=== PATIENT | male | born 1990 | race African-American/Black ===

== ENCOUNTER 2017-01-22 12:29 | Inpatient (IN) | payer OTHER ==
[~2017-01-22] VITALS: Ht 177.8 cm; Wt 101.6 kg
[2017-01-22 14:30] VITALS: BP 132/78
[2017-01-22] MEDS ORDERED: PALI6TAB PO (14:43)
[2017-01-22] MEDS ORDERED: CHLO100T24 PO (14:43)
[2017-01-22] MEDS ORDERED: PROP20TA7 PO (14:43)
[2017-01-22] MEDS ORDERED: CHLO50TA24 PO (14:43)
[2017-01-22] MEDS ORDERED: CALC-746 PO (14:43)
--- NOTE | 2017-01-22 14:43 | NUR ---
MS RN OPENING RECEIVED PATIENT A/OX4 DENIES SOB, DIFFICULTY BREATHING OR PAIN. HOME MEDICATIONS TAKEN AND UPDATED. FAXED MEDICATIONS ORDERS FROM DR ALY TO PHARMACY. PATIENT APPEARS STABLE AND SHOWN FLOOR, EDUCATED ON SMOKING POLICY AND HOSPITAL POLICIES. PATIENT STATED UNDERSTANDING. EXECUTIVE SOUS CHEF CHECKING BELONGINGS AND TAKING VS
[2017-01-22] MEDS ORDERED: MAG HYDROX/AL HYDROX/SIMETH 30 ML UDC PO PRN (15:00)
[2017-01-22] MEDS ORDERED: MAGNESIUM HYDROXIDE 30 ML UDC PO PRN (15:00)
[2017-01-22] MEDS ORDERED: ACETAMINOPHEN ES 500 MG TABLET PO PRN (15:00)
[2017-01-22 16:00] VITALS: BP 146/74
[2017-01-22] MEDS ORDERED: CHLORPROMAZINE 50 MG PO SCH (17:00)
[2017-01-22] MEDS: PROPRANOLOL 60 MG PO SCH (17:53)
--- NOTE | 2017-01-22 18:16 | NUR ---
MS RN NOTES PATIENT IN BED RESTING NO SOB OR ACUTE DISTRESS NOTED. PATIENT COMPLIANT. WILL ENDORSE CARE TO PM SHIFT.
[2017-01-22 20:00] VITALS: BP 128/82
[2017-01-22] MEDS: PALIPERIDONE 6 MG PO SCH (21:45)
[2017-01-22] MEDS ORDERED: PALIPERIDONE 6 MG PO SCH (22:00)
[2017-01-22] MEDS ORDERED: THORAZINE PO SCH (22:00)
[2017-01-22] MEDS ORDERED: LORAZEPAM 1 MG TABLET FOR INSOMNIA PO PRN (22:00)
--- NOTE | 2017-01-23 06:58 | NUR ---
MS RN NOTES AWAKE & RESPONSIVE. NOT IN ANY DISTRESS. NO SOB NOTED. DENIES ANY PAIN OR DISCOMFORT AT THIS TIME. MONITORED ACCORDINGLY. 6.5 HRS OF SLEEP. CALL LIGHT WITHIN REACH. BED IN LOWEST POSITION. SR UP X 2 FOR SAFETY. WILL ENDORSE TO NEXT SHIFT.
--- NOTE | 2017-01-23 07:53 | NUR ---
RN OPENING NOTES RECEIVED PATIENT IN THE HALLWAY WALKING AROUND, NO SOB OR DISTRESS NOTED. A/O X 4, VERBALLY RESPONSIVE AND ABLE TO MAKE NEEDS KNOWN. IV INTACT AND PATENT. KEPT PATIENT CLEAN AND COMFORTABLE IN BED, CALL LIGHT WITHIN PATIENT REACH. WILL CONTINUE TO MONITOR ACCORDINGLY.
[2017-01-23 08:00] VITALS: BP 141/70
[2017-01-23] MEDS: CHLORPROMAZINE 50 MG PO SCH ×2 (08:40→17:11)
[2017-01-23] MEDS: PROPRANOLOL 60 MG PO SCH ×2 (08:43→17:11)
--- NOTE | 2017-01-23 13:55 | NUR ---
RN NOTES PATIENT IS WALKING IN THE HALLWAY WITH NO SIGNS OF DISTRESS. PATIENT IS COOPERATIVE.
[2017-01-23 16:00] VITALS: BP 148/76
--- NOTE | 2017-01-23 17:30 | NUR ---
RN NOTES PATIENT IS CALM AND COOPERATIVE. PATIENT WATCHING TV IN HIS ROOM.
--- NOTE | 2017-01-23 18:20 | NUR ---
RN NOTES ALL NEEDS PROVIDED, ATTENDED, AND ANTICIPATED. KEPT PATIENT CLEAN AND COMFORTABLE IN BED, CALL LIGHT WITHIN PATIENT REACH. WILL CONTINUE TO MONITOR ACCORDINGLY. ENDORSED TO NEXT SHIFT RN TO CONTINUE CARE.
--- NOTE | 2017-01-23 19:50 | NUR ---
MS RN NOTE: PATIENT RESTING IN BED, NO ACUTE DISTRESS NOTED. BREATHING EVEN AND UNLABORED, NO SOB NOTED. PATIENT CALM AND COOPERATIVE. BED LOCKED AND IN LOWEST POSITION, CALL LIGHT IN REACH. WILL CONTINUE TO MONITOR.
[2017-01-23 20:00] VITALS: BP 127/73
[2017-01-23] MEDS ORDERED: THORAZINE PO SCH (22:00)
[2017-01-23] MEDS: PALIPERIDONE 6 MG PO SCH (22:09)
--- NOTE | 2017-01-24 04:00 | NUR ---
MS RN NOTE: PATIENT SLEEPING IN BED, NO ACUTE DISTRESS NOTED. BREATHING EVEN AND UNLABORED, NO SOB NOTED. WILL CONTINUE TO MONITOR.
--- NOTE | 2017-01-24 06:15 | NUR ---
MS RN NOTE: PATIENT RESTING IN BED, NO ACUTE DISTRESS NOTED. BREATHING EVEN AND UNLABORED, NO SOB NOTED. PATIENT CALM AND COOPERATIVE. PATIENT SLEPT AT LEAST 7 HOURS OF SLEEP. BED LOCKED AND IN LOWEST POSITION, CALL LIGHT IN REACH. WILL ENDORSE TO DAY NURSE TO CONTINUE WITH PLAN OF CARE.
--- NOTE | 2017-01-24 07:25 | NUR ---
RN OPENING NOTES RECEIVED PATIENT IN BED, ASLEEP, IN SEMI DICKSON POSITION, NO SOB OR DISTRESS NOTED. A/O X 4, VERBALLY RESPONSIVE AND ABLE TO MAKE NEEDS KNOWN. KEPT PATIENT CLEAN AND COMFORTABLE IN BED, CALL LIGHT WITHIN PATIENT REACH. WILL CONTINUE TO MONITOR ACCORDINGLY.
[2017-01-24 08:00] VITALS: BP 111/57
[2017-01-24] MEDS: PROPRANOLOL 60 MG PO SCH ×2 (08:15→17:06)
--- NOTE | 2017-01-24 11:21 | NUR ---
RN NOTES PATIENT WALKING IN THE HALLWAY WITH NO SIGNS OF DISTRESS.
--- NOTE | 2017-01-24 14:10 | NUR ---
RN NOTES PATIENT IS CALM AND COOPERATIVE WITH NO SIGNS OF DISTRESS.
[2017-01-24 16:00] VITALS: BP 134/83
--- NOTE | 2017-01-24 18:15 | NUR ---
RN CLOSING NOTES ALL NEEDS PROVIDED, ATTENDED, AND ANTICIPATED. KEPT PATIENT CLEAN AND COMFORTABLE IN BED. CALL LIGHT WITHIN PATIENT REACH. WILL CONTINUE TO MONITOR ACCORDINGLY. ENDORSED TO NEXT SHIFT RN TO CONTINUE CARE.
[2017-01-24 20:00] VITALS: BP 126/74
[2017-01-24] MEDS ORDERED: NYSTATIN/TRIAMCIN CREAM 15 GM TUBE TP SCH (20:30)
[2017-01-24] MEDS: PALIPERIDONE 6 MG PO SCH (21:50)
[2017-01-24] MEDS: THORAZINE PO SCH (21:51)
--- NOTE | 2017-01-25 06:08 | NUR ---
MS RN NOTES AWAKE & RESPONSIVE. NOT IN ANY DISTRESS. NO SOB NOTED. DENIES ANY PAIN OR DISCOMFORT AT THIS TIME. MONITORED ACCORDINGLY. 8 HRS OF SLEEP. CALL LIGHT WITHIN REACH. BED IN LOWEST POSITION. SR UP X 2 FOR SAFETY. WILL ENDORSE TO NEXT SHIFT.
--- NOTE | 2017-01-25 07:24 | NUR ---
MS RN OPENING RECEIVED PATIENT A/OX4 AWAKE DENIES SOB, DIFFICULTY BREATHING OR PAIN. PATIENT STATES NO NEEDS AT THIS TIME. CALL LIGHT IN REACH, BED LOWERED AND LOCKED, RAILS UPX3 FOR SAFETY AND WILL ROUND Q2H OR LESS PER NEEDS.
[2017-01-25 08:00] VITALS: BP 138/79
[2017-01-25] MEDS ORDERED: NYSTATIN/TRIAMCIN CREAM 15 GM TUBE TP PRN (08:00)
[2017-01-25] MEDS: PROPRANOLOL 60 MG PO SCH ×2 (08:26→16:33)
[2017-01-25 15:59] VITALS: BP 135/83
[2017-01-25 16:00] VITALS: BP 135/83
[2017-01-25] MEDS: LORAZEPAM 1 MG TABLET FOR AGITATION PO PRN (16:33)
--- NOTE | 2017-01-25 18:34 | NUR ---
MS RN CLOSING PATIENT STABLE NO COMPLICATIONS NO CHANGES. ALL DUE MEDS GIVEN AND ALL NEEDS MET. CARE WILL BE ENDORSED TO PASTOR CATALAN FOR N[place]IA. PRN ATIVAN GIVEN ORDERED AND PATIENT STATES RELIEF OF ANXIETY
[2017-01-25 20:00] VITALS: BP 144/90
[2017-01-25] MEDS: PALIPERIDONE 6 MG PO SCH (21:51)
[2017-01-25] MEDS: THORAZINE PO SCH (21:51)
[2017-01-25] MEDS: ZOLPIDEM TARTRATE 10 MG TABLET PO PRN (22:29)
--- NOTE | 2017-01-26 06:34 | NUR ---
MS RN NOTES AWAKE & RESPONSIVE. NOT IN ANY DISTRESS. NO SOB NOTED. DENIES ANY PAIN OR DISCOMFORT AT THIS TIME. MONITORED ACCORDINGLY. 7 HRS OF SLEEP. CALL LIGHT WITHIN REACH. BED IN LOWEST POSITION. SR UP X 2 FOR SAFETY. WILL ENDORSE TO NEXT SHIFT.
--- NOTE | 2017-01-26 07:00 | NUR ---
MS RN OPENING RECEIVED PATIENT A/OX4 DENIES SOB, DIFFICULTY BREATHING OR PAIN. PATIENT STATES HE IS MORE ANXIOUS AND LISTENING TO MUSIC IS HELPING HIM COPE WITH HIS AUDITORY AND VISUAL HALLUCINATIONS. PATIENT STATES NO NEEDS AT THIS TIME AND LEFT WITH CALL LIGHT IN REACH, BED LOWERED AND LOCKED, RAILS UPX3 FOR SAFETY AND WILL ROUND Q2H OR LESS PER NEEDS
[2017-01-26 08:00] VITALS: BP 146/90
[2017-01-26] MEDS: PROPRANOLOL 60 MG PO SCH ×2 (09:40→16:28)
[2017-01-26 16:00] VITALS: BP 141/84
[2017-01-26 17:05] VITALS: BP 141/84
--- NOTE | 2017-01-26 19:45 | NUR ---
MS RN OPENING NOTES: PATIENT JUST CAME FROM SMOKE BREAK, AOX4, AMBULATORY BUT WITH SLIGHT LIMP OVER HIS LEFT FOOT. PATIENT COMPLAINING OF PAIN OVER LEFT FOOT SCALED AT 7-8/10 AND WAS ASKING FOR PAIN MEDICATION AND SNACK. PROVIDED FOR COMFORT AND SAFETY. WILL CONT TO MONITOR.
[2017-01-26 20:00] VITALS: BP 138/83
[2017-01-26] MEDS: IBUPROFEN 200 MG TABLET PO PRN (20:16)
--- NOTE | 2017-01-26 20:17 | NUR ---
RN NOTES: PATIENT COMPLAINED OF 7/10 PAIN OVER LEFT FOOT. ADMINISTERED MOTRIN 600 MG PO. WILL CONT TO MONITOR.
--- NOTE | 2017-01-27 06:35 | NUR ---
MS RN CLOSING NOTES: PATIENT IN BED, AOX4, ON ROOM AIR, BREATHING EVEN AND UNLABORED. APPEARS CALM AND IN NO DISTRESS. NO VERBALIZATION OF PARANOID, ERRATIC THOUGHTS NOTED FROM PATIENT THROUGH SHIFT. WAS ABLE TO SLEEP FOR 7 HOURS THIS NIGHT. PROVIDED FOR COMFORT AND SAFETY. WILL ENDORSE TO AM RN FOR N[place]IA.
--- NOTE | 2017-01-27 07:19 | NUR ---
MS RN OPENING NOTES: PATIENT RECEIVED AWAKE IN BED IN NO ACUTE SIGNS OF DISTRESS AND LISTENING TO HIS RADIO. ALERT AND ORIENTED X4, NO C/O PAIN OR DISCOMFORTS VOICED AT THIS TIME. ON ROOM AIR, BREATHING EVEN AND UNLABORED. CALL LIGHT WITHIN REACH. BED LOW AND LOCKED FOR SAFETY. WILL CONTINUE TO MONITOR ACCORDINGLY.
[2017-01-27 08:00] VITALS: BP 124/77
[2017-01-27] MEDS: PROPRANOLOL 60 MG PO SCH ×2 (08:26→17:19)
[2017-01-27 16:00] VITALS: BP 148/81
--- NOTE | 2017-01-27 18:41 | NUR ---
MS RN CLOSING NOTES: PATIENT RESTING IN BED ALERT AND ORIENTED X4, NO SIGNIFICANT CHANGES NOTED THROUGHOUT THE DAY. AMBULATORY AND ABLE TO MAKE NEEDS KNOWN. ALL NEEDS AND CARE ATTENDED WELL. ON ROOM AIR, BREATHING EVEN AND UNLABORED. CALL LIGHT WITHIN REACH. BED LOW AND LOCKED FOR SAFETY. WILL ENDORSED TO ALL ROUND LOGGER FOR CONTINUITY OF CARE.
--- NOTE | 2017-01-27 19:30 | NUR ---
RN NOTE; RECEIVED PT IN BED AWAKE AND ALERT. BREATHING EVENLY. NO DISTRESS. DENIED ANY DISCOMFORT. TRIAL MEDICATION ANANT WELL. WILL CONT TO MONITOR.
[2017-01-27 20:00] VITALS: BP 136/82
[2017-01-27 20:20] VITALS: BP 136/82
--- NOTE | 2017-01-28 06:22 | NUR ---
RN NOTE; PT IN BED SLEEPING, AROUSES EASILY. BREATHING EVENLY. NO SOB. NAD. NO ACUTE CHANGES OVER THE NIGHT . NO BEHAVIORAL OR PSYCH ISSUES NOTED. NO PRN MED GIVEN. SLEPT WELL DURING THE NIGHT. CALL LIGHT WITHIN REACH. WILL CONT TO MONITOR AND WILL ENDORSE TO AM SHIFT FOR NGHIA.
[2017-01-28] MEDS: LORAZEPAM 1 MG TABLET FOR AGITATION PO PRN (06:43)
--- NOTE | 2017-01-28 06:44 | NUR ---
RN NOTE; ATIVAN 1MG GIVEN ORDERED FOR C/O ANXIETY. WILL CONT TO MONITOR
[2017-01-28 08:00] VITALS: BP 137/75
[2017-01-28] MEDS: PROPRANOLOL 60 MG PO SCH ×2 (08:46→17:00)
[2017-01-28 16:00] VITALS: BP 114/70
--- NOTE | 2017-01-28 18:35 | NUR ---
MS BAUMANN CLOSING PATIENT STABLE NO COMPLICATIONS NO CHANGES. ALL DUE MEDS GIVEN AND ALL NEEDS MET. CARE WILL BE ENDORSED TO PASTOR CATALAN FOR N[place]IA. PRN ATIVAN GIVEN ORDERED AND PATIENT STATES RELIEF OF ANXIETY Addendum: 01/28/17 at 1835 by KENDALL VIRAMONTES RN PATIENT DID NOT WANT ATIVAN
--- NOTE | 2017-01-28 19:49 | NUR ---
RN NOTE; PT UP IN CHAIR HAVING DINNER. BREATHING EVENLY . NO SOB. NO DISTRESS. NO PSYCH OR BEHAVIORAL ISSUES. WILL CONT TO MONITOR.
[2017-01-28 20:00] VITALS: BP 132/82
[2017-01-28] MEDS ORDERED: LORAZEPAM 1 MG TABLET PO PRN (21:30)
--- NOTE | 2017-01-29 06:57 | NUR ---
RN NOTE; PT IN BED SLEEPING, BREATHING EVENLY. NO SOB. NAD. NO PSYCH OR BEHAVIORAL ISSUES DURING THE NIGHT . REMAINED STABLE. NPO FOR BLOOD DRAW TODAY. ASSISTED W/ ADLS. CALL LIGHT WITHIN REACH. WILL CONT TO MONITOR.
--- NOTE | 2017-01-29 07:00 | NUR ---
MS RN OPENING RECEIVED PATIENT A/OX4 DENIES SOB, DIFFICULTY BREATHING OR PAIN. PATIENT IS LISTENING TO MUSIC TO HELP HIM COPE WITH HIS AUDITORY AND VISUAL HALLUCINATIONS. PATIENT STATES NO NEEDS AT THIS TIME AND LEFT WITH CALL LIGHT IN REACH, BED LOWERED AND LOCKED, RAILS UPX3 FOR SAFETY AND WILL ROUND Q2H OR LESS PER NEEDS
[2017-01-29 08:00] VITALS: BP 131/76
[2017-01-29 08:07] VITALS: BP 131/76
[2017-01-29] MEDS: INVEST MED MK-8189 MISC 1 CAP EA PO SCH (09:00)
[2017-01-29] MEDS: INVEST MED MK-8189 MISC 1 TAB EA PO SCH (09:00)
[2017-01-29] MEDS: PROPRANOLOL 60 MG PO SCH ×2 (09:47→17:35)
--- NOTE | 2017-01-29 10:25 | NUR ---
MS RN NOTES PATIENT FIRST DOSE OF MEDICATION GIVEN AT DOCTOR OFFICE. WILL RESUME TOMORROW FOR PATIENT
[2017-01-29] MEDS ORDERED: LORAZEPAM 1 MG TABLET FOR INSOMNIA PO PRN (12:00)
[2017-01-29] MEDS ORDERED: LORAZEPAM 1 MG TABLET FOR AGITATION PO PRN (12:00)
[2017-01-29 16:00] VITALS: BP 134/76
--- NOTE | 2017-01-29 18:30 | NUR ---
MS RN CLOSING PATIENT STABLE NO COMPLICATIONS NO CHANGES. ALL DUE MEDS GIVEN AND ALL NEEDS MET. CARE WILL BE ENDORSED TO RN FOR NGHIA.
--- NOTE | 2017-01-29 19:30 | NUR ---
MSRN SEEN BY DR. ALY, NO FURTHER ORDERS. WENT OUT FOR SMOKE WITH [employer]. NO DISCOMFORTS MADE.
[2017-01-29 20:00] VITALS: BP 131/80
[2017-01-29] MEDS: ZOLPIDEM TARTRATE 10 MG TABLET PO PRN (22:01)
--- NOTE | 2017-01-29 23:20 | NUR ---
MSRN SLEPT GOOD AFTER AMBIEN. NO OTHER NEEDS MADE.
--- NOTE | 2017-01-30 07:00 | NUR ---
MSRN HOURS OF SLEEP, 8 HRS.
--- NOTE | 2017-01-30 07:35 | NUR ---
RN NOTES PATIENT AWAKE,ALERT AND VERBALLY RESPONSIVE ABLE TO MAKE NEEDS KNOWN, RESPIRATIONS EVEN AND UNLABORED, IN NO APPARENT PAIN OR DISCOMFORT. PATIENT KEPT CLEAN DRY AND COMFORTABLE, NO IV SITE, OKAY PER MD. WILL CONTINUE TO MONITOR AND CONTINUE CURRENT TREATMENT ORDERED. CALL LIGHT WITHIN EASY REACH, WILL CONTINUE TO MONITOR
[2017-01-30 08:00] VITALS: BP 129/82
[2017-01-30] MEDS: INVEST MED MK-8189 MISC 1 CAP EA PO SCH (09:34)
[2017-01-30] MEDS: INVEST MED MK-8189 MISC 1 TAB EA PO SCH (09:35)
[2017-01-30] MEDS: PROPRANOLOL 60 MG PO SCH ×2 (09:35→16:46)
[2017-01-30 16:00] VITALS: BP 124/60
[2017-01-30] MEDS ORDERED: LORAZEPAM 1 MG TABLET PO PRN (17:30)
[2017-01-30 20:00] VITALS: BP 151/71
[2017-01-30] MEDS: ZOLPIDEM TARTRATE 10 MG TABLET PO PRN (22:34)
--- NOTE | 2017-01-30 22:45 | NUR ---
MS RN NOTE: PATIENT REQUESTING FOR ATIVAN AND AMBIEN TO HELP SLEEP. ATIVAN 1MG ORAL AND AMBIEN 10MG ORAL GIVEN PER MD ORDER. WILL CONTINUE TO MONITOR.
--- NOTE | 2017-01-31 06:20 | NUR ---
MS RN NOTE: PATIENT RESTING IN BED, NO ACUTE DISTRESS NOTED. BREATHING EVEN AND UNLABORED, NO SOB NOTED. PATIENT CALM AND COOPERATIVE. PATIENT SLEPT AT LEAST 8 HOURS OF SLEEP. BED LOCKED AND IN LOWEST POSITION, CALL LIGHT IN REACH. WILL ENDORSE TO DAY NURSE TO CONTINUE WITH PLAN OF CARE.
--- NOTE | 2017-01-31 07:25 | NUR ---
ms rn initial notes Received patient in bed, asleep, head of bed elevated, no SOB or distress noted. Calm and no aggressive behavior noted. Alert and oriented x 4, verbally responsive and able to make needs known. No IV HL. Kept patient clean and comfortable in bed, call light with in patient reach, will continue to monitor accordingly.
[2017-01-31 08:00] VITALS: BP 140/65
[2017-01-31] MEDS: INVEST MED MK-8189 MISC 1 CAP EA PO SCH (09:04)
[2017-01-31] MEDS: INVEST MED MK-8189 MISC 1 TAB EA PO SCH (09:05)
[2017-01-31] MEDS: PROPRANOLOL 60 MG PO SCH ×2 (09:06→16:55)
[2017-01-31 16:00] VITALS: BP 142/73
[2017-01-31 16:11] VITALS: BP 142/73
--- NOTE | 2017-01-31 19:14 | NUR ---
ms rn closing notes All needs provided, attended, and anticipated. Kept patient clean and comfortable in bed, call light with in patient reach. Endorsed to next shift RN to continue care.
--- NOTE | 2017-01-31 19:50 | NUR ---
RN INITIAL NOTES: RECEIVED REPORT FROM NARA BAUMANN, PT SITTING ON A CHAIR, LISTENING TO MUSIC, A/O X4, DENIES ANY PAIN OR DISCOMFORT AT THIS TIME, NO IV PER DR ALY, PT ALLOWED TO GO DOWN FOR SMOKING BREAK ACCOMPANIED BY TRANSPLANT REGISTERED NURSE, WILL CONTINUE TO MONITOR
[2017-01-31 20:00] VITALS: BP_SYST 135; BP_SYST 139; BP_DIAS 73; BP_DIAS 74
--- NOTE | 2017-01-31 21:30 | NUR ---
SMOKING BREAK: PT REQUESTED TO GO DOWN TO SMOKE, PT WAS ACCOMPANIED BY OK STANTON,
--- NOTE | 2017-02-01 06:36 | NUR ---
RN CLOSING NOTES: PT IN BED, AWAKE, DENIES ANY PAIN OR DISCOMFORT AT THIS TIME, PT ABLE TO GET AT LEAST 8HOURS OF SLEEP. PT DENIES ANY PLAN OF HURTING HIMSELF. VS REMAINS STABLE, NEEDS ATTENDED, NO UNTOWARD EVENT HAPPENED THROUGHOUT THE SHIFT, BED BRAKES ENGAGED, CALL LIGHT IN REACH, WILL ENDORSE TO DAY RN FOR NGHIA.
--- NOTE | 2017-02-01 07:30 | NUR ---
ms rn initial notes Received patient in bed, awake, sitting on the chair. On room air and tolerated well. No SOB or distress noted. On calm and comfortable condition. No aggressive behavior noted. No IV access. No complaint of pain or discomfort noted. Kept patient clean and comfortable in bed, call light with in patient reach, will continue to monitor accordingly.
[2017-02-01 08:00] VITALS: BP 144/77
[2017-02-01] MEDS: PROPRANOLOL 60 MG PO SCH ×2 (09:09→16:54)
[2017-02-01] MEDS: INVEST MED MK-8189 MISC 2 TAB EA PO SCH (09:09)
[2017-02-01] MEDS: INVEST MED MK-8189 MISC 2 CAP EA PO SCH (09:10)
[2017-02-01 16:00] VITALS: BP_SYST 129; BP_DIAS 65; BP_DIAS 69
--- NOTE | 2017-02-01 19:40 | NUR ---
RN INITIAL NOTES: RECEIVED REPORT FROM NARA BAUMANN, A/O X4, DENIES ANY PAIN OR DISCOMFORT AT THIS TIME, SAFETY PRECAUTIONS FOR FALL INITIATED CALL LIGHT IN REACH WILL CONTINUE TO MONITOR
--- NOTE | 2017-02-01 21:30 | NUR ---
SMOKE BREAK: PT REQUESTED TO GO DOWN TO SMOKE, ACCOMPANIED BY OK SALAZAR
[2017-02-01 22:20] VITALS: BP 139/74
--- NOTE | 2017-02-02 06:42 | NUR ---
RN CLOSING NOTES: PT IN BED, AWAKE, DENIES ANY PAIN OR DISCOMFORT AT THIS TIME, PT ABLE TO GET AT LEAST 10 HOURS OF SLEEP. PT DENIES ANY PLAN OF HURTING HIMSELF. VS REMAINS STABLE, NEEDS ATTENDED, NO UNTOWARD EVENT HAPPENED THROUGHOUT THE SHIFT, BED BRAKES ENGAGED, CALL LIGHT IN REACH, WILL ENDORSE TO DAY RN FOR N[place]IA.
--- NOTE | 2017-02-02 07:30 | NUR ---
MS RN AM NOTES PT AWAKE, ORIENTED X 3, ON ROOM AIR, NOT IN ANY DISTRESS. DENIES ANY PAIN AT THIS TIME. NO IV ACCESS. AMBULATORY, NO SKIN ISSUES. CALL LIGHT WITHIN REACH. BED LOW LOCKED. SR UP X 2, INSTRUCTED TO CALL FOR ASSISTANCE. SAFETY MEASURES IN PLACE. WILL CONTINUE TO MONITOR.
[2017-02-02 08:00] VITALS: BP 119/72
[2017-02-02] MEDS: PROPRANOLOL 60 MG PO SCH ×2 (09:00→17:32)
[2017-02-02] MEDS: INVEST MED MK-8189 MISC 2 CAP EA PO SCH (09:00)
[2017-02-02] MEDS: INVEST MED MK-8189 MISC 2 TAB EA PO SCH (09:00)
--- NOTE | 2017-02-02 09:30 | NUR ---
MS RN NOTES ADMINISTERED DUE MEDS
[2017-02-02 16:00] VITALS: BP 127/55
[2017-02-02 18:00] VITALS: BP 127/55
--- NOTE | 2017-02-02 18:30 | NUR ---
MS RN NOTES PT RESTING IN BED, AAO X 4, ON ROOM AIR, NOT IN ANY DISTRESS. DENIES ANY PAIN AT THIS TIME. NO IV ACCESS. AMBULATORY, NO SKIN ISSUES. CALL LIGHT WITHIN REACH. BED LOW LOCKED. SR UP X 2, INSTRUCTED TO CALL FOR ASSISTANCE. VSS. SAFETY MEASURES IN PLACE. ALL NEEDS MET. WILL ENDORSE TO NEXT SHIFT FOR N[place]IA.
--- NOTE | 2017-02-02 19:16 | NUR ---
MS/RN NOTES RECEIVED PT. LYING IN BED. AWAKE, ALERT AND ORIENTED X4. BREATHING EVEN AND UNLABORED ON ROOM AIR. NO SOB, RESPIRATORY DISTRESS OR COMPLAINTS OF PAIN NOTED AT THIS TIME. PT. HAS NO IV ACCESS MD AWARE. NO BEHAVIORAL ISSUES NOTED AT THIS TIME. BED IN LOWEST POSITION, CALL LIGHT WITHIN REACH, WILL CONTINUE TO MONITOR.
[2017-02-02 20:03] VITALS: BP 131/69
[2017-02-02 20:04] VITALS: BP 131/69
--- NOTE | 2017-02-03 01:00 | NUR ---
MS/RN NOTES PT. LYING IN BED RESTING. NO BEHAVIORAL PROBLEMS NOTED. PT. BREATHING EVEN AND UNLABORED ON ROOM AIR. NO S/S OF PAIN NOTED AT THIS TIME. WILL CONTINUE TO MONITOR.
--- NOTE | 2017-02-03 06:09 | NUR ---
MS/RN NOTES PT. LYING IN BED RESTING. BREATHING EVEN AND UNLABORED ON ROOM AIR. NO SOB, RESPIRATORY DISTRESS OR COMPLAINTS OF PAIN NOTED AT THIS TIME. PT. HAS NO IV ACCESS MD AWARE. NO BEHAVIORAL ISSUES NOTED AT THIS TIME AND THROUGHOUT SHIFT. ALL PT. NEEDS MET. PT. APPEARS COMFORTABLE AT THE MOMENT. BED IN LOWEST POSITION, CALL LIGHT WITHIN REACH, WILL ENDORSE TO DAYSHIFT NURSE FOR CONTINUITY OF CARE.
[2017-02-03 08:00] VITALS: BP 137/70
[2017-02-03] MEDS: INVEST MED MK-8189 MISC 2 CAP EA PO SCH (09:02)
[2017-02-03] MEDS: PROPRANOLOL 60 MG PO SCH ×2 (09:02→17:19)
[2017-02-03] MEDS: INVEST MED MK-8189 MISC 2 TAB EA PO SCH (09:02)
[2017-02-03 16:00] VITALS: BP 113/55
[2017-02-03 18:00] VITALS: BP 113/55
--- NOTE | 2017-02-03 19:20 | NUR ---
RN OPEN NOTES RECEIVED PATIENT AWAKE SITTING IN CHAIR. A/O X4. NO SIGNS OF DISTRESS OR DISCOMFORT. BREATHING EVEN AND UNLABORED. NO IV ACCESS. DENIES ANY PAIN. BED IN LOW LOCKED POSITION WITH SIDE RAILS X2. CALL LIGHT WITHIN REACH. WILL CONTINUE TO MONITOR.
[2017-02-03 20:00] VITALS: BP 119/66
--- NOTE | 2017-02-03 20:05 | NUR ---
RN NOTES RN NOTES PATIENT WENT DOWN TO SMOKE. ACCOMPANIED BY PATIENT AND FAMILY MEMBER OF ROOM 208.
--- NOTE | 2017-02-03 21:30 | NUR ---
RN NOTES PATIENT WENT DOWN TO SMOKE. ACCOMPANIED BY MANAV EUCEDA.
--- NOTE | 2017-02-04 06:35 | NUR ---
RN CLOSING NOTES PATIENT RESTING IN BED. A/O X4. NO SIGNS OF DISTRESS OR DISCOMFORT. BREATHING EVEN AND UNLABORED. NO IV ACCESS. DENIES ANY PAIN. NO BEHAVIORAL ISSUES NOTED THROUGHOUT SHIFT. PATIENT ABLE TO SLEEP ABOUT 8 HOURS. ALL NEEDS MET. BED IN LOW LOCKED POSITION WITH SIDE RAILS X2. CALL LIGHT WITHIN REACH. WILL ENDORSE TO AM SHIFT FOR N[place]IA.
--- NOTE | 2017-02-04 07:05 | NUR ---
MS RN INITIAL NOTES REPORT RECEIVED AT THE BEDSIDE. PATIENT IS SLEEPING, NO SOB OR DISTRESS NOTED.
[2017-02-04 08:16] VITALS: BP 129/71
[2017-02-04] MEDS: INVEST MED MK-8189 MISC 3 TAB EA PO SCH (08:31)
[2017-02-04] MEDS: INVEST MED MK-8189 MISC 3 CAP EA PO SCH (08:31)
[2017-02-04] MEDS: PROPRANOLOL 60 MG PO SCH ×2 (08:31→16:57)
--- NOTE | 2017-02-04 10:40 | NUR ---
MS RN NOTES PATIENT REQUESTING CREDIT CARDS FROM [employer]. REMOVED AND ALL UPDATED AND CORRECTED AND ACCOUNTED FOR ON BELONGINGS LIST.
[2017-02-04 16:00] VITALS: BP 109/71
--- NOTE | 2017-02-04 19:04 | NUR ---
MS RN CLOSING NOTES NO SIGNIFICANT CHANGE IN PATIENT CONDITION THROUGHOUT THE SHIFT. NO SOB OR DISTRESS NOTED AT THIS TIME. PATIENT DENIES PAIN AT THIS TIME. BED IN A LOW POSITION, CALL LIGHT WITHIN PATIENT REACH. WILL ENDORSE FOR N[place]IA.
--- NOTE | 2017-02-04 19:10 | NUR ---
MS RN NOTES RECEIVED PT IN BED, AWAKE, A/O X 4. VERBALLY RESPONSIVE. LISTENING TO MUSIC AT THIS TIME. NO DISTRESS, NO SOB NOTED AT THIS TIME. RESPIRATION IS EVEN AND UNLABORED. ABDOMEN IS SOFT AND NON DISTENDED. NO C/O PAIN OR DISCOMFORT AT THIS TIME. ALL NEEDS ATTENDED. KEPT COMFORTABLE. CALL LIGHT WITHIN REACH. WILL CONTINUE TO MONITOR.
[2017-02-04 20:00] VITALS: BP 124/63
--- NOTE | 2017-02-05 06:22 | NUR ---
MS RN NOTES PT IN BED, RESTING COMFORTABLY AT THIS TIME. AROUSES EASILY, A/O X 4. VERBALLY RESPONSIVE. PT IS STABLE. NO DISTRESS, NO SOB NOTED AT THIS TIME. RESPIRATION IS EVEN AND UNLABORED. ABDOMEN IS SOFT AND NON DISTENDED. NO C/O PAIN OR DISCOMFORT. ALL NEEDS ATTENDED & MET. KEPT COMFORTABLE. CALL LIGHT WITHIN REACH. SAFETY PRECAUTIONS OBSERVED. WILL ENDORSE TO NEXT SHIFT FOR N[place]IA.
--- NOTE | 2017-02-05 06:51 | NUR ---
PT'S HOURS OF SLEEP : 8 HOURS.
--- NOTE | 2017-02-05 07:19 | NUR ---
MS RN OPENING NOTES RECEIVED PATIENT AWAKE AND SITTING ON CHAIR BY BEDSIDE. ALERT AND ORIENTED X4, NO COMPLAINTS OF PAIN OR DISCOMFORTS AT THIS TIME. ON ROOM AIR, RESPIRATION EVEN WITH NO SIGNS OF SOB NOTED. WILL CONTINUE TO MONITOR PT ACCORDINGLY.
[2017-02-05 08:00] VITALS: BP 114/64
[2017-02-05] MEDS: INVEST MED MK-8189 MISC 3 TAB EA PO SCH (08:09)
[2017-02-05] MEDS: INVEST MED MK-8189 MISC 3 CAP EA PO SCH (08:10)
[2017-02-05] MEDS: PROPRANOLOL 60 MG PO SCH ×2 (09:39→17:07)
[2017-02-05 16:00] VITALS: BP 125/73
--- NOTE | 2017-02-05 19:11 | NUR ---
MS RN CLOSING NOTES: PATIENT AWAKE AND RESTING IN BED. A/O X4, NO SIGNIFICANT CHANGES NOTED THROUGHOUT THE DAY. AMBULATORY AND ABLE TO MAKE NEEDS KNOWN. ALL NEEDS AND CARE ATTENDED WELL. ON ROOM AIR, BREATHING EVEN AND UNLABORED. CALL LIGHT WITHIN REACH. BED LOW AND LOCKED FOR SAFETY. ENDORSED TO AGRICULTURAL EQUIPMENT SALESPERSON FOR CONTINUITY OF CARE.
[2017-02-05 20:00] VITALS: BP 118/52
[2017-02-05] MEDS: LORAZEPAM 1 MG TABLET FOR INSOMNIA PO PRN (23:52)
[2017-02-05] MEDS: ZOLPIDEM TARTRATE 10 MG TABLET PO PRN (23:52)
--- NOTE | 2017-02-06 07:18 | NUR ---
MS RN NOTES PT IN BED, RESTING COMFORTABLY AT THIS TIME. AROUSES EASILY, A/O X 4. VERBALLY RESPONSIVE. PT IS STABLE. NO DISTRESS, NO SOB NOTED AT THIS TIME. RESPIRATION IS EVEN AND UNLABORED. ABDOMEN IS SOFT AND NON DISTENDED. NO C/O PAIN OR DISCOMFORT. PT ABLE TO SLEEP FOR 6 HOURS ALL NEEDS ATTENDED & MET. KEPT COMFORTABLE. CALL LIGHT WITHIN REACH. SAFETY PRECAUTIONS OBSERVED. WILL ENDORSE TO NEXT SHIFT FOR N[place]IA.
--- NOTE | 2017-02-06 07:26 | NUR ---
MS RN OPENING NOTES RECEIVED PATIENT AWAKE IN BED IN NO ACUTE SIGNS OF DISTRESS. ALERT AND ORIENTED X4, QUIET, CALM AND APPEARS COMFORTABLE. NO C/O PAIN VOICED AT THIS TIME. ON ROOM AIR, RESPIRATION EVEN AND UNLABORED. CALL LIGHT WITHIN REACH. WILL CONTINUE TO MONITOR PT ACCORDINGLY.
[2017-02-06 08:00] VITALS: BP 146/78
[2017-02-06 08:25] VITALS: BP 146/78
[2017-02-06] MEDS: INVEST MED MK-8189 MISC 3 CAP EA PO SCH (09:09)
[2017-02-06] MEDS: INVEST MED MK-8189 MISC 3 TAB EA PO SCH (09:09)
[2017-02-06] MEDS: PROPRANOLOL 60 MG PO SCH ×2 (09:09→16:34)
[2017-02-06 16:00] VITALS: BP 118/71
--- NOTE | 2017-02-06 18:53 | NUR ---
MS RN CLOSING NOTES: PATIENT RESTING IN BED LISTENING TO MUSIC ON HIS CELLPHONE. A/O X4, NO SIGNIFICANT CHANGES NOTED THROUGHOUT THE DAY. AMBULATORY AND ABLE TO MAKE NEEDS KNOWN. ALL NEEDS AND CARE ATTENDED WELL. ON ROOM AIR, BREATHING EVEN AND UNLABORED. CALL LIGHT WITHIN REACH. BED LOW AND LOCKED FOR SAFETY. WILL ENDORSED TO CARBIDE GRINDER FOR CONTINUITY OF CARE.
[2017-02-06 20:00] VITALS: BP 127/72
--- NOTE | 2017-02-06 20:20 | NUR ---
MSRMounika OOB ON A CHAIR, NO NEEDS MADE STATED WANTED TO HAVE SOME PRIVATE TIME ALONE.
--- NOTE | 2017-02-06 21:00 | NUR ---
MSRN CAME BACK FROM SMOKING ACCPD BY STAFF. NO NEEDS MADE. BEHAVIOR ACCEPTABLE.
--- NOTE | 2017-02-06 22:30 | NUR ---
MSRN STARTED TO SLEEP THIS TIME.
--- NOTE | 2017-02-07 07:30 | NUR ---
MSRN TOTAL HOURS OF SLEEP 9 HRS.
--- NOTE | 2017-02-07 07:33 | NUR ---
MS RN INITIAL NOTE REPORT RECEIVED AT THE BEDSIDE. PATIENT IS SLEEPING. NO SOB OR DISTRESS NOTED AT THIS TIME. PATIENT DOES NOT APPEAR TO BE IN PAIN, NO FACIAL GRIMACE NOTED. BED IN A LOW POSITION, CALL LIGHT WITHIN PATIENT REACH. WILL CONTINUE TO MONITOR.
[2017-02-07 08:00] VITALS: BP 119/74
[2017-02-07] MEDS: INVEST MED MK-8189 MISC 3 TAB EA PO SCH (08:24)
[2017-02-07] MEDS: INVEST MED MK-8189 MISC 3 CAP EA PO SCH (08:24)
[2017-02-07] MEDS: PROPRANOLOL LA 60 MG CAP.SA.24H PO SCH ×2 (08:25→16:24)
[2017-02-07 16:00] VITALS: BP 120/71
--- NOTE | 2017-02-07 19:00 | NUR ---
MS RN CLOSING NOTES NO SIGNIFICANT CHANGES IN PATIENT CONDITION THROUGHOUT THE SHIFT. NO SOB OR DISTRESS NOTED AT THIS TIME. PATIENT DENIES PAIN. BED IN A LOW POSITION, CALL LIGHT WITHIN PATIENT REACH. WILL ENDORSE FOR N[place]IA.
[2017-02-07 20:00] VITALS: BP 130/87
[2017-02-08] MEDS: ZOLPIDEM TARTRATE 10 MG TABLET PO PRN (00:39)
[2017-02-08] MEDS: LORAZEPAM 1 MG TABLET FOR INSOMNIA PO PRN ×2 (00:39→22:31)
--- NOTE | 2017-02-08 06:18 | NUR ---
MS RN NOTES AWAKE & RESPONSIVE. NOT IN ANY DISTRESS. NO SOB NOTED. DENIES ANY PAIN OR DISCOMFORT AT THIS TIME. MONITORED ACCORDINGLY. 6 HOURS OF SLEEP. CALL LIGHT WITHIN REACH. BED IN LOWEST POSITION. SR UP X 2 FOR SAFETY. WILL ENDORSE TO NEXT SHIFT.
[2017-02-08 08:00] VITALS: BP 130/76
[2017-02-08] MEDS: PROPRANOLOL LA 60 MG CAP.SA.24H PO SCH ×2 (09:24→16:15)
[2017-02-08] MEDS: INVEST MED MK-8189 MISC 3 CAP EA PO SCH (09:24)
[2017-02-08] MEDS: INVEST MED MK-8189 MISC 3 TAB EA PO SCH (09:25)
[2017-02-08 16:00] VITALS: BP 131/80
--- NOTE | 2017-02-08 19:35 | NUR ---
MSRN FULLY AWAKE, BEHAVIOR ACCEPTABLE. STATED BY PATIENT WILL CALL STAFF FOR ANY NEEDS /CONCERNS. COOPERATIVE, FREQ WATCHED.
[2017-02-08 20:00] VITALS: BP 144/71
--- NOTE | 2017-02-08 22:03 | NUR ---
CHECO OUT OF THE ROOM AT THIS TIME WITH STAFF.
--- NOTE | 2017-02-08 22:30 | NUR ---
MSRN AGITATED, WANTS 2MG ATIVAN. MEDICATION REGIMEN EXPLAINED TO PATIENT, WELL UNDERSTOOOD. TOOK 1MG TAB OF ATIVAN.
[2017-02-09] MEDS: ZOLPIDEM TARTRATE 10 MG TABLET PO PRN (00:19)
--- NOTE | 2017-02-09 00:20 | NUR ---
MSRN UNABLE TO SLEEP, MARE CALMER THIS TIME. LATE SNACKS PROVIDED. 10MG TAB OF AMBIEN GIVEN. BEDREST INSTRUCTED.
--- NOTE | 2017-02-09 01:30 | NUR ---
msrn SLEEPING, APPEARS COMFORTABLE. CLOSELY WATCHED
--- NOTE | 2017-02-09 06:48 | NUR ---
MSRN SLEEPING STILL. HOURS OF SLEEP 7
[2017-02-09 08:00] VITALS: BP 140/76
--- NOTE | 2017-02-09 08:00 | NUR ---
MS 2 RN AM CLINICAL TRIAL NOTES RECEIVED PT ALERT AND AMBULATING ALONG THE HALLWAY LISTENING TO LOUD MUSIC WHICH I INSTRUCTED THE PT TO LOWER THE RADIO'S VOLUME SO NOT TO BOTHER OTHER PTS WHO ARE SLEEPING.NO SOB OR DISTRESS NOTED AT THIS TIME. PATIENT DENIES PAIN, NO FACIAL GRIMACE NOTED. BED IN A LOW POSITION, CALL LIGHT WITHIN PATIENT REACH. WILL CONTINUE TO MONITOR.
[2017-02-09] MEDS: INVEST MED MK-8189 MISC 3 TAB EA PO SCH (09:38)
[2017-02-09] MEDS: PROPRANOLOL LA 60 MG CAP.SA.24H PO SCH ×2 (09:38→17:54)
[2017-02-09] MEDS: INVEST MED MK-8189 MISC 3 CAP EA PO SCH (09:39)
[2017-02-09 16:00] VITALS: BP 130/67
[2017-02-09] MEDS ORDERED: LORAZEPAM 1 MG TABLET PO PRN (17:30)
[2017-02-09] MEDS: LORAZEPAM 1 MG TABLET FOR AGITATION PO PRN (17:57)
--- NOTE | 2017-02-09 19:00 | NUR ---
PT IN THE HALLWAY WITH OTHER CLINICAL TRIAL PTS.ATIVAN 1 MG PO GIVEN.DENIES ANY DISTRESS OR PAIN.
--- NOTE | 2017-02-09 19:45 | NUR ---
MS RN NOTES RECEIVED ON BED,CALM AND RELAX,ABLE TO ANSWER QUESTION RIGHT,VERY POLITE.WILL CONTINUE TO MONITOR BEHAVIOR
[2017-02-09 20:00] VITALS: BP 143/84
[2017-02-09 20:01] VITALS: BP 143/84
--- NOTE | 2017-02-09 20:40 | NUR ---
MS RN NOTES WENT DOWN TO GET SOME FRESH AIR ACCOMPANIED BY AIDAN ADAM CNA
[2017-02-10] MEDS: ZOLPIDEM TARTRATE 10 MG TABLET PO PRN ×2 (00:44→22:04)
[2017-02-10] MEDS: LORAZEPAM 1 MG TABLET FOR AGITATION PO PRN (00:44)
--- NOTE | 2017-02-10 00:44 | NUR ---
MS RN NOTES CO INSOMNIA,AMBIEN 10MG PO GIVEN.FEELING ANXIOUS,ATIVAN 1MG PO GIVEN
--- NOTE | 2017-02-10 02:00 | NUR ---
MS RN NOTES SOUND ASLEEP
--- NOTE | 2017-02-10 06:54 | NUR ---
MS RN NOTES NO SIGNIFICANT CHANGE IN STATUS.REMAINS MED COMPLIANT.WILL CONTINUE WITH CLINICAL STUDY PROGRAM.ENDORSE TO DANIELLE FOR NGHIA.
[2017-02-10 08:00] VITALS: BP 130/71
--- NOTE | 2017-02-10 08:00 | NUR ---
MS 2 RN AM CLINICAL TRIAL NOTES RECEIVED PT ALERT AND AMBULATING ALONG THE HALLWAY LISTENING TO LOUD MUSIC WHICH I INSTRUCTED THE PT TO LOWER THE RADIO'S VOLUME SO NOT TO BOTHER OTHER PTS WHO ARE SLEEPING.NO SOB OR DISTRESS NOTED AT THIS TIME. PATIENT DENIES PAIN, NO FACIAL GRIMACE NOTED.NO SUICIDAL IDEATIONS EXPRESSED. BED IN A LOW POSITION, CALL LIGHT WITHIN PATIENT REACH. WILL CONTINUE TO MONITOR.
[2017-02-10] MEDS: INVEST MED MK-8189 MISC 3 TAB EA PO SCH (08:34)
[2017-02-10] MEDS: INVEST MED MK-8189 MISC 3 CAP EA PO SCH (08:34)
[2017-02-10] MEDS: IBUPROFEN 200 MG TABLET PO PRN (08:34)
[2017-02-10] MEDS: PROPRANOLOL LA 60 MG CAP.SA.24H PO SCH ×2 (08:35→17:53)
--- NOTE | 2017-02-10 12:30 | NUR ---
PT IS WITH VISITORS IN THEIR ROOM AND INSTRUCTED THE PT/VISITORS THE RULES AND REGULATIONS THAT NEEDS TO BE FOLLOWED ACCORDING TO HOSPITAL PROTOCOL.PT/VISITORS VERBALIZED UNDERSTANDING OF INSTRUCTIONS GIVEN.
[2017-02-10 16:00] VITALS: BP 128/69
[2017-02-10 19:59] VITALS: BP_SYST 128; BP_SYST 137; BP_DIAS 69; BP_DIAS 76
--- NOTE | 2017-02-10 20:00 | NUR ---
MS2/RN RECEIVE PATIENT AWAKE, ALERT, ORIENTED, COMFORTABLE, NO C/O PAIN, NO DISTRESS NOTED, CALL LIGHT IN REACH. WILL MONITOR.
[2017-02-10] MEDS: LORAZEPAM 1 MG TABLET FOR INSOMNIA PO PRN (22:04)
--- NOTE | 2017-02-11 | NUR ---
MS2/RN PATIENT IS SLEEPING AT THIS TIME, COMFORTABLE, NO SIGNS OF DISTRESS NOTED, CALL LIGHT IN REACH. WILL CONTINUE TO MONITOR.
--- NOTE | 2017-02-11 07:00 | NUR ---
MS2/RN PATIENT STILL SLEEPING AT THIS TIME, EASILY AROUSABLE, APPEAR COMFORTABLE, NO SIGNS OF DISTRESS NOTED, ALL NEEDS ATTENDED AT THIS TIME. WILL CONTINUE TO MONITOR.
--- NOTE | 2017-02-11 07:50 | NUR ---
MS RN OPENING NOTE PATIENT IS ALERT AND ORIENTED x4. NO PAIN AT THIS TIME. NO SOB OR DISTRESS NOTED. CALL LIGHT WITHIN REACH. SAFETY MEASURES IMPLEMENTED. ABLE TO COMMUNICATE NEEDS. NO IV ACCESS. WILL CONTINUE TO MONITOR
[2017-02-11 08:00] VITALS: BP 136/84
[2017-02-11] MEDS: INVEST MED MK-8189 MISC 3 CAP EA PO SCH (09:00)
[2017-02-11] MEDS: INVEST MED MK-8189 MISC 3 TAB EA PO SCH (09:01)
[2017-02-11] MEDS: PROPRANOLOL LA 60 MG CAP.SA.24H PO SCH ×2 (09:01→16:27)
[2017-02-11 16:00] VITALS: BP 133/71
--- NOTE | 2017-02-11 18:50 | NUR ---
MS RN CLOSING NOTE PATIENT IS ALERT AND ORIENTED x4. NO PAIN AT THIS TIME. NO SOB OR DISTRESS NOTED. CALL LIGHT WITHIN REACH AT ALL TIMES. SAFETY MEASURES IMPLEMENTED. ABLE TO COMMUNICATE NEEDS. WILL ENDORSE TO POSITION CLASSIFICATION SPECIALIST NURSE
[2017-02-11 20:00] VITALS: BP 134/69
--- NOTE | 2017-02-11 20:30 | NUR ---
MS2/RN PATIENT IS AWAKE, ALERT, ORIENTED, COMFORTABLE, NO C/O PAIN, NO DISTRESS NOTED. DISCUSSED PLAN OF CARE. NPO POST 2100 PER ORDER. VERBALIZED UNDERSTANDING AND IN AGREEMENT.
[2017-02-11] MEDS: ZOLPIDEM TARTRATE 10 MG TABLET PO PRN (21:32)
--- NOTE | 2017-02-11 23:00 | NUR ---
MS2/RN PATIENT IS SLEEPING AT THIS TIME, AROUSABLE, APPEAR COMFORTABLE, NO SIGNS OF DISTRESS NOTED, CALL LIGHT IN REACH. WILL CONTINUE TO MONITOR.
--- NOTE | 2017-02-12 | NUR ---
MS2/RN NPO STATUS STARTED ORDERED.
--- NOTE | 2017-02-12 06:54 | NUR ---
MS2/RN PATIENT IS AWAKE, NO CHANGE IN CONDITION. REENFORCED TEACHINGS ABOUT NPO STATUS UNTIL SEEN BY DR. ALY. VERBALIZED UNDERSTANDING.
--- NOTE | 2017-02-12 07:50 | NUR ---
MS RN OPENING NOTE PATIENT IS ALERT AND ORIENTED x4. NO PAIN AT THIS TIME. NO SOB OR DISTRESS NOTED. ABLE TO COMMUNICATE NEEDS. WILL CONTINUE TO MONITOR
[2017-02-12 08:00] VITALS: BP 122/74
[2017-02-12] MEDS: INVEST MED MK-8189 MISC 3 TAB EA PO SCH (10:15)
[2017-02-12] MEDS: PROPRANOLOL LA 60 MG CAP.SA.24H PO SCH ×2 (10:15→16:48)
[2017-02-12] MEDS: INVEST MED MK-8189 MISC 3 CAP EA PO SCH (10:15)
[2017-02-12] MEDS ORDERED: LORAZEPAM 1 MG TABLET FOR INSOMNIA PO PRN (12:00)
[2017-02-12] MEDS ORDERED: LORAZEPAM 1 MG TABLET FOR AGITATION PO PRN (12:00)
[2017-02-12 16:22] VITALS: BP 126/71
--- NOTE | 2017-02-12 17:00 | NUR ---
MS RN NOTE PATIENT REQUESTED TO HAVE HIS DEBIT CARDS TAKEN OUT FROM [employer]. MADE NURSING YOUTH CORRECTIONS OFFICER AWARE. ALL 6 CARDS ARE WITH PATIENT AT THE BEDSIDE.
--- NOTE | 2017-02-12 18:42 | NUR ---
MS RN CLOSING NOTE PATIENT IS ALERT AND ORIENTED x4. NO PAIN AT THIS TIME. NO SOB OR DISTRESS NOTED. CALL LIGHT WITHIN REACH AT ALL TIMES. SAFETY MEASURES IMPLEMENTED. ABLE TO COMMUNICATE NEEDS. NO IV ACCESS. PATIENT REQUESTED TO HAVE DEBIT CARDS FROM [employer] TO HAVE AT BEDSIDE. WILL ENDORSE TO LOCKMAKER NURSE
[2017-02-12 20:00] VITALS: BP 125/62
--- NOTE | 2017-02-12 20:00 | NUR ---
MSRN QUIET, PATIENT IN HIS ROOM. COOPERATIVE, ALLNEEDS ATTENDED.
--- NOTE | 2017-02-12 23:00 | NUR ---
MSRN ACCPD BY MANAGER HOME IMPROVEMENT TO WASH HIS CLOTHES. INFORMS STAFF IF NEED TO GO OTSIDE FOR SMOKE. COOPERATIVE. NO SIGNS OF AGITATION.
--- NOTE | 2017-02-13 01:20 | NUR ---
MSRanjithN SLEEPING, DID NOT ASK FOR ATIVAN OR AMBIEN.
--- NOTE | 2017-02-13 07:24 | NUR ---
MSRN TOTAL HOURS OF SLEEP 5HOURS
--- NOTE | 2017-02-13 07:45 | NUR ---
AM RN NOTE Received patient awake, A/O X4 verbally responsive. Denies any pain or discomfort at this time. Will continue to monitor.
[2017-02-13 08:00] VITALS: BP 122/65
[2017-02-13] MEDS: INVEST MED MK-8189 MISC 3 TAB EA PO SCH (09:15)
[2017-02-13] MEDS: INVEST MED MK-8189 MISC 3 CAP EA PO SCH (09:15)
[2017-02-13] MEDS: PROPRANOLOL LA 60 MG CAP.SA.24H PO SCH ×2 (09:16→16:46)
[2017-02-13 16:00] VITALS: BP 140/82
--- NOTE | 2017-02-13 18:16 | NUR ---
AM RN NOTE Patient remained calm and co-operative with care. All needs met and attended in timely manner. Will continue to monitor and endorse care to next shift.
--- NOTE | 2017-02-13 19:30 | NUR ---
RECEIVED PATIENT FROM DAY SHIFT, PATIENT IS ALERT AND ORIENTEDX4, DENIES RESPIRATORY DISTRESS AND PAIN AT THIS TIME. WILL CONTINUE TO MONITOR.
[2017-02-13 20:00] VITALS: BP 128/75
--- NOTE | 2017-02-14 06:43 | NUR ---
MS RN NOTE PATIENT IS SLEEPING IN BED COMFORTABLY, NO ACUTE DISTRESS NOTED DURING THE CONTINUITY READER. DID NOT ASK FOR ATIVAN OR SLEEPING MED. WILL ENDORSE TO DAY SHIFT NURSE FOR NGHIA.
--- NOTE | 2017-02-14 07:24 | NUR ---
AM RN NOTE Received patient awake, A/OX4. No SOB noted resp even and non-labored. Denies any pain or discomfort at this time. Will continue to monitor.
[2017-02-14 08:00] VITALS: BP 128/59
[2017-02-14] MEDS: PROPRANOLOL LA 60 MG CAP.SA.24H PO SCH ×2 (08:47→16:13)
[2017-02-14] MEDS: INVEST MED MK-8189 MISC 3 TAB EA PO SCH (08:47)
[2017-02-14] MEDS: INVEST MED MK-8189 MISC 3 CAP EA PO SCH (08:47)
[2017-02-14 16:00] VITALS: BP 121/78
--- NOTE | 2017-02-14 18:16 | NUR ---
AM RN NOTE Patient awake, no behavioral outburst noted. All needs met and attended in timely manner. Will endorse care to next shift.
--- NOTE | 2017-02-14 19:30 | NUR ---
RN NOTES: RECEIVED SITTING ON THE CHAIR ON THE BED SIDE WHILE LISTENING TO MUSIC,ALERT AND COHERENT X 4, ABLE TO MAKE NEEDS KNOWN, NO SIGN OF SOB OR RESPIRATORY DISTRESS NOTED, FALL AND SAFETY PRECAUTION OBSERVE, CALL LIGHT WITHIN EASY EACH.
[2017-02-14 20:00] VITALS: BP 133/78
--- NOTE | 2017-02-15 07:16 | NUR ---
RN NOTES: ASLEEP IN THE NIGHT FOR ALMOST 7-8HOURS, NO CALLS MADE, ENDORSED FOR CONTINUITY OF CARE.
--- NOTE | 2017-02-15 07:33 | NUR ---
AM RN NOTE Received patient awake, A/OX4. No SOB noted resp even and non-labored. Denies any pain or discomfort at this time. Will continue to monitor.
[2017-02-15 08:00] VITALS: BP 119/66
[2017-02-15] MEDS: INVEST MED MK-8189 MISC 3 CAP EA PO SCH (08:38)
[2017-02-15] MEDS: INVEST MED MK-8189 MISC 3 TAB EA PO SCH (08:38)
[2017-02-15] MEDS: PROPRANOLOL LA 60 MG CAP.SA.24H PO SCH ×2 (08:38→16:22)
--- NOTE | 2017-02-15 15:00 | NUR ---
AM RN NOTE Patient awake, went downstairs to smoke and wants to stay downstairs for long period of time. INSTRUMENT PROCESSING TECH accompanied pt back to the floor and pt was getting upset. RN explained the order that was given by Dr. Bonilla and pt verbalize understanding. Called Dr. Bonilla and made aware.
[2017-02-15 16:00] VITALS: BP 114/65
--- NOTE | 2017-02-15 18:23 | NUR ---
AM RN NOTE Patient awake, no acute distress noted. All needs met and attended in timely manner. Will endorse care to next shift.
--- NOTE | 2017-02-15 19:45 | NUR ---
RN OPENING NOTES RECEIVED REPORT FROM JAYLIN RNKEEGAN. FOUND Pt AWAKE RESTING IN BED. NO S/S OF ACUTE DISTRESS OR SOB NOTED. Pt IS A/OX4, VERBAL, ABLE TO MAKE NEEDS KNOWN. NO IV ACCESS; HERE FOR CLINICAL TRIAL. SAFETY MEASURES IN PLACE. BED LOW, LOCKED, HOB ELEVATED, SIDE RAILS UP, CALL LIGHT AND BEDSIDE TABLE WITHIN REACH. WILL CONTINUE TO MONITOR Pt THROUGHOUT THE NIGHT FOR SAFETY.
[2017-02-15 20:00] VITALS: BP 120/75
--- NOTE | 2017-02-16 07:00 | NUR ---
RN CLOSING NOTES NO SIGNIFICANT CHANGES IN Pt's CONDITION. NO S/S OF ACUTE DISTRESS OR SOB NOTED. ALL NEEDS MET AND ATTENDED TO. SAFETY MEASURES IN PLACE. WILL ENDORSE TO DAYSHIFT RN FOR Pt's NGHIA.
--- NOTE | 2017-02-16 07:18 | NUR ---
MS RN OPENING NOTES Received patient awake in bed in no acute signs of distress. A/OX4, no c/o pain or discomforts voiced at this time. On room air, breathing even and non-labored. Will continue to monitor accordingly.
[2017-02-16 08:00] VITALS: BP 153/86
[2017-02-16] MEDS: INVEST MED MK-8189 MISC 3 TAB EA PO SCH (08:31)
[2017-02-16] MEDS: INVEST MED MK-8189 MISC 3 CAP EA PO SCH (08:31)
[2017-02-16] MEDS: PROPRANOLOL LA 60 MG CAP.SA.24H PO SCH ×2 (10:42→17:45)
[2017-02-16 16:00] VITALS: BP 119/79
--- NOTE | 2017-02-16 19:01 | NUR ---
MS RN CLOSING NOTES: PATIENT RESTING IN BED LISTENING TO MUSIC ON HIS CELLPHONE. A/O X4, NO SIGNIFICANT CHANGES NOTED THROUGHOUT THE DAY. AMBULATORY AND ABLE TO MAKE NEEDS KNOWN. ALL NEEDS AND CARE ATTENDED WELL. ON ROOM AIR, BREATHING EVEN AND UNLABORED. CALL LIGHT WITHIN REACH. BED LOW AND LOCKED FOR SAFETY. WILL ENDORSED TO ACCOUNTING TEACHER FOR CONTINUITY OF CARE.
[2017-02-16 20:00] VITALS: BP 118/52
[2017-02-16 20:07] VITALS: BP 118/52
[2017-02-16 20:16] VITALS: BP 118/52
--- NOTE | 2017-02-17 03:38 | NUR ---
RN OPENING NOTES RECEIVED REPORT FROM AGUILA MOSQUEDA RN. Pt IS A/OX4, VERBAL, ABLE TO MAKE NEEDS KNOWN. Pt IS HERE ON VOLUNTARY CLINICAL TRIAL FOR INVESTIGATIONAL ANTIPSYCHOTIC MEDICATION. NO IV ACCESS. SAFETY MEASURES IN PLACE. BED LOW, LOCKED, HOB ELEVATED, SIDE RAILS UP, CALL LIGHT AND BEDSIDE TABLE WITHIN REACH. WILL CONTINUE TO MONITOR Pt THROUGHOUT THE NIGHT FOR Pt's SAFETY.
--- NOTE | 2017-02-17 06:39 | NUR ---
RN CLOSING NOTES NO SIGNIFICANT CHANGES IN Pt's CONDITION. NO S/S OF ACUTE DISTRESS OR SOB NOTED. ALL NEEDS MET AND ATTENDED TO. SAFETY MEASURES IN PLACE. Pt TOOK A SHOWER IN THE AM. WILL ENDORSE TO DAYSHIFT RN FOR Pt's NGHIA.
--- NOTE | 2017-02-17 07:23 | NUR ---
MS RN OPENING NOTES RECEIVED PATIENT ASLEEP IN BED, AROUSES EASILY. A/O X4, NO C/O PAIN OR DISCOMFORTS VOICED AT THIS TIME. ON ROOM AIR, BREATHING EVEN AND UNLABORED. BED LOW AND LOCKED. CALL LUCERO WITHIN REACH. WILL MAINTAIN ALL SAFETY MEASURES AND WILL CONTINUE TO MONITOR PT ACCORDINGLY.
[2017-02-17 08:00] VITALS: BP 133/71
[2017-02-17] MEDS: INVEST MED MK-8189 MISC 3 CAP EA PO SCH (08:10)
[2017-02-17] MEDS: PROPRANOLOL LA 60 MG CAP.SA.24H PO SCH ×2 (08:10→16:40)
[2017-02-17] MEDS: INVEST MED MK-8189 MISC 3 TAB EA PO SCH (08:10)
[2017-02-17 16:00] VITALS: BP_SYST 124; BP_SYST 128; BP_DIAS 69
--- NOTE | 2017-02-17 19:17 | NUR ---
MS RN CLOSING NOTES: PATIENT SITTING ON CHAIR BY BEDSIDE LISTENING TO MUSIC ON HIS CELLPHONE. A/O X4, NO SIGNIFICANT CHANGES NOTED THROUGHOUT THE DAY. AMBULATORY AND ABLE TO MAKE NEEDS KNOWN. ON ROOM AIR, BREATHING EVEN AND UNLABORED. CALL LIGHT WITHIN REACH. NEEDS ATTENDED WELL. ENDORSED TO PRESS CATCHER NURSE FOR CONTINUITY OF CARE.
--- NOTE | 2017-02-17 19:45 | NUR ---
RN OPENING NOTES RECEIVED REPORT FROM DAYSHIFT RNAGUILA. FOUND Pt AWAKE, WATCHING TV. NO S/S OF ACUTE DISTRESS OR SOB NOTED. SAFETY MEASURES IN PLACE. BED LOW, LOCKED, HOB ELEVATED, SIDE RAILS UP, CALL LIGHT AND BEDSIDE TABLE WITHIN REACH. WILL CONTINUE TO MONITOR Pt THROUGH OUT THE NIGHT FOR SAFETY.
[2017-02-17 20:27] VITALS: BP 117/71
[2017-02-17 21:00] VITALS: BP 117/71
--- NOTE | 2017-02-18 06:48 | NUR ---
RN CLOSING NOTES NO SIGNIFICANT CHANGES IN Pt's CONDITION. NO S/S OF ACUTE DISTRESS OR SOB NOTED. ALL NEEDS MET AND ATTENDED TO. SAFETY MEASURES IN PLACE. CONTINUE WITH CLINICAL TRIAL PROTOCOL. WILL ENDORSE TO DAYSHIFT RN FOR Pt's NGHIA.
[2017-02-18 08:00] VITALS: BP 138/77
[2017-02-18] MEDS: INVEST MED MK-8189 MISC 3 CAP EA PO SCH (08:39)
[2017-02-18] MEDS: INVEST MED MK-8189 MISC 3 TAB EA PO SCH (08:40)
[2017-02-18] MEDS: PROPRANOLOL LA 60 MG CAP.SA.24H PO SCH ×2 (08:40→17:27)
--- NOTE | 2017-02-18 09:00 | NUR ---
MS RN NOTES ADMINISTERED DUE MEDS.
[2017-02-18] MEDS ORDERED: LORAZEPAM 1 MG TABLET PO PRN (13:00)
[2017-02-18] MEDS ORDERED: ZOLPIDEM TARTRATE 10 MG TABLET PO PRN (13:00)
[2017-02-18] MEDS ORDERED: MAGNESIUM HYDROXIDE 30 ML UDC PO PRN (13:00)
[2017-02-18] MEDS ORDERED: LORAZEPAM 1 MG TABLET FOR INSOMNIA PO PRN (13:00)
[2017-02-18] MEDS ORDERED: LORAZEPAM 1 MG TABLET FOR AGITATION PO PRN (13:00)
[2017-02-18] MEDS ORDERED: ACETAMINOPHEN ES 500 MG TABLET PO PRN (13:00)
[2017-02-18] MEDS ORDERED: IBUPROFEN 200 MG TABLET PO PRN (13:00)
[2017-02-18] MEDS ORDERED: MAG HYDROX/AL HYDROX/SIMETH 30 ML UDC PO PRN (13:00)
[2017-02-18 16:00] VITALS: BP 132/61
[2017-02-18 18:00] VITALS: BP 132/61
--- NOTE | 2017-02-18 19:30 | NUR ---
MS RN INITIAL NOTE RECEIVED PT AWAKE AND ALERT, AMBULATORY, ORIENTED X3, NO COMPLAINT OF PAIN OR RESPIRATORY DISTRESS DURING PHYSICAL ASSESSMENT, PT ADMITTED DUE TO CLINICAL TRIAL, COMPLIANT AND COOPERATIVE WITH CARE, SAFETY MEASURES WILL BE MAINTAINED AT ALL TIMES, NEEDS WILL BE ATTENDED TO PROMPTLY NEEDED.
--- NOTE | 2017-02-18 19:32 | NUR ---
MS RN NOTES PT RESTING IN BED, AAO X 4, ON ROOM AIR, NOT IN ANY DISTRESS. DENIES ANY PAIN AT THIS TIME. NO IV ACCESS. AMBULATORY, NO SKIN ISSUES. CALL LIGHT WITHIN REACH. BED LOW LOCKED. SR UP X 2, INSTRUCTED TO CALL FOR ASSISTANCE. VSS. SAFETY MEASURES IN PLACE. ALL NEEDS MET. WILL ENDORSE TO NEXT SHIFT FOR N[place]IA. DR. ALY AT BEDSIDE. SEE NEW ORDER FOR PREP H SUPPOSITORY.
[2017-02-18 20:00] VITALS: BP 113/55
[2017-02-18] MEDS: PHENYLEPHRINE/SHARK LIVER 1 EA SUPP.RECT RC SCH (21:15)
--- NOTE | 2017-02-19 06:49 | NUR ---
MS RN CLOSING NOTE PT REMAINED STABLE DURING SERVICE ASSOCIATE, NO SIGNIFICANT CHANGE IN CONDITION OBSERVED, WILL ENDORSE TO INCOMING NURSE FOR NGHIA.
--- NOTE | 2017-02-19 07:30 | NUR ---
MS/RN Patient received Patient received from second shift supervisor. No needs at this time, will continue to monitor.
[2017-02-19 08:00] VITALS: BP 126/74
[2017-02-19] MEDS: PROPRANOLOL LA 60 MG CAP.SA.24H PO SCH ×2 (09:00→17:00)
--- NOTE | 2017-02-19 09:00 | NUR ---
MS/RN Medications Morning medications (investigational)administered as ordered.
[2017-02-19] MEDS: INVEST MED MK-8189 MISC 3 TAB EA PO SCH (10:11)
[2017-02-19] MEDS: INVEST MED MK-8189 MISC 3 CAP EA PO SCH (10:11)
--- NOTE | 2017-02-19 10:59 | NUR ---
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 Patient expressed desire to stay in a private room, stating that he only had a week left of his trial and wasn't willing to change that now. Explained that this could not be guaranteed but we would do the best to make it happen.
[2017-02-19] MEDS ORDERED: LORAZEPAM 1 MG TABLET FOR AGITATION PO PRN (12:00)
[2017-02-19] MEDS ORDERED: LORAZEPAM 1 MG TABLET FOR INSOMNIA PO PRN (12:00)
--- NOTE | 2017-02-19 13:00 | NUR ---
MS/RN Behavior Patient remains calm and cooperative with treatment.
[2017-02-19 16:00] VITALS: BP 100/68
--- NOTE | 2017-02-19 16:31 | NUR ---
MS/RN Room 321-1 Patient moved into room 321.1.
--- NOTE | 2017-02-19 18:17 | NUR ---
MS/RN End note Patient remains calm and cooperative, no behavior concerns. Will endorse to lieutenant shift supervisor.
--- NOTE | 2017-02-19 19:30 | NUR ---
MS RN OPENING NOTES: PATIENT SITTING ON BED, AOX4 , ON ROOM AIR, BREATHING EVEN AND UNLABORED. APPEARS CALM AND IN NO DISTRESS. DENIES ANY PAIN AT THIS TIME. PROVIDED FOR COMFORT AND SAFETY. WILL CONT TO MONITOR.
[2017-02-19 20:00] VITALS: BP_SYST 118; BP_SYST 145; BP_DIAS 64; BP_DIAS 79
--- NOTE | 2017-02-19 22:30 | NUR ---
RN NOTES: PATIENT REFUSED TO HAVE ANUSOL SUPPOSITORY INSERTED BY RN, STATED THAT HE WILL DO IT HIMSELF.
[2017-02-19] MEDS: PHENYLEPHRINE/SHARK LIVER 1 EA SUPP.RECT RC SCH (22:36)
--- NOTE | 2017-02-20 07:00 | NUR ---
MS RN CLOSING NOTES: PATIENT AWAKE IN BED AOX4, ON ROOM AIR, BREATHING EVEN AND UNLABORED. APPEARS CALM AND IN NO DISTRESS. DENIES ANY PAIN. PATIENT WAS COOPERATIVE WHILE AWAKE DURING SHIFT, ABLE TO SLEEP WELL (7 HRS) THROUGH NIGHT. NO ACUTE CHANGE IN CONDITION NOTED THROUGH SHIFT. PROVIDED FOR COMFORT AND SAFETY. WILL ENDORSE TO AM RN FOR NGHIA.
--- NOTE | 2017-02-20 07:46 | NUR ---
MS RN OPENING NOTE PATIENT IS ALERT AND ORIENTED x4. NO PAIN AT THIS TIME. NO SOB OR DISTRESS NOTED. CALL LIGHT WITHIN REACH. SAFETY MEASURES IMPLEMENTED. NO IV ACCESS. ABLE TO COMMUNICATE NEEDS. WILL CONTINUE TO MONITOR
[2017-02-20 08:00] VITALS: BP 134/87
[2017-02-20] MEDS: PROPRANOLOL LA 60 MG CAP.SA.24H PO SCH ×2 (08:51→17:15)
[2017-02-20] MEDS: INVEST MED MK-8189 MISC 3 CAP EA PO SCH (08:51)
[2017-02-20] MEDS: INVEST MED MK-8189 MISC 3 TAB EA PO SCH (08:51)
[2017-02-20 16:00] VITALS: BP 124/74
--- NOTE | 2017-02-20 18:36 | NUR ---
MS RN CLOSING NOTE PATIENT IS ALERT AND ORIENTED x4. NO PAIN AT THIS TIME. NO SOB OR DISTRESS NOTED. CALL LIGHT WITHIN REACH AT ALL TIMES. SAFETY MEASURES IMPLEMENTED. ABLE TO COMMUNICATE NEEDS. NO IV ACCESS. WILL ENDORSE TO VET TECH
[2017-02-20 20:00] VITALS: BP 136/71
[2017-02-20 20:07] VITALS: BP 100/60
--- NOTE | 2017-02-20 21:24 | NUR ---
MS RN OPENING NOTE RECEIVED PT IN THE HALLWAY. PATIENT IS ALERT AND ORIENTED x4. NO COMPLAIN OF PAIN AT THIS TIME. NO SOB OR DISTRESS NOTED. ALL NEEDS ATTENDED AND ANTICIPATED. SAFETY MEASURES IMPLEMENTED. WILL CONTINUE TO MONITOR FOR SAFETY.
[2017-02-20] MEDS: PHENYLEPHRINE/SHARK LIVER 1 EA SUPP.RECT RC SCH (22:12)
--- NOTE | 2017-02-21 06:03 | NUR ---
MS RN CLOSING NOTES: PATIENT IN BED. AWAKE. AOX4, BREATHING EVEN AND UNLABORED. APPEARS CALM AND IN NO DISTRESS. DENIES ANY PAIN AT THIS TIME. NO AGITATION NOTED. PATIENT WAS ABLE TO SLEEP WELL (7 HRS) THROUGH NIGHT. ALL NEEDS ATTENDED AND ANTICIPATED. WILL ENDORSE TO AM RN FOR NGHIA.
--- NOTE | 2017-02-21 07:50 | NUR ---
RN OPENING NOTE PATIENT AWAKE AND REST IN BED AT THIS TIME. PATIENT IS ALERT AND ORIENTED x4. NO PAIN AT THIS TIME. NO SOB OR DISTRESS NOTED. CALL LIGHT WITHIN REACH. SAFETY MEASURES IMPLEMENTED. NO IV ACCESS. BED IN THE LOWEST POSITION WITH SIDE RAILS UP X2. WILL CONTINUE TO MONITOR AND ASSESS.
[2017-02-21 08:00] VITALS: BP 114/68
[2017-02-21] MEDS: INVEST MED MK-8189 MISC 3 TAB EA PO SCH (09:03)
[2017-02-21] MEDS: INVEST MED MK-8189 MISC 3 CAP EA PO SCH (09:03)
[2017-02-21] MEDS: PROPRANOLOL LA 60 MG CAP.SA.24H PO SCH ×2 (09:04→17:00)
[2017-02-21 16:00] VITALS: BP 118/63
--- NOTE | 2017-02-21 19:59 | NUR ---
RN OPENING NOTE PATIENT AWAKE AND REST IN BED AT THIS TIME. PATIENT IS ALERT AND ORIENTED x4. PATIENT CONSISTENTLY LEFT FLOOR TO GO OUTSIDE. PATIENT WAS SPOKEN WITH AND EDUCATED ON THE IMPORTANCE OF NOTIFYING ME THAT HE IS LEAVING THE FLOOR BUT HE DID NOT. PATIENT REFUSED SECOND DOSE OF PROPRANOLOL. PATIENT WAS EDUCATED ON PURPOSE OF RECEIVING MEDICATION. PATIENT VERBALIZED UNDERSTANDING BUT STILL REFUSED MEDICATION. NO PAIN AT THIS TIME. NO SOB OR DISTRESS NOTED. CALL LIGHT WITHIN REACH. SAFETY MEASURES IMPLEMENTED. NO IV ACCESS. BED IN THE LOWEST POSITION WITH SIDE RAILS UP X2. REPORT WAS GIVEN TO NIGHT NURSE FOR CONTINUATION OF CARE. Addendum: 02/21/17 at 2015 by ILIR SINCLAIR RN RN CLOSING NOTES PATIENT AWAKE AND REST IN BED AT THIS TIME. PATIENT IS ALERT AND ORIENTED x4. PATIENT CONSISTENTLY LEFT FLOOR TO GO OUTSIDE. PATIENT WAS SPOKEN WITH AND EDUCATED ON THE IMPORTANCE OF NOTIFYING ME THAT HE IS LEAVING THE FLOOR BUT HE DID NOT. PATIENT REFUSED SECOND DOSE OF PROPRANOLOL. PATIENT WAS EDUCATED ON PURPOSE OF RECEIVING MEDICATION. PATIENT VERBALIZED UNDERSTANDING BUT STILL REFUSED MEDICATION. NO PAIN AT THIS TIME. NO SOB OR DISTRESS NOTED. CALL LIGHT WITHIN REACH. SAFETY MEASURES IMPLEMENTED. NO IV ACCESS. BED IN THE LOWEST POSITION WITH SIDE RAILS UP X2. REPORT WAS GIVEN TO NIGHT NURSE FOR CONTINUATION OF CARE.
[2017-02-21 20:00] VITALS: BP 130/72
--- NOTE | 2017-02-21 20:00 | NUR ---
MS/RN NOTES PT BACK ON THE FLOOR. BREATHING EVEN AND UNLABORED. A/OX4. NO S/S OF DISTRESS NOTED. NO COMPLAINTS OF PAIN. NO IV ACCESS. PT AWARE TO NOTIFY ME WHEN GOING DOWNSTAIRS. PT VERBALIZES UNDERSTANDING. BED IN LOW/LOCKED POSITION, CALL LIGHT IN REACH. SIDE RAILS UPX2. WILL CONTINUE TO MONITOR
--- NOTE | 2017-02-21 21:00 | NUR ---
MS/RN NOTES PT NOTIFIED ME THAT HE WILL BE GOING DOWNSTAIRS. WILL CONTINUE TO MONITOR
[2017-02-21] MEDS: PHENYLEPHRINE/SHARK LIVER 1 EA SUPP.RECT RC SCH (22:19)
--- NOTE | 2017-02-21 22:20 | NUR ---
MS/RN NOTES PT BACK ON THE UNIT. PT STATES THAT HE DOES NOT WANT RN TO ADMINISTER SCHEDULED ANUSOL. WILL ADMINISTER HIMSELF.
--- NOTE | 2017-02-22 07:15 | NUR ---
MS/RN NOTES PT AWAKE, A/OX4. JUST WENT OUTSIDE, DAY SHIFT RN MADE AWARE. BREATHING EVEN AND UNLABORED. NO S/S OF DISTRESS, DENIES PAIN. NO CHANGES OVERNIGHT. PT REMAINED CALM AND COOPERATIVE THROUGHOUT SHIFT. ALL NEEDS MET AND ATTENDED. MADE PT COMFORTABLE THROUGHOUT SHIFT. ENDORSED TO AM SHIFT NGHIA.
[2017-02-22 08:00] VITALS: BP 136/76
[2017-02-22] MEDS: INVEST MED MK-8189 MISC 3 CAP EA PO SCH (09:16)
[2017-02-22] MEDS: INVEST MED MK-8189 MISC 3 TAB EA PO SCH (09:17)
[2017-02-22] MEDS: PROPRANOLOL LA 60 MG CAP.SA.24H PO SCH ×2 (09:22→17:14)
--- NOTE | 2017-02-22 14:31 | NUR ---
APPROACHED BY PATIENT TO NOTIFY ME THAT HE IS GOING OUTSIDE. ACKNOWLEDGED PATIENTS REQUEST. WILL AWAKE PATIENTS RETURN TO UNIT.
[2017-02-22 16:00] VITALS: BP 121/75
--- NOTE | 2017-02-22 16:02 | NUR ---
PER DR. ALY, PATIENT MAY GO OUT TO SMOKING AREA WITH FAMILY MEMBER ONCE FAMILY MEMBER MEETS RN FOR THE SHIFT. NO STAFF MEMBER REQUIRED TO GO OUTSIDE WITH PATIENT.
--- NOTE | 2017-02-22 19:30 | NUR ---
RN CLOSING NOTES PATIENT AWAY FROM ROOM AT THIS TIME. PATIENT LEAVES FLOOR MULTIPLE TIMES THROUGHOUT SHIFT. PATIENT NEEDS MET AND ANTICIPATED THROUGHOUT SHIFT. PATIENT VS STABLE THROUGHOUT SHIFT. PATIENT CHECKED ON Q2HRS. PATIENT COMPLAINED OF NO PAIN THROUGHOUT SHIFT. PATIENT HAS NO IV ACCESS. BED LOCKED IN THE LOWEST POSITION. REPORT GIVEN TO NIGHT NURSE FOR CONTINUATION OF CARE.
--- NOTE | 2017-02-22 19:35 | NUR ---
MS/RN NOTES PT NOT IN ROOM AT THIS TIME. WILL AWAIT PT'S RETURN.
[2017-02-22 20:00] VITALS: BP 119/67
--- NOTE | 2017-02-22 20:27 | NUR ---
MS/RN NOTES PT BACK UP ON THE FLOOR. ENCOURAGED PT TO INFORM RN WHEN HE WANTS TO GO OUTSIDE AND BE ACCOMPANIED BY SCRAP WHEELER IF FAMILY IS NOT AVAILABLE. PT VERBALIZED UNDERSTANDING. Addendum: 02/22/17 at 2030 by JULIANA PARKER RN BREATHING IS EVEN AND UNLABORED. NO S/S OF DISTRESS NOTED. DENIES PAIN. NO IV ACCESS. WILL CONTINUE TO MONITOR
--- NOTE | 2017-02-22 20:37 | NUR ---
MS/RN NOTES PT WENT BACK DOWNSTAIRS WITH ANOTHER PT AND ACCOMPANIED BY INSURANCE INSTRUCTOR
[2017-02-22 20:38] VITALS: BP 119/67
[2017-02-22] MEDS: PHENYLEPHRINE/SHARK LIVER 1 EA SUPP.RECT RC SCH (22:00)
--- NOTE | 2017-02-22 23:34 | NUR ---
MS/RN NOTES PT STATES HE WOULD LIKE TO ADMINISTER THE ANUSOL HIMSELF. DOES NOT WANT RN TO ADMINISTER FOR HIM.
[2017-02-23] MEDS: ZOLPIDEM TARTRATE 10 MG TABLET PO PRN (01:42)
--- NOTE | 2017-02-23 01:45 | NUR ---
MS/RN NOTES PT EXPERIENCING AUDITORY HALLUCINATIONS AND ASKING TO GO OUTSIDE FOR FRESH AIR. ACCOMPANIED BY SUPERVISOR VOLUNTEER SERVICES. ADMINISTERED PRN AMBIEN AND ATIVAN TO HELP WITH INSOMNIA AND ANXIETY. WILL CONTINUE TO MONITOR
--- NOTE | 2017-02-23 07:15 | NUR ---
ms/clinical trial rn initial notes Received patient in bed, asleep, head of bed elevated, no SOB or distress noted. No unusual behavior noted. No IV access. Alert and oriented x 4, verbally responsive and able to make needs known. kept patient clean and comfortable in bed, call light with in patient reach, will continue to monitor accordingly.
--- NOTE | 2017-02-23 07:31 | NUR ---
MS/RN NOTES PT RESTING COMFORTABLY IN BED, ASLEEP. BREATHING EVEN AND UNLABORED. NO S/S OF DISTRESS. MADE PT COMFORTABLE THROUGHOUT SHIFT. DENIES PAIN. ALL NEEDS MET AND ATTENDED TO. ENDORSED TO AM SHIFT NGHIA.
[2017-02-23 08:00] VITALS: BP_SYST 121; BP_DIAS 74; BP_DIAS 76
[2017-02-23] MEDS: INVEST MED MK-8189 MISC 3 CAP EA PO SCH (09:00)
[2017-02-23] MEDS: INVEST MED MK-8189 MISC 3 TAB EA PO SCH (09:00)
[2017-02-23] MEDS: PROPRANOLOL LA 60 MG CAP.SA.24H PO SCH ×2 (10:00→17:25)
[2017-02-23 16:00] VITALS: BP 132/79
--- NOTE | 2017-02-23 16:30 | NUR ---
ms/clinical trial notes Patient requested his money to be counted and put in a safe. Money counted in front of the patient $1100 and with the other nurse to witness before putting in a bag and took to the nursing office safe.
--- NOTE | 2017-02-23 19:11 | NUR ---
ms rn closing notes All needs provided, attended, and anticipated. kept patient clean and comfortable in bed, call light with in patient reach. Endorsed to next shift RN to continue care.
--- NOTE | 2017-02-23 19:30 | NUR ---
RN NOTE; RECEIVED PT IN BED SLEEPING, AROUSES EASILY. BREATHING EVENLY. NO SOB. NAD. NO S.S OR C/O PAIN OR DISCOMFORT. NO BEHAVIORAL ISSUES NOTED A T THIS TIME. CALL LIGHT WITHIN REACH. WILL CONT TO MONITOR,
[2017-02-23 20:00] VITALS: BP 131/72
[2017-02-23 20:10] VITALS: BP 131/72
[2017-02-23] MEDS: PHENYLEPHRINE/SHARK LIVER 1 EA SUPP.RECT RC SCH (22:00)
--- NOTE | 2017-02-23 22:40 | NUR ---
PT REFUSED ANUSOL SUPP. RISK VS. BENEFITS EXPLAINED TO THE PT.
--- NOTE | 2017-02-24 06:37 | NUR ---
RN NOTE; PT AWAKE IN HIS ROOM, BREATHING EVENLY. NO SOB. NAD. SKIN WARM AND DRY. NO ACUTE EVENT DURING THE NIGHT. NO PSYCH OR BEHAVIORAL ISSUES. NEEDS ATTENDED, CALL LIGHT WITHIN REACH . WILL CONT TO MONITOR AND WILL ENDORSE TO AM SHIFT FOR NGHIA.
--- NOTE | 2017-02-24 07:10 | NUR ---
MS RN Initial Notes Received patient sitting in chair. Non-labored breathing noted on room air. No signs of distress. Patient denies pain. Patient alert oriented x4. Needs met promptly. Call light within reach. Will continue to monitor.
[2017-02-24 08:00] VITALS: BP 124/68
[2017-02-24] MEDS: INVEST MED MK-8189 MISC 3 CAP EA PO SCH (08:53)
[2017-02-24] MEDS: INVEST MED MK-8189 MISC 3 TAB EA PO SCH (08:54)
[2017-02-24] MEDS: PROPRANOLOL LA 60 MG CAP.SA.24H PO SCH ×2 (08:57→17:24)
[2017-02-24 16:00] VITALS: BP_SYST 149; BP_SYST 156; BP_DIAS 84; BP_DIAS 88
--- NOTE | 2017-02-24 19:19 | NUR ---
ms rn closing notes All needs provided, attended, and anticipated. Kept patient clean and comfortable in bed, tess light with in patient reach. Endorsed to next shift RN to continue care.
[2017-02-24 20:00] VITALS: BP 114/69
--- NOTE | 2017-02-24 20:00 | NUR ---
MS KURT INITIAL NOTES PT SEEN JUST BACK TO HIS ROOM FROM DOWNSTAIRS. CALMED AND COOPERATIVE AT THIS TIME. CLINICAL PROTOCOL OBSERVED. KEPT HIM COMFORTABLE AT ALL TIMES. WILL CONTINUE TO MONITOR.
[2017-02-24] MEDS: PHENYLEPHRINE/SHARK LIVER 1 EA SUPP.RECT RC SCH (22:00)
--- NOTE | 2017-02-25 07:00 | NUR ---
MARINE GEAR KEEPER/CLOSING NOTES PT REMAINS RESTING IN HIS ROOM , STABLE GEORGE THE NIGHT. BREATHING EVEN AND NON-LABORED. SLEPT WELL ALMOST 8 HRS. ENDORSE TO AM NURSE.
--- NOTE | 2017-02-25 07:50 | NUR ---
RN MS NOTES RECEIVED PATIENT IN BED, NO APPARENT DISTRESS NOTED, DENIES PAIN, DENIES SOB. ALL NEEDS MET, CALL LIGHT WITHIN REACH.
[2017-02-25 08:00] VITALS: BP 145/79
[2017-02-25] MEDS: INVEST MED MK-8189 MISC 3 CAP EA PO SCH (09:24)
[2017-02-25] MEDS: INVEST MED MK-8189 MISC 3 TAB EA PO SCH (09:24)
--- NOTE | 2017-02-25 12:32 | NUR ---
RN MS NOTES PATIENT REQUESTED TO REMOVE HIS MONEY FROM THE SAFE. EXPLAINED TO PATIENT THE RISK OF KEEPING MONEY AT BEDSIDE PATIENT STILL CHOSE TO KEEP MONEY. COUNTED MONEY IN FRONT OF PATIENT AND ELECTRIC WHEELCHAIR REPAIRER. [address] WITH PATIENT AT BED SIDE. PATIENT STATES HE HAS HIS 3 CREDIT CARDS WELL.
[2017-02-25 16:58] VITALS: BP 122/74
[2017-02-25] MEDS: PROPRANOLOL LA 60 MG CAP.SA.24H PO SCH (17:00)
--- NOTE | 2017-02-25 19:08 | NUR ---
RN MS CLOSING NOTES PATIENT IN BED, NO APPARENT DISTRESS,ALL DUE MEDS GIVEN ALL NEEDS MET. WILL ENDORSE CARE TO PM SHIFT.
[2017-02-25 20:00] VITALS: BP 146/88
--- NOTE | 2017-02-25 20:00 | NUR ---
BEHAVIORAL HEALTH COUNSELOR INITIAL NOTES SEEN PT IN HIS ROOM SITTING , CALMED AND QUIET THEN HE'S TELLING ME THAT HE'S GOING DOWN FOR A WHILE TO SMOKE . I TOLD HIM HE'S NPO TONIGHT AT 2100 PER CLINICAL PROTOCOL AND ORDERED AND WILL RESUMED HIS DIET AFTER BLOOD DRAW , PT UNDERSTOOD WELL. KEPT HIM COMFORTABLE AT ALL TIMES. WILL CONTINUE TO MONITOR.
[2017-02-25] MEDS: PHENYLEPHRINE/SHARK LIVER 1 EA SUPP.RECT RC SCH (23:19)
[2017-02-25] MEDS: ZOLPIDEM TARTRATE 10 MG TABLET PO PRN (23:19)
--- NOTE | 2017-02-25 23:20 | NUR ---
CONTRACT PARALEGAL/NOTES PT JUST BACK TO HIS ROOM AFTER WENT DOWN FROM SMOKING . AMBIEN GIVEN HE REQUESTED WELL HIS ROUTINE MED. KEPT HIM COMFORTABLE AT ALL TIMES. NPO AT THIS TIME. WILL CONTINUE TO MONITOR.
--- NOTE | 2017-02-26 05:00 | NUR ---
BACON SKIN LIFTER/NOTES PT WOKE UP AND ASKING IF HE CAN GO DOWN FOR SMOKE, ASKED CHARGED NURSE AND ITS OK. NO SIGNS OF ANY ACUTE DISTRESS NOTED.
--- NOTE | 2017-02-26 06:00 | NUR ---
SENIOR TELECOMMUNICATIONS SPECIALIST NOTES PT JUST BACK TO HIS ROOM NO SIGNS OF ANY DEPRESSION , CALMED AND COOPERATE. AWARE HE STILL NPO BECAUSE OF HIS BLOOD TEST. WILL CONTINUE TO MONITOR.
--- NOTE | 2017-02-26 06:30 | NUR ---
CUSTODIAL AIDE/NOTES PT JUST DONE TAKING HIS SHOWER. CALMED AND COOPERATIVE. WILL CONTINUE TO MONITOR.
--- NOTE | 2017-02-26 06:53 | NUR ---
MS PLASTERING SUPERVISOR CLOSING NOTES PT WOKE AND SEEMS HAPPY BECAUSE HE SLEPT WELL 7 HOURS AND 30 MINUTES. , CALMED AND COOPERATIVE . NO SIGNS OF ANY AGITATION OR ANY DEPRESSION NOTED. STABLE GEORGE THE NIGHT. ALL NEEDS MET. CLINICAL PROTOCOL FOLLOWED. ENDORSE TO AM NURSE FOR CONTINUITY OF CARE.
--- NOTE | 2017-02-26 07:55 | NUR ---
MS RN OPENING NOTES RECEIVED PT. FROM NIGHTSHIFT NURSE IN STABLE CONDITION. PT IS A/O X4. PT IS A CLINICAL TRAIL PT OF DR. ALY'S. NPO STATUS MAINTAINED FOR NOW UNTIL AFTER PT'S LAB DRAW IN DR. ALY'S OFFICE. PT. VERBALIZED UNDERSTANDING OF CURRENT TREATMENT AND REGIMEN. BED IN LOW LOCKED POSITION, SIDE RAILS UP X2, CALL LIGHT WITHIN REACH. WILL CONTINUE TO MONITOR.
[2017-02-26] MEDS: PROPRANOLOL LA 60 MG CAP.SA.24H PO SCH (09:00)
[2017-02-26] MEDS: INVEST MED MK-8189 MISC 3 CAP EA PO SCH (09:00)
--- NOTE | 2017-02-26 09:15 | NUR ---
MS RN NOTES PT. LEFT UNIT FOR LAB TEST
--- NOTE | 2017-02-26 10:16 | NUR ---
MS RN NOTES DR. ALY GAVE VERBAL D/C ORDER. WILL PUT IN ORDER AND BEGIN DISCHARGE PROCESS.
--- NOTE | 2017-02-26 10:23 | NUR ---
MS RN NOTES PT. ARRIVED ON UNIT, BUT STATED HE WOULD LIKE TO GO DOWNSTAIRS FOR A SHORT BREAK. PT WAS TOLD THAT HE HAS SCHEDULED MEDICATIONS, BUT HE STATED HE WILL BE BACK UP SHORTLY.
[2017-02-26] MEDS: INVEST MED MK-8189 MISC 3 TAB EA PO SCH (11:31)
[2017-02-26] MEDS ORDERED: LORAZEPAM 1 MG TABLET FOR AGITATION PO PRN (12:00)
[2017-02-26] MEDS ORDERED: LORAZEPAM 1 MG TABLET FOR INSOMNIA PO PRN (12:00)
--- NOTE | 2017-02-26 12:05 | NUR ---
MS MILL HELPER NOTES PT. LEFT FACILITY VIA UBER. ALL NEEDS WERE MET DURING SHIFT AND ORDERS CARRIED OUT ACCORDINGLY. PT. WAS GIVEN DISCHARGE INCRUSTATIONS AND PACKET. PT. VERBALIZED UNDERSTANDING OF DISCHARGE. PT. WAS ACCOMPANIED TO UBER BY MYSELF AND A STAFF MEMBER FROM DR. ALY'S OFFICE. PT LEFT WITH ALL HIS BELONGINGS AND MEDICATIONS.
== END 2017-02-26 12:12 | disposition home or self-care (01) | DRG 951 ==
LOC: CSC2 14:20 → MEDSG2 14:29 → MED 02-19 16:14
PROVIDERS: ADMIT Psychiatry & Neurology Psychiatry; ATTEND Psychiatry & Neurology Psychiatry
DX: Z00.6 Encounter for examination for normal comparison and control in clinical research program (principal); F20.0 Paranoid schizophrenia; G47.00 Insomnia, unspecified
CPT/HCPCS: 87081-TC; Z7610

== ENCOUNTER 2019-05-23 13:31 | Inpatient (IN) | payer OTHER ==
[~2019-05-23] VITALS: Ht 177.8 cm; Wt 104.3 kg
[~2019-05-23 13:31] MED LIST: CALC-17 PO; CHLO100T24 PO; CHLO50TA24 PO; PALI6TAB PO; PROP20TA7 PO
--- NOTE | 2019-05-23 14:10 | NUR ---
M/S RN NOTES PATIENT IS ALERT AND ORIENTED X4, PATIENT IS UNDER CLINICAL TRIALS WITH DR. ALY. PATIENT IN NO RESPIRATORY DISTRESS, NO C/O PAIN AT THIS TIME. PATIENT VERY COOPERATIVE, NO SI/HI. SKIN WARM TO TOUCH. PATIENT'S BELONGINGS DOCUMENTED AND SIGNED, PLACED IN THE CHART. HOME MEDICATIONS GIVEN TO PHARMACY. BED ON LOWEST LOCKED POSITION, CALL LIGHT WITHIN REACH. WILL CONTINUE TO MONITOR.
[2019-05-23] MEDS ORDERED: MAG HYDROX/AL HYDROX/SIMETH 30 ML UDC PO PRN (14:30)
[2019-05-23] MEDS ORDERED: PROPRANOLOL HCL 10 MG TABLET PO PRN (14:30)
[2019-05-23] MEDS ORDERED: BENZTROPINE MESYLATE (1 MG) 1 MG TABLET PO PRN (14:30)
[2019-05-23] MEDS ORDERED: MAGNESIUM HYDROXIDE 30 ML UDC PO PRN (14:30)
[2019-05-23] MEDS ORDERED: IBUPROFEN 200 MG TABLET PO PRN (14:30)
[2019-05-23 16:00] VITALS: BP 148/86
--- NOTE | 2019-05-23 19:15 | NUR ---
M/S RN NOTES PATIENT ALERT AND ORIENTED X4, NO RESPIRATORY DISTRESS, NO COMPLAINTS. PATIENT HAD A SHOWER. PATIENT IN ROOM ON THE PHONE. BED ON LOWEST LOCKED POSITION, CALL LIGHT WITHIN REACH. WILL ENDORSE TO ONCOMING NURSE.
--- NOTE | 2019-05-23 19:25 | NUR ---
M/S RN PM OPENING NOTES BEDSIDE REPORT RECIEVED FROM UMBERTO BAUMANN. POC REVIEWED. PATIENT TO START THORAZINE TONIGHT. REVIEWED MEDICATIONS SCHEDULE QUESTIONS CONCERNS ADDERSSED. PATIENT ALERT AND ORIENTED X4, NO RESPIRATORY DISTRESS, DENIES COMPLAINTS. PATIENT RECENTLY HAD A SHOWER. BED ON LOWEST LOCKED POSITION, CALL LIGHT WITHIN REACH. SRX1. VERBALIZED UNDERSTANDING TO CALL FOR ASSISTANCE NEEDED.
[2019-05-23 20:09] VITALS: BP 150/79
[2019-05-23] MEDS ORDERED: chlorproMAZINE HCL 100 MG TABLET PO SCH (22:00)
[2019-05-23] MEDS: ZOLPIDEM TARTRATE 10 MG TABLET PO PRN (22:03)
--- NOTE | 2019-05-23 22:03 | NUR ---
ashleyien administered as ordered prn at patients request.
--- NOTE | 2019-05-24 06:58 | NUR ---
M/S RN PM CLOSING NOTES PATIENT SEEN IN BED WITH EYES CLOSED IN NO APPARENT RESPIRATORY DISTRESS, NO COMPLAINTS. BED ON LOWEST LOCKED POSITION, CALL LIGHT WITHIN REACH. WILL ENDORSE TO ONCOMING NURSE.
[2019-05-24 08:00] VITALS: BP_SYST 138; BP_SYST 145; BP_DIAS 65; BP_DIAS 92
--- NOTE | 2019-05-24 08:00 | NUR ---
RN NOTES RECEIVED PATIENT IN THE BED A/O X4 ON CLINICAL TRIAL. PATIENT HAD NO ACUTE RESPIRATORY DISTRESS, V/S STABLE, REFUSED ANY HALLUCINATION AT THIS TIME, AND COOPERATIVE. PATIENT AMBULATORY SELF CARE. ADMINISTERED SCHEDULED MEDICATION. CALL LIGHT WITHIN TO REACH, SAFETY PRECAUTION MAINTAINED ALL THE TIME.
[2019-05-24] MEDS ORDERED: CHLO25TA13 PO (08:46)
[2019-05-24] MEDS: chlorproMAZINE HCL 100 MG TABLET PO SCH ×2 (11:24→16:47)
[2019-05-24 16:00] VITALS: BP 143/81
--- NOTE | 2019-05-24 18:27 | NUR ---
RN NOTES PATIENT STABLE WALKING AROUND, REDIRECTABLE, NO COMPLAINING OF PAIN, ADMINISTERED SCHEDULED MEDICATION. ENDORSED ONCOMING NURSE FOLLOW PLAN OF CARE.
--- NOTE | 2019-05-24 19:45 | NUR ---
RN OPENING NOTES: RECEIVED REPORT FROM DAYSHIFT PASTOR MCCORMACK. FOUND Pt AWAKE, PLAYING GAMES ON HIS PHONE. NO S/S OF ACUTE DISTRESS OR SOB NOTED. RESPIRATIONS EVEN AND UNLABORED WITH EQUAL CHEST RISE AND FALL. Pt IS A/OX4, VERBAL, ABLE TO MAKE NEEDS KNOWN. NO IV ACCESS DUE TO CLINICAL TRIAL. SAFETY MEASURES IN PLACE. WILL CONTINUE TO MONITOR Pt's CONDITION AND SAFETY THROUGHOUT THE NIGHT.
[2019-05-24 20:00] VITALS: BP 157/88
[2019-05-24 20:30] VITALS: BP 157/88
[2019-05-24] MEDS: ZOLPIDEM TARTRATE 10 MG TABLET PO PRN (22:48)
--- NOTE | 2019-05-25 06:51 | NUR ---
RN CLOSING NOTES NO SIGNIFICANT CHANGES IN Pt's CONDITION. Pt REMAINS STABLE PER BASELINE. NO S/S OF ACUTE DISTRESS OR SOB NOTED DURING THE NIGHT. ALL NEEDS MET AND ATTENDED TO. SAFETY MEASURES IN PLACE. WILL ENDORSE TO DAYSHIFT RN FOR Pt's NGHIA.
[2019-05-25 08:00] VITALS: BP 163/80
[2019-05-25] MEDS: chlorproMAZINE HCL 100 MG TABLET PO SCH ×2 (08:23→16:15)
[2019-05-25 16:00] VITALS: BP 149/84
--- NOTE | 2019-05-25 18:26 | NUR ---
RN CLOSING NOTE PT IN BED AT LOWEST AND LOCKED POSITION WITH SIDE RAILS UP X2, A/O X4 BREATHING EVEN AND UNLABORED WITH NO COMPLAINTS OR DISTRESS AT THIS TIME, NO IV IN PLACE, SAFETY PRECAUTIONS IN PLACE, CALL LIGHT IN REACH, ALL NEEDS ATTENDED TO, WILL ENDORSE TO NIGHT RN FOR NGHIA.
--- NOTE | 2019-05-25 19:50 | NUR ---
RN OPENING NOTES: RECEIVED REPORT FROM DAYSHIFT PASTOR RASCNO. FOUND Pt AWAKE, TALKING ON HIS PHONE. NO S/S OF ACUTE DISTRESS OR SOB NOTED. RESPIRATIONS EVEN AND UNLABORED WITH EQUAL CHEST RISE AND FALL. Pt IS A/OX4, VERBAL, ABLE TO MAKE NEEDS KNOWN. NO IV ACCESS DUE TO CLINICAL TRIAL. SAFETY MEASURES IN PLACE. WILL CONTINUE TO MONITOR Pt's CONDITION AND SAFETY THROUGHOUT THE NIGHT.
[2019-05-25 20:00] VITALS: BP 128/61
[2019-05-26 08:00] VITALS: BP 125/84
[2019-05-26] MEDS: chlorproMAZINE HCL 100 MG TABLET PO SCH ×2 (08:01→16:03)
[2019-05-26 16:00] VITALS: BP 130/78
--- NOTE | 2019-05-26 19:15 | NUR ---
RN OPENING NOTES 1914 RECEIVED REPORT FROM [facility] NURSEABIODUN. PATIENT IS CURRENTLY AWAKE, ON HIS PHONE. NO SIGNS AND SYMPTOMS OF RESPIRATORY DISTRESS. DENEIS SHORTNESS OF BREATH. RESPIRATIONS EVEN AND UNLABORED WITH EQUAL CHEST RISE AND FALL. PATIENT IS A/O X 4, ABLE TO VERBALIZE NEEDS. NO INTRAVENOUS ACCESS DUE TO CLINICAL TRIAL. SAFETY PRECAUTIONS IMPLEMENTED; CALL LIGHT WITHIN REACH, BED LOWEST POSITION, BED LOCKED, SIDE RAILS UP X2. WILL CONTINUE TO MONITOR PATIENT'S CONDITION AND SAFETY THROUGHOUT THE NIGHT.
[2019-05-26 20:00] VITALS: BP 139/99
[2019-05-26] MEDS: ZOLPIDEM TARTRATE 10 MG TABLET PO PRN (23:34)
--- NOTE | 2019-05-26 23:35 | NUR ---
RN NOTES per patient requesting ambien for insomnia. vital signs stable. will continue to monitor. informed patient the risks of taking medication such as fall risk. patient agrees and understands. will continue to monitor.
--- NOTE | 2019-05-27 06:30 | NUR ---
RN CLOSING NOTES NO SIGNIFICANT CHANGES IN PATIENT'S CONDITION. PATIENT REMAINS STABLE. NO SIGNS OF RESPIRATORY DISTRESS. NO SHORTNESS OF BREATH NOTED DURING THE SHIFT. PATIENT SLEPT WELL THROUGHOUT THE NIGHT. ALL NEEDS MET AND ATTENDED TO. SAFETY PRECAUTIONS IMPLEMENTED; CALL LIGHT WITHIN REACH, BED LOWEST POSITION, BED LOCKED, SIDE RAILS UP X2. WILL ENDORSE TO DAYSHIFT NURSE FOR CONTINUITY OF CARE.
[2019-05-27 07:41] VITALS: BP 137/83
--- NOTE | 2019-05-27 08:00 | NUR ---
CLINICAL TRIAL RN OPENING NOTE PT WAS RECEIVED IN BED AT LOWEST AND LOCKED POSITION WITH SIDE RAILS UP X2, A/O X4 BREATHING EVEN AND UNLABORED ON RA WITH NO COMPLAINTS OF ANY PAIN OR DISTRESS, NO IV IN PLACE DUE TO PT BEING ON CLINICAL TRIAL, SAFETY PRECAUTIONS IN PLACE, CALL LIGHT IN REACH, WILL MONITOR ACCORDINGLY
[2019-05-27] MEDS: chlorproMAZINE HCL 100 MG TABLET PO SCH (09:00)
[2019-05-27] MEDS ORDERED: chlorproMAZINE HCL 100 MG TABLET PO SCH (09:00)
--- NOTE | 2019-05-27 09:04 | NUR ---
MS RESTAURANT LINE COOK ORDER CHANGED DOCTOR'S ORDER SCHEDULED FOR THORAZINE DOSE IS 50 MG PO BID. CLARIFIED WITH PHARMACIST ADAN WHO STATED THEY GOT A NEW ORDER FROM DOCTOR KYLE TO ADMINISTER THORAZINE 100MG ONCE A DAY SINCE THE PILL CANNOT BE BROKEN IN HALF.
[2019-05-27 16:14] VITALS: BP 134/90
--- NOTE | 2019-05-27 18:29 | NUR ---
MS RN CLOSING NOTE PATIENT A/O X4. PATIENT SITTING AT BEDSIDE AND CONTINUES TO AMBULATE. VITAL SIGNS WNL. PATIENT SHOWS NO SIGNS OF ACUTE DISTRESS, NO SOB NOTED. ALL NEEDS AND CONCERNS ADDRESSED. BED IS IN LOWEST POSITION. CALL LIGHT IS WITHIN REACH AND PATIENT IS AWARE OF HOW TO CALL FOR ASSISTANCE WHEN NEEDED. WILL ENDORSE TO BUSINESS PROCESS ASSOCIATE.
[2019-05-27 20:00] VITALS: BP 121/83
--- NOTE | 2019-05-27 20:35 | NUR ---
MS/RN AT 1930, PATIENT WAS IN HIS ROOM, AWAKE, ALERT, ORIENTED, CALM AND COMFORTABLE, NO C/O PAIN, NO DISTRESS NOTED, WILL MONITOR.
[2019-05-27] MEDS: LORAZEPAM 1 MG TABLET FOR AGITATION PO PRN (23:09)
--- NOTE | 2019-05-28 01:13 | NUR ---
MS/RN PATIENT IS SLEEPING AT THIS TIME, APPEAR COMFORTABLE, NO DISTRESS NOTED, CALL LIGHT IN REACH. WILL CONTINUE TO MONITOR.
--- NOTE | 2019-05-28 06:31 | NUR ---
MS/RN PATIENT STILL SLEEPING AT THIS TIME, APPEAR COMFORTABLE, NO SIGNS OF DISTRESS NOTED, CALL LIGHT IN REACH. ALL NEEDS ATTENDED AT THIS TIME, WILL CONTINUE TO MONITOR.
--- NOTE | 2019-05-28 07:40 | NUR ---
ms rn received on bed, awake,alert,oriented x4,not in any form of distress, respirations even and unlabored,no sob noted, demies pain at this time,all needs attended.
[2019-05-28 08:00] VITALS: BP 132/79
[2019-05-28] MEDS: chlorproMAZINE HCL 100 MG TABLET PO SCH (09:11)
--- NOTE | 2019-05-28 09:15 | NUR ---
ms royal breakfast served,due meds given,tolerated well.
--- NOTE | 2019-05-28 14:30 | NUR ---
ms royal tylenol 650 mg po given for headache. Addendum: 06/17/19 at 1418 by JONNIE HOPKINS RN ms royal tylenol 1000mg not 650mg po given for headache.
[2019-05-28] MEDS: ACETAMINOPHEN ES 500 MG TABLET PO PRN (14:52)
[2019-05-28 16:00] VITALS: BP 137/82
--- NOTE | 2019-05-28 18:37 | NUR ---
ms rn on bed, no distress noted ,all needs attended.
--- NOTE | 2019-05-28 19:56 | NUR ---
MS/RN RECEIVED PATIENT IN ROOM AWAKE, ALERT, ORIENTED, COMFORTABLE, NO C/O PAIN, NO DISTRESS NOTE, CALL LIGHT IN REACH. WILL MONITOR.
[2019-05-28 19:57] VITALS: BP 131/75
[2019-05-28] MEDS: ZOLPIDEM TARTRATE 10 MG TABLET PO PRN (23:28)
--- NOTE | 2019-05-29 01:23 | NUR ---
MS/RN PATIENT IS SLEEPING AT THIS TIME, APPEAR COMFORTABLE, NO SIGNS OF DISTRESS NOTED, CALL LIGHT IN REACH. WILL CONTINUE TO MONITOR.
--- NOTE | 2019-05-29 06:11 | NUR ---
MS/RN PATIENT IS STILL SLEEPING AT THIS TIME, AROUSES EASILY, APPEAR COMFORTABLE, NO DISTRESS NOTED, CALL LIGHT IN REACH. ALL NEEDS ATTENDED AT THIS TIME, WILL CONTINUE TO MONITOR.
--- NOTE | 2019-05-29 07:27 | NUR ---
MS RN OPENING NOTE RECEIVED PATIENT IN BED RESTING COMFORTABLY. PATIENT IN NO ACUTE DISTRESS. NO SOB NOTED. PATIENT BREATHING IS EVEN AND UNLABORED. NO FACIAL GRIMACING NOTED. PATIENT BED IS LOCKED AND IN LOWEST POSITION. CALL LIGHT WITHIN REACH. WILL CONTINUE TO MONITOR.
[2019-05-29 08:00] VITALS: BP 130/68
--- NOTE | 2019-05-29 14:00 | NUR ---
MS RN NOTE PATIENT HAS WALKED AROUND HALLWAY. PATIENT IN NO ACUTE DISTRESS. PATIENT NOW IN BED RESTING COMFORTABLY WATCHING TV. WILL CONTINUE TO MONITOR.
[2019-05-29 16:00] VITALS: BP 131/86
--- NOTE | 2019-05-29 18:23 | NUR ---
MS RN CLOSING NOTE PATIENT IN BED RESTING COMFORTABLY WATCHING TV. PATIENT IN NO ACUTE DISTRESS. NO SOB NOTED. PATIENT BREATHING IS EVEN AND UNLABORED. PATIENT NEEDS AND CONCERNS ADDRESSED. PATIENT KEPT CLEAN,DRY, AND COMFORTABLE THROUGHOUT SHIFT. PATIENT BED IS LOCKED AND IN LOWEST POSITION. CALL LIGHT WITHIN REACH. WILL ENDORSE CARE TO PM SHIFT FOR NGHIA.
--- NOTE | 2019-05-29 19:15 | NUR ---
MS RN NOTES RECEIVED PT IN BED AWAKE AND ABLE TO MAKE NEEDS KNOWN. PT A/O X3. RESPIRATIONS EVEN AND UNLABORED WITH NO S/S OF ACUTE DISTRESS NOTED. NO COMPLAINTS OF PAIN AT THIS TIME. SAFETY MEASURES IN PLACE WITH BED IN LOWEST LOCKED POSITION WITH SIDE RAILS UP X2. CALL LIGHT WITHIN REACH. WILL CONTINUE TO MONITOR.
[2019-05-29 20:00] VITALS: BP 139/81
[2019-05-29] MEDS: ZOLPIDEM TARTRATE 10 MG TABLET PO PRN (22:31)
--- NOTE | 2019-05-30 06:54 | NUR ---
MS RN NOTES PT IN BED ASLEEP BUT EASILY AWOKEN VERBALLY OR BY TOUCH. PT A/O X3 AND ABLE TO MAKE NEEDS KNOWN. RESPIRATIONS EVEN AND UNLABORED WITH NO S/S OF ACUTE DISTRESS NOTED THROUGHOUT SHIFT. NO COMPLAINTS OF PAIN AT THIS TIME. SAFETY MEASURES IN PLACE WITH BED IN LOWEST LOCKED POSITION WITH SIDE RAILS UP X2. CALL LIGHT WITHIN REACH. WILL ENDORSE TO ONCOMING NURSE FOR NGHIA.
[2019-05-30 08:00] VITALS: BP_SYST 126; BP_DIAS 72; BP_DIAS 87
[2019-05-30 16:00] VITALS: BP 132/82
--- NOTE | 2019-05-30 19:10 | NUR ---
PATIENT WATCHING TV IN ROOM. PATIENT IN NO ACUTE DISTRESS. NO SOB NOTED. PATIENT BREATHING IS EVEN AND UNLABORED. PATIENT NEEDS AND CONCERNS ADDRESSED. BED IS LOCKED AND IN LOWEST POSITION. CALL LIGHT WITHIN REACH.WILL ENDORSE TO NEXT SHIFT FOR NGHIA.
--- NOTE | 2019-05-30 19:45 | NUR ---
MS RN OPENING NOTES RECEIVED PATIENT FROM MORNING SHIFT, ALERT AND ORIENTED X 4. VERBALLY RESPONSIVE AND ABLE TO FOLLOW DIRECTIONS. BREATHING REGULAR AND UNLABORED ON ROOM AIR. NO IV ACCESS. NO COMPLAINTS OF PAIN/DISCOMFORT REPORTED OF THE TIME. BODY ASSESSMENT DONE, SKIN REMAINED INTACT, CLEAN AND DRY. BLADDER AND BOWEL CONTINENT WITH BRP, CLEAR YELLOW URINE OBSERVED. BED LOW AND LOCKED ON SEMI FOWLERS POSITION. CALL LIGHT IN REACH. WILL CONTINUE TO MONITOR.
[2019-05-30 20:00] VITALS: BP 145/75
--- NOTE | 2019-05-30 22:00 | NUR ---
MS RN NOTES RADIO STATION ENGINEER REPORTED OBSERVED PATIENT THREW HIS CELLPHONE ON THE TRASH. HE HAS 2CELLPHONES ON THE BELONGINGS LIST. PER THE PATIENT ITS NOT WORKING ANYMORE BECAUSE IT DOESN'T HAVE SERVICE. UPDATED BELONGINGS CHECKLIST AND HAVE THE PATIENT SIGNED.
[2019-05-31] MEDS: ZOLPIDEM TARTRATE 10 MG TABLET PO PRN ×2 (00:36→23:46)
--- NOTE | 2019-05-31 00:43 | NUR ---
MS RN NOTES COMPLAINED OF INABILITY TO STAY ASLEEP, AMBIEN 10MG GIVEN BY MOUTH. NON-PHARMACOLOGICAL INTERVENTIONS PROVIDED. WILL CONTINUE TO MONITOR.
--- NOTE | 2019-05-31 06:40 | NUR ---
MS RN CLOSING NOTES PATIENT IN BED, ALERT AND ORIENTED X 4. VERBALLY RESPONSIVE AND ABLE TO FOLLOW DIRECTIONS. BREATHING REGULAR AND UNLABORED ON ROOM AIR. NO IV ACCESS. NO COMPLAINTS OF PAIN/DISCOMFORT REPORTED WITHIN THE SHIFT. NO NOTED S/S OF PSYCHOSIS OBSERVED. REMAINED CALM AND NOT IN DISTRESS. BED LOW AND LOCKED ON SEMI FOWLERS POSITION. CALL LIGHT IN REACH. WILL ENDORSE TO MORNING SHIFT FOR NGHIA.
[2019-05-31 08:00] VITALS: BP 131/65
[2019-05-31 16:26] VITALS: BP 137/78
--- NOTE | 2019-05-31 18:42 | NUR ---
PATIENT IN BED RESTING COMFORTABLY WATCHING TV. PATIENT IN NO ACUTE DISTRESS. NO SOB NOTED. PATIENT BREATHING IS EVEN AND UNLABORED. PATIENT NEEDS AND CONCERNS ATTENDED. PATIENT BED IS LOCKED AND IN LOWEST POSITION. CALL LIGHT WITHIN REACH. WILL ENDORSE CARE TO NEXT SHIFT FOR NGHIA.
--- NOTE | 2019-05-31 19:46 | NUR ---
MS RN OPENING NOTES RECEIVED PATIENT FROM MORNING SHIFT, ALERT AND ORIENTED X 4. VERBALLY RESPONSIVE AND ABLE TO FOLLOW DIRECTIONS. BREATHING REGULAR AND UNLABORED ON ROOM AIR. NO IV ACCESS. NO COMPLAINTS OF PAIN/DISCOMFORT REPORTED OF THE TIME. BODY ASSESSMENT DONE, SKIN REMAINED INTACT, CLEAN AND DRY. BLADDER AND BOWEL CONTINENT WITH BRP. NO S/S OR VERBALIZED SUICIDAL IDEATION OBSERVED. BED LOW AND LOCKED ON SEMI FOWLERS POSITION. CALL LIGHT IN REACH. WILL CONTINUE TO MONITOR.
[2019-05-31 20:00] VITALS: BP 124/70
[2019-05-31 22:00] VITALS: BP 124/70
[2019-06-01] MEDS: LORAZEPAM 1 MG TABLET FOR AGITATION PO PRN ×2 (01:08→02:13)
--- NOTE | 2019-06-01 02:15 | NUR ---
MS RN NOTES VERBALIZED ANXIETY AND OBSERVED WITH S/S OF AGITATION, STARTED ROAMING AROUND THE WHOLE STATION. ATIVAN 1MG GIVEN BY MOUTH. NON-PHARMACOLOGICAL INTERVENTIONS DONE. WILL CONTINUE TO MONITOR.
--- NOTE | 2019-06-01 06:16 | NUR ---
MS RN CLOSING NOTES PATIENT IN BED, ALERT AND ORIENTED X 4. VERBALLY RESPONSIVE AND ABLE TO FOLLOW DIRECTIONS. BREATHING REGULAR AND UNLABORED ON ROOM AIR. NO IV ACCESS. NO COMPLAINTS OF PAIN/DISCOMFORT REPORTED WITHIN THE SHIFT. NO NOTED S/S OF PSYCHOSIS OR SUICIDAL IDEATION OBSERVED. REMAINED CALM AND NOT IN DISTRESS. BED LOW AND LOCKED ON SEMI FOWLERS POSITION. CALL LIGHT IN REACH. WILL ENDORSE TO MORNING SHIFT FOR NGHIA
--- NOTE | 2019-06-01 07:20 | NUR ---
MS RN OPENING NOTES RECEIVED PATIENT IN BED, ASLEEP. AROUSABLE TO VERBAL AND TACTILE STIMULI. ALERT AND ORIENTED X4. NO SOB. DENIES ANY C/O PAIN NOR DISCOMFORT. ABLE TO VERBALIZE NEEDS. BED IN LOWEST POSITION. CALL LIGHT WITHIN REACH. AMBULATORY WITH STEADY GAIT.
[2019-06-01 08:00] VITALS: BP 135/84
[2019-06-01 16:00] VITALS: BP 128/86
--- NOTE | 2019-06-01 18:55 | NUR ---
MS RN CLOSING NOTES ALERT AND ORIENTED X4. NO SOB. DENIES ANY C/O PAIN NOR DISCOMFORT. DENIES ANY C/O NOR VERBALIZATION OF ANY BEHAVIOR ISSUES. ABLE TO VERBALIZE NEEDS. BED IN LOWEST POSITION. CALL LIGHT WITHIN REACH. AMBULATORY WITH STEADY GAIT. IN NO APPARENT DISTRESS.
--- NOTE | 2019-06-01 19:30 | NUR ---
CHANGE OF SHIFT REPORT Patient is awake, independent. On Clinical Trial study. Denies any pain, behavior calm and cooperative. Instructed to use call light if any needs or assistance, verbalized understanding.
[2019-06-01 20:00] VITALS: BP 135/80
[2019-06-01] MEDS: ZOLPIDEM TARTRATE 10 MG TABLET PO PRN (23:10)
--- NOTE | 2019-06-02 06:23 | NUR ---
END OF SHIFT REPORT Patient in bed, stable oxygen saturation on RA. Restless at times, talking on the phone for long periods of time. Cooperative, calm. Slept well with PRN Ambien. Denies pain.Remains on Clinical Trial under .
--- NOTE | 2019-06-02 07:30 | NUR ---
MS RN OPENING NOTES RECEIVED PATIENT IN BED ASLEEP. AROUSABLE TO VERBAL AND TACTILE STIMULI. DENIES ANY C/O PAIN NOR DISCOMFORT. NO EVIDENCE OF SOB. SLEPT WELL LAST NIGHT PER PATIENT. ON CLINICAL TRIALS WITHOUT S/S OF COMPLICATIONS OBSERVED. BED IN LOWEST POSITION, LOCKED. CALL LIGHT WITHIN REACH. ABLE TO VERBALIZE NEEDS.
[2019-06-02 08:00] VITALS: BP 151/95
[2019-06-02 16:00] VITALS: BP 131/71
--- NOTE | 2019-06-02 18:50 | NUR ---
MS RN CLOSING NOTES ALERT AND ORIENTED X4. DENIES ANY C/O PAIN NOR DISCOMFORT. NO EVIDENCE OF SOB. ON CLINICAL TRIALS WITHOUT S/S OF COMPLICATIONS OBSERVED. AMBULATES in UNIT WITH STEADY GAIT. INTERACTS WITH STAFF WITHOUT BEHAVIORAL ISSUES OBSERVED. COMPLIANT WITH CARE. BED IN LOWEST POSITION, LOCKED. CALL LIGHT WITHIN REACH. ABLE TO VERBALIZE NEEDS. IN NO APPARENT DISTRESS.
--- NOTE | 2019-06-02 19:15 | NUR ---
RN OPENING NOTES 1914 RECEIVED PATIENT FROM PASTOR HERNANDEZ. PATIENT IN ROOM, TALKING TO FRIEND ON THE PHONE. NO SIGNS OF RESPIRATORY DISTRESS. PATIENT DENIES SHORTNESS OF BREATH. ON CLINICAL TRIAL STUDY. DENIES ANY FORM OF PAIN. PATIENT VERY CALM AND COOPERATIVE. PATIENT VERBALIZES UNDERSTANDING THAT HE IS NPO AFTER 21:00 ON: 06/02/19. SAFETY PRECAUTIONS IMPLEMENTED; CALL LIGHT WITHIN REACH, BED LOWEST POSITION, BED LOCKED, SIDE RAILS UP X2. BED ALARM ON. WILL CONTINUE TO MONITOR.
[2019-06-02 20:52] VITALS: BP 150/93
--- NOTE | 2019-06-03 06:07 | NUR ---
RN CLOSING NOTES PATIENT REMAINS IN BED, TOLERATING ROOM AIR. PATIENT SLEPT WELL. PATIENT VERY COOPERATIVE, CALM. NO COMPLAINTS AT THIS TIME. PATIENT REMAINS ON CLINICAL TRIAL UNDER DR. ALY. SAFETY PRECAUTIONS REMAIN IN PLACE. WILL ENDORSE TO DAYSDCFT NURSE FOR CONTINUITY OF CARE.
--- NOTE | 2019-06-03 07:38 | NUR ---
RN OPENING NOTES RECEIVED PATIENT IN BED, ASLEEP. AROUSABLE TO VERBAL AND TACTILE STIMULI. ALERT AND ORIENTED X4. NO SOB. DENIES PAIN OR DISCOMFORT. ABLE TO VERBALIZE NEEDS. BED IN LOWEST LOCKED POSITION. SIDERAILS UP X2. CALL LIGHT WITHIN REACH. AMBULATORY WITH STEADY GAIT.
[2019-06-03 08:00] VITALS: BP 128/78
--- NOTE | 2019-06-03 09:11 | NUR ---
RN SHIRLEY GUAJARDO FROM DR ALY'S OFFICE PUBLIC ADDRESS SERVICER THE PATIENT FOR APPOINTMENT WITH DR ALY
--- NOTE | 2019-06-03 12:30 | NUR ---
RN NOTES PATIENT CAME BACK FROM DR'S OFFICE
[2019-06-03 16:00] VITALS: BP 141/80
--- NOTE | 2019-06-03 19:15 | NUR ---
RESTING IN BED...BED ALARM ON...CALL LIGHTAVALABLE AND WITHIN REACH. APPEARS IN NO DISTRESS ATTHIS TIME...DENIES C/O PAIN OR OTHER AT THIS TIME
--- NOTE | 2019-06-03 19:20 | NUR ---
RN CLOSING NOTES PATIENT IN STABLE CONDITION. ALL NEEDS ATTENDED AND PROVIDED. ASSISTED WITH ADLS. KEPTP ATIENT SAFE AND COMFORTBALE. BED IN LOW/LOCKED POSITION, SIDERIALS UPX2,C ALL LIGHT IN REACH. ENDORSED TO NIGHT RN FOR NGHIA.
--- NOTE | 2019-06-03 19:50 | NUR ---
SEEN UP IN HALLWAY REQUESTING TO GO OUTSIDE...VERY COOPERATIVE AND PLEASANT. ORIENTED X X4...APPEARS MEDICALLY STABLE AT THIS TIME
[2019-06-03 20:00] VITALS: BP 146/89
[2019-06-03] MEDS: [UNRECOGNIZED DRUG - OTHER] PO SCH (22:20)
--- NOTE | 2019-06-03 23:00 | NUR ---
UP TO BATHROOM WITH ASSIST...INCONT OF URINE AND SMALL AMOUNT OF STOOL...ASSISTED BACK TO BED AND BRIEF APPLIED....IV REMAINS W/O SISX INFILTRATION NOTED
[2019-06-04] MEDS: ZOLPIDEM TARTRATE 10 MG TABLET PO PRN (01:30)
--- NOTE | 2019-06-04 06:54 | NUR ---
UNEVENTFUL NIGHT...MAKES NEEDS KNON. COOPERATIVE. NO C/O PAIN OR OTHER THROUGHOUT SHIFT. REPORT GIVEN TO GINNY MENDEZ
[2019-06-04 08:00] VITALS: BP 108/65
--- NOTE | 2019-06-04 19:46 | NUR ---
RECEIVE PT AWAKE WATCHING TV A/O X3, STABLE AND NOT IN DISTRESS, RESPIRATIONS EVEN AND UNLABORED. WILL CONT TO MTR
[2019-06-04 20:00] VITALS: BP 155/85
[2019-06-04] MEDS: [UNRECOGNIZED DRUG - OTHER] PO SCH (21:48)
--- NOTE | 2019-06-05 06:22 | NUR ---
PT ASLEEP AND EASILY AWAKEN, NO SIGNIFICANT CHANGES THROUGHOUT THE SHIFT. NO PSYCHIATRIC INSTABILITY. STABLE AND NOT IN DISTRESS. NEEDS ATTENDED AND ANTICIPATED, KEPT CLEAN, DRY, COMFORT AT ALL TIMES. WILL ENDORSE NEXT SHIFT POC. PT SLEPT WELL
--- NOTE | 2019-06-05 07:20 | NUR ---
MS RN OPENING NOTE RECEIVED PATIENT IN BED SLEEPING COMFORTABLY. PATIENT IN NO ACUTE DISTRESS. NO SOB NOTED PATIENT BREATHING IS EVEN AND UNLABORED. PATIENT BED IS LOCKED AND IN LOWEST POSITION. CALL LIGHT WITHIN REACH. WILL CONTINUE TO MONITOR.
[2019-06-05 08:00] VITALS: BP 128/85
[2019-06-05 16:00] VITALS: BP 151/87
--- NOTE | 2019-06-05 18:15 | NUR ---
MS RN CLOSING NOTE PATIENT IN BED RESTING COMFORTABLY, PLAYING GAMES ON HIS PHONE. PATIENT IN NO ACUTE DISTRESS. NO SOB NOTED. PATIENT BREATHING IS EVEN AND UNLABORED. NEEDS AND CONCERNS ADDRESSED. PATIENT KEPT CLEAN AND DRY THROUGHOUT SHIFT. PATIENT BED IS LOCKED AND IN LOWEST POSITION. CALL LIGHT WITHIN REACH. WILL ENDORSE CARE TO OPERATIONS MANAGEMENT TRAINEE FOR NGHIA.
--- NOTE | 2019-06-05 19:46 | NUR ---
MS/RN OPENING NOTES PATIENT AWAKE, ALERT X3, ABLE TO DISCUSS CARE. ABLE TO DO OWN ACTIVITY INDEPENDENTLY WITH SUPERVISION. NO PAIN VERBALIZED. RESPIRATIONS EVEN AND UNLABORED. SELF MOTIVATED. WILL MONITOR . PLAN OF CARE DISCUSSED.
[2019-06-05 20:00] VITALS: BP 122/74
[2019-06-05] MEDS: [UNRECOGNIZED DRUG - OTHER] PO SCH (21:23)
[2019-06-05] MEDS: ZOLPIDEM TARTRATE 10 MG TABLET PO PRN (23:40)
--- NOTE | 2019-06-06 06:44 | NUR ---
319-1 ms/rn noted patient alert, oriented x3, able to verbalize needs, independent to care. on clinical trial, monitored for any changes, respirations even and unlabored. calllights within reach, provided snacks and fluids. self motivated. will endorse to am rn for catie.
--- NOTE | 2019-06-06 07:57 | NUR ---
MS RN NOTES PATIENT RESTING INSIDE ROOM. AWAKE, ALERT AND ORIENTED X 4, NO ACUTE DISTRESS. DENIES ANY PAIN OR DISCOMFORT. PATIENT CALM AND RELAXED. DENIES SI/HI AT THIS TIME. SAFETY PRECAUTIONS IN PLACE. WILL CONTINUE TO MONITOR. BED LOCKED AND IN LOW POSITION. BILATERAL UPPER SIDE RAILS UP AND LOCKED. CALL LIGHT WITHIN EASY REACH
[2019-06-06 08:00] VITALS: BP 135/74
--- NOTE | 2019-06-06 18:35 | NUR ---
MS RN NOTES PATIENT AWAKE, ALERT, ORIENTED X 4, RESTING IN ROOM. NO ACUTE DISTRESS, DENIES ANY PAIN OR DISCOMFORT. PATIENT CALM AND RELAXED AND DENIES SI/HI. SAFETY PRECAUTIONS IN PLACE, BED LOWEST POSITION, LOCKED, 2 SIDE RAILS UP. CALL LIGHT KEPT WITHIN REACH. WILL ENDORSE TO ONCOMING RECREATION DIRECTOR NURSE.
--- NOTE | 2019-06-06 19:37 | NUR ---
MS/RN OPENING NOTES RECEIVED PATIENT IN CHAIR WATCHING TV AND HAVING SNACKS, RESPIRATIONS EVEN AND UNLABORED, SKIN WARM TO TOUCH. BED LOCKES, CALL LIGHTS WITHIN REACH, ABLE TO VERBALIZE NEEDS. SKIN WARM TO TOUCH, DISCUSSED PLAN OF CARE. SELF CARE AND MOTIVATED, COMPLIANT AND HELLEN MONITOR SAFETY AND SLEEP.
[2019-06-06 20:00] VITALS: BP 153/83
[2019-06-06] MEDS: [UNRECOGNIZED DRUG - OTHER] PO SCH (21:19)
--- NOTE | 2019-06-06 21:40 | NUR ---
ms/rn notes patient walking in hallway and being assisted by bulk plant manager to go downstairs.
--- NOTE | 2019-06-06 23:49 | NUR ---
MS/RN NOTES PATIENT REQUESTED FOR SOME SNACKS OF TUNA AND ORANGE JUICE GIVEN.
--- NOTE | 2019-06-07 06:20 | NUR ---
MS/RN NOTES PATIENT ABLE TO SLEEP DURING THE NIGHT , ATTENDED TO NEEDS, KEPT COMFORTABLE, PROVIDED SNACKS AND FLUIDS, ASSISTED AND AMBULATED IN HALLWAY. TOLERATED MEDICATION FOR CLINICAL TRIAL WELL, NO CONCERN. BEHAVIOR APPROPRIATE. SELF MOTIVATED AND INDEPENDENT TO CARE. WILL MONITOR. WILL ENDORSE TO AM RN FOR NGHIA.
--- NOTE | 2019-06-07 08:15 | NUR ---
MS/RN - Assessment Patient is alert and oriented x 4, denies pain, no apparent distress, calm and cooperative with care, ambulatory with steady gait, independent with ADLs. Patient here for clinical trial under the care of Dr. Mao for Schizophrenia. Skin assessment done, no skin breakdown noted. Will continue to monitor and intervene as needed.
--- NOTE | 2019-06-07 17:10 | NUR ---
MS/RN - End of shift summary No new events seen, resting comfortably, no behavioral issues noted at this time. Will continue to monitor closely and endorse to night nurse accordingly.
--- NOTE | 2019-06-07 19:35 | NUR ---
RN OPENING NOTES: RECEIVED REPORT FROM DAYSHIFT PASTOR DOMINGUEZ. FOUND Pt AWAKE, PLAYING GAMES ON HIS PHONE. NO S/S OF ACUTE DISTRESS OR SOB NOTED. RESPIRATIONS EVEN AND UNLABORED WITH EQUAL CHEST RISE AND FALL. Pt IS A/OX4, VERBAL, ABLE TO MAKE NEEDS KNOWN. NO IV ACCESS DUE TO CLINICAL TRIAL. SAFETY MEASURES IN PLACE. WILL CONTINUE TO MONITOR Pt's CONDITION AND SAFETY THROUGHOUT THE NIGHT.
[2019-06-07 20:00] VITALS: BP 137/80
[2019-06-07] MEDS: [UNRECOGNIZED DRUG - OTHER] PO SCH (22:01)
[2019-06-08] MEDS: LORAZEPAM 1 MG TABLET FOR AGITATION PO PRN (03:52)
--- NOTE | 2019-06-08 03:55 | NUR ---
RN NOTES Pt REQUESTED FOR ATIVAN DUE TO RESTLESSNESS AND NEEDED SOMETHING TO HELP HIM RELAX AND SLEEP.
--- NOTE | 2019-06-08 06:36 | NUR ---
RN CLOSING NOTES NO SIGNIFICANT CHANGES IN Pt's CONDITION. Pt REMAINS STABLE AT THIS TIME. NO S/S OF ACUTE DISTRESS OR SOB NOTED DURING THE NIGHT. Pt IS RESTING COMFORTABLY IN BED, WITH EVEN AND UNLABORED RESPIRATIONS. ALL NEEDS MET AND ATTENDED TO. SAFETY MEASURES IN PLACE. WILL ENDORSE TO DAYSHIFT RN FOR Pt's NGHIA.
--- NOTE | 2019-06-08 08:00 | NUR ---
MS/RN OPENING NOTE PATIENT RECEIVED SLEEPING IN BED. SHOWING NO SIGNS OF APPARENT DISTRESS. SAFETY MEASURES IN PLACE. PATIENT IS HERE FOR CLINICAL TRIAL UNDER THE CARE OF DR. ALY FOR SCHIZOPHRENIA. SKIN ASSESSMENT DONE, NO SKIN BREAKDOWN NOTED. WILL CONTINUE TO MONITOR AND INTERVENE NEEDED.
[2019-06-08 16:00] VITALS: BP 146/66
--- NOTE | 2019-06-08 17:25 | NUR ---
MS/RN CLOSING NOTE NO NEW EVENTS SEEN, NO BEHAVIORAL ISSUES NOTED AT THIS TIME. ALL PATIENT NEEDS MET. WILL ENDORSE TO GROCERY SUPERVISOR.
--- NOTE | 2019-06-08 19:40 | NUR ---
RN OPENING NOTES: RECEIVED REPORT FROM DAYSHIFT PASTOR DOMINGUEZ. FOUND Pt AWAKE, SITTING IN CHAIR, WATCHING TV. NO S/S OF ACUTE DISTRESS OR SOB NOTED. RESPIRATIONS EVEN AND UNLABORED WITH EQUAL CHEST RISE AND FALL. Pt IS A/OX4, VERBAL, ABLE TO MAKE NEEDS KNOWN. NO IV ACCESS DUE TO CLINICAL TRIAL. Pt IS REQUESTING FOR AMBIEN LATER TONIGHT IF HE CANNOT SLEEP BY MN. SAFETY MEASURES IN PLACE. WILL CONTINUE TO MONITOR Pt's CONDITION AND SAFETY THROUGHOUT THE NIGHT.
[2019-06-08 19:58] VITALS: BP 126/82
[2019-06-08 20:00] VITALS: BP 126/82
[2019-06-08] MEDS: [UNRECOGNIZED DRUG - OTHER] PO SCH (21:31)
[2019-06-09 08:00] VITALS: BP 144/77
[2019-06-09 16:00] VITALS: BP 112/59
--- NOTE | 2019-06-09 18:00 | NUR ---
RN CLOSING NOTES NO SIGNIFICANT CHANGES IN PT'S CONDITION. PT REMAINS STABLE. DENIES PAIN, NO SIGNS OF ACUTE DISTRESS, NO SOB NOTED DURING SHIFT. PT IS IN BED, RESTING WITH EVEN UNLABORED RESPIRATIONS. ALL NEEDS MET AND ATTENDED TO. SAFETY MEASURES IN PLACE. BED IN LOWEST POSITION, LOCKED. WILL ENDORSE TO TANK DRIVER NURSE.
[2019-06-09 20:00] VITALS: BP 130/71
--- NOTE | 2019-06-09 20:15 | NUR ---
PASTOR leblanc opening notes Received Pt from morning nurse. Pt is sitting in a chair eating his dinner. Pt is alert and oriented x4, calm and cooperative. Reality orientation is provided. Pt denies any suicidal thoughts at this time. Respiration is normal. No SOB. No nausea or vomiting. Pt denies any pain or discomfort at this time. Pt doesn't have IV site. Safety precautions is maintained. Bed at low position, brakes locked, side rails upX2 and call light is within reach. Instructed to call. Will continue to monitor. Addendum: 06/09/19 at 2027 by STEVE TREVIÑO RN Nevaeh opening notes at 1909
[2019-06-09] MEDS: [UNRECOGNIZED DRUG - OTHER] PO SCH (21:03)
[2019-06-10] MEDS: ZOLPIDEM TARTRATE 10 MG TABLET PO PRN ×2 (01:08→23:05)
--- NOTE | 2019-06-10 01:08 | NUR ---
RN medsurg notes Pt is requesting sleeping pill. Administered Ambien 10 mg/1 tab/PO per Pt request. Instructed to call. Safety precautions is maintained. Will continue to monitor.
--- NOTE | 2019-06-10 06:54 | NUR ---
RN medsurg notes Pt is resting in bed comfortably. Respiration is normal. No SOB. No S/S of distress noted. Kept Pt clean, dry,warm and comfortable. PRN meds given as ordered per Pt's request. All needs met and attended. Safety precautions is maintained. Instructed to call. Bed at low position, brakes locked, side rails upX2 and call light is within reach. Will endorse to morning nurse for [facility].
--- NOTE | 2019-06-10 07:20 | NUR ---
MS RN OPENING NOTES RECEIVED PT IN BED, ASLEEP EASILY AROUSED. A/O X3-4. PT TOLERATING RA, WITH NO ACUTE RESPIRATORY DISTRESS NOTED. PT DENIES ANY PAIN OR DISCOMFORT AT THIS TIME. PT ALSO DENIES ANY CONCERNS OR QUESTIONS AT THE MOMENT. NO IV ACCESS NOTED. PT KEPT COMFORTABLE. CALL LIGHT KEPT WITHIN REACH. PT'S BED IN LOWEST, LOCKED POSITION WITH SR X3. WILL CONTINUE PLAN OF CARE.
[2019-06-10 08:00] VITALS: BP 146/93
--- NOTE | 2019-06-10 09:30 | NUR ---
MS RN NOTES PT THAT IN CLINICAL TRIAL LEFT THE UNIT AND PICKED UP BY JESSICA, UNDER DR. ALY FOR AN APPOINTMENT. PT IN STABLE CONDITION. PT DENIES ANY PAIN OR DISCOMFORT AT THIS TIME.
[2019-06-10 16:00] VITALS: BP 131/75
--- NOTE | 2019-06-10 19:49 | NUR ---
MS RN CLOSING NOTES PT ON CLINICAL TRIAL, IN BED, ASLEEP EASILY AROUSED. A/O X3-4. AMBULATORY. PT TOLERATING RA, WITH NO ACUTE RESPIRATORY DISTRESS NOTED. PT DENIES ANY PAIN OR DISCOMFORT AT THIS TIME. NO IV ACCESS NOTED. PT KEPT COMFORTABLE. ALL NEEDS AND CARE ATTENDED. CALL LIGHT KEPT WITHIN REACH. PT'S BED IN LOWEST, LOCKED POSITION WITH SR X3. ENDORSED TO CHAIR PAD MAKER NURSE FOR [facility].
--- NOTE | 2019-06-10 19:55 | NUR ---
MS RN NOTE: PATIENT SITTING IN CHAIR, NO ACUTE DISTRESS NOTED. BREATHING EVEN AND UNLABORED, NO SOB NOTED. PATIENT CALM AND COOPERATIVE AT THIS TIME. CALL LIGHT IN REACH. WILL CONTINUE TO MONITOR.
[2019-06-10 20:00] VITALS: BP 139/103
[2019-06-10] MEDS: LORAZEPAM 1 MG TABLET FOR AGITATION PO PRN (21:08)
--- NOTE | 2019-06-10 21:10 | NUR ---
MS RN NOTE: PATIENT COMPLAINS OF ANXIETY, ATIVAN 1MG PO GIVEN PER MD ORDER. WILL CONTINUE TO MONITOR.
[2019-06-10] MEDS: [UNRECOGNIZED DRUG - OTHER] PO SCH (22:10)
--- NOTE | 2019-06-10 23:10 | NUR ---
MS RN NOTE: PATIENT REQUESTING FOR SLEEPING MEDICATION, AMBIEN 10MG 1 TAB ORAL GIVEN PER MD ORDER. WILL CONTINUE TO MONITOR.
--- NOTE | 2019-06-11 06:35 | NUR ---
MS RN NOTE: PATIENT RESTING IN BED, NO ACUTE DISTRESS NOTED. BREATHING EVEN AND UNLABORED, NO SOB NOTED. PATIENT CALM AND COOPERATIVE AT THIS TIME. PATIENT WAS ABLE TO SLEEP AT LEAST 5 HOURS. BED LOCKED AND IN LOWEST POSITION, CALL LIGHT IN REACH. WILL ENDORSE TO DAY NURSE TO CONTINUE WITH PLAN OF CARE.
[2019-06-11 08:00] VITALS: BP 144/77
[2019-06-11] MEDS: LORAZEPAM 1 MG TABLET FOR AGITATION PO PRN (15:30)
[2019-06-11 16:15] VITALS: BP 150/90
--- NOTE | 2019-06-11 18:51 | NUR ---
MS RN CLOSING NOTES PT IN BED, AWAKE. A/O X3-4. PT TOLERATING RA, WITH NO ACUTE RESPIRATORY DISTRESS NOTED. PT DENIES ANY PAIN OR DISCOMFORT AT THIS TIME. NO IV ACCESS NOTED. ALL NEEDS AND CARE ATTENDED. PT KEPT COMFORTABLE. CALL LIGHT KEPT WITHIN REACH. PT'S BED IN LOWEST, LOCKED POSITION WITH SR X2. WILL ENDORSE TO INCOMING NIGHT NURSE FOR [facility].
--- NOTE | 2019-06-11 19:25 | NUR ---
MS RN PM OPENING NOTE BEDSIDE REPORT RECIEVED FROM LOPEZ BAUMANN. PATIENT HERE FOR CLINICAL TRIAL. PT REPORTS HIS SCHIZOPHRENIA IS A BIT MORE ACTIVE BUT STATES ,"ITS MANAGEABLE BUT I HAVE BEEN OFF MY MEDS FOR A MINUTE NOW." DENIES SI AND HI. PT IN BED, AWAKE. A/O X4. NO ACUTE RESPIRATORY DISTRESS NOTED. PT DENIES PAIN OR DISCOMFORT AT THIS TIME. NO IV ACCESS NOTED. CALL LIGHT KEPT WITHIN REACH. PT'S BED IN LOWEST, LOCKED POSITION WITH SR X2. WILL CONTINUE TO MONITOR.
[2019-06-11 20:00] VITALS: BP 134/84
[2019-06-11] MEDS: [UNRECOGNIZED DRUG - OTHER] PO SCH (21:02)
[2019-06-12] MEDS: ZOLPIDEM TARTRATE 10 MG TABLET PO PRN (01:03)
--- NOTE | 2019-06-12 05:25 | NUR ---
MS RN PM CLOSING NOTE PATIENT HERE FOR CLINICAL TRIAL. PT SEEN IN BED WITH EYES CLOSED. NO ACUTE RESPIRATORY DISTRESS NOTED. PT DOES NOT APPEAR TO BE IN ANY DISTRESS. NO IV ACCESS NOTED. CALL LIGHT SEEN WITHIN REACH. BED IN LOWEST, LOCKED POSITION WITH SR X2. WILL CONTINUE TO MONITOR.
--- NOTE | 2019-06-12 07:15 | NUR ---
MS RN OPENING NOTES RECEIVED PT IN BED, ASLEEP EASILY AROUSED. A/O X3-4. PT TOLERATING RA, WITH NO ACUTE RESPIRATORY DISTRESS NOTED. PT DENIES ANY PAIN OR DISCOMFORT AT THIS TIME. PT ALSO DENIES ANY CONCERNS OR QUESTIONS AT THE MOMENT, HE DOESN'T WANT TO BE BOTHERED AT THIS TIME. SIGN ON THE DOOR NOT TO WAKE UP PT UNTIL 9AM. NO IV ACCESS NOTED. PT KEPT COMFORTABLE. CALL LIGHT KEPT WITHIN REACH. PT'S BED IN LOWEST, LOCKED POSITION WITH SR X3. WILL CONTINUE PLAN OF CARE.
[2019-06-12 16:04] VITALS: BP 146/75
--- NOTE | 2019-06-12 18:41 | NUR ---
MS RN CLOSING NOTES PT IN BED, AWAKE. PT ON CLINICAL TRIAL. A/O X3-4. PT TOLERATING RA, WITH NO ACUTE RESPIRATORY DISTRESS NOTED. PT DENIES ANY PAIN OR DISCOMFORT AT THIS TIME. NO IV ACCESS NOTED. ALL NEEDS AND CARE ATTENDED. PT KEPT COMFORTABLE. CALL LIGHT KEPT WITHIN REACH. PT'S BED IN LOWEST, LOCKED POSITION WITH SR X2. WILL ENDORSE TO INCOMING NIGHT NURSE FOR [facility].
--- NOTE | 2019-06-12 19:25 | NUR ---
MS RN OPENING PM NOTE BEDSIDE REPORT RECIEVED FROM LOPEZ BAUMANN. PT AWAKE IN ROOM. PT ON CLINICAL TRIAL. A/O X4. PT TOLERATING RA IN NO APPARENT RESPIRATORY DISTRESS. PT DENIES PAIN OR DISCOMFORT AT THIS TIME. NO IV ACCESS NOTED. REVIEWED MEDICATION REGIMENT WITH PATIENT VERBALIZED UNDERSTANDING. CALL LIGHT AT BEDSIDE WITHIN REACH. PT'S BED IN LOWEST, LOCKED POSITION WITH SR X2. PT AMBULATORY AND INDEPENDENT. PT DENIES SI AND HI. WILL CONT TO MONITOR.
[2019-06-12 20:00] VITALS: BP 131/78
[2019-06-12] MEDS: [UNRECOGNIZED DRUG - OTHER] PO SCH (21:02)
[2019-06-13] MEDS: ZOLPIDEM TARTRATE 10 MG TABLET PO PRN (00:02)
--- NOTE | 2019-06-13 01:02 | NUR ---
PT DENIES FEELING SLEEPY AT THE MOMENT. INTERVENTIONS APPLIED TO KEEP QUIET ENVIRONMENT. PT REPORTS HAVING SHOWER MIGHT HELP. ASSISTED TO SHOWER. GAIT STEADY. PT STILL ALERT AND ORIENTED DENIES DROWSINESS.
--- NOTE | 2019-06-13 07:15 | NUR ---
MS RN OPENING NOTES RECEIVED PT ASLEEP IN BED, EASILY AWAKENS. PT IS A/O X4. ABLE TO VERBALIZED NEEDS, DENIES PAIN OR ANY DISCOMFORTS AT THIS TIME. ON ROOM AIR, BREATHING EVEN AND UNLABORED. NO IV ACCESS NOTED. CALL LIGHT KEPT WITHIN REACH. PT'S BED IN LOWEST, LOCKED POSITION WITH SR UPX2. WILL CONTINUE PLAN OF CARE.
[2019-06-13 16:00] VITALS: BP 135/79
--- NOTE | 2019-06-13 18:31 | NUR ---
RN NOTES PT C/O HEADACHE AND REQUESTED FOR MOTRIN. PRN MOTRIN 600MG PO GIVEN AT [id number]. WILL CONTINUE TO MONITOR
--- NOTE | 2019-06-13 18:50 | NUR ---
MS RN PM CLOSING NOTE PATIENT RESTING IN BED AT THIS TIME. A/O X4. AMBULATORY WITH STEADY GAIT AND ABLE TO MAKE NEEDS KNOWN. NOTED WALKING AROUND THE HALLWAYS ON AND OFF DURING THE DAY. ON ROOM AIR, TOLERATING WELL WITH NO SOB NOTED. NO IV ACCESS NOTED. CALL LIGHT WITHIN REACH. BED IN LOWEST, LOCKED POSITION WITH SR X2. WILL ENDORSE TO DIGITAL MARKETING EXECUTIVE NURSE FOR [facility]..
--- NOTE | 2019-06-13 19:20 | NUR ---
MSRN FULLY AWAKE, ON HIS WAY TO HAVE SHOWER. DENIES ANY DISCOMFORTS, STABLE OF THIS TIME..DISCUSSED MEDICATION REGIMEN, WELL UNDERSTOOD. SAFETY PRECAUTIONS EMPHASIZED WELL UNDERSTOOD.
[2019-06-13] MEDS: [UNRECOGNIZED DRUG - OTHER] PO SCH (21:18)
[2019-06-13 23:05] VITALS: BP 139/94
--- NOTE | 2019-06-14 02:00 | NUR ---
MSRN TOOK AMBIEN THIS TIME REQUESTED. NO OTHER NEEDS MADE. STABLE.
[2019-06-14] MEDS: ZOLPIDEM TARTRATE 10 MG TABLET PO PRN ×2 (02:02→23:59)
--- NOTE | 2019-06-14 06:45 | NUR ---
[facility] SLEEPING, CLOSELY WATCHED.
--- NOTE | 2019-06-14 07:30 | NUR ---
m/s mat machine operator: initial assessment received pt in bed asleep with no distress noted. call light within reach. will continue to monitor.
[2019-06-14 09:50] VITALS: BP 138/97
--- NOTE | 2019-06-14 10:00 | NUR ---
m/s center medical and lab director: notes awake at this time. no c/o pain or any discomfort.
--- NOTE | 2019-06-14 12:10 | NUR ---
m/s manager appointment: notes having lunch at this time. no distress noted.
--- NOTE | 2019-06-14 15:00 | NUR ---
m/s web services professional: notes walking around in unit. no distress noted.
[2019-06-14 16:00] VITALS: BP 126/85
--- NOTE | 2019-06-14 17:30 | NUR ---
m/s television script writer: notes pt showered.
--- NOTE | 2019-06-14 18:30 | NUR ---
m/s bead machine operator: notes resting comfortable in bed. no distress noted. needs attended.
--- NOTE | 2019-06-14 19:10 | NUR ---
MS RN OPENING NOTES Received patient A/O x4, awake on chair at bedside, on the phone. Patient denies any discomfort at this time. Patient is ambulatory, able to perform ADLs independently. Discussed to patient the POC of care for the night. Per patient he does not wanted to be disturbed from midnight to 9am. Sign at the door noted to ensured uninterrupted sleep. Kept patient's bed clean and dry. Call light within easy reach. Will continue to monitor accordingly.
[2019-06-14 20:00] VITALS: BP 142/85
[2019-06-14 20:24] VITALS: BP 142/85
[2019-06-14] MEDS: [UNRECOGNIZED DRUG - OTHER] PO SCH (21:57)
--- NOTE | 2019-06-15 06:46 | NUR ---
MS RN CLOSING NOTES Patient asleep, easily awaken. On RA, no SOB/respiratory distress noted. Afebrile the whole shift, no new complaints made. All nursing needs attended, due meds given as ordered. Kept on bed clean, dry and comfortable. Call light within easy reach. Endorsed to the next shift.
--- NOTE | 2019-06-15 07:15 | NUR ---
MS RN PATIENT ON BED, SLEEPING, DOES NOT WANT TO BE DISTURB AT THIS TIME, WILL ASSESS LATER.
[2019-06-15 08:00] VITALS: BP 143/88
--- NOTE | 2019-06-15 09:30 | NUR ---
ms royal breakfast served,due meds given,tolerated well.
--- NOTE | 2019-06-15 15:30 | NUR ---
ms rn was seen by dr. rouse,no order at this time.
[2019-06-15 16:00] VITALS: BP 139/78
--- NOTE | 2019-06-15 17:57 | NUR ---
ms rn on bed, all needs attended.
--- NOTE | 2019-06-15 19:50 | NUR ---
MS RN OPENING NOTES RECEIVED PATIENT IN THE ROOM IN THE MIDDLE OF AN EXERCISE. A/O X4. VERBALLY RESPONSIVE AND ABLE TO MAKE NEEDS KNOWN. PATIENT IS AMBULATORY AND ABLE TO PERFORM ADLS INDEPENDENTLY. NO S/S OF SOB NOTED. NO SIGNS OF ACUTE DISTRESS. NO COMPLAINS OF PAIN AND DISCOMFORT AT THIS TIME. PER PATIENT HE DOES NOT WANT TO BE DISTURBED FROM MIDNIGHT TO 9AM. SIGN AT THE DOOR NOTED. SAFETY MEASURES KEPT IN PLACE. BED IS IN LOW, LOCKED POSITION. CALL LIGHT WITHIN REACH. WILL CONTINUE TO MONITOR PATIENT ACCORDINGLY.
[2019-06-15 20:00] VITALS: BP 131/80
[2019-06-15] MEDS: [UNRECOGNIZED DRUG - OTHER] PO SCH (21:11)
[2019-06-16] MEDS: ZOLPIDEM TARTRATE 10 MG TABLET PO PRN (02:33)
--- NOTE | 2019-06-16 02:35 | NUR ---
MS RN NOTES: PATIENT WAS OFFERED AMBIEN AT MIDNIGHT, PATIENT REFUSED. AT 0233, PATIENT REQUESTED FOR AMBIEN 10MG PO. TOLERATED WELL. WILL CONTINUE TO MONITOR.
--- NOTE | 2019-06-16 06:45 | NUR ---
RN NOTES SLEEPING BUT AROUSABLE, CALM AND COOPRATIVE, PT. NEEDS ATTENDED
[2019-06-16 09:00] VITALS: BP 137/71
--- NOTE | 2019-06-16 09:00 | NUR ---
RN MS NOTES PT AWAKE, ALERT AND ORIENTED, NO COMPLAINT OF PAIN, NOT IN DISTRESS, CALL LIGHT WITHIN REACH, PT WALKING ALONG THE HALLWAY, NEEDS ATTENDED.
[2019-06-16 15:56] VITALS: BP 132/73
--- NOTE | 2019-06-16 18:19 | NUR ---
RN MS NOTES PT IN HIS ROOM, AWAKE, ALERT AND ORIENTED, NO COMPLAINT OF PAIN OR ANY DISCOMFORT, AMBULATES ALONG THE HALLWAY WITH STEADY GAIT, NO BEHAVIOR PROBLEM NOTED DURING THE SHIFT, TOLERATING CURRENT DIET, CALL LIGHT WITHIN REACH.
[2019-06-16 20:00] VITALS: BP 113/63
[2019-06-16] MEDS: [UNRECOGNIZED DRUG - OTHER] PO SCH (21:17)
--- NOTE | 2019-06-17 06:19 | NUR ---
MS RN NOTES AWAKE & RESPONSIVE. NOT IN ANY DISTRESS. NO SOB NOTED. DENIES ANY PAIN OR DISCOMFORT AT THIS TIME. WITH IV-HL PATENT & INTACT. MONITORED ACCORDINGLY. CALL LIGHT WITHIN REACH. BED IN LOWEST POSITION. SR UP X 2 FOR SAFETY. WILL ENDORSE TO NEXT SHIFT.
--- NOTE | 2019-06-17 06:28 | NUR ---
MS RN NOTES PT SLEPT 8 HOURS
[2019-06-17 09:00] VITALS: BP 132/76
[2019-06-17 16:00] VITALS: BP 121/80
--- NOTE | 2019-06-17 19:00 | NUR ---
MS RN OPENING NOTES Received patient A/O x4, awake on bed, on RA, no respiratory distress. Patient denies any discomfort at this time. Discussed with patient the POC, patient verbalized understanding. Will continue to monitor accordingly.
[2019-06-17 20:00] VITALS: BP 143/80
[2019-06-17] MEDS: ACETAMINOPHEN ES 500 MG TABLET PO PRN (21:46)
[2019-06-17] MEDS: [UNRECOGNIZED DRUG - OTHER] PO SCH (21:46)
[2019-06-18] MEDS: ZOLPIDEM TARTRATE 10 MG TABLET PO PRN (00:28)
--- NOTE | 2019-06-18 06:10 | NUR ---
MS RN CLOSING NOTES Patient in the room does not want to be disturb until 0900, with signage posted at the door. All nursing needs attended. Due meds given as ordered. No new complaints made. Endorsed to the next shift.
[2019-06-18 12:00] VITALS: BP 160/105
[2019-06-18] MEDS: IBUPROFEN 600 MG TABLET PO PRN (15:56)
[2019-06-18 16:00] VITALS: BP 124/76
--- NOTE | 2019-06-18 18:25 | NUR ---
medicated x1 this shift for headache pain with motrin.shift not incidental.pt. cooperative without complaints offered.
--- NOTE | 2019-06-18 19:00 | NUR ---
RN MS NOTES RECEIVED PATIENT IN BED AWAKE ALERT AND ORIENTED X 4, RESPIRATIONS EVEN AND UNLABORED WITH EQUAL RISE AND FALL OF CHEST, DENIES ANY PAIN OR DISCOMFORT AT THIS TIME, NO IV SITE MD AWARE, FLUIDS OFFERED DISCUSSED PLAN OF CARE, ORIENTED TO STAFF AND CALL LIGHT AND KEPT WITHIN REACH, SAFETY PRECAUTIONS IN PLACE, LOW BED AND LOCKED, ALL NEEDS ATTENDED AT THIS TIME REMAINS COMFORTABLE WILL CONTINUE TO MONITOR AND ATTENDS TO NEEDS.
[2019-06-18 20:00] VITALS: BP 151/87
[2019-06-18] MEDS: [UNRECOGNIZED DRUG - OTHER] PO SCH (21:00)
[2019-06-19] MEDS: ZOLPIDEM TARTRATE 10 MG TABLET PO PRN (02:00)
--- NOTE | 2019-06-19 02:03 | NUR ---
RN MS NOTES PATIENT STATES " UNABLE TO SLEEP CAN I HAVE MY AMBIEN" PRN AMBIEN GIVEN ORDERED, WILL CONTINUE TO MONITOR FOR EFFECTIVENESS.
--- NOTE | 2019-06-19 06:44 | NUR ---
RN MS NOTES PATIENT IN BED SLEEPING EASILY AROUSABLE ALERT AND ORIENTED X 4, RESPIRATIONS EVEN AND UNLABORED WITH EQUAL RISE AND FALL OF CHEST, DENIES ANY PAIN OR DISCOMFORT AT THIS TIME, NO IV SITE MD AWARE, FLUIDS OFFERED, CALL LIGHT KEPT WITHIN REACH, SAFETY PRECAUTIONS IN PLACE, LOW BED AND LOCKED, ALL NEEDS ATTENDED AT THIS TIME REMAINS COMFORTABLE WILL CONTINUE TO MONITOR AND ATTENDS TO NEEDS AND ENDORSE TO NEXT SHIFT. SLEPT ABOUT 3-4 HOURS, MED COMPLIANT NO SI/HI.
--- NOTE | 2019-06-19 07:10 | NUR ---
MS RN OPENING NOTES RECEIVED PATIENT IN BED ASLEEP. AROUSABLE TO VERBAL AND TACTILE STIMULI. NO SOB. DENIES ANY C/O PAIN NOR DISCOMFORT. ON CLINICAL TRIALS WITHOUT S/S OF COMPLICATIONS OBSERVED. BED IN LOWEST POSITION, LOCKED. BED SIDERAILS UP X2. CALL LIGHT WITHIN REACH.
[2019-06-19 08:00] VITALS: BP 148/87
[2019-06-19 16:00] VITALS: BP 135/70
--- NOTE | 2019-06-19 16:30 | NUR ---
MS RN NOTES RECEIVED INVESTIGATIONAL MED MISC 1 CAP, PLACED IN CASSETTE(319) IN MED ROOM.
--- NOTE | 2019-06-19 18:58 | NUR ---
MS RN CLOSING NOTES ALERT AND ORIENTED X4. . NO SOB. DENIES ANY C/O PAIN NOR DISCOMFORT. ON CLINICAL TRIALS WITHOUT S/S OF COMPLICATIONS OBSERVED. AMBULATES AROUND UNIT WITH STEADY GAIT. NO SI/HI. INTERACTS WITH OTHER STAFF AND PATIENTS. COMPLIANT WITH CARE. ABLE TO VERBALIZE NEEDS. BED IN LOWEST POSITION, LOCKED. BED SIDERAILS UP X2. CALL LIGHT WITHIN REACH. IN NO APPARENT DISTRESS.
--- NOTE | 2019-06-19 19:30 | NUR ---
MS RN NOTES RECEIVED PATIENT AWAKE IN BED WITH NO DISTRESS NOTED. CALL LIGHT WITHIN REACH. NO C/O PAIN OR DISCOMFORT. ENCOURAGED USE OF CALL LIGHT FOR ASSISTANCE AND VERBALIZED GOOD UNDERSTANDING. BED IN LOW LOCK SETTING. ROOM FREE OF CLUTTER AND BELONGINGS KEPT NEAR BEDSIDE. WILL CONTINUE TO MONITOR.
[2019-06-19 20:21] VITALS: BP 135/77
[2019-06-19] MEDS: [UNRECOGNIZED DRUG - OTHER] PO SCH (21:51)
[2019-06-20] MEDS: ZOLPIDEM TARTRATE 10 MG TABLET PO PRN (00:12)
--- NOTE | 2019-06-20 06:38 | NUR ---
MS RN NOTES PATIENT ASLEEP IN BED WITH NO DISTRESS NOTED. CALL LIGHT WITHIN REACH. DUE MEDS GIVEN ORDERED WITH NO ASE NOTED. NO C/O PAIN OR DISCOMFORT. NO BEHAVIORAL ISSUES NOTED DURING SHIFT. BED IN LOW LOCK SETTING. ROOM FREE OF CLUTTER AND BELONGINGS KEPT NEAR BEDSIDE. WILL ENDORSE TO ONCOMING SHIFT.
--- NOTE | 2019-06-20 07:41 | NUR ---
RN NOTES OPENING patient does not want to be disturbed until 9 am.
--- NOTE | 2019-06-20 09:31 | NUR ---
rn ms notes patient comfortable in his bed, walking around with good gait, denies pain at this time. Bed at the lowest setting, call light within reach, side rails up x2.
--- NOTE | 2019-06-20 18:02 | NUR ---
RN CLOSING NOTES Patient lying down in bed comfortably on room air. No sob noted, vital signs stable. Patients needs met. Will give report to NOC RN for [facility] bedside.
--- NOTE | 2019-06-20 19:20 | NUR ---
CHANGED OF SHIFT REPORT Patient is independent in ADL's. On clinical trial study under Dr. Mao. Patient appears calm, in his room at this time, actively exercising in his own. Denies pain, reminders use of call light for any assistance, verbalized understanding.
[2019-06-20 20:00] VITALS: BP 136/73
[2019-06-20] MEDS: LORAZEPAM 1 MG TABLET FOR AGITATION PO PRN (21:11)
--- NOTE | 2019-06-20 21:12 | NUR ---
RESTLESSNESS Patient is sitting in the chair, appears restless talking on his cellphone. Denies shortness breath, given PRN Ativan PO per his request, will reassess.
[2019-06-20 21:30] VITALS: BP 136/73
[2019-06-20] MEDS: [UNRECOGNIZED DRUG - OTHER] PO SCH (22:22)
[2019-06-21] MEDS: ZOLPIDEM TARTRATE 10 MG TABLET PO PRN (02:11)
--- NOTE | 2019-06-21 06:22 | NUR ---
END OF SHIFT REPORT Patient in bed, stable oxygen saturation on RA. Ambulates independently, denies pain. Anxious at time, controlled with PRN Ativan. Remains on Clinical Trial study under Dr. Mao.
--- NOTE | 2019-06-21 07:53 | NUR ---
RN OPENING NOTES Received patient on room air, no sob noted. Patient does not want to be disturbed. Bed at the lowest setting, call light within reach, side rails up x2.
[2019-06-21 10:20] VITALS: BP 131/64
[2019-06-21 16:00] VITALS: BP 140/84
--- NOTE | 2019-06-21 18:11 | NUR ---
RN CLOSING NOTES Patient remains on room air, no sob noted, patient denies pain at this time and is comfortable in bed. Bed at the lowest setting, call light within reach, side rails up x2. Will give report to NOC RN for [facility] bedside.
[2019-06-21 20:00] VITALS: BP 142/89
--- NOTE | 2019-06-21 20:04 | NUR ---
CHANGED OF SHIFT REPORT Patient inside his room with loud voice with someone in his cellphone. On Clinical Trial study. Independent with ADL's, continue hosp [facility] Dr[facility].
[2019-06-21] MEDS: [UNRECOGNIZED DRUG - OTHER] PO SCH (22:06)
[2019-06-21 22:23] VITALS: BP 142/89
[2019-06-21] MEDS: LORAZEPAM 1 MG TABLET FOR AGITATION PO PRN (23:45)
[2019-06-22] MEDS: ZOLPIDEM TARTRATE 10 MG TABLET PO PRN (02:31)
--- NOTE | 2019-06-22 06:24 | NUR ---
END OF SHIFT REPORT Patient in bed, stable oxygen saturation on RA. Ambulates independently, denies pain. Anxious at times, controlled with PRN Ativan. Ambien for sleep as requested late per patient. Remains on Clinical Trial study under Dr. Mao.
[2019-06-22 08:00] VITALS: BP 138/70
--- NOTE | 2019-06-22 08:00 | NUR ---
MS RN NOTES PATIENT IN BED SLEEPING. NO SOB OR ACUTE DISTRESS NOTED. BED IN LOW LOCKED POSITION. CALL LIGHT WITHIN REACH. PATIENT APPEARS CALM . WILL CONTINUE TO MONITOR.
[2019-06-22 16:00] VITALS: BP 128/74
--- NOTE | 2019-06-22 19:09 | NUR ---
MS RN NOTES PATIENT COOPERATIVE DURING SHIFT. NO NEED FOR ANY PRN MEDICATIONS.
--- NOTE | 2019-06-22 19:20 | NUR ---
CHANGED OF SHIFT REPORT Patient is awake, independent with ACD's. Denies pain, no SOB. On Clinical Trial study. Continue hosp under Dr. Mao care.
[2019-06-22 20:00] VITALS: BP 142/70
[2019-06-22] MEDS: [UNRECOGNIZED DRUG - OTHER] PO SCH (22:12)
--- NOTE | 2019-06-23 06:14 | NUR ---
END OF SHIFT REPORT Patient in bed, stable oxygen saturation on RA. Ambulates independently, denies pain. Remains on Clinical Trial study under Dr. Mao.
--- NOTE | 2019-06-23 07:15 | NUR ---
MS RN NOTES PATIENT IN BED ALERT ORIENTED X 4. NO ACUTE DISTRESS NOTED. BREATHING UNLABORED. SAFETY MEASURES IN PLACE. CALL LIGHT WITHIN REACH. WILL CONTINUE TO MONITOR ACCORDINGLY.
[2019-06-23 08:00] VITALS: BP 130/60
--- NOTE | 2019-06-23 18:46 | NUR ---
MS RN NOTES PATIENT IN BED ALERT ORIENTED X 4. NO ACUTE DISTRESS NOTED. BREATHING UNLABORED. NEEDS ATTENDED AND ANTICIPATED. SAFETY MEASURES IN PLACE. CALL LIGHT WITHIN REACH. WILL ENDORSE TO NIGHT NURSE FOR CONTINUITY OF CARE.
--- NOTE | 2019-06-23 19:29 | NUR ---
RN OPENING NOTES RECEIVED PATIENT IN ROOM SITTING IN CHAIR. A/O X 4. ABLE TO STATE NEEDS CLEARLY. NO SIGNS OF RESPIRATORY DISTRESS. RESPIRATIONS EVEN AND UNLABORED WITH EQUAL RISE AND FALL OF CHEST. NO IV SITE NOTED. SAFETY PRECAUTIONS IMPLEMENTED; CALL LIGHT WITHIN REACH, BED LOWEST POSITION, BED LOCKED, BILATERAL UPPER SIDE RAILS UP. WILL CONTINUE TO MONITOR.
[2019-06-23 20:00] VITALS: BP 154/85
[2019-06-23] MEDS: [UNRECOGNIZED DRUG - OTHER] PO SCH (21:53)
[2019-06-24 03:31] VITALS: BP 154/85
--- NOTE | 2019-06-24 06:36 | NUR ---
RN CLOSING NOTES PATIENT IN BED ASLEEP, RESTING, EASILY AROUSABLE. PATIENT STABLE. NO COMPLAINTS AT THIS TIME. ALL NEEDS MET. SAFETY PRECAUTIONS IMPLEMENTED; CALL LIGHT WITHIN REACH, BED LOWEST POSITION, BED LOCKED, BILATERAL UPPER SIDE RAILS UP. WILL CONTINUE TO MONITOR AND THEN WILL ENDORSE TO DAYSHIFT NURSE FOR CONTINUITY OF CARE.
--- NOTE | 2019-06-24 07:41 | NUR ---
RN MS OPENING NOTES Patient received on room air, no sob noted, patient shows no s/s of pain at this time and is seen walking around the hallway in a good mood. Patient stated that he does not need anything at this time. Will continue to monitor.
[2019-06-24 08:00] VITALS: BP 137/88
[2019-06-24 16:00] VITALS: BP 138/84
--- NOTE | 2019-06-24 18:35 | NUR ---
RN MS CLOSING NOTES Patient remains on room air, no sob noted, patient denies pain at this time. Patient has all his credit cards and ID at this time from the [employer]. Patient stated that he is not missing anything at this time. Patient seen walking around the hallway in a good mood, smiling and pleasant. Will give report to NOC RN for [facility] bedside.
--- NOTE | 2019-06-24 19:40 | NUR ---
MS RN NOTES/CT RECEIVED IN THE ROOM,A/O X4,ABLE TO MAKE NEEDS KNOWN,DENIES ANY DISCOMFORTS,DISPLAYS NO VIOLENT BEHAVIOR,CALL LIGHT IN REACH,NEEDS ANTICIPATED.
--- NOTE | 2019-06-24 19:56 | NUR ---
MS BAUMANN NOTES WENT DOWN TO SMOKE ACCOMPANIED BY BARBARA EUCEDA. Addendum: 06/24/19 at 2157 by RADHA BEDOLLA RN WENT DOWN FOR FRESH AIR ONLY,NOT TO SMOKE
[2019-06-24 20:00] VITALS: BP 131/76
[2019-06-24] MEDS: [UNRECOGNIZED DRUG - OTHER] PO SCH (21:51)
--- NOTE | 2019-06-25 06:36 | NUR ---
MS RN NOTES SLEPT WELL AT NIGHT.DISPLAY NO VIOLENT BEHAVIOR.WILL CONTINUE TO MONITOR BEHAVIOR.ENDORSED.
--- NOTE | 2019-06-25 07:15 | NUR ---
MS RN NOTES RECEIVED PT IN BED, ASLEEP. EASILY AROUSED. A/O X3-4. PT TOLERATING RA, WITH NO ACUTE RESPIRATORY DISTRESS NOTED. PT DENIES ANY PAIN OR DISCOMFORT AT THIS TIME. PT DENIES ANY CONCERNS OR QUESTIONS WELL AT THIS MOMENT. NO IV ACCESS NOTED. PT KEPT COMFORTABLE. HOB ELEVATED. CALL LIGHT KEPT WITHIN REACH. PT'S BED IN LOWEST, LOCKED POSITION WITH SR X3. WILL CONTINUE PLAN OF CARE.
[2019-06-25 10:00] VITALS: BP 116/64
--- NOTE | 2019-06-25 18:31 | NUR ---
MS RN CLOSING NOTES PT IN BED, AWAKE. A/O X3-4. PT TOLERATING RA, WITH NO ACUTE RESPIRATORY DISTRESS NOTED. PT DENIES ANY PAIN OR DISCOMFORT AT THIS TIME. NO IV ACCESS NOTED. PT KEPT COMFORTABLE. ALL NEEDS AND CARE ATTENDED. CALL LIGHT KEPT WITHIN REACH. PT'S BED IN LOWEST, LOCKED POSITION WITH SR X3. WILL ENDORSE TO INCOMING NIGHT NURSE FOR [facility].
--- NOTE | 2019-06-25 19:20 | NUR ---
MS RN NOTES/CLINICAL TRIAL IN ROOM,LAYING COMFORTABLY ON BED,DENIES DISCOMFORTS,WILL CONTINUE TO MONITOR BEHAVIOR.
[2019-06-25 20:00] VITALS: BP 134/76
[2019-06-25] MEDS: [UNRECOGNIZED DRUG - OTHER] PO SCH (22:01)
--- NOTE | 2019-06-26 06:22 | NUR ---
MS RN NOTES NO BEHAVIORAL PROBLEM NOTED.MED COMPLIANT,FOLLOW DIRECTIONS.NO DISTRESS.WILL ENDORSE TO DAY NURSE FOR [facility]
--- NOTE | 2019-06-26 07:30 | NUR ---
RN MS NOTES PT IN BED, ASLEEP, NO SIGN OF PAIN OR DISTRESS, CALL LIGHT WITHIN REACH, PROVIDED A QUIET ENVIRONMENT TO PROMOTE REST.
[2019-06-26 16:12] VITALS: BP 149/74
--- NOTE | 2019-06-26 18:18 | NUR ---
RN MS NOTES PT IN BED, RESTING, SLEPT MOST OF THE DAY, NO COMPLAINT OF PAIN, NOT IN DISTRESS, STATED HE DID NOT SLEEP WELL LAST NIGHT, FREQUENT CHECKING DONE, NEEDS ATTENDED.
--- NOTE | 2019-06-26 19:30 | NUR ---
MS RN NOTES REPORT RECIEVED FROM OJ BAUMANN. PT CHAIR, . A/O X4. PT TOLERATING RA, WITH NO ACUTE RESPIRATORY DISTRESS NOTED. PT DENIES PAIN, DENIES SI/HI. PT DENIES ANY CONCERNS OR QUESTIONS EXCEPT HE HAS BEEN HAVING INSOMNIA BUT IT HAS BEEN ONGOING PROBLEM. REVIEWED SLEEP MANAGEMENT PLAN WITH PT. NO IV ACCESS CALL LIGHT WITHIN REACH. PT'S BED IN LOWEST, LOCKED POSITION WITH SR X2. WILL CONT TO MONITOR.
[2019-06-26 20:00] VITALS: BP 150/75
[2019-06-26] MEDS: [UNRECOGNIZED DRUG - OTHER] PO SCH (22:00)
[2019-06-27] MEDS: ZOLPIDEM TARTRATE 10 MG TABLET PO PRN (00:51)
--- NOTE | 2019-06-27 06:43 | NUR ---
MS RN CLOSING NOTES PT SEEN WITH EYES CLOSED. PT TOLERATING RA, WITH NO ACUTE RESPIRATORY DISTRESS NOTED RR NOTED TO BE 16. NO IV ACCESS. CALL LIGHT WITHIN REACH. PT'S BED IN LOWEST, LOCKED POSITION WITH SR X2.
--- NOTE | 2019-06-27 07:30 | NUR ---
MS/RN Opening note Patient sleeping in bed, showing no signs of acute distress or SOB. Sign on door states patient does not want to be bothered at this time. Bed is in lowest position, side rails x2 in upright position, call light is within reach. Will continue with current plan of care.
[2019-06-27 08:00] VITALS: BP 139/73
--- NOTE | 2019-06-27 08:00 | NUR ---
MS/RN note patient refused vital signs
--- NOTE | 2019-06-27 12:00 | NUR ---
MS/RN note Patient ambulates frequently on the floor, no complaints of pain or signs of any distress. Will continue to monitor.
--- NOTE | 2019-06-27 16:00 | NUR ---
MS/RN note patient refused vital signs to be taken
--- NOTE | 2019-06-27 17:41 | NUR ---
MS/RN Closing note Patient is resting in chair, showing no signs of acute distress or SOB. Vital signs WNL. All patient needs met. Call light is within reach and patient is aware of how to call for assistance when needed. Will endorse to third shift lieutenant.
[2019-06-27 18:51] VITALS: BP 137/77
--- NOTE | 2019-06-27 19:15 | NUR ---
MS/RN OPENING NOTE PM REPORT RECIEVED FROM RN. PT SEEN SITTING in chair, showing no signs of acute distress or SOB. REVIEWED MEDICATION SCHEDULE. PT VERBAZLIZED UNDERSTANDING. Call light is within reach and patient is aware of how to call for assistance when needed. Will CONT TO MONITOR.
[2019-06-27 20:11] VITALS: BP 132/70
[2019-06-27] MEDS: [UNRECOGNIZED DRUG - OTHER] PO SCH (22:49)
[2019-06-28] MEDS ORDERED: ZOLPIDEM TARTRATE 10 MG TABLET ONE (01:43)
[2019-06-28] MEDS: ZOLPIDEM TARTRATE 10 MG TABLET PO PRN ×2 (01:47→23:49)
--- NOTE | 2019-06-28 06:30 | NUR ---
MS/RN closing NOTE PM pt seen in bed with eyes closed. showing no signs of acute distress or SOB. pt had no abnormal behavior last night. he conversed normally, denied si and hi. reported that he had a good sleep last night on 06/27/19. given ambien niki brower. been sleeping since 0230 am. Call light is within reach and patient is aware of how to call for assistance when needed.
--- NOTE | 2019-06-28 08:00 | NUR ---
MS RN NOTES PATIENT IN THE BED SLEEPING, NO ACUTE RESPIRATORY DISTRESS, PATIENT AROUSE WHEN CALLED NAME OR TOUCHED, V/S STABLE, CALL LIGHT WITHIN TO REACH. CONTINUED MONITORING.
[2019-06-28 11:25] VITALS: BP 157/60
--- NOTE | 2019-06-28 12:37 | NUR ---
RN NOTES PATIENT IN THE ROOM DENIED SI/HI/AVH AT THIS TIME, STABLE, COOPERATIVE, REDIRECTABLE, DENIED HALLUCINATION AT THIS TIME. CONTINUED MONITORING.
[2019-06-28 16:00] VITALS: BP 148/73
--- NOTE | 2019-06-28 18:00 | NUR ---
RN NOTES PATIENT IN THE ROOM STABLE, WAS COPLANING OF AUDITORY HALLUCINATION. PATIENT STATE "VOICE TELLING ABOUT MUSIC". PATIENT DENIED SI/HI AT THIS TIME. TOLERATED ALL FOODS 100%, SEEN PSYCHIATRIST JERMAIN, NO NEW ORDERS. PATIENT AMBULATORY SELF CARE. CALL LIGHT WITHIN TO REACH. ENDORSED ONCOMING NURSE FOLLOW PLAN OF CARE.
[2019-06-28] MEDS: IBUPROFEN 600 MG TABLET PO PRN (18:33)
--- NOTE | 2019-06-28 18:33 | NUR ---
RN NOTES ADMINISTERED MOTRIN 600 MG PO PRN FOR HEADACHE PER PATIENT REQUEST.
--- NOTE | 2019-06-28 19:10 | NUR ---
MS RN OPENING NOTES PATIENT RECEIVED WORKING OUT IN ROOM. PATIENT IS ALERT, ORIENTED X 4. NO COMPLAINTS OF PAIN OR DISCOMFORT AT THIS TIME. NO IV LINE- PATIENT IS A CLINICAL TRIAL. WILL CONTINUE TO MONITOR
[2019-06-28 20:00] VITALS: BP 128/75
[2019-06-28] MEDS: [UNRECOGNIZED DRUG - OTHER] PO SCH (21:47)
[2019-06-28 23:50] VITALS: BP 130/76
--- NOTE | 2019-06-29 06:54 | NUR ---
MS RN CLOSING NOTES PATIENT STILL SLEEPING IN BED, COMFORTABLE. BREATHING EVEN AND UNLABORED. NOT IN ANY DISTRESS. ON ROOM AIR. NO ACUTE CHANGES OVERNIGHT. ALL NEEDS ATTENDED. SAFETY MEASURES IN PLACE; CALL LIGHT WITHIN REACH, BED IN LOW, LOCKED POSITION. WILL ENDORSE NGHIA TO ONCOMING RN.
--- NOTE | 2019-06-29 07:10 | NUR ---
MS RN NOTES PATIENT IN BED EYES CLOSED EASY TO AROUSE, RESPOND TO VERBAL AND TACTILE STIMULI. NO ACUTE DISTRESS NOTED, BREATHING UNLABORED. SAFETY MEASURES IN PLACE. CALL LIGHT WITHIN REACH. WILL CONTINUE TO MONITOR ACCORDINGLY.
[2019-06-29 08:00] VITALS: BP 130/71
[2019-06-29 16:00] VITALS: BP 127/63
--- NOTE | 2019-06-29 19:00 | NUR ---
MS RN NOTES PATIENT IN BED ALERT ORIENTED X 4. NO ACUTE DISTRESS NOTED, BREATHING UNLABORED. SAFETY MEASURES IN PLACE. CALL LIGHT WITHIN REACH. WILL ENDORSE TO NIGHT NURSE FOR CONTINUITY OF CARE.
--- NOTE | 2019-06-29 19:15 | NUR ---
MS RN OPENING NOTES RECEIVED PATIENT IN BED, ALERT, ORIENTED X 4. BREATHING EVEN AND UNLABORED. NOT IN ANY DISTRESS. NO COMPLAINTS AT THIS TIME. SAFETY MEASURES IN PLACE; CALL LIGHT WITHIN REACH, BED IN LOW, LOCKED POSITION. WILL CONTINUE TO MONITOR ACCORDINGLY
[2019-06-29 20:00] VITALS: BP 113/51
[2019-06-29] MEDS: [UNRECOGNIZED DRUG - OTHER] PO SCH (22:15)
--- NOTE | 2019-06-30 01:50 | NUR ---
RN NOTES PATIENT STILL AWAKE, OFFERED SLEEPING TABLET BUT REFUSED. PER PATIENT,"I'M OK. I DON'T WANT TO TAKE MY SLEEPING TABLET TONIGHT."
--- NOTE | 2019-06-30 06:30 | NUR ---
MS RN CLOSING NOTES PATIENT STILL SLEEPING IN BED, COMFORTABLE. BREATHING EVEN AND UNLABORED. NOT IN ANY DISTRESS. ON ROOM AIR. NO ACUTE CHANGES OVERNIGHT. ALL NEEDS ATTENDED. SAFETY MEASURES IN PLACE; CALL LIGHT WITHIN REACH, BED IN LOW, LOCKED POSITION. WILL ENDORSE NGHAI TO ONCOMING RN.
--- NOTE | 2019-06-30 07:31 | NUR ---
MS RN NOTES PATIENT RECEIVED RESTING INSIDE ROOM. SLEEPING, EASILY AROUSABLE THROUGH VERBAL AND TACTILE STIMULI. BREATHING EVEN AND UNLABORED. PATIENT CALM AND RELAXED. SAFETY PRECAUTIONS IN PLACE. PATIENT DENIES SI/HI AT THIS TIME. WILL CONTINUE TO MONITOR. BED LOCKED AND IN LOW POSITION. BILATERAL UPPER SIDE RAILS UP AND LOCKED. CALL LIGHT WITHIN EASY REACH
[2019-06-30 16:00] VITALS: BP 128/65
--- NOTE | 2019-06-30 18:32 | NUR ---
MS RN NOTES PATIENT RESTING INSIDE ROOM. NO ACUTE DISTRESS. DENIES ANY PAIN OR DISCOMFORT. PATIENT DENIES SI/HI. PATIENT KEPT CLEAN, DRY AND COMFORTABLE. WILL ENDORSE TO INCOMING SHIFT FOR NGHIA. BED LOCKED AND IN LOW POSITION. BILATERAL UPPER SIDE RAILS UP AND LOCKED. CALL LIGHT WITHIN EASY REACH
--- NOTE | 2019-06-30 19:30 | NUR ---
RN NOTES RECEIVED PT. AWAKE ON BED, CALM AND COOPERATIVE, NOT IN DISTRESS, CONTINUE TO MONITOR
[2019-06-30 20:00] VITALS: BP 113/62
[2019-06-30] MEDS: [UNRECOGNIZED DRUG - OTHER] PO SCH (22:01)
--- NOTE | 2019-07-01 06:34 | NUR ---
RN NOTES SLEEPING BUT AROUSABLE, CALM AND COOPERATIVE, PT. NEEDS ATTENDED
--- NOTE | 2019-07-01 07:45 | NUR ---
MS RN NOTES PATIENT RECEIVED RESTING INSIDE ROOM. NO ACUTE DISTRESS. DENIES ANY PAIN AND DISCOMFORT. DENIES SI/HI. SAFETY PRECAUTIONS IN PLACE. WILL CONTINUE TO MONITOR
--- NOTE | 2019-07-01 12:15 | NUR ---
MS RN NOTES PATIENT'S BELONGINGS FROM NURSING SAFE OBTAINED AND GIVEN TO PATIENT PER PATIENT REQUEST. PATIENT COUNTED MONEY FROM SAFE AND VERBALIZED THAT ITS THE RIGHT AMOUNT. VERIFIED WITH PATIENT THAT ALL CARDS, ID, MONEY HAS BEEN RETURNED TO HIM AND PATIENT VERBALIZED THAT ITS ALL COMPLETE. WILL CONTINUE TO MONITOR
[2019-07-01 16:00] VITALS: BP 135/79
--- NOTE | 2019-07-01 18:44 | NUR ---
MS RN NOTES PATIENT RESTING INSIDE ROOM. NO ACUTE DISTRESS. PATIENT DENIES SI/HI. WILL ENDORSE TO INCOMING SHIFT FOR NGHIA. BED LOCKED AND IN LOW POSITION. BILATERAL UPPER SIDE RAILS UP AND LOCKED. CALL LIGHT WITHIN EASY REACH
--- NOTE | 2019-07-01 19:00 | NUR ---
MS RN NOTE RECEIVED PT IN STABLE CONDITION A/O X4, CURRENTLY DOING LAPS AROUND FLOOR. NO SIGNS OF SOB OR DISTRESS, NO C/O PAIN OR N/V. PT CURRENTLY UNDERGOING CLINICAL TRIAL. NOTED TO BE IN GOOD MOOD. SAFETY PRECAUTIONS IN PLACE. WILL CONT. TO MONITOR.
[2019-07-01 20:00] VITALS: BP 158/89
[2019-07-01] MEDS: [UNRECOGNIZED DRUG - OTHER] PO SCH (21:38)
--- NOTE | 2019-07-02 01:00 | NUR ---
MS RN NOTE PT FOUND IN [place] BY SECURITY. PT TOLD TO RETURN TO [facility] FLOOR. CHARGE NURSE SPOKE WITH PT. REMINDED HIM TO STAY ON THE FLOOR. PT STATING HE WAS IN THE ROOM THE ENTIRE TIME.
--- NOTE | 2019-07-02 05:30 | NUR ---
MS RN NOTE PT CAME TO STATION TO ASK FOR ORANGE JUICE, CALM MANNER. PT STATES HE WAS ABLE TO REST ADEQUATELY. WILL CONT. TO MONITOR.
--- NOTE | 2019-07-02 06:16 | NUR ---
MS RN NOTE PT REMAINS IN STABLE CONDITION A/O X4, CURRENTLY INSIDE ROOM. NO SIGNS OF SOB OR DISTRESS. SAFETY PRECAUTIONS IN PLACE. WILL CONT. TO MONITOR AND ENDORSE TO NEXT SHIFT FOR NGHIA.
--- NOTE | 2019-07-02 07:30 | NUR ---
RN OPENING NOTES RECEIVED PATIENT IN BED SLEEPING. NOT IN ANY FORM OF DISTRESS. RESPIRATIONS EVEN AND UNLABORED. PATIENT IS CLINICAL TRIAL. KEPT PATIENT SAFE AND COMFORTABLE. BED IN LOW/LOCKED POSITION, SIDERAILS UPX2, CALL LIGHT IN REACH. WILL CONTINUE TO MONITOR ACCORDINGLY.
[2019-07-02 16:00] VITALS: BP 120/59
--- NOTE | 2019-07-02 19:16 | NUR ---
RN CLOSING NOTES PATIENT IN STABLE CONDITION. ALL NEEDS ATTENDED AND PROVIDED. KEPT PATIENT SAFE AND COMFORTABLE. BED IN LOW/LOCKED POSITION, SIDERAILSUPX2,C ALL LIGHT IN REACH. ENDORSED TO NIGHT RN FOR NGHIA.
--- NOTE | 2019-07-02 19:30 | NUR ---
RN NOTES RECEIVED PATIENT IN STABLE CONDITION ALERT ORIENTED X4, CURRENTLY DOING LAPS AROUND FLOOR. NO SIGNS OF SOB OR DISTRESS, DENIES PAIN OR NAUSEA / VOMITING. PATIENT CURRENTLY UNDERGOING CLINICAL TRIAL. NOTED TO BE IN GOOD STABLE MOOD. SAFETY PRECAUTIONS IN PLACE. WILL CONTINUE TO MONITOR ACCORDINGLY.
[2019-07-02 20:00] VITALS: BP 126/71
[2019-07-02 20:10] VITALS: BP 126/71
[2019-07-02] MEDS: [UNRECOGNIZED DRUG - OTHER] PO SCH (22:09)
[2019-07-02] MEDS: IBUPROFEN 600 MG TABLET PO PRN (22:14)
--- NOTE | 2019-07-03 06:38 | NUR ---
RN NOTES ALL NEEDS ATTENDED AND MET, ABLE TO REST AND SLEPT AT INTERVAL, WILL ENDORSE TO AM NURSE FOR CONTINUITY OF CARE.
[2019-07-03 16:00] VITALS: BP 126/81
--- NOTE | 2019-07-03 18:26 | NUR ---
MS RN END OF SHIFT SUMMARY PT REMAINS A/O X4, AFEBRILE. RESPIRATIONS ARE EVEN AND UNLABORED, NOT IN ANY ACUTE DISTRESS NOTED. DENIES ANY PAIN, SOB, N/V. NO IV ACCESS. RECORDED NEW PT BELONGINGS IN CHART, [place] PLACED IN SAFE IN MATERIALS ASSOCIATE OFFICE. PT DENIES ANY HALLUCINATIONS, SI/HI. INSTRUCTED PT TO USE CALL LIGHT WHEN ASSISTANCE IS NEEDED, CALL LIGHT IS LEFT WITHIN REACH. WILL CONTINUE TO MONITOR AND ENDORSE TO NEXT SHIFT FOR CONTINUITY OF CARE.
--- NOTE | 2019-07-03 19:32 | NUR ---
MS RN OPENING NOTE RECEIVED PATIENT IN BED. A/O X4. TOLERATING ROOM AIR. RESPIRATIONS ARE EVEN AND UNLABORED. NO S/S SOB NOTED. DENIES PAIN AT THIS TIME. IN NO APPARENT DISTRESS. NO IV ACCESS NOTED. BED IS LOW AND LOCKED, HOB FLAT, SIDE RAILS UP X2. CALL LIGHT WITHIN REACH. WILL CONTINUE TO MONITOR.
[2019-07-03 21:00] VITALS: BP 131/69
[2019-07-03 21:31] VITALS: BP 131/69
[2019-07-03] MEDS: [UNRECOGNIZED DRUG - OTHER] PO SCH (21:48)
--- NOTE | 2019-07-04 06:13 | NUR ---
MS RN CLOSING NOTE PATIENT IN BED. A/O X4. REMAINS TOLERATING ROOM AIR. RESPIRATIONS ARE EVEN AND UNLABORED. NO EPISODES SOB. NO C/O PAIN. NO DISTRESS NOTED. REMAINS WITH NO IV ACCESS. BED REMAINS LOW AND LOCKED, HOB FLAT, SIDE RAILS UP X2. CALL LIGHT WITHIN REACH. WILL ENDORSE TO NEXT SHIFT.
[2019-07-04 16:00] VITALS: BP 128/70
--- NOTE | 2019-07-04 19:18 | NUR ---
PATIENT IN STABLE CONDITION. ALL NEEDS ATTENDED AND PROVIDED. KEPT PATIENT SAFE AND COMFORTABLE. BED IN LOW/LOCKED POSITION, SIDERAILSUPX2,C ALL LIGHT IN REACH. ENDORSED TO NIGHT RN FOR NGHIA.
[2019-07-04 20:00] VITALS: BP 143/71
[2019-07-04] MEDS: [UNRECOGNIZED DRUG - OTHER] PO SCH (21:59)
--- NOTE | 2019-07-05 07:16 | NUR ---
MS RN CLOSING NOTE PATIENT IN BED. A/O X4. REMAINS TOLERATING ROOM AIR. RESPIRATIONS ARE EVEN AND UNLABORED. NO EPISODES SOB. NO C/O PAIN. NO DISTRESS NOTED. REMAINS WITH NO IV ACCESS. PATIENT BEHAVIOR WAS PLEASANT. BED REMAINS LOW AND LOCKED, HOB FLAT, SIDE RAILS UP X2. CALL LIGHT WITHIN REACH. WILL ENDORSE TO NEXT SHIFT.
[2019-07-05 08:00] VITALS: BP 102/60
[2019-07-05 16:00] VITALS: BP 122/69
--- NOTE | 2019-07-05 19:00 | NUR ---
CLINICAL TRIAL ,JIGMAN INITIAL NOTES RECEIVED REPORT FROM AM NURSE VALERIA/RN, SEEN PT IN BED SLEEPING COMFORTABLY WITHOUT ANY DISTRESS NOTED. KEPT HIM COMFORTABLE AT ALL TIMES. PLACE CALL LIGHT AT REACH WILL CONTINUE MONITORING.
[2019-07-05 20:00] VITALS: BP 109/45
[2019-07-05] MEDS: [UNRECOGNIZED DRUG - OTHER] PO SCH (22:31)
--- NOTE | 2019-07-05 22:35 | NUR ---
EDGE INKER NOTES' ROUTINE INVESTIGATIONAL DRUG GIVEN ORDERED. SNACKS ALSO SERVED. WILL CONTINUE MONITORING.
--- NOTE | 2019-07-06 07:01 | NUR ---
MATCHBOOK MAKER CLOSING NOTES PT STAYED IN HIS ROOM ALMOST ALL THE TIME HE JUST WENT FOR SMOKE LAST NIGHT. NO SIGNS OF ANY AGITATION OR ANY DISCOMFORT NOTED. WILL ENDORSE TO AM NURSE FOR CONTINUITY OF CARE. PLACE CALL LIGHT AT REACH.
[2019-07-06 08:00] VITALS: BP 139/86
--- NOTE | 2019-07-06 09:00 | NUR ---
RN MS NOTES PT AWAKE, ALERT AND ORIENTED, WALKING ALONG THE HALLWAY WITH STEADY GAIT, NO BEHAVIOR PROBLEM NOTED, NEEDS ATTENDED.
[2019-07-06 16:00] VITALS: BP 148/75
[2019-07-06 17:23] VITALS: BP 148/75
--- NOTE | 2019-07-06 18:17 | NUR ---
RN MS NOTES PT AWAKE, ALERT AND ORIENTED, IN HIS ROOM SPEAKING ON THE PHONE, NO COMPLAINT AT THIS TIME, NO BEHAVIOR PROBLEM, NEEDS ATTENDED.
--- NOTE | 2019-07-06 19:00 | NUR ---
MS RN OPENING NOTES Received patient A/O x4, awake on bed. On RA, no SOB/respiratory distress noted. Patient denies discomfort at this time. Kept on bed clean, dry and comfortable. On fall and aspiration precautions. Call light within easy reach. Will continue to monitor accordingly.
[2019-07-06 20:00] VITALS: BP 139/79
[2019-07-06 21:33] VITALS: BP 139/79
[2019-07-06] MEDS: [UNRECOGNIZED DRUG - OTHER] PO SCH (22:04)
--- NOTE | 2019-07-07 06:16 | NUR ---
MS RN CLOSING NOTES Patient asleep, easily awaken. On RA, no SOB/respiratory distress noted. All nursing needs attended, no new complaints made. Due meds given as ordered. Endorsed to the next shift for NGHIA.
--- NOTE | 2019-07-07 07:30 | NUR ---
RN OPENING NOTES RECEIVED PATIENT IN BED SLEEPING. NOT IN ANY FORM OF DISTRESS. RESPIRATIONS EVEN AND UNLABORED. DENIED PAIN OR DISCOMFORT AT THE MOMENT. PATIENT IS CLINICAL TRIAL. KEPT PATIENT SAFE AND COMFORTABLE. BED IN LOW/LOCKED POSITION, SIDERAILS UPX2, CALL LIGHT IN REACH. WILL CONTINUE TO MONITOR ACCORDINGLY.
--- NOTE | 2019-07-07 11:00 | NUR ---
RN NOTES SCREW CUTTERFELI, FOUND A PILL UNDER THE PATIENT'S PILLOW ON THE BED. SHOWED IT TO CHARGE NURSE. TALKED TO PATIENT AND EXPLAINED POLICY THAT SELF MEDICATING IS NOT ALLOWED TO AVOID INTERACTIONS, ADVERSE EFFECTS, AND DOUBLE DOSING. PATIENT VERBALIZED UNDERSTANDING AND APOLOGIZED AND STATED THAT HE WILL NOT DO IT AGAIN. PER PATIENT, IT WAS ALEVE AND HE'S TAKING IT TO MAKE HIM SLEEP. PILL WAS TAKEN AND KEPT BY CHARGE NURSE. WILL NOTIFY DR WRIGHT.
[2019-07-07 16:00] VITALS: BP 130/76
--- NOTE | 2019-07-07 18:00 | NUR ---
RN NOTES DR ALY MADE AWARE ABOUT THE PILLS FOUND UNDER THE PILLOW ON THE PATIENT'S BED
--- NOTE | 2019-07-07 19:08 | NUR ---
RN OPENING NOTES RECEIVED PATIENT A/O X 4, AWAKE IN BED. ON RA, NO RESPIRATORY DISTRESS/SOB NOTED. PATIENT DENIES PAIN/DISCOMFORT AT THIS TIME. SAFETY PRECAUTIONS IMPLEMENTED; CALL LIGHT WITHIN REACH, BED LOWEST POSITION, BED LOCKED, BILATERAL UPPER SIDE RAILS UP. WILL CONTINUE TO MONITOR PATIENT.
--- NOTE | 2019-07-07 19:28 | NUR ---
RN CLOSING NOTES PATIENT IN STABLE CONDITION. ALL NEEDS ATTENDED AND PROVIDED. KEPT PATIENT SAFE AND COMFORTABLE. BED IN LOW/LOCKED POSITION, SIDERAILS UPX2,C ALL LIGHT IN REACH. ENDORSED TO NIGHT RN FOR NGHIA
[2019-07-07 20:00] VITALS: BP 128/68
[2019-07-07] MEDS: [UNRECOGNIZED DRUG - OTHER] PO SCH (22:17)
--- NOTE | 2019-07-07 22:50 | NUR ---
HOTEL HOUSEKEEPER OF CARE PATIENT IN STABLE CONDITION. REPORT GIVEN AND TRANSFER OF CARE TO KURT MURRAY.
--- NOTE | 2019-07-08 07:00 | NUR ---
MS DELI WORKER CLOSING NOTES PT REMAIN SLEEPING COMFORTABLY IN BED . WILL CONTINUE MONITORING.
[2019-07-08 16:00] VITALS: BP 133/68
--- NOTE | 2019-07-08 19:00 | NUR ---
RN CLOSING NOTES PATIENT IN STABLE CONDITION. ALL NEEDS ATTENDED AND PROVIDED. KEPT PATIENT SAFE AND COMFORTABLE. BED IN LOW/LOCKED POSITION, SIDERAILS UPX2,C ALL LIGHT IN REACH. WILL ENDORSED TO NIGHT RN FOR NGHIA
--- NOTE | 2019-07-08 19:39 | NUR ---
RECEIVE PT IN BED A/O X 3, STABLE AND NOT IN DISTRESS, SAFETY MEASURES AT ALL TIMES. WILL CONT TO MONITOR
[2019-07-08] MEDS: [UNRECOGNIZED DRUG - OTHER] PO SCH (21:21)
--- NOTE | 2019-07-08 22:27 | NUR ---
Endorse to next RN POC pt moved to rm [id number]. all needs attended. pt stable. all belongings taken.
--- NOTE | 2019-07-08 22:30 | NUR ---
RN NOTES: RECEIVED REPORT FROM RODRIGO BAUMANN. PT AWAKE, A/O X3, ON RA. CLINICAL TRIAL PT. MOVED TO ROOM 207-2 WITH ALL BELONGINGS SENT WITH PT UPON TRANSFER. SAFETY PRECAUTIONS FOR FALL INITIATED, CALL LIGHT IN REACH, WILL CONTINUE MONITORING PT.
[2019-07-09] MEDS: ZOLPIDEM TARTRATE 10 MG TABLET PO PRN (02:10)
--- NOTE | 2019-07-09 02:11 | NUR ---
prn ambien: pt requested for sleeping pill/ambien. prn ambien 10 mg tab po administered at this time.
--- NOTE | 2019-07-09 07:09 | NUR ---
RN CLOSING NOTES: PT DENIES ANY PLANS OF HURTING HIMSELF, NO SI/HI. ABLE TO REST WELL LAST NIGHT WITH A TOTAL OF 4 HRS OF SLEEP. VS REMAINS STABLE, NEEDS ATTENDED. SAFETY PRECAUTIONS FOR FALL REMAINS ENGAGED, CALL LIGHT IN REACH, WILL ENDORSE TO DAY RN FOR CONTINUITY OF CARE.
--- NOTE | 2019-07-09 07:30 | NUR ---
RN MS NOTES PT IN BED, ASLEEP, EASY TO AROUSE, DOES NOT WANT TO BE BOTHERED AT THIS TIME, PREFERS TO EAT BREAKFAST AND CHECK HIS VITALS SIGNS LATER, NO COMPLAINT AT THIS TIME.
[2019-07-09 12:00] VITALS: BP 105/59
[2019-07-09 16:00] VITALS: BP 108/51
--- NOTE | 2019-07-09 18:45 | NUR ---
RN MS NOTES PT IN HIS ROOM EATING DINNER, NO COMPLAINT OF PAIN OR ANY DISCOMFORT, CALM AND COMPLIANT, NO BEHAVIOR ISSUES NOTED.
--- NOTE | 2019-07-09 19:38 | NUR ---
MS/RN RECEIVED PATIENT IN BED AWAKE, ALERT, ORIENTED, COMFORTABLE AND CALM, NO C/O PAIN, NO DISTRESS NOTED, CALL LIGHT IN REACH. WILL MONITOR.
[2019-07-09 20:14] VITALS: BP 122/67
[2019-07-09] MEDS: [UNRECOGNIZED DRUG - OTHER] PO SCH (21:49)
--- NOTE | 2019-07-10 06:07 | NUR ---
MS/RN PATIENT IS STILL SLEEPING AT THIS TIME, APPEAR COMFORTABLE, NO DISTRESS NOTED, CALL LIGHT IN REACH. ALL NEEDS ATTENDED AT THIS TIME, WILL CONTINUE TO MONITOR.
[2019-07-10 06:26] VITALS: BP 147/82
--- NOTE | 2019-07-10 08:00 | NUR ---
MS PASTOR AM CLINICAL TRIAL NOTES: PT DENIES ANY PLANS OF HURTING HIMSELF, NO SI/HI. REFUSED VITAL SIGNS IN THE MORNING REFUSING TO BE BOTHERED.SAFETY PRECAUTIONS FOR FALL REMAINS ENGAGED, CALL LIGHT WITHIN REACH,
--- NOTE | 2019-07-10 18:00 | NUR ---
MS BAUMANN AM CLINICAL TRIAL NOTES: PT DENIES ANY PLANS OF HURTING HIMSELF, NO SI/HI. 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
--- NOTE | 2019-07-10 19:50 | NUR ---
RN OPENING NOTES RECEIVED REPORT FROM DAYSHIFT RNAIDAN. FOUND Pt AWAKE, RESTING IN BED, TALKING ON THE PHONE. Pt IS A/Ox4, VERBAL, ABLE TO MAKE NEEDS KNOWN; A CLINICAL TRIAL Pt. NO S/S OF ACUTE DISTRESS OR SOB NOTED. NO BEHAVIORAL PROBLEMS REPORTED DURING THE DAYSHIFT. Pt IS MED COMPLIANT. Pt REQUESTED FOR ZULEYMA MENDEZ. NO IV ACCESS PER CLINICAL TRIAL PROTOCOL. SAFETY MEASURES IN PLACE. WILL CONTINUE TO MONITOR Pt's CONDITION & SAFETY THROUGHOUT THE NIGHT.
[2019-07-10 20:00] VITALS: BP 120/72
[2019-07-10 21:27] VITALS: BP 120/72
[2019-07-10] MEDS: [UNRECOGNIZED DRUG - OTHER] PO SCH (21:59)
[2019-07-10] MEDS: ZOLPIDEM TARTRATE 10 MG TABLET PO PRN (22:54)
--- NOTE | 2019-07-11 06:55 | NUR ---
RN CLOSING NOTES NO SIGNIFICANT CHANGES IN Pt's CONDITION. NO S/S OF ACUTE DISTRESS OR SOB NOTED DURING THE NIGHT. ALL NEEDS MET AND ATTENDED TO. SAFETY MEASURES IN PLACE. WILL ENDORSE TO DAYSHIFT RN FOR Pt's NGHIA.
[2019-07-11 08:00] VITALS: BP 126/72
--- NOTE | 2019-07-11 08:00 | NUR ---
MS RN AM NOTES: PT DENIES ANY PLANS OF HURTING HIMSELF, NO SI/HI. STABLE VITAL SIGNS .SAFETY PRECAUTIONS FOR FALL REMAINS ENGAGED, CALL LIGHT WITHIN REACH,
[2019-07-11 16:00] VITALS: BP 139/69
--- NOTE | 2019-07-11 19:00 | NUR ---
CLOSING RN NOTES: PT DENIES ANY PLANS OF HURTING HIMSELF, NO SI/HI. STABLE VITAL SIGNS .
--- NOTE | 2019-07-11 19:50 | NUR ---
RN OPENING NOTES RECEIVED REPORT FROM DAYSHIFT RNAIDAN. FOUND Pt AWAKE, USING THE RESTROOM. Pt IS A/Ox4, VERBAL, ABLE TO MAKE NEEDS KNOWN; A CLINICAL TRIAL Pt. NO S/S OF ACUTE DISTRESS OR SOB NOTED. NO BEHAVIORAL PROBLEMS REPORTED DURING THE DAYSHIFT. Pt IS MED COMPLIANT. Pt REQUESTED FOR ZULEYMA MENDEZ. NO IV ACCESS PER CLINICAL TRIAL PROTOCOL. SAFETY MEASURES IN PLACE. WILL CONTINUE TO MONITOR Pt's CONDITION & SAFETY THROUGHOUT THE NIGHT.
[2019-07-11 20:00] VITALS: BP 133/77
[2019-07-11 22:00] VITALS: BP 133/77
[2019-07-11] MEDS: [UNRECOGNIZED DRUG - OTHER] PO SCH (22:48)
--- NOTE | 2019-07-12 06:49 | NUR ---
RN CLOSING NOTES NO SIGNIFICANT CHANGES IN Pt's CONDITION. NO S/S OF ACUTE DISTRESS OR SOB NOTED DURING THE NIGHT. NO BEHAVIORAL PROBLEMS DURING THE SHIFT. ALL NEEDS MET AND ATTENDED TO. SAFETY MEASURES IN PLACE. WILL ENDORSE TO DAYSHIFT RN FOR Pt's NGHIA.
[2019-07-12 08:00] VITALS: BP 132/82
--- NOTE | 2019-07-12 08:00 | NUR ---
MS 2 RN AM NOTES RECEIVED PT AWAKE, A/Ox4, VERBAL, ABLE TO MAKE NEEDS KNOWN; A CLINICAL TRIAL PT. NO S/S OF ACUTE DISTRESS OR SOB NOTED. NO BEHAVIORAL PROBLEMS NOTED AT THIS TIME.JUST UPSET WHEN BOTHERED FOR CHECKING VITAL SIGNS. PT IS MED COMPLIANT. NO IV ACCESS PER CLINICAL TRIAL PROTOCOL. SAFETY MEASURES IN PLACE. WILL CONTINUE TO MONITOR PT's CONDITION & SAFETY
--- NOTE | 2019-07-12 19:31 | NUR ---
RN CLOSING NOTES NO SIGNIFICANT CHANGES IN Pt's CONDITION. NO S/S OF ACUTE DISTRESS OR SOB NOTED DURING THE DAY. NO ADVERSE REACTIONS,NO SI/HI NOTED.NO BEHAVIORAL PROBLEMS DURING THE SHIFT. ALL NEEDS MET AND ATTENDED TO. SAFETY MEASURES IN PLACE.
[2019-07-12 20:00] VITALS: BP 146/82
[2019-07-12 20:41] VITALS: BP 146/82
[2019-07-12] MEDS: [UNRECOGNIZED DRUG - OTHER] PO SCH (22:39)
[2019-07-13] MEDS: ZOLPIDEM TARTRATE 10 MG TABLET PO PRN (00:22)
[2019-07-13 16:00] VITALS: BP 108/78
--- NOTE | 2019-07-13 18:08 | NUR ---
PATIENT RESTING IN ROOM, COMFORTABLE. BREATHING EVEN AND UNLABORED. NOT IN ANY DISTRESS. ON ROOM AIR. NO ACUTE CHANGES NOTED. ALL NEEDS ATTENDED. SAFETY MEASURES IN PLACE; CALL LIGHT WITHIN REACH, BED IN LOW, LOCKED POSITION. WILL ENDORSE NGHIA TO NEXT SHIFT RN.
--- NOTE | 2019-07-13 19:15 | NUR ---
CHANGE OF SHIFT REPORT Patient is awake, independent with mobility. Tolerating RA. No c/o any discomfort, behavior calm. Instructed to use call light for any assistance, verbalized understanding. Patient is under the care of Dr. Mao for Clinical Trial study.
[2019-07-13 20:12] VITALS: BP 123/73
[2019-07-13 21:25] VITALS: BP 123/73
[2019-07-13] MEDS: [UNRECOGNIZED DRUG - OTHER] PO SCH (22:26)
--- NOTE | 2019-07-14 06:24 | NUR ---
END OF SHIFT REPORT Patient in bed, A/O x4. Independent with ADL's. No behavior of agitation overnight, slept well without sleep aid medication. Reports no pain. Remains on Clinical Trial study under Dr. Mao.
--- NOTE | 2019-07-14 07:55 | NUR ---
MS RN NOTES PATIENT SLEEPING IN BED.
[2019-07-14 08:00] VITALS: BP 129/86
[2019-07-14 16:00] VITALS: BP 133/84
--- NOTE | 2019-07-14 19:06 | NUR ---
MS RN NOTES PATIENT IN BED RESTING. NO CHANGES NOTED. NO BEHAVIORAL CHANGES. PATIENT COOPERATIVE. WILL ENDORSE CARE TO PM SHIFT.
[2019-07-14 20:30] VITALS: BP 118/78
[2019-07-14] MEDS: [UNRECOGNIZED DRUG - OTHER] PO SCH (21:29)
--- NOTE | 2019-07-15 06:48 | NUR ---
MS RN NOTES AWAKE & RESPONSIVE. NOT IN ANY DISTRESS. NO SOB NOTED. DENIES ANY PAIN OR DISCOMFORT AT THIS TIME. SLEPT FOR 6 HOURS. MONITORED ACCORDINGLY. CALL LIGHT WITHIN REACH. BED IN LOWEST POSITION. SR UP X 3 WITH BED ALARM ON FOR SAFETY. WILL ENDORSE TO NEXT SHIFT.
[2019-07-15] MEDS ORDERED: BENZTROPINE MESYLATE (1 MG) 1 MG TABLET PO PRN (14:30)
[2019-07-15] MEDS ORDERED: IBUPROFEN 200 MG TABLET PO PRN (14:30)
[2019-07-15] MEDS ORDERED: PROPRANOLOL HCL 10 MG TABLET PO PRN (14:30)
[2019-07-15] MEDS ORDERED: ZOLPIDEM TARTRATE 10 MG TABLET PO PRN (14:30)
[2019-07-15] MEDS ORDERED: ACETAMINOPHEN ES 500 MG TABLET PO PRN (14:30)
[2019-07-15] MEDS ORDERED: MAG HYDROX/AL HYDROX/SIMETH 30 ML UDC PO PRN (14:30)
[2019-07-15] MEDS ORDERED: MAGNESIUM HYDROXIDE 30 ML UDC PO PRN (14:30)
[2019-07-15] MEDS ORDERED: LORAZEPAM 1 MG TABLET FOR AGITATION PO PRN (14:30)
[2019-07-15 16:00] VITALS: BP 117/65
--- NOTE | 2019-07-15 19:29 | NUR ---
RN OPENING NOTES BEDSIDE REPORT RECIEVED FROM RYLEE BAUMANN. PATIENT IN STABLE CONDITION. PT DENIES SI AND HI. PT IN BED WITH FLAT AFFECT. APPEARS DEPRESSED, WITH FROWN AND SIMPLE SHORT RESPONSES. PT IS WELL GROOMED THOUGH. BED IN LOW/LOCKED POSITION, SIDERAILS UPX2,C ALL LIGHT IN REACH. WILL CONT TO MONITOR.
[2019-07-15 20:00] VITALS: BP 109/52
--- NOTE | 2019-07-15 21:35 | NUR ---
Pharmacist Singh called from [facility] lot to report that someone that looked like our clinical trial patient was outside smoking and pharmacisit reports that it smelled suspiciously like marijuana, description sounded like patient verna jose. went to patient room patient in room in bed. inquired if he was outside smoking marijuana patient denies. asked alejandro celeste if patient was smoking marijuana when going outside with outside cutter and he denied he saw patient partaking in such activities. called jairo charge nurse in [facility] to discuss issue and states that patient had simialar instant during the day since his stay here and dr. rouse is aware.
[2019-07-15] MEDS: [UNRECOGNIZED DRUG - OTHER] PO SCH (22:38)
--- NOTE | 2019-07-16 06:32 | NUR ---
RN CLOSING NOTES PATIENT SEEN IN ROOM WITH EYES CLOSED. BREATHING EVEN AND UNLABORED. BED IN LOW/LOCKED POSITION, SIDERAILS UPX2, CALL LIGHT IN REACH.
--- NOTE | 2019-07-16 07:30 | NUR ---
MS RN OPENING NOTES RECEIVED PATIENT ASLEEP, AROUSABLE TO VERBAL AND TACTILE STIMULI. HOB ELEVATED. NO SOB. DENIES ANY C/O PAIN NOR DISCOMFORT. ON CLINICAL TRIALS WITHOUT S/S OF COMPLICATIONS OBSERVED. BED IN LOWEST POSITION, LOCKED. CALL LIGHT WITHIN REACH.
[2019-07-16 08:00] VITALS: BP 140/98
[2019-07-16 16:00] VITALS: BP 129/85
--- NOTE | 2019-07-16 18:46 | NUR ---
MS RN CLOSING NOTES ALERT AND ORIENTED X4. NO S/S OF RESPIRATORY DISTRESS. DENIES ANY C/O PAIN NOR DISCOMFORT. AMBULATES INSIDE ROOM AND HALLWAY UNIT WITH STEADY GAIT. COOPERATIVE WITH CARE. ON CLINICAL TRIALS WITHOUT S/S OF COMPLICATIONS OBSERVED. DENIES ANY HALLUCINATIONS/SI/HEARING VOICES. BED IN LOWEST POSITION, LOCKED. CALL LIGHT WITHIN REACH. IN NO APPARENT DISTRESS.
--- NOTE | 2019-07-16 19:15 | NUR ---
rn initial notes: received report from ralf royal. pt in bed. awake, a/o x4. denies any pain or discomfort at this time. pt answer with short response only, very direct to the point. denies any si/hi. safety precautions for fall initiated, call light in reach, will continue monitoring pt.
[2019-07-16 20:00] VITALS: BP 134/73
[2019-07-16] MEDS: [UNRECOGNIZED DRUG - OTHER] PO SCH (21:52)
--- NOTE | 2019-07-17 06:40 | NUR ---
rn closing notes: Pt resting. Independent with ADL's. No behavior of agitation overnight. Able to sleep for at least 4hrs. safety precautions for fall remains engaged, call light in reach, will endorse to day rn for continuity of care.
[2019-07-17 07:57] VITALS: BP 109/58
--- NOTE | 2019-07-17 14:56 | NUR ---
rn notes patient asked for his belongings from the safe. primary nurse checked out his belongings from the safe and handed to the patient, witness by fellow PASTOR Morrow.
[2019-07-17 16:00] VITALS: BP 160/98
--- NOTE | 2019-07-17 19:05 | NUR ---
rn notes: received report from cele royal. pt in bed. awake, a/o x4. denies any pain or discomfort at this time. denies any si/hi. pt smokes marijuana downstairs, dr rouse aware. safety precautions for fall initiated, call light in reach, will continue monitoring pt.
--- NOTE | 2019-07-17 19:41 | NUR ---
RN CLOSING NOTES PATIENT IN STABLE CONDITION. NO SIGNIFICANT CHANGE OF CONDITION DURING THE SHIFT. ALL NEEDS ATTENDED AND PROVIDED. KEPT PATIENT SAFE AND COMFORTABLE. BED IN LOW/LOCKED POSITION, SIDERIALS UPX2, CALL LIGHT IN REACH. ENDORSED TO NIGHT RN FOR NGHIA.
[2019-07-17 20:00] VITALS: BP 98/64
[2019-07-17 21:26] VITALS: BP 131/86
[2019-07-17] MEDS: [UNRECOGNIZED DRUG - OTHER] PO SCH (21:57)
--- NOTE | 2019-07-18 06:54 | NUR ---
RN CLOSING NOTES: PT ABLE TO SLEEP FOR A TOTAL OF 4HRS. PT WENT DOWNSTAIRS MULTIPLE TIMES TO SMOKE. INFORMED PT HE CAN ONLY GO FOR NO LONGER THAN 30MINS. DENIES ANY SI/HI. SAFETY PRECAUTIONS FOR FALL REMAINS ENGAGED, CALL LIGHT IN REACH, WILL ENDORSE TO DAY RN FOR CONTINUITY OF CARE.
--- NOTE | 2019-07-18 08:00 | NUR ---
RN NOTES RECEIVED PATIENT IN THE ROOM SITTING EDGE OF THE YEAR, PATIET HAS NO ACUTE RESPIRATORY DISTRESS, STABLE. CALM COOPERATIVE, REFUSED SI/HI/AVH, REDIRECTABLE. PATIENT SELF CARE. NEEDS ATTENDED AND ANTICIPATED, SAFETY PRECAUTION MAINTAINED ALL THE TIME.
[2019-07-18 16:00] VITALS: BP 140/97
--- NOTE | 2019-07-18 18:00 | NUR ---
RN NOTES PATIENT IN THE BED LISTENING MUSIC, NO ACUTE DISTRESS. PATENT DENIED SI/HI/AVH. PATIENT STATE " I AM HAPPY GOING HOME ON COMING THURSDAY". SEEN PSYCHIATRIST Dr ALY. CALL LIGHT WITHIN TO REACH. ENDORSED ONCOMING NURSE FOLLOW PLAN OF CARE.
--- NOTE | 2019-07-18 19:20 | NUR ---
RN PM OPENING NOTE BEDSIDE REPORT RECIEVED FROM KSENIA BAUMANN. PATIENT IN THE BED LISTENING MUSIC, IN NO APPARRENT ACUTE DISTRESS. PATENT DENIED SI/HI. PATIENT APPEARS TO BE IN GOOD MOOD, SMILING WHEN BEING TALKED TO. CALL LIGHT WITHIN REACH. REVIEWED MEDICATION SCHEDULE, TRIAL MEDICATION DUE AT 2200 TONIGHT VERBALIZED UNDERSTANDING. BED DOWN LOCKED CALL LIGHT IN REACH VERBALIZED UNDERSTANDING TO CALL FOR ASSISTANCE NEEDED.
[2019-07-18 20:00] VITALS: BP 169/93
[2019-07-18] MEDS: [UNRECOGNIZED DRUG - OTHER] PO SCH (21:56)
--- NOTE | 2019-07-19 08:00 | NUR ---
RN NOTES RECEIVED PATIENT IN THE BED STABLE EATING BREAKFAST, REFUSED SI/HI/AVH, NO ACUTE DISTRESS, REDIRECTABLE. PATIENT AMBULATORY SELF CARE. SAFETY PRECAUTION MAINTAINED ALL THE TIME.
[2019-07-19 16:00] VITALS: BP 116/70
--- NOTE | 2019-07-19 18:00 | NUR ---
RN NOTES PATIENT IN THE ROOM AFTER SMOKING BREAK. PATIENT REFUSED PAIN, NO ACUTE DISTRESS. PER PATIENT STILL HEARING VOICES BUT NOT HARMFUL, DENIED SI/HI/AVH. PATIENT SELF CARE. ENDORSED ONCOMING NURSE FOLLOW PLAN OF CARE.
--- NOTE | 2019-07-19 19:25 | NUR ---
RN OPENING NOTES RECEIVED PATIENT IN SITTING IN BED. A/O X 4. NO SIGNS OF RESPIRATORY DISTRESS, STABLE. NO SHORTNESS OF BREATH NOTED. PATIENT IS CALM, COOPERATIVE, DENIES SI/HI. ALL NEEDS ATTENDED AT THIS TIME. SAFETY PRECAUTIONS IMPLEMENTED; CALL LIGHT WITHIN REACH, BED LOCKED, BED LOWEST POSITION, BILATERAL UPPER SIDE RAILS UP. WILL CONTINUE TO MONITOR.
[2019-07-19 20:00] VITALS: BP 114/59
[2019-07-19] MEDS: [UNRECOGNIZED DRUG - OTHER] PO SCH (21:25)
--- NOTE | 2019-07-20 06:45 | NUR ---
RN CLOSING NOTES PATIENT IS CURRENTLY ASLEEP, EASILY AROUSABLE TO VOICE. PATIENT WAS CALM, COOPERATIVE, DENIES SI/HI. NO BEHAVIOR PROBLEMS DURING THE SHIFT. ALL NEEDS ATTENDED TO AT THIS TIME. SAFETY PRECAUTIONS IMPLEMENTED; CALL LIGHT WITHIN REACH, BED LOCKED, BED LOWEST POSITION, BILATERAL UPPER SIDE RAILS UP. WILL CONTINUE TO MONITOR. THEN WILL ENDORSE TO DAY SHIFT NURSE FOR CONTINUITY OF CARE.
--- NOTE | 2019-07-20 07:05 | NUR ---
MS RN OPENING NOTES RECEIVED PATIENT IN BED ALERT AND AWAKE. NO SOB. DENIES ANY C/O PAIN NOR DISCOMFORT. ON CLINICAL TRIALS WITHOUT S/S OF COMPLICATIONS OBSERVED. BED IN LOWEST POSITION, LOCKED. CALL LIGHT WITHIN REACH. ABLE TO VERBALIZE NEEDS.
[2019-07-20 15:55] VITALS: BP 148/80
--- NOTE | 2019-07-20 16:54 | NUR ---
MS RN CLOSING NOTES ALERT AND ORIENTED X4. NO S/S OF RESPIRATORY DISTRESS. DENIES ANY C/O PAIN NOR DISCOMFORT. AMBULATES IN ROOM AND HALLWAY UNIT WITH STEADY GAIT. COMPLIANT WITH CARE. ON CLINICAL TRIALS WITHOUT S/S OF COMPLICATIONS OBSERVED. DENIES ANY HALLUCINATIONS/SI/HEARING VOICES. BED IN LOWEST POSITION, LOCKED. CALL LIGHT WITHIN REACH. IN NO APPARENT DISTRESS
--- NOTE | 2019-07-20 19:10 | NUR ---
MS RN NOTE RECEIVED PT IN STABLE CONDITION A/O X4, CURRENTLY WALKING AROUND FLOOR. NO SIGNS OF SOB OR DISTRESS. PT REMINDED NOT LEAVE FLOOR AND ASK TO BE ESCORTED IF WANTING TO LEAVE. VERBALIZATION OF UNDERSTANDING. DENIES HALLUCINATIONS/SI. ALL CURRENT NEEDS ATTENDED TO. BED LOW, LOCKED, UPPER RAILS UP, AND CALL LIGHT WITHIN REACH. WILL CONT. TO MONITOR.
[2019-07-20] MEDS: [UNRECOGNIZED DRUG - OTHER] PO SCH (21:45)
--- NOTE | 2019-07-21 06:20 | NUR ---
MS RN NOTE PT REMAINS IN STABLE CONDITION A/O X4, CURRENTLY RESTING IN BED. NO SIGNS OF SOB OR DISTRESS. NO VERBALIZATIONS OF HALLUCINATIONS/SI. ALL CURRENT NEEDS ATTENDED TO. BED LOW, LOCKED, UPPER RAILS UP, AND CALL LIGHT WITHIN REACH. WILL CONT. TO MONITOR AND ENDORSE TO NEXT SHIFT FOR NGHIA.
--- NOTE | 2019-07-21 07:10 | NUR ---
MS RN OPENING NOTES RECEIVED PATIENT IN BED ALERT AND AWAKE. NO SOB. DENIES ANY C/O PAIN NOR DISCOMFORT. ON CLINICAL TRIALS WITHOUT S/S OF COMPLICATIONS OBSERVED. BED IN LOWEST POSITION, LOCKED. BED SIDERAILS UP X2. CALL LIGHT WITHIN REACH. ABLE TO VERBALIZE NEEDS.
[2019-07-21] MEDS ORDERED: LORAZEPAM 1 MG TABLET FOR AGITATION PO PRN (12:00)
--- NOTE | 2019-07-21 19:25 | NUR ---
MS RN CLOSING NOTES ALERT AND ORIENTED X4. NO S/S OF RESPIRATORY DISTRESS. DENIES ANY C/O PAIN NOR DISCOMFORT. AMBULATES IN ROOM AND HALLWAY UNIT WITH STEADY GAIT. ON CLINICAL TRIALS WITHOUT S/S OF COMPLICATIONS OBSERVED. DENIES ANY HALLUCINATIONS/SI/HEARING VOICES. PATIENT WITH ORDERS FOR DISCHARGE IN AM. BED IN LOWEST POSITION, LOCKED. CALL LIGHT WITHIN REACH. IN NO APPARENT DISTRESS
[2019-07-21 20:00] VITALS: BP 141/101
--- NOTE | 2019-07-21 20:00 | NUR ---
MS RN NOTE: PATIENT RESTING IN BED, NO ACUTE DISTRESS NOTED. BREATHING EVEN AND UNLABORED, NO SOB NOTED. PATIENT CALM AND COOPERATE AT THIS TIME. BED LOCKED AND IN LOWEST POSITION, CALL LIGHT IN REACH. WILL CONTINUE TO MONITOR.
[2019-07-21] MEDS: [UNRECOGNIZED DRUG - OTHER] PO SCH (22:07)
--- NOTE | 2019-07-22 01:00 | NUR ---
MS RN NOTE: PATIENT AWAKE AND PACING HALLWAY, DENIES ANY ACUTE DISTRESS. PATIENT CALM AND COOPERATIVE AT THIS TIME. WILL CONTINUE TO MONITOR.
--- NOTE | 2019-07-22 06:10 | NUR ---
MS RN NOTE: PATIENT RESTING IN BED, NO ACUTE DISTRESS NOTED. BREATHING EVEN AND UNLABORED, NO SOB NOTED. PATIENT CALM AND COOPERATE THROUGHOUT SHIFT, PATIENT ABLE TO SLEEP AT LEAST 6 HOURS. BED LOCKED AND IN LOWEST POSITION, CALL LIGHT IN REACH. WILL ENDORSE TO DAY NURSE TO CONTINUE WITH PLAN OF CARE.
--- NOTE | 2019-07-22 08:00 | NUR ---
MS 2 RN OPENING NOTES RECEIVED PATIENT IN SITTING IN BED. A/O X 4. NO SIGNS OF RESPIRATORY DISTRESS, STABLE. NO SHORTNESS OF BREATH NOTED. PATIENT IS CALM, COOPERATIVE, DENIES SI/HI. ALL NEEDS ATTENDED AT THIS TIME. SAFETY PRECAUTIONS IMPLEMENTED;FOR DISCHARGE HOME-DR ALY CALLED AND STATED THAT PT IS FOR DISCHARGE HOME.AWAITING TO BE PICKED UP. CALL LIGHT WITHIN REACH, BED LOCKED, BED LOWEST POSITION, BILATERAL UPPER SIDE RAILS UP. WILL CONTINUE TO MONITOR.
[2019-07-22 08:06] VITALS: BP_SYST 135; BP_SYST 136; BP_DIAS 71; BP_DIAS 85
--- NOTE | 2019-07-22 09:45 | NUR ---
DISCHARGED PT TO DR [facility] WITH HIS BELONGINGS ACCOMPANIED BY HUANG OF DR ALY'S OFFICE.PT DENIES ANY PAIN OR DISTRESS.DISCHARGE INSTRUCTIONS GIVEN TO THE PT.
== END 2019-07-22 09:45 | disposition home or self-care (01) | DRG 951 ==
LOC: MED 14:03 → MEDSG2 07-08 22:15
PROVIDERS: ADMIT Psychiatry & Neurology Psychiatry; ATTEND Psychiatry & Neurology Psychiatry
DX: Z00.6 Encounter for examination for normal comparison and control in clinical research program (principal); F20.9 Schizophrenia, unspecified; G43.909 Migraine, unspecified, not intractable, without status migrainosus
CPT/HCPCS: G0378; J7030

== ENCOUNTER 2020-10-02 09:47 | Inpatient (IN) | payer OTHER ==
[~2020-10-02] VITALS: Ht 177.8 cm; Wt 100.7 kg
[~2020-10-02 09:47] MED LIST changes: -CALC-17 PO; -CHLO100T24 PO; +CHLO25TA13 PO; -PALI6TAB PO; -PROP20TA7 PO
[2020-10-02] MEDS ORDERED: ACETAMINOPHEN ES 500 MG TABLET PO PRN (14:30)
[2020-10-02] MEDS ORDERED: LORAZEPAM 1 MG TABLET FOR AGITATION/ANXIETY/HOSTILITY PO PRN (14:30)
[2020-10-02] MEDS ORDERED: MAG HYDROX/AL HYDROX/SIMETH 30 ML UDC PO PRN (14:30)
--- NOTE | 2020-10-02 14:36 | NUR ---
MS/fish hatchery inspector New admission from Dr Mao's office for clinical trial. Patient fully admitted, awaiting orders.
[2020-10-02 16:00] VITALS: BP 152/73
[2020-10-02 20:00] VITALS: BP 155/89
--- NOTE | 2020-10-02 21:40 | NUR ---
PATIENT RECEIVED ALERT AND ORIENTED X4, AMBULATING IN THE HALLWAY WITH STEADY GAIT, TOOK A SHOWER INDEPENDENTLY, DENIES ANY PAIN OR DISCOMFORT, BREATHING UNLABORED. PT ON A PHONE CALL, TALKING REALLY LOUD, APPEARS TO BE ANGRY. PT REQUESTED MEDICATION TO HELP HIM CALM DOWN, VERBALIZED FEELING ANXIOUS AFTER PHONE CONVERSATION. ATIVAN PO ADMINISTERED PER ORDERS, WELL TOLERATED. WILL CONTINUE MONITORING CLOSELY.
--- NOTE | 2020-10-03 06:00 | NUR ---
PATIENT ASLEEP MOST OF THE NIGHT, NO NEEDS VERBALIZED. DENIES ANY PAIN OR DISCOMFORT. NO PSYCHOSIS NOTED, DENIES VISUAL OR AUDITORY HALLUCINATIONS AT THIS TIME. CALL LIGHT WITHIN REACH, SAFETY PRECAUTIONS MAINTAINED.
--- NOTE | 2020-10-03 07:25 | NUR ---
MS RN NOTES PATIENT IN BED ALERT ORIENTED X 4. NO ACUTE DISTRESS NOTED. BREATHING UNLABORED. SAFETY MEASURES IN PLACE. CALL LIGHT WITHIN REACH. WILL CONTINUE TO MONITOR ACCORDINGLY
[2020-10-03 08:00] VITALS: BP 142/97
[2020-10-03] MEDS ORDERED: CHLO100T24 PO (08:41)
[2020-10-03] MEDS ORDERED: ARIP10TA17 PO (08:41)
[2020-10-03] MEDS ORDERED: ALPR2TAB7 PO (08:41)
[2020-10-03 18:10] VITALS: BP 134/93
--- NOTE | 2020-10-03 19:30 | NUR ---
MS/RN NOTES RECEIVED PATIENT RESTING SITTING ON CHAIR. PATIENT IS ALERT AND ORIENTED X 4. PATIENTS BREATHING IS EVEN AND UNLABORED. PATIENT HAS NO SIGNS OF SOB OR RESPIRATORY DISTRESS NOTED. NO ACUTE DISTRESS NOTED. SAFETY MEASURES ARE IN PLACE, BED IS LOCKED AND PLACED IN THE LOW POSITION, SIDE RAILS UP X 2, CALL LIGHT IS WITHIN REACH. WILL CONTINUE TO MONITOR THROUGH OUT SHIFT.
[2020-10-03 20:00] VITALS: BP 153/90
[2020-10-03] MEDS: ZOLPIDEM TARTRATE 10 MG TABLET PO PRN (23:33)
--- NOTE | 2020-10-04 06:50 | NUR ---
MS/RN NOTES PATIENT SLEEPING IN BED EASY TO AROUSE. PATIENT IS ALERT AND ORIENTED X 4. PATIENTS BREATHING IS EVEN AND UNLABORED. PATIENT HAS NO SIGNS OF SOB OR RESPIRATORY DISTRESS NOTED. NO ACUTE DISTRESS NOTED. PATIENT DENIES SI AT THIS TIME. ALL NEEDS HAVE BEEN MET DURING SHIFT. SAFETY MEASURES ARE IN PLACE, BED IS LOCKED AND PLACED IN THE LOW POSITION, SIDE RAILS UP X 2, CALL LIGHT IS WITHIN REACH. WILL ENDORSE CARE TO DAY SHIFT NURSE.
[2020-10-04 08:00] VITALS: BP 140/99
--- NOTE | 2020-10-04 08:00 | NUR ---
RN Opening note Received patient in bed AO x 4, patient is under clinical trial, skin is warm to touch keep clean/dry, intact. Respiratory even and unlabored on room air, no sob or distress observed. Kept elevated HOB for ensure airway and aspiration precaution also lowered bed position for safe. Call light within reach, will continue to monitor for safety.
[2020-10-04 09:00] VITALS: BP 140/99
--- NOTE | 2020-10-04 14:00 | NUR ---
Chowdary $500.00 returned to patient and documented on patient's belongings. Witnessed by OK/Ozzy.
[2020-10-04 16:00] VITALS: BP 145/88
--- NOTE | 2020-10-04 18:53 | NUR ---
RN Closing note Patient on bed resting, denies pain or discomfort, skin is warm to touch, keep clean/dry. Respiratory even and unlabored on laurence air. Keep elevated HOB for ensure airway and aspiration precaution, also lowest bed position for safety. Call light within reach, will endorse to clearance cutter.
[2020-10-04 20:00] VITALS: BP 134/76
--- NOTE | 2020-10-04 20:00 | NUR ---
RN NOTES RECEIVED PT WALKING IN THE HALLWAY, A/OX4, CALM AND COOPERATIVE, CALL LIGHT WITHIN REACH, [id number], CONTINUE TO MONITOR
--- NOTE | 2020-10-05 06:20 | NUR ---
RN NOTES SLEEPING BUT AROUSABLE, CALM, NOT IN DISTRESS, PT. NEEDS ATTENDED
--- NOTE | 2020-10-05 07:55 | NUR ---
RN Opening note Received patient in room, denies distress or discomfort, AO x 4, patient is under clinical trial, skin is warm to touch keep clean/dry, intact. Respiratory even and unlabored on room air, no sob or distress observed. Kept elevated HOB for ensure airway and aspiration precaution also lowered bed position for safe. Call light within reach, will continue to monitor for safety.
[2020-10-05 08:00] VITALS: BP 142/97
[2020-10-05 16:00] VITALS: BP 145/82
--- NOTE | 2020-10-05 17:15 | NUR ---
RN Closing note Patient on bed relaxing, denies pain or discomfort, skin is warm to touch, keep clean/dry. Respiratory even and unlabored on room air. Keep elevated HOB for ensure airway and aspiration precaution, also lowest bed position for safety. Call light within reach, will endorse to mold shifter.
--- NOTE | 2020-10-05 19:20 | NUR ---
MSRN SEEN AMBULATING AROUND HALLWAYS, CALM AND COOPERATIVE. WENT DOWN REMINDED OF TIME FRAME. GOOD LISTENER. NO NEEDS AT THIS TIME. NO REGULAR MEDS DUE FOR TONIGHT. SAFETY PRECAUTIONS EMPHASIZED, WELL UNDERSTOOD.
[2020-10-05 20:00] VITALS: BP 130/63
--- NOTE | 2020-10-06 01:20 | NUR ---
CHECO IN HIS ROOM SLEEPS ON/OFF. CLOSELY WATCHED.
--- NOTE | 2020-10-06 05:15 | NUR ---
MSRN AWAKENED, ASKED FOR SNACKS. WENT BACK TO HIS ROOM. REMAINS COOPERATIVE AND CALM. STATED HAD ALMOST 7 HOURS OF SLEEP
--- NOTE | 2020-10-06 06:41 | NUR ---
MSRN CHECKED PATIENT, ASLEEP.
--- NOTE | 2020-10-06 07:36 | NUR ---
MS RN OPENING NOTES RECEIVED PATIENT IN BED AWAKE, ALERT ORIENTED X 4. ABLE TO MAKE NEEDS KNOWN, DENIES PAIN OR ANY DISCOMFORTS AT THIS TIME. ON ROOM AIR, NO ACUTE DISTRESS NOTED, BREATHING EVEN AND UNLABORED. SAFETY MEASURES IN PLACE: CALL LIGHT WITHIN REACH. WILL CONTINUE TO MONITOR ACCORDINGLY
[2020-10-06 08:00] VITALS: BP 139/75
--- NOTE | 2020-10-06 18:46 | NUR ---
MS RN CLOSING NOTES PATIENT RESTING IN BED AT THIS TIME. A/O X 4. ABLE TO VERBALIZED NEEDS. AMBULATORY WITH STEADY GAIT. ON ROOM AIR, BREATHING EVEN AND UNLABORED. NO SOB NOTED DURING THE DAY. ALL NEEDS ATTENDED WELL. SAFETY MEASURES KEPT IN PLACE: BED IS LOCKED AND IN THE LOW POSITION, SIDE-RAILS UP X 2, CALL LIGHT IS WITHIN REACH. WILL ENDORSE NGHIA TO DEVELOPMENT EDUCATOR NURSE.
--- NOTE | 2020-10-06 19:35 | NUR ---
CHECO SEEN ON HIS WAY OUT FOR A SMOKE. DENIES ANY DISCOMFORTS, BEHAVIOR CALM, COOPERATIVE. SAFETY PRECAUTIONS EMPHASIZED WELL UNDERSTOOD.STATED WILL CALL FOR HIS AMBIEN TONIGHT.
[2020-10-06 20:00] VITALS: BP 157/105
[2020-10-07] MEDS: ZOLPIDEM TARTRATE 10 MG TABLET PO PRN (00:35)
--- NOTE | 2020-10-07 01:47 | NUR ---
MSRN ASLEEP, CLOSELY WATCHED
--- NOTE | 2020-10-07 06:59 | NUR ---
MSRN CLAIMS 6 HOURS OF SLEEP . NO NEEDS MADE
--- NOTE | 2020-10-07 07:07 | NUR ---
MS RN OPENING NOTES RECEIVED PATIENT IN BED ASLEEP AT THIS TIME, EASILY AWAKENS. ALERT ORIENTED X 4. ABLE TO MAKE NEEDS KNOWN, DENIES PAIN OR ANY DISCOMFORTS AT THIS TIME. ON ROOM AIR, BREATHING EVEN AND UNLABORED. SAFETY MEASURES IN PLACE: BED IN LOWEST LOCKED POSITION AND CALL LIGHT WITHIN REACH. WILL CONTINUE TO MONITOR ACCORDINGLY.
[2020-10-07 08:00] VITALS: BP 132/112
[2020-10-07 08:46] VITALS: BP 132/112
--- NOTE | 2020-10-07 18:36 | NUR ---
MS RN CLOSING NOTES PATIENT IN HIS ROOM AT THIS TIME. A/O X 4. ABLE TO VERBALIZED NEEDS. AMBULATORY WITH STEADY GAIT. NO COMPLAINED VOICED DURING SHIFT. ON ROOM AIR, BREATHING EVEN AND UNLABORED. NO SOB NOTED DURING THE DAY. ALL NEEDS ATTENDED WELL. CALL LIGHT IS WITHIN REACH. WILL ENDORSE NGHIA TO MOLD INSERT CHANGER NURSE.
--- NOTE | 2020-10-07 19:43 | NUR ---
MS CL RN NOTES IN ROOM,CALM AND FOLLOW DIRECTION.AMBULATORY,NO COMPLAINTS AT THE MOMENT,CALL LIGHT IN REACH,NEEDS ANTICIPATED.
[2020-10-07 20:00] VITALS: BP 144/84
[2020-10-07 20:04] VITALS: BP 144/84
--- NOTE | 2020-10-08 07:09 | NUR ---
MS/RN Opening note Patient received from asphalt heater tender. Sleeping soundly at this time, appears in no distress or discomfort. Bed in low setting, side rails X2 in upright position, brakes locked. Call light within reach, will continue to monitor and ensure safety. JULIEN AND ZULEYMA TO BE HELD FROM 1999 THIS EVENING AND MAY BE RESTARTED TOMORROW AT NOON.
--- NOTE | 2020-10-08 07:15 | NUR ---
MS RN NOTES SLEPT WELL AT NIGHT WITHOUT PHARMACOLOGICAL INTERVENTION,ENDORSED TO NEVAEH BAUMANN FOR NGHIA
[2020-10-08 07:58] VITALS: BP 131/83
[2020-10-08 08:00] VITALS: BP 131/83
--- NOTE | 2020-10-08 12:11 | NUR ---
MS/RN Rounds Patient remains calm and cooperative this morning, no behavior concerns.
--- NOTE | 2020-10-08 18:34 | NUR ---
MS/RN End note Patient remains in stable condition. No behavior concerns or outbursts today. Aware of need to hold ambien and ativan from 8p and to be NPO from midnight.
--- NOTE | 2020-10-08 19:15 | NUR ---
MSRN NOT IN HIS ROOM. WILL FOLLOW UP
[2020-10-08 20:00] VITALS: BP 128/75
--- NOTE | 2020-10-08 20:15 | NUR ---
CHECO BACK IN HIS ROOM, HAS BEEN OUT FOR AWHILE. PLAN OF CARE DISCUSSED WITH PATIENT. AWARE OF NPO POST 2200 TONIGHT. CALM AND COOPERATIVE. CLOSELY WATCHED.
--- NOTE | 2020-10-08 22:00 | NUR ---
MSRN INSTRUCTED NPO FOR NOW PER ORDERS. WELL UNDERSTOOD.
--- NOTE | 2020-10-09 05:45 | NUR ---
MSRN STATED SLEPT FAIRLY WITHOUT AMBIEN. 5HRS
--- NOTE | 2020-10-09 06:32 | NUR ---
MSRN REMINDED NPO. FOR BLOOD DRAW TODAY FOR CLINICAL TRIAL
--- NOTE | 2020-10-09 07:10 | NUR ---
MS/RN Opening note Patient received from assistant casino shift manager. Sleeping soundly, no distress noted. Remains NPO until 12 noon as investigational medication orders. Call light within reach, will continue to monitor and ensure safety.
[2020-10-09 07:49] VITALS: BP 117/74
[2020-10-09 08:00] VITALS: BP 117/74
--- NOTE | 2020-10-09 10:30 | NUR ---
MS/RN Off floor Patient off floor at this time for blood draw.
[2020-10-09] MEDS ORDERED: LORAZEPAM 1 MG TABLET FOR AGITATION/ANXIETY/HOSTILITY PO PRN (12:00)
--- NOTE | 2020-10-09 13:12 | NUR ---
MS/RN Back to room Patient back in room following blood draw at Dr Mcnair's office. Able to resume all previous orders.
[2020-10-09 16:00] VITALS: BP 148/88
--- NOTE | 2020-10-09 18:02 | NUR ---
MS/RN End note Patient remains in stable condition. No behavior concerns or outbursts today. Cooperative with plan of care. Order to start investigational medication this evening, medication signed for and placed in cassette in medication room. Will endorse to nightshift.
--- NOTE | 2020-10-09 19:49 | NUR ---
MS RN NOTES PATIENT A/OX4; ABLE TO MAKE NEEDS KNOWN. DENIES PAIN OR DISCOMFORT. ON ROOM AIR; TOLERATING WELL WITH NO SOB. SAFETY MEASURES IN PLACE: BED IN LOWEST LOCKED POSITION, CALL LIGHT WITHIN EASY REACH, SIDE RAILS UPX2. PATIENT MEDICALLY STABLE AT THIS TIME. WILL MONITOR FOR ANY BEHAVIORS.
[2020-10-09 20:00] VITALS: BP 167/78
[2020-10-09] MEDS: [UNRECOGNIZED DRUG - OTHER] PO SCH (20:40)
[2020-10-09] MEDS: [UNRECOGNIZED DRUG - OTHER] PO SCH (20:40)
[2020-10-09] MEDS: [UNRECOGNIZED DRUG - OTHER] PO SCH (20:41)
--- NOTE | 2020-10-10 07:01 | NUR ---
MS RN CLOSING NOTES PATIENT A/OX4; ABLE TO MAKE NEEDS KNOWN. DENIES PAIN OR DISCOMFORT. ON ROOM AIR; TOLERATING WELL WITH NO SOB. SAFETY MEASURES IN PLACE: BED IN LOWEST LOCKED POSITION, CALL LIGHT WITHIN EASY REACH, SIDE RAILS UPX2. PATIENT MEDICALLY STABLE AT THIS TIME. WILL NO NEW BEHAVIORS OR OUTBURSTS NOTED. WILL ENDORSE NGHIA TO ONCOMING RN.
[2020-10-10 08:00] VITALS: BP 157/97
--- NOTE | 2020-10-10 08:00 | NUR ---
RN OPENING NOTE PT IS AWAKE IN BED. A/O X 3. NO COMPLAINTS OF PAIN OR NAUSEA. SELF-REPORT OF COMMAND HALLUCINATIONS DAILY. WILL CONTINUE MONITORING FOR CONTINUED HALLUCINATIONS. DENIES SUICIDAL THOUGHTS OR IDEATION. CURRENTLY ON RA. NO SOB OR RESPIRATORY DISTRESS PRESENT. V/S WNL. AMBULATORY WITH BATHROOM PRIVILEGES. SKIN IS INTACT. NO IV ACCESS PRESENT. SAFETY MEASURES IN PLACE. SIDE RAILS RAISED. BED LOWERED. CALL LIGHT WITHIN REACH. WILL CONTINUE TO MONITOR.
[2020-10-10 16:00] VITALS: BP 146/91
[2020-10-10 18:00] VITALS: BP 146/91
--- NOTE | 2020-10-10 18:17 | NUR ---
RN CLOSING NOTE PT IS AWAKE AND RESTING IN A CHAIR. A/O X3 AND VIET[place]ESE SPEAKING. STUTTER OCCASIONALLY. ON RA WITH NO SOB OR RESPIRATORY DISTRESS PRESENT. AMBULATORY WITH BATHROOM PRIVILEGES. SKIN IS INTACT. SOME ITCHING ON LEFT SHOULDER AND THIGH PRESENT. NO IV ACCESS NOTED. NO REQUEST FOR PRN MEDS DURING SHIFT. SAFETY MEASURES IN PLACE. SIDE RAILS RAISED. BED LOWERED. CALL LIGHT WITHIN REACH. WILL GIVE REPORT TO NIGHT NURSE FOR NGHIA.
--- NOTE | 2020-10-10 19:49 | NUR ---
RN NOTES PT IS AWAKE AND RESTING IN A CHAIR. A/O X3 AND TUNISIAN SPEAKING. STUTTER OCCASIONALLY. ON RA WITH NO SOB OR RESPIRATORY DISTRESS PRESENT. AMBULATORY WITH BATHROOM PRIVILEGES. SKIN IS INTACT. NO IV ACCESS NOTED. SAFETY MEASURES IN PLACE. SIDE RAILS RAISED. BED LOWERED. CALL LIGHT WITHIN REACH. WILL CONTINUE TO MONITOR.
[2020-10-10 20:27] VITALS: BP 126/72
[2020-10-10] MEDS: [UNRECOGNIZED DRUG - OTHER] PO SCH (20:51)
[2020-10-10] MEDS: [UNRECOGNIZED DRUG - OTHER] PO SCH (20:51)
[2020-10-10] MEDS: [UNRECOGNIZED DRUG - OTHER] PO SCH (20:51)
[2020-10-10] MEDS: ZOLPIDEM TARTRATE 10 MG TABLET PO PRN (23:05)
--- NOTE | 2020-10-11 06:53 | NUR ---
RN NOTES PT IS ASLEEP IN BED EASY TO WAKE UP.ON RA TOLERATING WELL.WITH NO SOB OR RESPIRATORY DISTRESS PRESENT. AMBULATORY WITH BATHROOM PRIVILEGES. SKIN IS INTACT. NO IV ACCESS NOTED. SAFETY MEASURES IN PLACE. SIDE RAILS RAISED. BED LOWERED. CALL LIGHT WITHIN REACH. PT REQUEST THAT HE NOT BE BE DISTURBED UNTIL 8:30 AM WILL ENDORSE TO DAY SHIFT NURSE.WILL CONTINUE ENDORSE CARE TO DAY SHIFT NURSE.
--- NOTE | 2020-10-11 07:28 | NUR ---
MS/RN OPENING NOTE RECEIVED PATIENT FROM BRANCH LIBRARY CLERK NURSE. PATIENT IS ASLEEP IN BED, EASILY WOKEN UP. PATIENT IS A/O X4, NO ACUTE DISTRESS NOTED. PATIENT ON ROOM AIR, TOLERATING WELL, NO SOB NOTED, BREATHING EVEN, NO LABORED. SAFETY MEASURES IN PLACE, BED LOCKED AND IN LOWEST POSITION, CALL LIGHT WITHIN REACH. WILL CONTINUE TO MONITOR AND ENSURE SAFETY.
[2020-10-11 08:00] VITALS: BP 138/101
--- NOTE | 2020-10-11 19:15 | NUR ---
MS/RN CLOSING NOTE PATIENT IS AWAKE IN BED. PATIENT IS A/O X4, NO ACUTE DISTRESS NOTED. PATIENT ON ROOM AIR, TOLERATING WELL, NO SOB NOTED, BREATHING EVEN, NO LABORED. SAFETY MEASURES IN PLACE, BED LOCKED AND IN LOWEST POSITION, CALL LIGHT WITHIN REACH. ALL NEEDS MET THROUGHOUT THE SHIFT. WILL ENDORSE TO LUNCHROOM OPERATOR NURSE.
--- NOTE | 2020-10-11 19:30 | NUR ---
RN NOTES PATIENT IS AWAKE IN BED. PATIENT IS A/O X4, NO ACUTE DISTRESS NOTED. PATIENT ON ROOM AIR, TOLERATING WELL, NO SOB NOTED, BREATHING EVEN, NON LABORED. SAFETY MEASURES IN PLACE, BED LOCKED AND IN LOWEST POSITION, CALL LIGHT WITHIN REACH. ALL NEEDS MET AT THIS TIME. WILL CONTINUE TO MONITOR.
[2020-10-11 20:37] VITALS: BP 135/78
[2020-10-11] MEDS: [UNRECOGNIZED DRUG - OTHER] PO SCH (20:58)
[2020-10-11] MEDS: [UNRECOGNIZED DRUG - OTHER] PO SCH (20:58)
[2020-10-11] MEDS: [UNRECOGNIZED DRUG - OTHER] PO SCH (20:58)
--- NOTE | 2020-10-12 06:49 | NUR ---
RN NOTES PATIENT IS AWAKE IN BED. PATIENT IS A/O X4, NO ACUTE DISTRESS NOTED. PATIENT ON ROOM AIR, TOLERATING WELL, NO SOB NOTED, BREATHING EVEN, NON LABORED. SAFETY MEASURES IN PLACE, BED LOCKED AND IN LOWEST POSITION, CALL LIGHT WITHIN REACH. ALL NEEDS MET AT THIS TIME. WILL ENDORSE CARE TO DAYS SHIFT NURSE.
--- NOTE | 2020-10-12 07:15 | NUR ---
MS RN NOTE RECEIVED REPORT FROM MICHAEL. PATIENT DOESN'T WANT TO BE DISTURBED UNTIL 829.
[2020-10-12 08:00] VITALS: BP 138/77
--- NOTE | 2020-10-12 08:30 | NUR ---
MS RN NOTE PATIENT IN BED. A/O X4. AMBULATORY. ON ROOM AIR, TOLERATING WELL. NO SOB NOTED. IN NO APPARENT DISTRESS. NO IV ACCESS. SAFETY MEASURES MAINTAINED. BED IN LOWEST POSITION, BRAKES LOCKED. SIDE RAILS UP X2. CALL LIGHT WITHIN REACH. WILL CONTINUE PLAN OF CARE.
[2020-10-12 16:00] VITALS: BP 128/74
--- NOTE | 2020-10-12 18:23 | NUR ---
MS RN CLOSING NOTE PATIENT RESTING IN BED. A/O X4. AMBULATORY. ON ROOM AIR, TOLERATING WELL, SA02 100%. NO SOB NOTED. NO S/S OF RESPIRATORY DISTRESS. NO IV ACCESS AT THIS TIME. ALL NEEDS HAVE BEEN MET. SAFETY MEASURES MAINTAINED. BED IN LOWEST POSITION, BRAKES LOCKED. SIDE RAILS UP X2. CALL LIGHT WITHIN REACH. WILL ENDORSE TO FIELD CAPTAIN FOR CONTINUITY OF CARE.
[2020-10-12 20:00] VITALS: BP 130/84
--- NOTE | 2020-10-12 20:00 | NUR ---
RN NOTES ALERT AND ORIENTED, HX OF PARANOID SCHIZOPHRENIA, NO REPORT OF HALLUCINATIONS, CALM AND COOPERATIVE, EDUCATED PATIENT THAT HE MUST BE NPO BEFORE AND AFTER INVESTIGATIONAL MEDICATION, WILL GIVE MEDICATIONS AT 2100
[2020-10-12] MEDS: [UNRECOGNIZED DRUG - OTHER] PO SCH (20:52)
[2020-10-12] MEDS: [UNRECOGNIZED DRUG - OTHER] PO SCH (20:52)
[2020-10-12] MEDS: [UNRECOGNIZED DRUG - OTHER] PO SCH (20:52)
--- NOTE | 2020-10-13 07:00 | NUR ---
RN NOTES ALERT AND ORIENTED X4, ROOM AIR, COOPERATIVE, TOOK ALL INVESTIGATIVE MEDICATIONS SCHEDULED, NO REPORT OF HALLUCINATIONS, GOOD APPETITE, SLEPT DURING SHIFT.
[2020-10-13 08:00] VITALS: BP 138/83
--- NOTE | 2020-10-13 08:30 | NUR ---
MS RN OPENING NOTE PATIENT IN BED. A/O X4. AMBULATORY. ON ROOM AIR, TOLERATING WELL. NO SOB NOTED. NO S/S/S OF RESPIRATORY DISTRESS. NO IV ACCESS. SAFETY MEASURES MAINTAINED. BED IN LOWEST POSITION, BRAKES LOCKED. SIDE RAILS UP X2. CALL LIGHT WITHIN REACH. WILL CONTINUE PLAN OF CARE.
[2020-10-13 16:00] VITALS: BP 125/68
--- NOTE | 2020-10-13 18:29 | NUR ---
MS RN CLOSING NOTE PATIENT RESTING IN BED. A/O X4. AMBULATORY. ON ROOM AIR, TOLERATING WELL. NO SOB NOTED. IN NO APPARENT DISTRESS. NO IV ACCESS. ABLE TO MAKE NEEDS KNOWN. SAFETY MEASURES MAINTAINED. BED IN LOWEST POSITION, BRAKES LOCKED. SIDE RAILS UP X2. CALL LIGHT WITHIN REACH. WILL ENDORSE PLAN OF CARE TO ONCOMING SHIFT.
[2020-10-13 20:00] VITALS: BP 128/78
[2020-10-13] MEDS: [UNRECOGNIZED DRUG - OTHER] PO SCH (21:01)
[2020-10-13] MEDS: [UNRECOGNIZED DRUG - OTHER] PO SCH (21:01)
[2020-10-13] MEDS: [UNRECOGNIZED DRUG - OTHER] PO SCH (21:02)
--- NOTE | 2020-10-13 21:06 | NUR ---
MS/TELE/RN PER PATIENT HE ATE DINNER AT AROUND 1830, INVESTIGATIONAL MEDICATION WAS GIVEN, INSTRUCTED PATIENT NOT TO EAT IN 2 AND 1/2 HOURS. PATIENT VERBALIZED UNDERSTANDING. PER PATIENT HE IS AWARE OF THIS. WILL MONITOR.
--- NOTE | 2020-10-14 06:20 | NUR ---
MS/TELE/RN PATIENT IS STILL SLEEPING AT THIS TIME, APPEAR COMFORTABLE, NO SIGNS OF DISTRESS NOTED, CALL LIGHT IN REACH, ALL NEEDS ATTENDED AT THIS TIME, WILL CONTINUE TO MONITOR.
--- NOTE | 2020-10-14 07:34 | NUR ---
MS/RN Opening note Patient received from slot shift manager. Sleeping soundly, appears in no distress or discomfort. Will conitnue to monitor and ensure safety.
[2020-10-14 08:00] VITALS: BP 128/71
[2020-10-14 16:00] VITALS: BP 135/81
--- NOTE | 2020-10-14 18:39 | NUR ---
MS/RN End note Patient remains instable condition. No behavior concerns or outbursts today. Has remained calm and cooperative with plan of care.
--- NOTE | 2020-10-14 20:00 | NUR ---
Received patient in room, denies distress or discomfort, AO x 4, he's talking to someone on his cellphone, laugh so loud its good the door closed and not bothering the patient. patient is under clinical trial, Respiratory even and unlabored on room air, no sob or distress noted. Kept him warm and comfortable. Call light within reach, will continue to monitor for safety.
[2020-10-14 20:33] VITALS: BP 117/61
[2020-10-14] MEDS: [UNRECOGNIZED DRUG - OTHER] PO SCH (21:05)
[2020-10-14] MEDS: [UNRECOGNIZED DRUG - OTHER] PO SCH (21:05)
[2020-10-14] MEDS: [UNRECOGNIZED DRUG - OTHER] PO SCH (21:05)
[2020-10-15] MEDS: ZOLPIDEM TARTRATE 10 MG TABLET PO PRN (00:43)
--- NOTE | 2020-10-15 00:43 | NUR ---
oncology consultant notes pt called and asking for his sleep medication , he states that the investigational medication put him awake . Ambien given 10 mg po as ordered. will continue monitoring.
--- NOTE | 2020-10-15 07:06 | NUR ---
RN OPENING NOTE RECEIVED PT AWAKE IN BED AT THIS TIME. AOX4. NO SOB NOTED, NO S/O ANY ACUTE DISTRESS NOTED, NO C/O PAIN AT THIS TIME. NO IV ACCESS NOTED. SAFETY PRECAUTIONS IN PLACE AND MAINTAINED AT ALL TIME. BED IN LOWEST LOCKED POSITION, CALL LIGHT AND TABLE WITHIN REACH, HOB ELEVATED, SIDE RAILS UP. WILL CONTINUE TO MONITOR
--- NOTE | 2020-10-15 07:32 | NUR ---
pest control service sales agent closing notes pt resting at this time. not in any distress or any discomfort . all due meds given and all needs met. endorse to am nurse for continuity of care.
[2020-10-15 08:30] VITALS: BP 127/90
--- NOTE | 2020-10-15 19:16 | NUR ---
RN CLOSING NOTES PT AWAKE IN BED AT THIS, PT REMAINED STABLE THROUGH OUT SHIFT. ALL CARE, NEEDS, MEDICATIONS AND TREATMENT ADMINISTERED ANTICIPATED PER ORDER. SAFETY MEASURES IN PLACE AND MAINTAINED AT ALL TIME. BED IN LOWEST LOCKED POSITION, SIDE RAILS UPX2, HOB ELEVATED, CALL LIGHT AND TABLE WITHIN REACH. WILL ENDORSE TO MERCHANDISING REPRESENTATIVE NURSE F0R NGHIA
--- NOTE | 2020-10-15 19:45 | NUR ---
MSRN FULLY AWAKE, NO DISCOMFORTS, NO NEEDS MADE. WANTED PRIVACY WILL CALL IF NEEDED.
[2020-10-15 20:00] VITALS: BP_SYST 76
[2020-10-15] MEDS: [UNRECOGNIZED DRUG - OTHER] PO SCH (21:22)
[2020-10-15] MEDS: [UNRECOGNIZED DRUG - OTHER] PO SCH (21:23)
[2020-10-15] MEDS: [UNRECOGNIZED DRUG - OTHER] PO SCH (21:23)
--- NOTE | 2020-10-15 21:31 | NUR ---
MSRN FULLY AWAKE, DUE MEDS ADMINISTERED. DENIES SMOKING IN THE ROOM. REMINDED HOSPITAL POLICY WELL UNDERSTOOD. NO OTHER NEEDS MADE.
--- NOTE | 2020-10-16 02:08 | NUR ---
MSRN SLEEPS ON/OFF. WANTED AMBIEN, REMINDED NOT TO HAVE AMBIEN TONIGHT PER ORDERS.. ALL NEEDS ATTENDED.
--- NOTE | 2020-10-16 06:57 | NUR ---
MSRN STATES HAD 8 HRS SLEEP. GOT UPSET REFUSED TO BE DISTURBED.
--- NOTE | 2020-10-16 09:35 | NUR ---
MS RN OPENING NOTE PT RECEIVED AWAKE, RESPONSIVE AND IN NO ACUTE DISTRESS AT THIS TIME. PT IS A/O X 4 AND HAS NO C/O PAIN AT THIS TIME. PT IS VERBAL AND CONVERSIVE, AND ABLE TO MAKE NEEDS KNOWN. PT IS ON ROOM AIR WITH NO SOB OR RESPIRATORY DISTRESS NOTED. PT IS AMBULATORY WITH STEADY GAIT. PT STATED HE WAS UPSET HE WAS WOKEN UP BEFORE 8:30AM, BUT STATES HE GOT 8 HOURS OF SLEEP. SAFETY MEASURES IN PLACE: BED IN LOWEST POSITION AND LOCKED WITH BOTH UPPER SIDE RAILS UP X 2. CALL LIGHT PLACED WITHIN REACH. WILL CONTINUE TO MONITOR.
[2020-10-16] MEDS ORDERED: LORAZEPAM 1 MG TABLET FOR AGITATION/ANXIETY/HOSTILITY PO PRN (12:00)
[2020-10-16] MEDS ORDERED: ZOLPIDEM TARTRATE 10 MG TABLET PO PRN (12:00)
[2020-10-16 16:00] VITALS: BP 137/75
--- NOTE | 2020-10-16 19:07 | NUR ---
MS RN CLOSING NOTE PT REMAINS AWAKE, RESPONSIVE AND IN NO ACUTE DISTRESS AT THIS TIME. PT IS A/O X 4 AND HAS NO C/O PAIN AT THIS TIME. PT IS VERBAL AND CONVERSIVE, AND ABLE TO MAKE NEEDS KNOWN. PT IS ON ROOM AIR WITH NO SOB OR RESPIRATORY DISTRESS NOTED. PT IS AMBULATORY WITH STEADY GAIT. PT RECEIVED HIS DINNER AT 6PM PER ORDER TO NOT INTERFERE WITH MEDICATION AT 21:00. SAFETY MEASURES MAINTAINED: BED IN LOWEST, LOCKED POSITION WITH BOTH UPPER SIDE RAILS UP X 2. CALL LIGHT PLACED WITHIN REACH. WILL ENDORSE TO BONDACTOR MACHINE OPERATOR NURSE.
--- NOTE | 2020-10-16 19:30 | NUR ---
MS/RN OPENING NOTES RECEIVED PATIENT IN BED RESTING. PATIENT IS ALERT AND ORIENTED X 4. PATIENT BREATHING IS EVEN AND UNLABORED. PATIENT SHOWS NO SIGNS OF SOB OR RESPIRATORY DISTRESS NOTED. PATIENT EDUCATED ON PLAN OF CARE FOR THIS EVENING. SAFETY MEASURES ARE IN PLACE. BED IS LOCKED AND PLACED IN THE LOW POSITION. CALL LIGHT IS WITHIN REACH. WILL CONTINUE WITH PATIENT PLAN OF CARE.
[2020-10-16 21:10] VITALS: BP 124/67
[2020-10-16] MEDS: [UNRECOGNIZED DRUG - OTHER] PO SCH (21:12)
[2020-10-16] MEDS: [UNRECOGNIZED DRUG - OTHER] PO SCH (21:12)
[2020-10-16] MEDS: [UNRECOGNIZED DRUG - OTHER] PO SCH (21:12)
--- NOTE | 2020-10-17 06:45 | NUR ---
MS/RN CLOSING NOTE PATIENT IN BED RESTING PT IS A/O X 4 AND HAS NO C/O PAIN AT THIS TIME. PT IS VERBAL AND CONVERSIVE, AND ABLE TO MAKE NEEDS KNOWN. PT IS ON ROOM AIR WITH NO SOB OR RESPIRATORY DISTRESS NOTED. PT IS AMBULATORY WITH STEADY GAIT. PT RECEIVED HIS DINNER AT 6PM PER ORDER TO NOT INTERFERE WITH MEDICATION AT 21:00. SAFETY MEASURES MAINTAINED: BED IN LOWEST, LOCKED POSITION WITH BOTH UPPER SIDE RAILS UP X 2. CALL LIGHT PLACED WITHIN REACH. WILL ENDORSE TO LOT WORKER NURSE. Addendum: 10/17/20 at 0650 by CARYL SOTOMAYOR RN WILL ENDORSE TO DAY SHIFT NURSE.
--- NOTE | 2020-10-17 07:24 | NUR ---
MS/RN OPENING NOTES RECEIVED PATIENT IS ON BED SLEEPING, EASILY AOURASABLE BY NAME AND LIGHT TOUCH. ALERT AND ORIENTED X 4. PATIENT IS ON ROOM AIR SATURATING WELL. PATIENT IN NO APPARENT RESPIRATORY DISTRESS NOTED. NO COMPLAINED OF PAIN NOTED AT THIS TIME. WILL CONTINUE TO MONITOR.
[2020-10-17 16:00] VITALS: BP 113/73
--- NOTE | 2020-10-17 19:19 | NUR ---
MS/RN CLOSING NOTES PATIENTS IS ON BED ALERT AND ORIENTED X4. PATIENT IS ON ROOM AIR SATURATION 99%. PATIENT IN NO APPARENT RESPIRATORY DISTRESS NOTED. NO COMPLAINED OF PAIN NOTED AT THIS TIME. SEEN AND EXAMINED BY MD WITH ORDERS MADE AND CARRIED OUT. ALL DUE MEDICATIONS WAS GIVEN. SAFETY PRECAUTIONS WAS IN PLACED. BED IN LOWEST POSITION AND LOCKED. SIDE RAILS UP X2. MEDICATION WAS ENDORSED TO CARYL BAUMANN WITNESS BY PASCALE BAUMANN WILL ENDORSED TO HUMAN SERVICE WORKER FOR [facility].
--- NOTE | 2020-10-17 19:30 | NUR ---
MS/RN OPENING NOTES RECEIVED PATIENT IN ROOM SITTING ON CHAIR. PATIENT IS ALERT AND ORIENTED X 4. PATIENT IS ON ROOM AIR SATURATING WELL. PATIENT IN NO APPARENT RESPIRATORY DISTRESS NOTED. NO COMPLAINED OF PAIN NOTED AT THIS TIME. PATIENT WOULD LIKE TO TAKE A SMOKE BREAK AT THIS TIME. WILL CONTINUE TO MONITOR.
[2020-10-17 20:00] VITALS: BP 141/80
[2020-10-17] MEDS: [UNRECOGNIZED DRUG - OTHER] PO SCH (21:02)
[2020-10-17] MEDS: [UNRECOGNIZED DRUG - OTHER] PO SCH (21:02)
[2020-10-17] MEDS: [UNRECOGNIZED DRUG - OTHER] PO SCH (21:02)
--- NOTE | 2020-10-18 06:35 | NUR ---
MS/RN CLOSING NOTES PATIENT IN ROOM SLEEPING EASY TO AROUSE. PATIENT IS ALERT AND ORIENTED X 4. PATIENT IS ON ROOM AIR SATURATING WELL. PATIENT IN NO APPARENT RESPIRATORY DISTRESS NOTED. NO COMPLAINED OF PAIN NOTED AT THIS TIME. ALL NEEDS HAVE BEEN MET DURING SHIFT. SAFETY MEASURES ARE IN PLACE. WILL ENDORSE CARE TO DAY SHIFT NURSE.
--- NOTE | 2020-10-18 07:42 | NUR ---
MS RN OPENING NOTE PATIENT IN BED. A/O X4. ON ROOM AIR, NO SOB NOTED. IN NO APPARENT DISTRESS. DENIES ANY PAIN OR DISCOMFORT AT THIS TIME. PATIENT SAID HE WANTS TO BE ALONE FOR NOW SO HE CAN GET SOME REST. SAFETY MEASURES MAINTAINED. SIDE RAILS UP X2. CALL LIGHT WITHIN REACH. WILL CONTINUE PLAN OF CARE.
[2020-10-18 08:00] VITALS: BP 124/68
[2020-10-18 16:00] VITALS: BP 139/86
--- NOTE | 2020-10-18 18:21 | NUR ---
MS RN CLOSING NOTE PATIENT IN BED. A/O X4. AMBULATORY. ON ROOM AIR, TOLERATING WELL, SA02 99%. NO SOB NOTED. IN NO APPARENT DISTRESS. ABLE TO MAKE NEEDS KNOWN. NO SIGNS OF AKATHISIA REPORTED. SAFETY MEASURES MAINTAINED. BED IN LOWEST POSITION, BRAKES LOCKED. SIDE RAILS UP X2. CALL LIGHT WITHIN REACH. WILL ENDORSE CONTINUITY OF CARE TO ONCOMING SHIFT.
--- NOTE | 2020-10-18 19:54 | NUR ---
MS KURT INITIAL NOTES AFTER GOT REPORT FROM AM NURSE SAW PT JUST CAME OUT FROM ELEVATOR , JUST DID HIS SMOKING TIME. NO SIGNS OF ANY DISTRESS OR ANY BEHAVIORAL ISSUE . PT AWARE THAT HE'S NPO 2 HRS BEFORE AND AFTER INVESTIGATIONAL DRUG . KEPT HIM WARM AND COMFORTABLE AT ALL TIMES. WILL CONTINUE MONITORING.
[2020-10-18 20:00] VITALS: BP 119/66
[2020-10-18] MEDS: [UNRECOGNIZED DRUG - OTHER] PO SCH (21:12)
[2020-10-18] MEDS: [UNRECOGNIZED DRUG - OTHER] PO SCH (21:12)
[2020-10-18] MEDS: [UNRECOGNIZED DRUG - OTHER] PO SCH (21:12)
--- NOTE | 2020-10-18 21:28 | NUR ---
belt sander notes Investigational medication given as ordered. Pt aware that he's 2 hrs NPO before and after. will continue monitoring. place call light at reach.
--- NOTE | 2020-10-19 07:25 | NUR ---
MS RN NOTES PATIENT IN BED ALERT ORIENTED X 4. NO ACUTE DISTRESS NOTED. BREATHING UNLABORED.SAFETY MEASURES IN PLACE. CALL LIGHT WITHIN REACH. WILL CONTINUE TO MONITOR ACCORDINGLY
--- NOTE | 2020-10-19 07:42 | NUR ---
MS SERVICE RIG OPERATOR CLOSING NOTES PT AWAKE AND ALERT WATCHING TV . STABLE GEORGE THE NIGHT . ENDORSE TO AM NURSE.
[2020-10-19 08:00] VITALS: BP 142/91
[2020-10-19 16:00] VITALS: BP 137/83
--- NOTE | 2020-10-19 19:00 | NUR ---
MS RN CLOSING NOTES PATIENT IN BED ALERT ORIENTED X 4. NO ACUTE DISTRESS NOTED. BREATHING UNLABORED.SAFETY MEASURES IN PLACE. CALL LIGHT WITHIN REACH. WILL ENDORSE TO NIGHT NURSE FOR CONTINUITY OF CARE.
--- NOTE | 2020-10-19 19:30 | NUR ---
MS/RN OPENING NOTE RECEIVED PATIENT SITTING UP IN CHAIR. ALERT AND ORIENTED X 4. ABLE TO MAKE NEEDS KNOWN. CONTINUES ON CLINICAL TRIAL. NO COMPLAINTS OF PAIN AT THIS TIME. CONTINUES ON REGULAR DIET WITH NO SIGNS OR SYMPTOMS OF ASPIRATION. RESPIRATIONS EVEN AND UNLABORED. CALL LIGHT WITHIN REACH. ASPIRATION, FALL AND SAFETY PRECAUTIONS MAINTAINED. WILL CONTINUE TO MONITOR.
[2020-10-19 20:00] VITALS: BP 124/58
[2020-10-19] MEDS: [UNRECOGNIZED DRUG - OTHER] PO SCH (20:54)
[2020-10-19] MEDS: [UNRECOGNIZED DRUG - OTHER] PO SCH (20:54)
[2020-10-19] MEDS: [UNRECOGNIZED DRUG - OTHER] PO SCH (20:54)
--- NOTE | 2020-10-20 06:00 | NUR ---
RN NOTES RECEIVED PT. AWAKE IN BED, CALM AND COOPERATIVE, NOT IN DISTRESS, CALL LIGHT WITHIN REACH, [id number], CONTINUE TO MONITOR Addendum: 10/21/20 at 0617 by GIL KELLY RN RIGHT TIME AND DATE 10/20/20@ 1999
--- NOTE | 2020-10-20 06:30 | NUR ---
MS/RN CLOSING NOTE PATIENT CURRENTLY RESTING IN BED. ALERT AND ORIENTED X 4. ABLE TO MAKE NEEDS KNOWN. CONTINUES ON CLINICAL TRIAL. NO COMPLAINTS OF PAIN AT THIS TIME. CONTINUES ON REGULAR DIET WITH NO SIGNS OR SYMPTOMS OF ASPIRATION. RESPIRATIONS EVEN AND UNLABORED. CALL LIGHT WITHIN REACH. ASPIRATION, FALL AND SAFETY PRECAUTIONS MAINTAINED. WILL ENDORSE PLAN OF CARE TO ONCOMING SHIFT.
--- NOTE | 2020-10-20 07:10 | NUR ---
RN OPENING NOTE PATIENT RECEIVED RESTING IN BED ALERT AND ORIENTED X 4 AND ABLE TO MAKE NEEDS KNOWN. PATIENT CONTINUES CLINICAL TRIAL. NO COMPLAINTS OF PAIN AT THIS TIME. CONTINUES ON REGULAR DIET WITH NO SIGNS OR SYMPTOMS OF ASPIRATION. RESPIRATIONS EVEN AND UNLABORED. SAFETY PRECAUTIONS IMPLEMENTED, BED LOCKED IN LOWEST POSITION, SIDE RAILS UP X2, CALL LIGHT WITHIN REACH. WILL CONTINUE TO MONITOR AND PROVIDE CARE THROUGHOUT SHIFT.
[2020-10-20 08:00] VITALS: BP 131/81
--- NOTE | 2020-10-20 19:00 | NUR ---
RN CLOSING NOTE PATIENT RESTING IN BED ALERT AND ORIENTED X 4 AND ABLE TO MAKE NEEDS KNOWN. PATIENT CONTINUES CLINICAL TRIAL. NO COMPLAINTS OF PAIN AT THIS TIME. CONTINUES ON REGULAR DIET WITH NO SIGNS OR SYMPTOMS OF ASPIRATION. RESPIRATIONS EVEN AND UNLABORED. SAFETY PRECAUTIONS IMPLEMENTED, BED LOCKED IN LOWEST POSITION, SIDE RAILS UP X2, CALL LIGHT WITHIN REACH. PATIENT REMINDED TO BE NPO AT 1900. WILL ENDORSE CONTINUATION OF CARE TO UPCOMING SHIFT.
[2020-10-20 20:00] VITALS: BP 114/55
--- NOTE | 2020-10-20 20:00 | NUR ---
RN NOTES RECEIVED PT. AWAKE IN BED, CALM AND COOPERATIVE, NOT IN DISTRESS, CALL LIGHT WITHIN REACH, [id number], CONTINUE TO MONITOR
[2020-10-20] MEDS: [UNRECOGNIZED DRUG - OTHER] PO SCH (21:14)
[2020-10-20] MEDS: [UNRECOGNIZED DRUG - OTHER] PO SCH (21:14)
[2020-10-20] MEDS: [UNRECOGNIZED DRUG - OTHER] PO SCH (21:14)
--- NOTE | 2020-10-21 06:15 | NUR ---
RN NOTES SLEEPING BUT AROUSABLE, NOT IN DISTRESS, CALL LIGHT WITHIN REACH, PT. NEEDS ATTENDED
--- NOTE | 2020-10-21 07:15 | NUR ---
RN NOTES RECEIVED PATIENT RESTING. AWAKE AND VERBALLY RESPONSIVE. ALERT AND ORIENTED X4, ABLE TO MAKE NEEDS KNOWN. PATIENT CONTINUES CLINICAL TRIAL. BREATHING EVEN AND UNLABORED, NO RESPIRATORY DISTRESS NOTED. SAFETY PRECAUTIONS IN PLACE: BED LOCKED IN LOWEST POSITION, SIDE RAILS UP X2, CALL LIGHT WITHIN REACH. VERBAL CUES PROVIDED TO PATIENT FOR SAFETY WHEN OUT OF BED. WILL CONTINUE TO MONITOR.
--- NOTE | 2020-10-21 14:20 | NUR ---
RN NOTES RECEIVED INVESTIGATIONAL MEDICATIONS (3 IN TOTAL) FROM PHARMACY AND PLACED IN PATIENT'S CASETTE. WILL ENDORSE TO WIDE PIECE GOODS INSPECTOR NURSE ON CHANGE OF SHIFT.
[2020-10-21 16:00] VITALS: BP 126/75
--- NOTE | 2020-10-21 18:39 | NUR ---
RN NOTES PATIENT IS IN BED, AWAKE AND VERBALLY RESPONSIVE. ALERT AND ORIENTED X4, ABLE TO MAKE NEEDS KNOWN. CONTINUES ON CLINICAL TRIAL, NO ADVERSE CHANGES/REACTIONS NOTED. BREATHING EVEN AND UNLABORED, NO RESPIRATORY DISTRESS. SAFETY PRECAUTIONS MAINTAINED: BED LOCKED IN LOWEST POSITION, SIDE RAILS UP X2, CALL LIGHT WITHIN REACH. WILL ENDORSE TO COLORED LIQUID PLASTIC APPLIER RN FOR N[facility].
[2020-10-21 20:00] VITALS: BP 126/74
--- NOTE | 2020-10-21 20:00 | NUR ---
RN NOTES RECEIVED PT. AWAKE ON BED, A/OX4, AMBULATORY , CALM AND COOPERATIVE, DENIES PAIN, NO SOB, CALL LIGHT WITHIN REACH, [id number], WILL CONTINUE TO MONITOR
[2020-10-21] MEDS: [UNRECOGNIZED DRUG - OTHER] PO SCH (20:57)
[2020-10-21] MEDS: [UNRECOGNIZED DRUG - OTHER] PO SCH (20:58)
[2020-10-21] MEDS: [UNRECOGNIZED DRUG - OTHER] PO SCH (20:58)
--- NOTE | 2020-10-22 06:20 | NUR ---
RN NOTES sleeping but arousable, not in distress, calm and cooperative, call light within reach, siiderailsupx2 pt. needs attended
--- NOTE | 2020-10-22 08:04 | NUR ---
MS RN OPENING NOTE RECEIVED PATIENT IN BED. A/O X4. AMBULATORY, STEADY GAIT. ON ROOM AIR, TOLERATING WELL. NO SOB NOTED. IN NO APPARENT DISTRESS. SAFETY MEASURES MAINTAINED. BED IN LOWEST POSITION, BRAKES LOCKED. SIDE RAILS UP X2. CALL LIGHT WITHIN REACH. WILL CONTINUE PLAN OF CARE.
--- NOTE | 2020-10-22 09:40 | NUR ---
MS RN NOTE REPORT GIVEN TO KURT CERVANTES.
--- NOTE | 2020-10-22 10:00 | NUR ---
m/s pomologist: notes pt up and about in unit and main lobby. no distress noted.
--- NOTE | 2020-10-22 19:15 | NUR ---
m/s runner man: notes report given to sally (rn) for continuity of care.
[2020-10-22 20:00] VITALS: BP 124/73
[2020-10-22] MEDS: [UNRECOGNIZED DRUG - OTHER] PO SCH (21:07)
[2020-10-22] MEDS: [UNRECOGNIZED DRUG - OTHER] PO SCH (21:08)
[2020-10-22] MEDS: [UNRECOGNIZED DRUG - OTHER] PO SCH (21:08)
--- NOTE | 2020-10-23 07:30 | NUR ---
MS/RN Opening note Patient received from shift production associate. Sleeping soundly at this time, appears comfortable, in no distress. Call light within reach, bed in low setting, side rails X2 in upright position. Will continue to monitor and ensure safety.
--- NOTE | 2020-10-23 10:00 | NUR ---
MS/RN Off floor Patient off floor at this time for blood draw in Dr Mao's office.
[2020-10-23] MEDS ORDERED: ZOLPIDEM TARTRATE 10 MG TABLET PO PRN (12:00)
[2020-10-23] MEDS ORDERED: LORAZEPAM 1 MG TABLET FOR AGITATION/ANXIETY/HOSTILITY PO PRN (12:00)
--- NOTE | 2020-10-23 14:00 | NUR ---
MS/RN Back to room Patient back in room following appointment with Dr Mao in office.
[2020-10-23 16:00] VITALS: BP 139/83
--- NOTE | 2020-10-23 19:33 | NUR ---
MS RN OPENING NOTES: PATIENT JUST CAME BACK FROM DOWNSTAIRS, HE SAID THAT HE SMOKED. NO S/S OF DISTRESS NOTED. A/O X4. AMBULATORY WITH STEADY GAIT. PATIENT REMINDED OF NO FOOD/DRINK 2.5 HOURS BEFORE AND AFTER MEDICATIONS, PATIENT VERBALIZED UNDERSTANDING. PATIENT REQUESTED AN AMBIEN TONIGHT AT 2300. PATIENT IS CALM AND COOPERATIVE.
[2020-10-23 20:00] VITALS: BP 106/64
[2020-10-23] MEDS: [UNRECOGNIZED DRUG - OTHER] PO SCH (20:53)
[2020-10-23] MEDS: [UNRECOGNIZED DRUG - OTHER] PO SCH (20:53)
[2020-10-23] MEDS: [UNRECOGNIZED DRUG - OTHER] PO SCH (20:53)
[2020-10-24 08:00] VITALS: BP 116/66
--- NOTE | 2020-10-24 18:54 | NUR ---
MS RN NOTES PATIENT IN BED ALERT ORIENTED X 4. NO ACUTE DISTRESS NOTED. BREATHING UNLABORED.DENIED ANY PAIN. NO SWELLING NOTED. NEEDS ATTENDED AND ANTICIPATED. SAFETY MEASURES IN PLACE. CALL LIGHT WITHIN REACH. WILL ENDORSE TO NIGHT NURSE FOR CONTINUITY OF CARE.
[2020-10-24 20:00] VITALS: BP 111/68
[2020-10-24] MEDS: [UNRECOGNIZED DRUG - OTHER] PO SCH (21:11)
[2020-10-24] MEDS: [UNRECOGNIZED DRUG - OTHER] PO SCH (21:11)
[2020-10-24] MEDS: [UNRECOGNIZED DRUG - OTHER] PO SCH (21:11)
--- NOTE | 2020-10-25 06:32 | NUR ---
MS RN CLOSING NOTES: PATIENT IN BED, ASLEPP. NO S/S OF DISTRESS NOTED. CALL LIGHT WITHIN REACH. BED IN LOWEST AND LOCKED POSITION. AMBULATORY.
--- NOTE | 2020-10-25 08:07 | NUR ---
MS RN OPENING NOTE PT RECEIVED IN BED, ASLEEP BUT AROUSABLE AND RESPONSIVE. PT IS A/O X 4 WITH NO C/O PAIN AT THIS TIME. PT IS ON ROOM AIR WITH NO S/SX OF RESPIRATORY DISTRESS OR SOB. NO IV ACCESS. PT IS AMBULATORY WITH STEADY GAIT. NO SUICIDAL OR HOMICIDAL IDEATION AT THIS TIME. SAFETY MEASURES IN PLACE: BED IN LOWEST, LOCKED POSITION WITH BOTH UPPER SIDE RAILS UP X 2. CALL LIGHT PLACED WITHIN REACH. WILL CONTINUE TO MONITOR.
--- NOTE | 2020-10-25 18:19 | NUR ---
MS RN CLOSING NOTE PT REMAINS IN ROOM, ON THE PHONE. PT IS A/O X 4, VERBAL AND ABLE TO MAKE NEEDS KNOWN. PT HAS NO C/O PAIN AND HAS NO S/SX OF ACUTE DISTRESS AT THIS TIME. PT IS ON ROOM AIR WITH NO S/SX RESPIRATORY DISTRESS OR SOB. PT HAS NO IV ACCES. PT IS AMBULATORY WITH STEADY GAIT. ALL CARE, NEEDS, MEDICATIONS AND TREATMENTS GIVEN ORDERED. SAFETY MEASURES MAINTAINED: BED IN LOWEST POSITION AND LOCKED WITH BOTH UPPER SIDE RAILS UP X 2. CALL LIGHT PLACED WITHIN REACH. WILL ENDORSE TO RESPIRATORY MANAGER NURSE.
--- NOTE | 2020-10-25 19:30 | NUR ---
MS RN OPENING NOTE RECEIVED PATIENT IN ROOM. A.OX4. TOLERATING ROOM AIR. RESPIRATIONS ARE EVEN AND LABORED. NO S/S SOB NOTED. NO C/O PAIN NOTED. IN NO APPARENT DISTRESS. DENIES SI/HI AT THIS TIME. WILL CONTINUE TO MONITOR THROUGHOUT SHIFT.
[2020-10-25 20:00] VITALS: BP 133/71
[2020-10-25] MEDS: [UNRECOGNIZED DRUG - OTHER] PO SCH (21:05)
[2020-10-25] MEDS: [UNRECOGNIZED DRUG - OTHER] PO SCH (21:05)
[2020-10-25] MEDS: [UNRECOGNIZED DRUG - OTHER] PO SCH (21:05)
--- NOTE | 2020-10-26 07:03 | NUR ---
MS RN CLOSING NOTE PATIENT RESTING IN ROOM. A/OX4. TOLERATING ROOM AIR. NO RESP DISTRESS. NO C/O PAIN. NO DISTRESS. WILL ENDORSE TO ONCOMING.
--- NOTE | 2020-10-26 07:37 | NUR ---
MS RN OPENING NOTE RECEIVED PATIENT AWAKE, IN ROOM. A/O X4. RESPIRATIONS ARE EVEN AND LABORED. NO PAIN OR RESPIRATORY DISTRESS NOTED. DENIES SI/HI AT THIS TIME. WILL CONTINUE TO MONITOR.
--- NOTE | 2020-10-26 18:50 | NUR ---
MS RN CLOSING NOTE PATIENT RESTING IN ROOM. A/O X4. ON ROOM AIR - TOLERATES WELL. NO PAIN OR RESPIRATORY DISTRESS NOTED. WILL ENDORSE TO MARKETING REGIONAL CONSULTANT NURSE.
--- NOTE | 2020-10-26 19:30 | NUR ---
MS/RN OPENING NOTES RECEIVED PATIENT IN ROOM RESTING. PATIENT IS ALERT AND ORIENTED X 4. PATIENTS BREATHING IS EVEN AND UNLABORED. PATIENT IN NO SIGNS OF SOB OR RESPIRATORY DISTRESS. PATIENT STATES NO PAIN AT THIS TIME. PATIENT IN NO ACUTE DISTRESS. SAFETY MEASURES ARE IN PLACE, BED IS LOCKED AND PLACED IN THE LOW POSITION, SIDE RAIL UP X 2, CALL LIGHT IS WITHIN REACH. WILL CONTINUE WITH PATIENT PLAN OF CARE.
[2020-10-26 20:00] VITALS: BP 153/94
[2020-10-26] MEDS: [UNRECOGNIZED DRUG - OTHER] PO SCH (21:17)
[2020-10-26] MEDS: [UNRECOGNIZED DRUG - OTHER] PO SCH (21:17)
[2020-10-26] MEDS: [UNRECOGNIZED DRUG - OTHER] PO SCH (21:18)
--- NOTE | 2020-10-27 06:35 | NUR ---
MS/RN CLOSING NOTES PATIENT IN BED RESTING. PATIENT IS ALERT AND ORIENTED X 4. PATIENTS BREATHING IS EVEN AND UNLABORED. PATIENT IN NO SIGNS OF SOB OR RESPIRATORY DISTRESS. PATIENT STATES SLEEPING > 4 HRS. SAFETY MEASURES ARE IN PLACE, BED IS LOCKED AND PLACED IN THE LOW POSITION, SIDE RAIL UP X 2, CALL LIGHT IS WITHIN REACH. WILL ENDORSE CARE TO DAY SHIFT NURSE.
--- NOTE | 2020-10-27 07:41 | NUR ---
MS RN OPENING NOTES RECEIVED PATIENT IN BED RESTING. A/OX 4. BREATHING IS EVEN AND UNLABORED. NO PAIN OR RESPIRATORY DISTRESS NOTED. SAFETY MEASURES ARE IN PLACE, BED IS LOCKED AND IN LOWEST POSITION, SIDE RAILS X 2. CALL LIGHT WITHIN REACH. WILL CONTINUE TO MONITOR.
--- NOTE | 2020-10-27 18:36 | NUR ---
MS RN CLOSING NOTES PATIENT IN BED RESTING. A/O X 4. BREATHING IS EVEN AND UNLABORED. NO PAIN OR RESPIRATORY DISTRESS NOTED. BED IS LOCKED AND IN LOWEST POSITION, SIDE RAILS X2, CALL LIGHT WITHIN REACH. WILL ENDORSE TO BIAS CUTTING MACHINE OPERATOR NURSE.
--- NOTE | 2020-10-27 19:25 | NUR ---
RN NOTES RECEIVED PATIENT IN BED RESTING. A/OX 4. BREATHING IS EVEN AND UNLABORED. NO PAIN OR RESPIRATORY DISTRESS NOTED. SAFETY MEASURES ARE IN PLACE, BED IS LOCKED AND IN LOWEST POSITION, SIDE RAILS X 2. CALL LIGHT WITHIN REACH. WILL CONTINUE TO MONITOR.
[2020-10-27 20:00] VITALS: BP 124/61
[2020-10-27] MEDS: [UNRECOGNIZED DRUG - OTHER] PO SCH (21:07)
[2020-10-27] MEDS: [UNRECOGNIZED DRUG - OTHER] PO SCH (21:07)
[2020-10-27] MEDS: [UNRECOGNIZED DRUG - OTHER] PO SCH (21:07)
--- NOTE | 2020-10-28 06:36 | NUR ---
RN NOTES PATIENT IN BED RESTING. A/O X 4. BREATHING IS EVEN AND UNLABORED. NO PAIN OR RESPIRATORY DISTRESS NOTED. BED IS LOCKED AND IN LOWEST POSITION, SIDE RAILS X2, CALL LIGHT WITHIN REACH. WILL ENDORSE TO DAY SHIFT NURSE.
--- NOTE | 2020-10-28 07:30 | NUR ---
MS RN OPENING NOTES RECEIVED PATIENT LYING IN BED. A/O X4. BREATHING IS EVEN AND UNLABORED. NO PAIN OR RESPIRATORY DISTRESS NOTED. SAFETY MEASURES ARE IN PLACE, BED IS LOCKED AND IN LOWEST POSITION, SIDE RAILS X 2. CALL LIGHT WITHIN REACH. WILL CONTINUE TO MONITOR.
[2020-10-28 16:00] VITALS: BP 132/65
--- NOTE | 2020-10-28 18:41 | NUR ---
MS RN CLOSING NOTES PATIENT IN BED RESTING. A/O X 4. BREATHING IS EVEN AND UNLABORED. NO PAIN OR RESPIRATORY DISTRESS NOTED. BED IS LOCKED AND IN LOWEST POSITION, SIDE RAILS X2, CALL LIGHT WITHIN REACH. WILL ENDORSE TO MARINE DIVER NURSE.
--- NOTE | 2020-10-28 19:39 | NUR ---
RN NOTES PATIENT IN BED RESTING. A/O X 4. BREATHING IS EVEN AND UNLABORED. NO PAIN OR RESPIRATORY DISTRESS NOTED. BED IS LOCKED AND IN LOWEST POSITION, SIDE RAILS X2, CALL LIGHT WITHIN REACH. WILL CONTINUE TO MONITOR.
[2020-10-28 20:00] VITALS: BP 136/85
[2020-10-28] MEDS: [UNRECOGNIZED DRUG - OTHER] PO SCH (20:45)
[2020-10-28] MEDS: [UNRECOGNIZED DRUG - OTHER] PO SCH (20:45)
[2020-10-28] MEDS: [UNRECOGNIZED DRUG - OTHER] PO SCH (20:45)
--- NOTE | 2020-10-29 07:04 | NUR ---
RN NOTES PATIENT IN BED RESTING. A/O X 4. BREATHING IS EVEN AND UNLABORED. NO PAIN OR RESPIRATORY DISTRESS NOTED. BED IS LOCKED AND IN LOWEST POSITION, SIDE RAILS X2, CALL LIGHT WITHIN REACH. WILL ENDORSE CARE.
--- NOTE | 2020-10-29 07:08 | NUR ---
MS RN OPENING NOTES RECEIVED PT AWAKE IN BED AT THIS TIME. A/O X4, PT ABLE TO VERBALIZE NEEDS, NO SOB NOTED, BREATHING EVEN AND UNLABORED. NO C/O PAIN AT THIS TIME. NO S/O ANY APPARENT DISTRESS NOTED. NO IV ACCESS NOTED. SAFETY PRECAUTIONS IN PLACED AND MAINTAINED AT ALL TIMES. BED IN LOWEST LOCKED POSITION, HOB ELEVATED, SIDE RAILS UPX2, CALL LIGHT AND TABLE WITHIN REACH. WILL CONTINUE TO MONITOR
--- NOTE | 2020-10-29 14:00 | NUR ---
PT REQUEST FOR BELONGINGS THAT WAS IN THE SAFE. BELONGINGS SIGNED AND PICKED UP IN SEALED ENVELOPE FROM NURSING SUPERVISORS OFFICE. ENVELOP OPENED IN THE PRESENCE OF PATIENT, NURSE, PASTOR PERDOMO AND NEVAEH CHARGE NURSE. ONE CREDIT CARD AND A TOTAL SUM OF $2200 COUNTED. PT ADDED $350. PATIENT, NURSE AND NEVAEH CHARGE NURSE COUNTED THE NEW TOTAL OF $2550. ($100X11, $20X55, 50X7). CREDIT CARD AND MONEY SEALED IN NEW ENVELOPED IN THE PRESENCE OF THE PATIENT. ENVELOP TAKEN TO SAFE AT NURSING SUPERVISORS OFFICE FOR SAFE KEEPING. [place] NURSE ARTIFICIAL SNOW MAKING MACHINE OPERATOR AWARE.
--- NOTE | 2020-10-29 18:48 | NUR ---
RN CLOSING NOTES PT AWAKE IN BED AT THIS TIME. PT REMAINED STABLE THROUGHOUT SHIFT. PT NEEDS MET AND ATTENDED TO. SAFETY AND ASPIRATION PRECAUTIONS MAINTAINED AT ALL TIMES. BED IN LOWEST LOCKED POSITION, HOB ELEVATED, SIDE RAILS UPX2, CALL LIGHT AND TABLE WITHIN REACH. WILL ENDORSE TO PRODUCTION TOOL ENGINEER NURSE FOR [place]
--- NOTE | 2020-10-29 19:46 | NUR ---
MS RN OPENING NOTE Pat awake in bed, a/o x4. No acute distress or SOB noted. Breathing even clear unlabored. Patient denies pain, nausea, vomiting, diarrhea. Patient denies SI/HI. No auditory or visual hallucinations noted. Bed in low position, wheels locked, side rails up x2, call light within reach.
[2020-10-29 20:00] VITALS: BP 141/60
[2020-10-29 20:11] VITALS: BP 141/60
[2020-10-29] MEDS: [UNRECOGNIZED DRUG - OTHER] PO SCH (20:40)
[2020-10-29] MEDS: [UNRECOGNIZED DRUG - OTHER] PO SCH (20:40)
[2020-10-29] MEDS: [UNRECOGNIZED DRUG - OTHER] PO SCH (20:40)
--- NOTE | 2020-10-30 06:28 | NUR ---
MS RN CLOSING NOTE Patient asleep in bed. No acute distress or SOB noted. Patient denies pain, nausea, vomiting, diarrhea. Afebrile. No symptoms of SI/HI. No auditory or visual hallucinations noted. All needs met. Bed in low position, wheels locked, side rails up x2, call light within reach.
--- NOTE | 2020-10-30 08:10 | NUR ---
MS RN OPENING NOTES RECEIVED PT AWAKE IN BED AT THIS TIME. AOX4, PT ABLE TO VERBALIZE NEEDS. NO SOB NOTED, NO S/O ANY ACUTE DISTRESS NOTED, NO C/O PAIN AT THIS TIME. PT DENIES SI/HI. PT DENIES HAVING ANY AKATHISIA/TREMOR, NO AUDITORY OR VISUAL HALLUCINATION. SAFETY PRECAUTIONS IN PLACE AND MAINTAINED AT ALL TIMES. BED IN LOWEST LOCKED POSITION, HOB ELEVATED, SIDE RAILS UPX2, CALL LIGHT AND TABLE WITHIN REACH. WILL CONTINUE TO MONITOR
[2020-10-30 09:00] VITALS: BP 128/81
[2020-10-30] MEDS ORDERED: ZOLPIDEM TARTRATE 10 MG TABLET PO PRN (12:00)
[2020-10-30] MEDS ORDERED: LORAZEPAM 1 MG TABLET FOR AGITATION/ANXIETY/HOSTILITY PO PRN (12:00)
[2020-10-30 16:00] VITALS: BP 110/65
--- NOTE | 2020-10-30 19:07 | NUR ---
MS RN CLOSING NOTES PT AWAKE IN BED AT THIS TIME. PT REMAINED STABLE THROUGHOUT SHIFT. ALL NEEDS HAVE BEEN MET. SAFETY AND ASPIRATION PRECAUTIONS MAINTAINED AT ALL TIMES. BED IN LOWEST LOCKED POSITION, HOB ELEVATED, SIDE RAILS UP X2. CALL LIGHT AND TABLE WITHIN REACH. WILL ENDORSE TO AIRCRAFT POWERPLANT REPAIRER NURSE FOR CONTINUITY OF CARE.
[2020-10-30 20:00] VITALS: BP 119/60
--- NOTE | 2020-10-30 20:00 | NUR ---
ms machine sizer initial notes received report from another nurse Anderson for continuation of care. pt awake and alert on his room asking for his money i told him that i need to get if from the crossing supervisor first then I'll go back to his room with Derrick Lawson. pt said"ok". will continue monitoring.
[2020-10-30] MEDS: [UNRECOGNIZED DRUG - OTHER] PO SCH (21:21)
[2020-10-30] MEDS: [UNRECOGNIZED DRUG - OTHER] PO SCH (21:21)
[2020-10-30] MEDS: [UNRECOGNIZED DRUG - OTHER] PO SCH (21:21)
--- NOTE | 2020-10-31 07:26 | NUR ---
ms car refinisher closing notes pt resting, stable throughout the night. all due meds given . endorse to am nurse.
[2020-10-31 08:00] VITALS: BP 129/80
--- NOTE | 2020-10-31 08:00 | NUR ---
PT RECEIVED REPORT RECEIVED FROM NOC RN. NO REPORT OF PAIN OR DISTRESS NOTED. WILL CONTINUE PLAN OF CARE.
[2020-10-31 16:00] VITALS: BP 117/69
--- NOTE | 2020-10-31 18:23 | NUR ---
RN CLOSING NOTES PT IS RESTING IN BED COMFORTABLY. PT A/OX4. NO SOB NOTED AT THE MOMENT. NO S/S OF DISTRESS. NO SIGNIFICANT CHANGES SINCE PREVIOUS SHIFT. ALL NEEDS MET AND ATTENDED. SAFETY PRECAUTIONS IN PLACE: BED IN LOWEST POSITION, BRAKES LOCKED, CALL LIGHT WITHIN REACH. WILL ENDORSE TO NIGHT NURSE FOR NGHIA.
[2020-10-31 20:00] VITALS: BP 125/72
--- NOTE | 2020-10-31 20:41 | NUR ---
ms renard initial notes seen patient walking in the hallway and asking for his money from the safe. I told him i will get it from the supervisor tank house first. Patient no signs of any discomfort or any distress noted. Released the money to the patient count and witness by charge nurse Jorge.
[2020-10-31] MEDS: [UNRECOGNIZED DRUG - OTHER] PO SCH (21:02)
[2020-10-31] MEDS: [UNRECOGNIZED DRUG - OTHER] PO SCH (21:02)
[2020-10-31] MEDS: [UNRECOGNIZED DRUG - OTHER] PO SCH (21:02)
--- NOTE | 2020-11-01 06:56 | NUR ---
ms hospitality house supervisor closing notes pt remain sleeping at this time without any discomfort. kept him comfortable at all times. will continue monitoring. endorse to am nurse for continuity of care.
--- NOTE | 2020-11-01 07:43 | NUR ---
MS RN OPENING NOTE: PT RECEIVED IN BED, ASLEEP, BUT AROUSABLE AND RESPONSIVE. PT IS A/O X4, VERBAL, SAMI SPEAKING AND ABLE TO MAKE NEEDS KNOWN WITH NO C/O PAIN AT THIS TIME. NO ACUTE DISTRESS NOTED. PT IS ON ROOM AIR, OBSERVED WITH EVEN RISE AND FALL OF CHEST, AND HAS NO S/SX RESPIRATORY DISTRESS/SOB AT THIS TIME. PT IS AMBULATORY WITH STEADY GAIT AND IS ABLE TO INDEPENDENTLY GO TO THE BATHROOM. SAFETY MEASURES IN PLACE: BED IN LOWEST, LOCKED POSITION WITH BOTH UPPER SIDE RAILS UP X2. CALL LIGHT PLACED WITHIN REACH. WILL CONTINUE TO MONITOR.
--- NOTE | 2020-11-01 18:05 | NUR ---
MS RN CLOSING NOTE PT IN ROOM, SITTING ON CHAIR, AROUSABLE AND RESPONSIVE. PT IS A/O X4, VERBAL, FRENCH SPEAKING AND ABLE TO MAKE NEEDS KNOWN WITH NO C/O PAIN AT THIS TIME. NO ACUTE DISTRESS NOTED. PT IS ON ROOM AIR, OBSERVED WITH EVEN RISE AND FALL OF CHEST, AND HAS NO S/SX RESPIRATORY DISTRESS/SOB AT THIS TIME. PT IS AMBULATORY WITH STEADY GAIT AND IS ABLE TO INDEPENDENTLY GO TO THE BATHROOM. PT ADDED $100 TO THEIR BELONGINGS LIST, FOR A TOTAL AMOUNT OF $3300 [place]. SIGNED, WITNESSED AND FILED ALONG WITH HOUSE SUP. SAFETY MEASURES MAINTAINED: BED IN LOWEST POSITION AND LOCKED WITH BOTH UPPER SIDE RAILS UP X2. CALL LIGHT PLACED WITHIN REACH. WILL ENDORSE TO EGGS INSPECTOR NURSE.
--- NOTE | 2020-11-01 20:00 | NUR ---
ms glynn initial notes RECEIVED PATIENT SITTING HIS BED WATCHING TV AND AT THE SAME TIME TALKING TO HIS FRIEND FROM HIS CELLPHONE. ALERT AND ORIENTED X 4. ABLE TO MAKE NEEDS KNOWN. CONTINUES ON CLINICAL TRIAL. NO COMPLAINTS OF PAIN AT THIS TIME. WITH NO SIGNS OR SYMPTOMS OF ASPIRATION. RESPIRATIONS EVEN AND UNLABORED. CALL LIGHT WITHIN REACH. WILL CONTINUE TO MONITOR. PLACE CALL LIGHT AT REACH.
[2020-11-01 20:02] VITALS: BP 127/77
[2020-11-01] MEDS: [UNRECOGNIZED DRUG - OTHER] PO SCH (21:09)
[2020-11-01] MEDS: [UNRECOGNIZED DRUG - OTHER] PO SCH (21:09)
[2020-11-01] MEDS: [UNRECOGNIZED DRUG - OTHER] PO SCH (21:09)
--- NOTE | 2020-11-02 | NUR ---
MS KURT NOTES PT RESTING AT THIS TIME WITHOUT ANY DISTRESS NOTED. WILL CONTINUE MONITORING.
--- NOTE | 2020-11-02 06:53 | NUR ---
MS KURT CLOSING NOTES PT REMAIN IN HIS ROOM . ALL DUE MEDS GIVEN AND ALL NEEDS MET. STILL ON CLINICAL TRIAL. ENDORSE TO AM NURSE FOR CONTINUITY OF CARE.
--- NOTE | 2020-11-02 07:30 | NUR ---
MS RN OPENING NOTE: PT RECEIVED IN IN BED AWAKE. PT IS A/O X4, VERBAL, SOUTH SUDANESE SPEAKING AND ABLE TO MAKE NEEDS KNOWN WITH NO C/O PAIN AT THIS TIME. NO ACUTE DISTRESS NOTED. PT IS ON ROOM AIR, OBSERVED WITH EVEN RISE AND FALL OF CHEST, AND HAS NO S/SX RESPIRATORY DISTRESS/SOB AT THIS TIME. PT IS AMBULATORY WITH STEADY GAIT AND IS ABLE TO INDEPENDENTLY GO TO THE BATHROOM. SAFETY MEASURES IN PLACE: BED IN LOWEST, LOCKED POSITION WITH BOTH UPPER SIDE RAILS UP X2. CALL LIGHT PLACED WITHIN REACH. WILL CONTINUE TO MONITOR
[2020-11-02 16:06] VITALS: BP 139/88
--- NOTE | 2020-11-02 18:19 | NUR ---
RN NOTES PATIENT REQUESTED MONEY FROM HIS DEPOSIT BAG; COUNTED $3300 IN FRONT OF PATIENT AND PATIENT TOOK $200 OUT, TOTAL OF $3100 LEFT. RETURNED DEPOSIT BAG TO EARLY CHILDHOOD LEAD TEACHER'S OFFICE.
--- NOTE | 2020-11-02 18:55 | NUR ---
MS RN CLOSING NOTES PT IN ROOM, SITTING ON CHAIR, AROUSABLE AND RESPONSIVE. PT IS A/O X4, VERBAL, INDIAN SPEAKING AND ABLE TO MAKE NEEDS KNOWN WITH NO C/O PAIN AT THIS TIME. NO ACUTE DISTRESS NOTED. PT IS ON ROOM AIR, OBSERVED WITH EVEN RISE AND FALL OF CHEST, AND HAS NO S/SX RESPIRATORY DISTRESS/SOB AT THIS TIME. PT IS AMBULATORY WITH STEADY GAIT AND IS ABLE TO INDEPENDENTLY GO TO THE BATHROOM. PT REMOVED 200$ TO THEIR BELONGINGS LIST, FOR A TOTAL AMOUNT OF $3100 [place]. SIGNED, WITNESSED AND FILED ALONG WITH HOUSE SUP. SAFETY MEASURES MAINTAINED: BED IN LOWEST POSITION AND LOCKED WITH BOTH UPPER SIDE RAILS UP X2. CALL LIGHT PLACED WITHIN REACH. WILL ENDORSE TO OWNER/OPERATOR NURSE.
--- NOTE | 2020-11-02 19:54 | NUR ---
Ms RN opening notes Received Pt from morning nurse. Pt is back to his room. Pt is alert and orientedX4. Pt is talking to his friend on the phone. Respiration is normal in room air. No SOB. No S/S of distress noted. Pt does not have IV site. Pt is able to ambulates with a steady gait. Safety precautions is maintained. Bed at low position, brakes locked, side rails upX2, hob elevated and call light is within reach. Will continue to monitor.
[2020-11-02 20:00] VITALS: BP 158/99
--- NOTE | 2020-11-02 20:41 | NUR ---
RN Ms closing notes Transferred [facility]IA to PASTOR Barron.
[2020-11-02] MEDS: [UNRECOGNIZED DRUG - OTHER] PO SCH (21:04)
[2020-11-02] MEDS: [UNRECOGNIZED DRUG - OTHER] PO SCH (21:05)
[2020-11-02] MEDS: [UNRECOGNIZED DRUG - OTHER] PO SCH (21:05)
--- NOTE | 2020-11-03 07:09 | NUR ---
MS RN OPENING NOTE RECEIVED PATIENT AWAKE IN BED AT THIS TIME. A/O X4. PATIENT ABLE TO VERBALIZE NEEDS. NO SOB NOTED. BREATHING EVEN AND UNLABORED. NO C/O PAIN AT THIS TIME. NO S/O ANY APPARENT DISTRESS NOTED. NO IV ACCESS NOTED. SAFETY PRECAUTIONS IN PLACE AND MAINTAINED AT ALL TIMES. BED IN LOWEST LOCKED POSITION, HOB ELEVATED, SIDE RAILS UP X2, CALL LIGHT AND TABLE WITHIN REACH. WILL CONTINUE TO MONITOR.
--- NOTE | 2020-11-03 16:00 | NUR ---
PT REQUEST FOR BELONGINGS THAT WAS IN THE SAFE. BELONGINGS SIGNED AND PICKED UP IN SEALED ENVELOPE FROM NURSING SUPERVISORS OFFICE. ENVELOPE OPENED IN THE PRESENCE OF PATIENT, CONOR RN, AND IMMACULATE RN. TOTAL SUM OF $3100 COUNTED. PT REMOVED $100. PATIENT, CONOR RN AND IMMACULATE RN COUNTED AND WITNESSED THE NEW TOTAL OF $3000 ($100X12, $20X30, $50X24). MONEY SEALED IN NEW ENVELOPE IN THE PRESENCE OF THE PATIENT. SIGNED BY PATIENT. ENVELOPE TAKEN TO SAFE AT NURSING SUPERVISORS OFFICE FOR SAFE KEEPING. STEFAN, NURSE LEAD PRESSMAN AWARE.
--- NOTE | 2020-11-03 18:22 | NUR ---
MS RN CLOSING NOTES PT AWAKE IN BED AT THIS TIME. PT REMAINED STABLE THROUGHOUT SHIFT. ALL NEEDS HAVE BEEN MET. SAFETY AND ASPIRATION PRECAUTIONS MAINTAINED AT ALL TIMES. BED IN LOWEST LOCKED POSITION, HOB ELEVATED, SIDE RAILS UP X2. CALL LIGHT AND TABLE WITHIN REACH. WILL ENDORSE TO CEMENTER MACHINE APPLICATOR NURSE FOR CONTINUITY OF CARE.
--- NOTE | 2020-11-03 19:30 | NUR ---
MS RN OPENING NOTE PATIENT AWAKE IN BED, A/O X 4. PATIENT ABLE TO MAKE NEEDS KNOWN. PATIENT CALM AND COOPERATIVE AT THIS TIME. NO C/O PAIN/ DISTRESS. BREATHING EVEN AND UNLABORED. PATIENT IS INDEPENDENT AND AMBULATORY. SAFETY PRECAUTIONS IN PLACE: SIDE RAILS UP, BED IN LOCKED AND LOWEST POSITION, CALL LIGHT WITHIN REACH. ENCOURAGED PATIENT TO USE CALL LIGHT IF IN NEED. WILL CONTINUE TO MONITOR THROUGHOUT THE SHIFT.
[2020-11-03 19:55] VITALS: BP 136/73
[2020-11-03 20:00] VITALS: BP 136/73
[2020-11-03] MEDS: [UNRECOGNIZED DRUG - OTHER] PO SCH (21:02)
[2020-11-03] MEDS: [UNRECOGNIZED DRUG - OTHER] PO SCH (21:02)
[2020-11-03] MEDS: [UNRECOGNIZED DRUG - OTHER] PO SCH (21:03)
--- NOTE | 2020-11-03 23:00 | NUR ---
MS RN NOTE PATIENT REQUESTED FOR AMBIEN 10 MG FOR SLEEP. GIVEN TO PATIENT, WILL REASSESS EFFECTIVENESS.
[2020-11-03] MEDS: IBUPROFEN 200 MG TABLET PO PRN (23:36)
--- NOTE | 2020-11-04 06:43 | NUR ---
MS RN CLOSING NOTE PATIENT STILL SLEEPING, EASILY AROUSABLE. PATIENT A/O X 4. PATIENT CALM AND COOPERATIVE THROUGHOUT THE NIGHT. NO AKATHASIA OR TREMORS OBSERVED DURING THE SHIFT. PATIENT STILL INDEPENDENT, ABLE TO MAKE NEEDS KNOWN. PATIENT STABLE THROUGHOUT THE NIGHT. SAFETY PRECAUTIONS IN PLACE. WILL ENDORSE TO DAY SHIFT NURSE FOR NGHIA.
--- NOTE | 2020-11-04 07:34 | NUR ---
MS RN OPENING NOTE RECEIVED PATIENT AWAKE IN BED, A/O X 4. PATIENT CALM AND COOPERATIVE AT THIS TIME. NO PAIN OR RESPIRATORY DISTRESS NOTED. BREATHING EVEN AND UNLABORED. PATIENT IS INDEPENDENT AND AMBULATORY. SAFETY PRECAUTIONS IN PLACE. BED IN LOCKED AND LOWEST POSITION, CALL LIGHT WITHIN REACH. WILL CONTINUE TO MONITOR.
[2020-11-04 08:00] VITALS: BP 154/92
[2020-11-04 16:00] VITALS: BP 148/85
--- NOTE | 2020-11-04 18:36 | NUR ---
MS RN CLOSING NOTES PATIENT IN BED RESTING. A/O X 4. BREATHING IS EVEN AND UNLABORED. NO PAIN OR RESPIRATORY DISTRESS NOTED. BED IS LOCKED AND IN LOWEST POSITION, SIDE RAILS X2, CALL LIGHT WITHIN REACH. WILL ENDORSE TO MECHANICAL DEVELOPMENT ENGINEER NURSE FOR NGHIA
--- NOTE | 2020-11-04 19:30 | NUR ---
MS RN OPENING NOTE PATIENT IN BED RESTING, PATIENT EASILY AWAKENED. ABLE TO MAKE NEEDS KNOWN. NO C/O PAIN/DISCOMFORT AT THIS TIME. NO S/S OF RESPIRATORY DISTRESS. PATIENT IS CALM AT THE MOMENT. SAFETY PRECAUTIONS IN PLACE. SAFETY PRECAUTIONS IN PLACE. CALL LIGHT WITHIN REACH. ENCOURAGED PATIENT TO USE CALL LIGHT IF IN NEED OF ANYTHING. WILL CONTINUE TO MONITOR THROUGHOUT THE SHIFT.
[2020-11-04 20:00] VITALS: BP 119/67
[2020-11-04] MEDS: [UNRECOGNIZED DRUG - OTHER] PO SCH (21:04)
[2020-11-04] MEDS: [UNRECOGNIZED DRUG - OTHER] PO SCH (21:04)
[2020-11-04] MEDS: [UNRECOGNIZED DRUG - OTHER] PO SCH (21:04)
--- NOTE | 2020-11-05 06:36 | NUR ---
MS RN CLOSING NOTE PATIENT IN BED RESTING, PATIENT EASILY AWAKENED. ABLE TO MAKE NEEDS KNOWN. NO C/O PAIN/DISCOMFORT AT THIS TIME. NO S/S OF RESPIRATORY DISTRESS. PATIENT SLEPT THROUGH THE SHIFT. PATIENT WAS CALM AND COOPERATIVE THROUGHOUT THE SHIFT. INVESTIGATIONAL MEDS GIVEN. SAFETY PRECAUTIONS MAINTAINED. ALL NEEDS MET AND ATTENDED. CALL LIGHT WITHIN REACH. WILL ENDORSE TO DAY SHIFT NURSE.
--- NOTE | 2020-11-05 07:41 | NUR ---
MS RN OPENING NOTE RECEIVED PATIENT RESTING IN BED. NO PAIN OR RESPIRATORY DISTRESS NOTED. BREATHING EVEN AND UNLABORED. SAFETY PRECAUTIONS IN PLACE. BED IN LOCKED AND LOWEST POSITION, CALL LIGHT WITHIN REACH. WILL CONTINUE TO MONITOR.
[2020-11-05 08:00] VITALS: BP 154/84
[2020-11-05 16:00] VITALS: BP 138/76
[2020-11-05] MEDS ORDERED: [UNRECOGNIZED DRUG - OTHER] PO ONE (17:00)
[2020-11-05] MEDS ORDERED: [UNRECOGNIZED DRUG - OTHER] PO ONE (17:00)
[2020-11-05] MEDS ORDERED: [UNRECOGNIZED DRUG - OTHER] PO ONE (17:00)
--- NOTE | 2020-11-05 18:36 | NUR ---
MS RN CLOSING NOTES PATIENT IN BED RESTING. A/O X 4. BREATHING IS EVEN AND UNLABORED. NO PAIN OR RESPIRATORY DISTRESS NOTED. PATIENT RECEIVED INVESTIGATIONAL DRUGS @ 1700. REMINDED PATIENT THAT HE CANNOT EAT UNTIL 1930. PATIENT VERBALIZED UNDERSTANDING. BED IS LOCKED AND IN LOWEST POSITION, SIDE RAILS X2, CALL LIGHT WITHIN REACH. WILL ENDORSE TO CUFF SETTER LOCKSTITCH NURSE FOR N[place]IA
--- NOTE | 2020-11-05 19:15 | NUR ---
MS/RN OPENING NOTE RECEIVED PATIENT SITTING IN CHAIR. AWAKE, ALERT AND ORIENTED X 4. ABLE TO MAKE NEEDS KNOWN. NO COMPLAINTS OF PAIN AT THIS TIME. CONTINUES ON CLINICAL TRIAL. PATIENT TO BE NPO AT 22:00. PATIENT AWARE AND AGREEABLE. LORAZEPAM AND ZOLPIDEM BEING HELD TONIGHT @ 20:00. NO SIGNS OR SYMPTOMS OF AKATHASIA, TREMORS OR EDS. CALL LIGHT WITHIN REACH. ASPIRATION, FALL AND SAFETY PRECAUTIONS MAINTAINED. WILL CONTINUE TO MONITOR.
[2020-11-05 20:00] VITALS: BP 126/65
--- NOTE | 2020-11-06 06:20 | NUR ---
MS/RN CLOSING NOTE PATIENT CURRENTLY SLEEPING IN BED. ALERT AND ORIENTED X 4. ABLE TO MAKE NEEDS KNOWN. NO COMPLAINTS OF PAIN AT THIS TIME. CONTINUES ON CLINICAL TRIAL. PATIENT NPO TILL NOON TODAY PER MD ORDERS IN CHART. NO SIGNS OR SYMPTOMS OF AKATHASIA, TREMORS OR EPS. CALL LIGHT WITHIN REACH. ASPIRATION, FALL AND SAFETY PRECAUTIONS MAINTAINED. WILL ENDORSE PLAN OF CARE TO ONCOMING SHIFT.
--- NOTE | 2020-11-06 07:30 | NUR ---
MS RN OPENING NOTE RECEIVED PATIENT WALKING AROUND ROOM, AWAKE, A/O X 4. ABLE TO MAKE NEEDS KNOWN. NO COMPLAINTS OF PAIN AT THIS TIME. CONTINUES ON CLINICAL TRIAL. NO SIGNS OR SYMPTOMS OF AKATHASIA, TREMORS OR EDS. CALL LIGHT WITHIN REACH. WILL CONTINUE TO MONITOR.
[2020-11-06 08:21] VITALS: BP 129/93
[2020-11-06] MEDS ORDERED: LORAZEPAM 1 MG TABLET FOR AGITATN/ANXIETY/HOSTILITY PO PRN (12:00)
[2020-11-06] MEDS ORDERED: ZOLPIDEM TARTRATE 10 MG TABLET PO PRN (12:00)
--- NOTE | 2020-11-06 14:57 | NUR ---
MS RN NOTE PATIENT TOOK OUT ALL MONEY FROM SAFE. WINSTON Strauss RN AND ROSELIA (ADMIN) WITNESSED. PATIENT HAS NO BELONGINGS IN THE SAFE.
--- NOTE | 2020-11-06 18:24 | NUR ---
MS RN CLOSING NOTES PATIENT SITTING IN CHAIR IN ROOM, AWAKE. A/O X 4. BREATHING IS EVEN AND UNLABORED. NO PAIN OR RESPIRATORY DISTRESS NOTED. BED IS LOCKED AND IN LOWEST POSITION, SIDE RAILS X2, CALL LIGHT WITHIN REACH. WILL ENDORSE TO MUSIC AGENT NURSE FOR NGHIA
--- NOTE | 2020-11-06 19:00 | NUR ---
NOT IN HIS ROOM UNDERSTANDING HE WENT OUT OF THE BUILDING. BELONGING IN THE ROOM
[2020-11-06 20:00] VITALS: BP 132/80
[2020-11-06] MEDS: [UNRECOGNIZED DRUG - OTHER] PO SCH (21:17)
[2020-11-06] MEDS: [UNRECOGNIZED DRUG - OTHER] PO SCH (21:18)
[2020-11-06] MEDS: [UNRECOGNIZED DRUG - OTHER] PO SCH (21:23)
--- NOTE | 2020-11-07 04:28 | NUR ---
ENDING NOTES: ALERT AND ORIENTATED X4 SPPECH CLEAR. GOOD EYE CONTACT WHEN SPEAKING TO THE NURSE. QUICK TO SMILE. NO MENTION OF HALLUCINATIONS NO MENTION OF HEARING VOICES NO TREMORS. HIS GAIT IS STEADY. WILL CONTINUE TO MONITOR HIS BEHAVIOR.
--- NOTE | 2020-11-07 07:20 | NUR ---
MS OPENING NOTE PATIENT IN ROOM RESTING, ALERT AND ORIENTED X 4. NO ACUTE DISTRESS OR SHORTNESS OF BREATH NOTED. SAFETY MEASURES IN PLACE, BED IN LOWEST POSITION, CALL LIGHT WITHIN REACH. WILL CONTINUE TO MONITOR
[2020-11-07 08:00] VITALS: BP 145/82
[2020-11-07 16:00] VITALS: BP 137/86
--- NOTE | 2020-11-07 18:55 | NUR ---
MS CLOSING NOTE PATIENT RESTING IN ROOM, ALERT AND ORIENTED X 4. NO ACUTE DISTRESS OR SHORTNESS OF BREATH NOTED. SAFETY MEASURES IN PLACE, BED IN LOWEST POSITION AND CALL LIGHT WITHIN REACH. WILL ENDORSE TO FILTRATION SUPERVISOR NURSE FOR CONTINUITY OF CARE.
--- NOTE | 2020-11-07 19:30 | NUR ---
MS/RN OPENING NOTES RECEIVED PATIENT IN BED RESTING. PATIENT IS ALERT AND ORIENTED X 4. PATIENTS BREATHING IS EVEN AND UNLABORED. NO SIGNS ON SOB OR RESPIRATORY NOTED. PATIENT IN NO SIGNS OF DISTRESS. SAFETY MEASURES ARE IN PLACE, BED IS LOCKED AND PLACED IN THE LOW POSITION, CALL LIGHT IS WITHIN REACH. WILL CONTINUE WITH PATIENT PLAN OF CARE.
[2020-11-07 20:00] VITALS: BP 132/76
[2020-11-07] MEDS: [UNRECOGNIZED DRUG - OTHER] PO SCH (21:06)
[2020-11-07] MEDS: [UNRECOGNIZED DRUG - OTHER] PO SCH (21:06)
[2020-11-07] MEDS: [UNRECOGNIZED DRUG - OTHER] PO SCH (21:06)
--- NOTE | 2020-11-07 23:40 | NUR ---
MS/RN NOTES PATIENT REQUESTING FOR SLEEPING AID. PATIENT GIVEN AMBIEN 10 MG PO. PATIENT V/S ARE STABLE.
--- NOTE | 2020-11-08 06:45 | NUR ---
MS/RN CLOSING NOTES PATIENT IN BED SLEEPING EASY TO AROUSE. PATIENT IS ALERT AND ORIENTED X 4. PATIENTS BREATHING IS EVEN AND UNLABORED. NO SIGNS ON SOB OR RESPIRATORY NOTED. PATIENT IN NO SIGNS OF DISTRESS. ALL NEEDS HAVE BEEN MET. SAFETY MEASURES ARE IN PLACE, BED IS LOCKED AND PLACED IN THE LOW POSITION, CALL LIGHT IS WITHIN REACH. WILL ENDORSE CARE TO DAY SHIFT.
--- NOTE | 2020-11-08 07:15 | NUR ---
MS OPENING NOTE PATIENT IN ROOM RESTING, ALERT AND ORIENTED X 4. NO ACUTE DISTRESS OR SHORTNESS OF BREATH NOTED. BREATHING EVEN AND UNLABORED. SAFETY MEASURES IN PLACE, BED LOCKED IN LOWEST POSITION, CALL LIGHT WITHIN REACH. WILL CONTINUE TO MONITOR
[2020-11-08 08:00] VITALS: BP 142/73
--- NOTE | 2020-11-08 18:55 | NUR ---
MS CLOSING NOTES PATIENT RESTING IN ROOM, ALERT AND ORIENTED X 4. NO ACUTE DISTRESS OR SHORTNESS OF BREATH NOTED. SAFETY MEASURES IN PLACE, BED LOCKED IN LOWEST POSITION AND CALL LIGHT WITHIN REACH. WILL ENDORSE TO FLAT GRINDER OPERATOR NURSE FOR CONTINUITY OF CARE.
[2020-11-08 20:00] VITALS: BP 119/64
[2020-11-08] MEDS: [UNRECOGNIZED DRUG - OTHER] PO SCH (21:02)
[2020-11-08] MEDS: [UNRECOGNIZED DRUG - OTHER] PO SCH (21:02)
[2020-11-08] MEDS: [UNRECOGNIZED DRUG - OTHER] PO SCH (21:02)
--- NOTE | 2020-11-09 06:18 | NUR ---
MS/RN CLOSING NOTES PATIENT IN BED RESTING. PATIENT IS ALERT AND ORIENTED X 4. PATIENTS BREATHING IS EVEN AND UNLABORED. NO SIGNS ON SOB OR RESPIRATORY NOTED. PATIENT IN NO SIGNS OF DISTRESS. ALL NEEDS MET. SAFETY MEASURES ARE IN PLACE, BED IS LOCKED AND PLACED IN THE LOW POSITION, CALL LIGHT IS WITHIN REACH. WILL ENDORSE CARE TO DAY SHIFT NURSE.
--- NOTE | 2020-11-09 07:05 | NUR ---
MS RN OPENING NOTE RECEIVED PATIENT AWAKE IN BED AT THIS TIME. A/O X4. PATIENT ABLE TO VERBALIZE NEEDS. NO SOB NOTED. NO S/S OF RESPIRATORY DISTRESS. NO C/O PAIN AT THIS TIME. NO S/O ANY APPARENT DISTRESS NOTED. NO IV ACCESS NOTED. SAFETY PRECAUTIONS IN PLACE AND MAINTAINED AT ALL TIMES. BED IN LOWEST LOCKED POSITION, HOB ELEVATED, SIDE RAILS UP X2, CALL LIGHT AND TABLE WITHIN REACH. WILL CONTINUE WITH PLAN OF CARE.
--- NOTE | 2020-11-09 18:36 | NUR ---
MS RN CLOSING NOTES PT AWAKE IN BED AT THIS TIME. PT REMAINED STABLE THROUGHOUT SHIFT. ALL NEEDS HAVE BEEN MET. SAFETY AND ASPIRATION PRECAUTIONS MAINTAINED AT ALL TIMES. BED IN LOWEST LOCKED POSITION, HOB ELEVATED, SIDE RAILS UP X2. CALL LIGHT AND TABLE WITHIN REACH. WILL ENDORSE TO SEED SPECIALIST NURSE FOR CONTINUITY OF CARE.
[2020-11-09 20:00] VITALS: BP 125/78
[2020-11-09] MEDS: [UNRECOGNIZED DRUG - OTHER] PO SCH (20:55)
[2020-11-09] MEDS: [UNRECOGNIZED DRUG - OTHER] PO SCH (20:55)
[2020-11-09] MEDS: [UNRECOGNIZED DRUG - OTHER] PO SCH (20:55)
--- NOTE | 2020-11-10 06:24 | NUR ---
RN NOTES ALERT/ORIENTED X4, CLINICAL TRIAL, TOOK ALL INVESTIGATIONAL MEDS, KEPT TO HIMSELF, ENTERTAINED SELF WITH VIDEO GAMES, NO PSYCH INSTABILITY NOTED.
[2020-11-10 08:00] VITALS: BP 136/91
--- NOTE | 2020-11-10 08:00 | NUR ---
RN OPENING NOTE RECEIVED PATIENT IN ROOM, AO X 4 ABLE TO RESPONDS ALL STIMULI. DENIES PAIN OR DISTRESS, SIN IS WARM TO TOUCH, KEEP CLEAN/DRY. RESPIRATORY EVEN AND UNLABORED ON ROOM AIR. KEPT ELEVATED HOB FOR ENSURE AIRWAY AND ASPIRATION PRECAUTION, ALSO LOWEST BED POSITION. CALL LIGHT WITHIN REACH, WILL CONTINUE TO MONITOR.
--- NOTE | 2020-11-10 18:00 | NUR ---
RN CLOSING NOTE PATIENT IN ROOM, REMAINS AO X 4, DENIES PAIN OR DISTRESS. SKIN IS WARM TO TOUCH, KEEP CLEAN/DRY. RESPIRATORY EVEN AND UNLABORED ON ROOM AIR. KEPT ELEVATED HOB FOR ENSURE AIRWAY AND ASPIRATION PRECAUTION ALSO LOWEST BED POSITION FOR SAFETY. RECEIVED MEDICATION FOR TONIGHT DOSAGE X 3. WILL ENDORSE SENIOR INFORMATICA ETL DEVELOPER.
[2020-11-10 20:00] VITALS: BP 121/64
[2020-11-10] MEDS: [UNRECOGNIZED DRUG - OTHER] PO SCH (20:51)
[2020-11-10] MEDS: [UNRECOGNIZED DRUG - OTHER] PO SCH (20:52)
[2020-11-10] MEDS: [UNRECOGNIZED DRUG - OTHER] PO SCH (20:52)
--- NOTE | 2020-11-10 21:00 | NUR ---
RN NOTES ALERT AND ORIENTED X4, ROOM AIR, CLINICAL TRIAL, CALM, COOPERATIVE, ADMINISTERED INVESTIGATIONAL DRUG, NPO BEFORE AND AFTER MEDICATION.
--- NOTE | 2020-11-11 06:11 | NUR ---
RN NOTES NO PSYCH INSTABILITY, REMAINED CALM AND COOPERATIVE, PER PATIENT, HAVING DIFFICULTY SLEEPING.
--- NOTE | 2020-11-11 07:08 | NUR ---
MS RN OPENING NOTE RECEIVED PT AWAKE IN BED AT THIS TIME. A/OX4. PT ABLE TO VERBALIZE NEEDS. NO SOB NOTED. CO C/O PAIN AT THIS TIME, NO S/O OF ANY ACUTE DISTRESS NOTED. PT STABLE ON RA. NO IV ACCESS NOTED. PT DENIES SI/HI. PT DENIES ANY AUDITORY/VISUAL HALLUCINATIONS. SAFETY PRECAUTIONS IN PLACE AND MAINTAINED AT ALL TIMES. BED IN LOWEST LOCKED POSITION, HOB ELEVATED, SIDE RAILS UP X2, CALL LIGHT AND TABLE WITHIN REACH. WILL CONTINUE TO MONITOR
[2020-11-11 08:30] VITALS: BP 115/81
[2020-11-11 15:49] VITALS: BP 146/77
--- NOTE | 2020-11-11 18:39 | NUR ---
RN CLOSING NOTES PT AWAKE IN BED AT THIS TIME. PT REMAINED STABLE THROUGHOUT SHIFT. PT CONDITION UNCHANGED. PT NEEDS MET AND ATTENDED TO. NO C/O OF AKATHISIA, TREMORS OR EPS.SAFETY AND ASPIRATION PRECAUTIONS MAINTAINED AT ALL TIMES. BED IN LOWEST LOCKED POSITION, HOB ELEVATED, SIDE RAILS UPX2, CALL LIGHT AND TABLE WITHIN REACH. WILL ENDORSE TO DIRECTOR NURSE FOR NGHIA
--- NOTE | 2020-11-11 19:00 | NUR ---
Ms RN opening notes Pt is sitting in bed comfortably. Pt is alert and orientedX4. Respiration is normal in room air. No SOB. No S/S of distress noted. Pt does not have IV site. Pt is able to ambulate with a steady gait. Safety precautions is maintained. Bed at low position, brakes locked, side rails upX2, hob elevated and call light is within reach. Will continue to monitor.
[2020-11-11 20:00] VITALS: BP 123/73
[2020-11-11] MEDS: [UNRECOGNIZED DRUG - OTHER] PO SCH (21:15)
[2020-11-11] MEDS: [UNRECOGNIZED DRUG - OTHER] PO SCH (21:15)
[2020-11-11] MEDS: [UNRECOGNIZED DRUG - OTHER] PO SCH (21:15)
[2020-11-11 21:31] VITALS: BP 123/72
--- NOTE | 2020-11-12 06:40 | NUR ---
Ms RN closing notes Pt is resting in bed comfortably. Pt is alert and orientedX4. Respiration is normal in room air. No SOB. No S/S of distress noted. VS is stable. Afebrile. Routine meds were given as ordered. Kept Pt clean, dry and comfortable. Safety precautions is maintained. Bed at low position, brakes locked, side rails upX2, hob elevated and call light is within reach. Will endorse to morning nurse for NGHIA.
--- NOTE | 2020-11-12 07:52 | NUR ---
MS RN OPENING NOTE RECEIVED PT AWAKE IN BED AT THIS TIME. A/OX4. PT ABLE TO MAKE NEEDS KNOWN. NO SOB NOTED. NO C/O PAIN AT THIS TIME, NO S/O OF ANY APPARENT DISTRESS NOTED. PT STABLE ON RA. NO IV ACCESS NOTED. PT DENIES SI/HI. PT DENIES ANY AUDITORY/VISUAL HALLUCINATIONS. SAFETY PRECAUTIONS IN PLACE AND MAINTAINED AT ALL TIMES. BED IN LOWEST LOCKED POSITION, HOB ELEVATED, SIDE RAILS UP X2, CALL LIGHT AND TABLE WITHIN REACH. WILL CONTINUE TO MONITOR
[2020-11-12 09:00] VITALS: BP 140/83
--- NOTE | 2020-11-12 10:30 | NUR ---
PATIENT HANDED A TOTAL SUM OF $3500 ($100X20, $50X30)TO BE KEPT IN SAFE. MONEY COUNTED AND SEALED IN AN ENVELOPE IN THE PRESENCE OF PATIENT, NURSE AND OK BERMUDEZ. BELONGING LIST SIGNED BY PATIENT AND FILED IN CHART. ENVELOP TAKEN TO SAFE AT NURSING SUPERVISORS OFFICE FOR SAFE KEEPING. IRINA NURSE RIGGING UP WORKER AWARE.
[2020-11-12 16:00] VITALS: BP 114/60
--- NOTE | 2020-11-12 18:31 | NUR ---
MS RN CLOSING NOTES PT AWAKE IN BED AT THIS TIME. PT REMAINED STABLE THROUGHOUT SHIFT. ALL PT NEEDS MET AND ATTENDED TO. NO C/O OF AKATHISIA, TREMORS OR EPS. NO MENTAL INSTABILITY NOTED. PT DENIES SI/HI, VISUAL OR AUDITORY HALLUCINATION. SAFETY PRECAUTIONS IN PLACE AND MAINTAINED AT ALL TIMES. BED IN LOWEST LOCKED POSITION, HOB ELEVATED, SIDE RAILS UPX2, CALL LIGHT AND TABLE WITHIN REACH. WILL ENDORSE TO EVP MARKETING NURSE FOR N[place]IA
--- NOTE | 2020-11-12 19:30 | NUR ---
MS RN OPENING NOTE RECEIVED PT AWAKE IN BED AT THIS TIME. A/OX4. PT ABLE TO MAKE NEEDS KNOWN. PATIENT CALM AND COOPERATIVE. NO SOB NOTED. NO C/O PAIN AT THIS TIME, NO S/O OF ANY APPARENT DISTRESS NOTED. PT STABLE ON RA. NO IV ACCESS NOTED. PT DENIES ANY AUDITORY/VISUAL HALLUCINATIONS. SAFETY PRECAUTIONS IN PLACE: BED IN LOWEST LOCKED POSITION, HOB ELEVATED, SIDE RAILS UP X2, CALL LIGHT AND TABLE WITHIN REACH. ENCOURAGED PATIENT TO CALL IF IN NEED. WILL CONTINUE TO MONITOR
[2020-11-12 20:00] VITALS: BP 95/65
[2020-11-12] MEDS: [UNRECOGNIZED DRUG - OTHER] PO SCH (21:01)
[2020-11-12] MEDS: [UNRECOGNIZED DRUG - OTHER] PO SCH (21:01)
[2020-11-12] MEDS: [UNRECOGNIZED DRUG - OTHER] PO SCH (21:01)
--- NOTE | 2020-11-13 07:15 | NUR ---
MS RN CLOSING NOTE PT RESTING IN BED AT THIS TIME. A/OX4. PT ABLE TO MAKE NEEDS KNOWN. PATIENT CALM AND COOPERATIVE. NO SOB NOTED. NO C/O PAIN AT THIS TIME, NO S/O OF ANY APPARENT DISTRESS NOTED. PT STABLE ON RA. NO IV ACCESS NOTED. PT DENIES ANY AUDITORY/VISUAL HALLUCINATIONS. SAFETY PRECAUTIONS IN PLACE: BED IN LOWEST LOCKED POSITION, HOB ELEVATED, SIDE RAILS UP X2, CALL LIGHT AND TABLE WITHIN REACH. ALL NEEDS MET AND ATTENDED. ENDORSED TO DAY SHIFT NURSE FOR NGHIA.
[2020-11-13] MEDS ORDERED: LORAZEPAM 1 MG TABLET FOR AGITATION/ANXIETY/HOSTILITY PO PRN (12:00)
[2020-11-13] MEDS ORDERED: ZOLPIDEM TARTRATE 10 MG TABLET PO PRN (12:00)
--- NOTE | 2020-11-13 19:30 | NUR ---
MS/RN OPENING NOTES RECEIVED PATIENT IN BED RESTING. PATIENT IS ALERT AND ORIENTED X 4. PATIENT BREATHING IS EVEN AND UNLABORED. NO SIGNS OF SOB OR RESPIRATORY DISTRESS NOTED. PATIENT STATES NO PAIN AT THIS TIME. SAFETY MEASURES ARE IN PLACE, BED LOCKED AND PLACED IN THE LOWEST POSITION, SIDE RAILS UP X 2, CALL LIGHT IS WITHIN REACH. WILL CONTINUE WITH PATIENT PLAN OF CARE.
[2020-11-13 20:00] VITALS: BP 107/62
[2020-11-13] MEDS: [UNRECOGNIZED DRUG - OTHER] PO SCH (21:12)
[2020-11-13] MEDS: [UNRECOGNIZED DRUG - OTHER] PO SCH (21:12)
[2020-11-13] MEDS: [UNRECOGNIZED DRUG - OTHER] PO SCH (21:12)
--- NOTE | 2020-11-14 06:55 | NUR ---
MS/RN CLOSING NOTES PATIENT IN ROOM RESTING. PATIENT IS ALERT AND ORIENTED X 4. PATIENT BREATHING IS EVEN AND UNLABORED. PATIENT SHOWS NO SIGNS OF SOB OR RESPIRATORY DISTRESS. PATIENT STATES NO PAIN AT THIS TIME. PATIENT IN CALM MANNER. ALL NEEDS HAVE BEEN MET DURING SHIFT. SAFETY MEASURES ARE IN PLACE, BED IS LOCKED AND PLACED IN THE LOWEST POSITION, SIDE RAILS UP X 3, CALL LIGHT IS WITHIN REACH. WILL ENDORSE CARE TO DAY SHIFT NURSE.
--- NOTE | 2020-11-14 07:43 | NUR ---
MS/RN OPENING NOTE RECEIVED PATIENT FROM [facility] NURSE. PATIENT SEEN SITTING IN CHAIR AT BEDSIDE A/O X4. NO ACUTE DISTRESS NOTED, PATIENT DENIES ANY PAIN AT THE MOMENT. PATIENT ON ROOM AIR TOLERATING WELL, NO SOB NOTED, BREATHING EVEN, NON LABORED. SAFETY MEASURES IN PLACE, BED LOCKED AND IN LOWEST POSITION, CALL LIGHT WITHIN REACH. WILL CONTINUE TO MONITOR AND ENSURE SAFETY.
--- NOTE | 2020-11-14 18:25 | NUR ---
MS/RN CLOSING NOTE PATIENT A/O X4 OUTSIDE SMOKING. PATIENT ON ROOM AIR TOLERATING WELL, NO SOB NOTED, BREATHING EVEN, NON LABORED. SAFETY MEASURES IN PLACE, BED LOCKED AND IN LOWEST POSITION, CALL LIGHT WITHIN REACH. WILL ENDORSE TO TRIPE FINISHER NURSE.
--- NOTE | 2020-11-14 19:30 | NUR ---
Ms RN opening notes Received Pt from morning nurse. Pt is laying in bed comfortably talking on his cellphone. Pt is alert and orientedX4. Respiration is normal in room air. No SOB. No S/S of distress noted. Pt does not have IV site. Pt denies SI/HI at this time. Pt is able to ambulate with a steady gait. Safety precautions is maintained. Bed at low position, brakes locked, side rails upX2, hob elevated and call light is within reach. Will continue to monitor.
[2020-11-14 20:00] VITALS: BP 118/70
[2020-11-14] MEDS: [UNRECOGNIZED DRUG - OTHER] PO SCH (20:16)
[2020-11-14] MEDS: [UNRECOGNIZED DRUG - OTHER] PO SCH (20:17)
[2020-11-14] MEDS: [UNRECOGNIZED DRUG - OTHER] PO SCH (20:17)
--- NOTE | 2020-11-15 07:35 | NUR ---
MS/RN OPENING NOTE RECEIVED PATIENT FROM SEMICONDUCTOR ENGINEER NURSE. PATIENT SEEN SITTING IN CHAIR AT BEDSIDE A/O X4. NO ACUTE DISTRESS NOTED, PATIENT DENIES ANY PAIN AT THE MOMENT. PATIENT ON ROOM AIR TOLERATING WELL, NO SOB NOTED, BREATHING EVEN, NON LABORED. SAFETY MEASURES IN PLACE, BED LOCKED AND IN LOWEST POSITION, CALL LIGHT WITHIN REACH. WILL CONTINUE TO MONITOR AND ENSURE SAFETY.
[2020-11-15 08:00] VITALS: BP 135/80
[2020-11-15 16:00] VITALS: BP 137/59
--- NOTE | 2020-11-15 19:25 | NUR ---
MS/RN CLOSING NOTE PATIENT A/O X4 OUTSIDE SMOKING. PATIENT ON ROOM AIR TOLERATING WELL, NO SOB NOTED, BREATHING EVEN, NON LABORED. SAFETY MEASURES IN PLACE, BED LOCKED AND IN LOWEST POSITION, CALL LIGHT WITHIN REACH. WILL ENDORSE TO RECORD LABEL INTERNSHIP NURSE.
--- NOTE | 2020-11-15 19:43 | NUR ---
MS RN NOTES PATIENT IN BED, A/OX4; ABLE TO MAKE NEEDS KNOWN. DENIES PAIN OR DISCOMFORT. ON ROOM AIR; TOLERATING WELL WITH NO SOB. EDUCATED PATIENT TO NOT EAT FOOD 2.5 HOURS BEFORE AND AFTER INVESTIGATION MEDICATIONS. SAFETY MEASURES IN PLACE: BED IN LOWEST LOCKED POSITION, CALL LIGHT WITHIN EASY REACH, SIDE RAILS UPX2. PATIENT MEDICALLY STABLE AT THIS TIME. WILL MONITOR FOR ANY BEHAVIORS.
[2020-11-15 20:00] VITALS: BP 121/65
[2020-11-15] MEDS: [UNRECOGNIZED DRUG - OTHER] PO SCH (21:16)
[2020-11-15] MEDS: [UNRECOGNIZED DRUG - OTHER] PO SCH (21:17)
[2020-11-15] MEDS: [UNRECOGNIZED DRUG - OTHER] PO SCH (21:17)
--- NOTE | 2020-11-16 05:53 | NUR ---
MS RN CLOSING NOTES PATIENT IN BED, A/OX4; ABLE TO MAKE NEEDS KNOWN. DENIES PAIN OR DISCOMFORT. ON ROOM AIR; TOLERATING WELL WITH NO SOB. PATIENT DENIES ANY SIDE EFFECTS TO MEDICATIONS. SAFETY MEASURES IN PLACE: BED IN LOWEST LOCKED POSITION, CALL LIGHT WITHIN EASY REACH, SIDE RAILS UPX2. PATIENT MEDICALLY STABLE AT THIS TIME, WILL ENDORSE PLAN OF CARE TO ONCOMING MORNING RN.
--- NOTE | 2020-11-16 07:03 | NUR ---
MS RN OPENING NOTE RECEIVED PT AWAKE IN BED AT THIS TIME LISTENING TO MUSIC. A/OX4. PT ABLE TO VERBALIZE NEEDS. NO SOB NOTED. NO C/O PAIN AT THIS TIME, NO S/O OF ANY APPARENT DISTRESS NOTED. PT STABLE ON RA. NO IV ACCESS NOTED. PT DENIES SI/HI. PT DENIES ANY AUDITORY/VISUAL HALLUCINATIONS. SAFETY PRECAUTIONS IN PLACE AND MAINTAINED AT ALL TIMES. BED IN LOWEST LOCKED POSITION, HOB ELEVATED, SIDE RAILS UP X2, CALL LIGHT AND TABLE WITHIN REACH. WILL CONTINUE TO MONITOR
--- NOTE | 2020-11-16 18:35 | NUR ---
RN CLOSING NOTES PT AWAKE IN BED AT THIS TIME. PT REMAINED STABLE THROUGHOUT SHIFT.ALL CARE AND NEEDS ATTENDED TO. NO C/O OF AKATHISIA, TREMORS, MENTAL INSTABILITY OR EPS.SAFETY PRECAUTIONS IN PLACE AND MAINTAINED AT ALL TIMES. BED IN LOWEST LOCKED POSITION, HOB ELEVATED, SIDE RAILS UPX2, CALL LIGHT AND TABLE WITHIN REACH. WILL ENDORSE TO RESIDENT MEDICAL OFFICER NURSE FOR N[place]IA
--- NOTE | 2020-11-16 19:30 | NUR ---
MS RN OPENING NOTE PATIENT AMBULATING. TOLERATING ROOM AIR. NO RESP DISTRESS. NO C/O PAIN. NO IV ACCESS. IN NO APPARENT DISTRESS. WILL CONTINUE TO MONITOR THROUGHOUT SHIFT.
[2020-11-16 20:00] VITALS: BP 118/68
[2020-11-16] MEDS: [UNRECOGNIZED DRUG - OTHER] PO SCH (21:20)
[2020-11-16] MEDS: [UNRECOGNIZED DRUG - OTHER] PO SCH (21:21)
[2020-11-16] MEDS: [UNRECOGNIZED DRUG - OTHER] PO SCH (21:21)
--- NOTE | 2020-11-17 06:37 | NUR ---
MS RN CLOSING NOTE PATIENT RESTING IN BED. REMAINS TOLERATING ROOM AIR. NO RESP DISTRESS. NO C/O PAIN. NO DISTRESS. WILL ENDORSE TO ONCOMING SHIFT.
--- NOTE | 2020-11-17 07:25 | NUR ---
RN NOTES PATIENT CURRENTLY IN THE ROOM, AWAKE AND VERBALLY RESPONSIVE; NOT IN ACUTE DISTRESS. CONTINUES ON CLINICAL TRIAL. NO COMPLAINT OF PAIN AT THIS TIME. WILL MONITOR ACCORDINGLY.
[2020-11-17 16:00] VITALS: BP 137/71
--- NOTE | 2020-11-17 18:23 | NUR ---
MS/RN CLOSING NOTE PATIENT A/O X4 SEEN LAYING DOWN IN HOSPITAL BED. PATIENT ON ROOM AIR TOLERATING WELL, NO SOB NOTED, BREATHING EVEN, NON LABORED. SAFETY MEASURES IN PLACE, BED LOCKED AND IN LOWEST POSITION, CALL LIGHT WITHIN REACH. WILL ENDORSE TO DIRECTOR CARDIOVASCULAR NURSE.
[2020-11-17 20:00] VITALS: BP 126/72
--- NOTE | 2020-11-17 20:00 | NUR ---
Clinical trial / MEDIA LAW FACULTY MEMBER INITIAL NOTES RECEIVED PATIENT IN ROOM RESTING. PATIENT IS ALERT AND ORIENTED X 4. PATIENTS BREATHING IS EVEN AND UNLABORED. PATIENT IN NO SIGNS OF SOB OR RESPIRATORY DISTRESS. PATIENT STATES NO PAIN AT THIS TIME. PATIENT IN NO ACUTE DISTRESS. SAFETY MEASURES ARE IN PLACE, BED IS LOCKED AND PLACED IN THE LOW POSITION, SIDE RAIL UP X 2, CALL LIGHT IS WITHIN REACH. WILL CONTINUE WITH PATIENT PLAN OF CARE.
--- NOTE | 2020-11-17 21:00 | NUR ---
MS KURT NOTES INVESTIGATIONAL MEDS GIVEN ORDERED. PT IS AWARE THAT HE CAN'T EAT 2 HRS BEFORE AND 2 HRS AFTER . WILL CONTINUE MONITORING.
[2020-11-17] MEDS: [UNRECOGNIZED DRUG - OTHER] PO SCH (21:05)
[2020-11-17] MEDS: [UNRECOGNIZED DRUG - OTHER] PO SCH (21:05)
[2020-11-17] MEDS: [UNRECOGNIZED DRUG - OTHER] PO SCH (21:05)
--- NOTE | 2020-11-18 06:09 | NUR ---
MEDICAL TRANSCRIBER NOTES PT REMAIN SLEEPING IN HIS ROOM , NO SIGNS OF ANY DISTRESS NOTED. KEPT HIM COMFORTABLE AT ALL TIMES.
--- NOTE | 2020-11-18 07:30 | NUR ---
MS RN OPENING NOTE PATIENT IN ROOM, ALERT AND ORIENTED X 4. NO SIGNS OF DISTRESS OR SHORTNESS OF BREATH NOTED. SAFETY MEASURES IN PLACE, CALL LIGHT WITHIN REACH, BED IN LOWEST POSITION. WILL CONTINUE TO MONITOR
--- NOTE | 2020-11-18 19:00 | NUR ---
MS RN CLOSING NOTES PATIENT IN ROOM, ALERT AND ORIENTED X 4. NO SIGNS OF DISTRESS OR SHORTNESS OF BREATH NOTED. SAFETY MEASURES IN PLACE, CALL LIGHT WITHIN REACH, BED ALARM ON, BED IN LOWEST POSITION. WILL ENDORSE TO FILM EDITOR NURSE FOR CONTINUITY OF CARE
--- NOTE | 2020-11-18 19:30 | NUR ---
MS RN OPENING NOTE PATIENT SITTING AT THE EDGE OF THE BED, AWAKE, A/O X4. PATIENT ABLE TO MAKE NEEDS KNOWN. PATIENT CALM AND COOPERATIVE. REMINDED PATIENT NOT TO EAT 2.5 HOURS BEFORE AND AFTER ADMINISTRATION OF INVESTIGATIONAL MEDICINE. PATIENT AMBULATORY. NO C/O PAIN OR DISCOMFORT AT THIS TIME. BREATHING EVEN AND UNLABORED. SAFETY PRECAUTIONS IN PLACE. WILL CONTINUE TO MONITOR PATIENT CLOSELY.
[2020-11-18 20:00] VITALS: BP 131/78
[2020-11-18] MEDS: [UNRECOGNIZED DRUG - OTHER] PO SCH (20:59)
[2020-11-18] MEDS: [UNRECOGNIZED DRUG - OTHER] PO SCH (20:59)
[2020-11-18] MEDS: [UNRECOGNIZED DRUG - OTHER] PO SCH (20:59)
[2020-11-18 21:00] VITALS: BP 131/78
--- NOTE | 2020-11-19 06:58 | NUR ---
MS RN CLOSING NOTE PATIENT IN BED, RESTING, A/O X4. PATIENT ABLE TO MAKE NEEDS KNOWN. PATIENT CALM AND COOPERATIVE. PATIENT AMBULATORY. NO C/O PAIN OR DISCOMFORT AT THIS TIME. BREATHING EVEN AND UNLABORED. SAFETY PRECAUTIONS IN PLACE. NO TREMORS/ [place] DURING THE SHIFT. ALL NEEDS MET AND ATTENDED. WILL ENDORSE TO DAY SHIFT NURSE.
--- NOTE | 2020-11-19 18:15 | NUR ---
MS RN NOTE PATIENT IN HIS ROOM. A/O X 4. AMBULATORY WITH STEADY GAIT. CALM AND COOPERATIVE. NO AKATHASIA OR TREMORS OBSERVED DURING THE SHIFT. ABLE TO MAKE NEEDS KNOWN. SAFETY PRECAUTIONS MAINTAINED. WILL ENDORSE CONTINUITY OF CARE TO ONCOMING SHIFT.
--- NOTE | 2020-11-19 19:30 | NUR ---
MS/RN OPENING NOTES PATIENT IN ROOM SITTING IN CHAIR RESTING. PATIENT IS ALERT AND ORIENTED X 4. PATIENT BREATHING IS EVEN AND UNLABORED. PATIENT IN NO SIGNS OF SOB OR RESPIRATORY DISTRESS. PATIENT STATES NO PAIN AT THIS TIME. SAFETY MEASURES ARE IN PLACE, BED IS LOCKED AND PLACED IN THE LOWEST POSITION, CALL LIGHT IS WITHIN REACH. WILL CONTINUE WITH PATIENT PLAN OF CARE.
[2020-11-19 20:00] VITALS: BP 142/83
[2020-11-19] MEDS: [UNRECOGNIZED DRUG - OTHER] PO SCH (21:00)
[2020-11-19] MEDS: [UNRECOGNIZED DRUG - OTHER] PO SCH (21:01)
[2020-11-19] MEDS: [UNRECOGNIZED DRUG - OTHER] PO SCH (21:01)
--- NOTE | 2020-11-20 06:25 | NUR ---
MS/RN CLOSING NOTES PATIENT IN BED RESTING. PATIENT IS ALERT AND ORIENTED X 4. PATIENT BREATHING IS EVEN AND UNLABORED. PATIENT IN NO SIGNS OF SOB OR RESPIRATORY DISTRESS. PATIENT STATES NO PAIN AT THIS TIME. PATIENT IN RELAXED MOOD. ALL NEEDS HAVE BEEN MET. SAFETY MEASURES ARE IN PLACE, BED IS LOCKED AND PLACED IN THE LOWEST POSITION, CALL LIGHT IS WITHIN REACH. WILL ENDORSE CARE TO DAY SHIFT NURSE.
--- NOTE | 2020-11-20 08:19 | NUR ---
MS/RN OPENING NOTE RECEIVED PATIENT FROM WATER RESOURCES PROJECT MANAGER NURSE. PATIENT IS SEEN LAYING IN HOSPITAL BED. A/O X4 HARD OF HEARING, NO ACUTE DISTRESS NOTED AT THIS TIME. PATIENT ON ROOM AIR, TOLERATING WELL, NO SOB NOTED, BREATHING EVEN NON LABORED. SAFETY MEASURES IN PLACE, BED LOCKED AND IN LOWEST POSITION, CALL LIGHT WITHIN REACH. WILL CONTINUE TO MONITOR AND ENSURE SAFETY.
--- NOTE | 2020-11-20 18:41 | NUR ---
MS RN CLOSING NOTES PATIENT IN BED, AWAKE, ALERT, ORIENTED X4,ABLE TO MAKE NEEDS KNOWN, VERBALLY RESPONSIVE. DENIES PAIN OR DISCOMFORT AT THIS TIME. BREATHING EVEN AND NON LABORED. SAFETY MEASURES KEPT IN PLACE; BED IN LOWEST LOCKED POSITION. ALL NEEDS AND CARE ATTENDED PROMPTLY. CALL LIGHT WITHIN EASY REACH. WILL ENDORSE TO SLOOP CAPTAIN PLAN OF CARE.
--- NOTE | 2020-11-20 20:10 | NUR ---
MS CLINICAL TRIAL LAVATORY ATTENDANT INITIAL NOTES. RECEIVED PATIENT IN ROOM RESTING. PATIENT IS ALERT AND ORIENTED X 4. TALKING TO SOMEONE FROM HIS CELLPHONE.PATIENT CALMED COOPERATIVE ,PLEASANT. NO BEHAVIORAL ISSUE NOTED. NO SIGNS OF PSYCHIATRIC INSTABILITY NOTED . PATIENT IN NO SIGNS OF SOB OR RESPIRATORY DISTRESS. PATIENT STATES NO PAIN AT THIS TIME. SAFETY MEASURES ARE IN PLACE, BED IS LOCKED AND PLACED IN THE LOW POSITION, SIDE RAIL UP X 2, CALL LIGHT IS WITHIN REACH. WILL CONTINUE WITH PATIENT PLAN OF CARE.
[2020-11-20] MEDS: [UNRECOGNIZED DRUG - OTHER] PO SCH (21:00)
[2020-11-20] MEDS: [UNRECOGNIZED DRUG - OTHER] PO SCH (21:00)
[2020-11-20] MEDS: [UNRECOGNIZED DRUG - OTHER] PO SCH (21:00)
--- NOTE | 2020-11-20 21:00 | NUR ---
MS KURT NOTES Investigational meds given as ordered. Pt aware that he should be NPO 2.5 hrs before and after administration.
--- NOTE | 2020-11-21 06:51 | NUR ---
MS CLINICAL TRIAL CLOSING NOTES PATIENT IN ROOM REMAIN RESTING .PATIENT CALMED COOPERATIVE ,PLEASANT. NO BEHAVIORAL ISSUE NOTED. NO SIGNS OF PSYCHIATRIC INSTABILITY NOTED . PATIENT NO SIGNS OF SOB OR RESPIRATORY DISTRESS. PATIENT STATES NO PAIN AT THIS TIME. SAFETY MEASURES ARE IN PLACE, BED IS LOCKED AND PLACED IN THE LOW POSITION, SIDE RAIL UP X 2, CALL LIGHT IS WITHIN REACH. WILL CONTINUE WITH PATIENT PLAN OF CARE.
--- NOTE | 2020-11-21 07:17 | NUR ---
MS RN CT OPENING NOTES PATIENT RECEIVED IN HIS ROOM RESTING. A/O X4, ABLE TO MAKE NEEDS KNOWN. ON ROOM AIR, BREATHING EVEN AND UNLABORED, NO SIGNS OF SOB NOTED. SAFETY MEASURES IN PLACE: BED IS LOCKED AND IN THE LOWEST POSITION, SIDE RAILS UP X 2 AND CALL LIGHT IS WITHIN REACH. WILL CONTINUE TO MONITOR PT ACCORDINGLY. .
[2020-11-21 09:00] VITALS: BP 118/66
--- NOTE | 2020-11-21 19:17 | NUR ---
MS RN CLOSING NOTES PATIENT IN HIS ROOM AWAKE, ALERT AND ORIENTED X 4. AMBULATORY. NO INAPPROPRIATE BEHAVIOR EXHIBITED DURING THE DAY. ON ROOM AIR, NO SIGNS OF DISTRESS OR SHORTNESS OF BREATH NOTED DURING THE DAY. CALL LIGHT WITHIN REACH. WILL ENDORSE TO DESK MAKER NURSE FOR CONTINUITY OF CARE
[2020-11-21 20:00] VITALS: BP 112/58
[2020-11-21] MEDS: [UNRECOGNIZED DRUG - OTHER] PO SCH (22:18)
[2020-11-21] MEDS: [UNRECOGNIZED DRUG - OTHER] PO SCH (22:18)
[2020-11-21] MEDS: [UNRECOGNIZED DRUG - OTHER] PO SCH (22:19)
--- NOTE | 2020-11-22 06:45 | NUR ---
MS RN CLOSING NOTE PT AWAKE IN BED AT THIS TIME. PT REMAINED STABLE THROUGHOUT SHIFT. ALL NEEDS HAVE BEEN MET. SAFETY AND ASPIRATION PRECAUTIONS MAINTAINED AT ALL TIMES. BED IN LOWEST LOCKED POSITION, HOB ELEVATED, SIDE RAILS UP X2. CALL LIGHT AND TABLE WITHIN REACH. WILL ENDORSE TO ONCOMING NURSE FOR CONTINUITY OF CARE.
--- NOTE | 2020-11-22 07:16 | NUR ---
MS RN OPENING NOTES PATIENT RECEIVED IN BED AWAKE, A/O X4. ABLE TO VERBALIZE NEEDS, DENIES PAIN AT THIS TIME. ON ROOM AIR, BREATHING EVEN AND UNLABORED. NO IV ACCESS NOTED. SAFETY PRECAUTIONS IN PLACE AND MAINTAINED AT ALL TIMES: BED IN LOWEST LOCKED POSITION, SIDE RAILS UP X2, CALL LIGHT AND BEDSIDE TABLE WITHIN EASY REACH OF PT. WILL CONTINUE WITH PLAN OF CARE.
[2020-11-22 16:00] VITALS: BP 114/68
--- NOTE | 2020-11-22 18:39 | NUR ---
MS RN CLOSING NOTES PATIENT RESTING IN BED WATCHING TV AT THIS TIME. ALERT AND ORIENTED X 4. AMBULATORY. NO INAPPROPRIATE BEHAVIOR EXHIBITED DURING THE DAY. ON ROOM AIR, NO SIGNS OF DISTRESS OR SHORTNESS OF BREATH NOTED DURING THE DAY. CALL LIGHT WITHIN REACH. WILL ENDORSE PLAN OF CARE TO TRUCK SPOTTER NURSE.
--- NOTE | 2020-11-22 19:39 | NUR ---
MS RN OPENING NOTES PATIENT WAS NOT IN THE ROOM WHEN WE CHANGED REPORTS. SAFETY IN PLACE: BED LOWEST AND IN LOCKED POSITION, CALL LIGHT NOTED. INVESTIGATIONAL DRUGS IN CASSETTE. WILL MONITOR PATIENT.
--- NOTE | 2020-11-22 20:03 | NUR ---
MS RN NOTES OPENING CONT. PATIENT IN THE ROOM NOW. A/Ox4. ABLE TO MAKE HIS NEEDS KNOWN. WILL CONT. TO MONITOR.
--- NOTE | 2020-11-22 20:10 | NUR ---
MS RN OPENING NOTE PATIENT AWAKE, A/O X 4, ABLE TO MAKE NEEDS KNOWN. PATIENT TOLERATING ROOM AIR. BREATHING EVEN AND UNLABORED. PATIENT IS A CLINICAL TRIAL PATIENT OF DR. ALY. NO C/O PAIN OR DISCOMFORT AT THIS TIME. REMINDED PATIENT NOT TO EAT 2.5 HRS BEFORE OR AFTER ADMINISTRATION OF INVESTIGATIONAL DRUGS. SAFETY PRECAUTIONS IN PLACE: BED IN LOCKED AND LOWEST POSITION, CALL LIGHT WITHIN REACH, SIDE RAILS UP. ENCOURAGED PATIENT TO CALL IF IN NEED. WILL MONITOR PATIENT CLOSELY.
[2020-11-22 21:00] VITALS: BP 119/62
[2020-11-22] MEDS: [UNRECOGNIZED DRUG - OTHER] PO SCH (21:03)
[2020-11-22] MEDS: [UNRECOGNIZED DRUG - OTHER] PO SCH (21:03)
[2020-11-22] MEDS: [UNRECOGNIZED DRUG - OTHER] PO SCH (21:03)
--- NOTE | 2020-11-23 01:00 | NUR ---
MS RN NOTE PATIENT GIVEN AMBIEN 10 MG FOR SLEEP, PER PT REQUEST.
--- NOTE | 2020-11-23 06:55 | NUR ---
MS RN CLOSING NOTE PATIENT SLEEPING, EASILY AROUSED, A/O X 4, ABLE TO MAKE NEEDS KNOWN. PATIENT TOLERATING ROOM AIR. BREATHING EVEN AND UNLABORED. PATIENT IS A CLINICAL TRIAL PATIENT OF DR. ALY. NO C/O PAIN OR DISCOMFORT AT THIS TIME. SAFETY PRECAUTIONS IN PLACE: BED IN LOCKED AND LOWEST POSITION, CALL LIGHT WITHIN REACH, SIDE RAILS UP. ALL NEEDS MET AND ATTENDED. INVESTIGATIONAL DRUGS GIVEN. NO ADVERSE EFFECTS OBSERVED. WILL ENDORSE TO DAY SHIFT NURSE FOR NGHIA.
[2020-11-23 08:00] VITALS: BP 150/89
--- NOTE | 2020-11-23 08:30 | NUR ---
m/s grain distributor: notes pt doesn't want to be disturbed til 830 am. pt awake at this time. no c/o pain. instructed to call for assistance. will continue to monitor.
[2020-11-23 16:00] VITALS: BP 127/75
--- NOTE | 2020-11-23 17:30 | NUR ---
m/s account analyst: notes pt refused 4pm vital signs. pt sounds asleep. no distress noted. will continue to monitor.
--- NOTE | 2020-11-23 18:45 | NUR ---
m/s groundhand: md visit seen by .
--- NOTE | 2020-11-23 19:09 | NUR ---
m/s systems consultant: notes report given to carina (rn) for continuity of care.
--- NOTE | 2020-11-23 19:30 | NUR ---
MS RN OPENING NOTE PATIENT IN BED AWAKE, A/O X 4. ABLE TO MAKE NEEDS KNOWN. PATIENT IS CALM AND COOPERATIVE AT THIS TIME. NO S/S OF RESPIRATORY DISTRESS. NO C/O PAIN OR DISCOMFORT. SAFETY MEASURES IN PLACE: BED IN LOCKED AND LOWEST POSITION, CALL LIGHT WITHIN REACH, SIDE RAILS UP. ENCOURAGED PATIENT TO CALL IF IN NEED. WILL MONITOR PATIENT CLOSELY.
[2020-11-23 20:00] VITALS: BP 116/80
[2020-11-23] MEDS: [UNRECOGNIZED DRUG - OTHER] PO SCH (21:04)
[2020-11-23] MEDS: [UNRECOGNIZED DRUG - OTHER] PO SCH (21:04)
[2020-11-23] MEDS: [UNRECOGNIZED DRUG - OTHER] PO SCH (21:04)
--- NOTE | 2020-11-23 21:45 | NUR ---
MS RN NOTE PATIENT REQUESTED TO PUT MONEY IN THE NURSING SKEWER UP SAFE. $100 X 25= $2500 TOTAL IN THE NURSING SKEWER UP SAFE.
--- NOTE | 2020-11-24 06:45 | NUR ---
MS RN CLOSING NOTE PATIENT IN BED SLEEPING. EASILY AWAKENED. NOT IN ANY APPARENT DISTRESS. BREATHING EVEN AND UNLABORED. NO AKATHISIA OR TREMORS OBSERVED. PATIENT WAS CALM AND COOPERATIVE THROUGHOUT THE SHIFT. SAFETY PRECAUTIONS MAINTAINED. ALL NEEDS MET AND ATTENDED. WILL ENDORSE TO DAY SHIFT NURSE FOR NGHIA.
--- NOTE | 2020-11-24 07:56 | NUR ---
MS RN OPENING NOTE RECEIVED PATIENT IN ROOM, USING RESTROOM, A/O X 4. PATIENT IS CALM AND COOPERATIVE AT THIS TIME. NO RESPIRATORY DISTRESS NOTED. NO C/O PAIN OR DISCOMFORT. SAFETY MEASURES IMPLEMENTED. ENCOURAGED PATIENT TO CALL IF NEEDED. WILL CONTINUE TO MONITOR.
[2020-11-24 16:00] VITALS: BP 126/65
--- NOTE | 2020-11-24 18:37 | NUR ---
MS RN CLOSING NOTE PATIENT CURRENTLY LYING IN BED, AWAKE. A/O X4. ON ROOM AIR. CLINICAL TRIAL PATIENT. NO PAIN OR DISTRESS NOTED. BREATHING EVEN AND UNLABORED. AMBULATORY. NO AKATHISIA OR TREMORS OBSERVED. PATIENT CALM AND COOPERATIVE THROUGHOUT SHIFT. SAFETY PRECAUTIONS IMPLEMENTED. CALL LIGHT WITHIN REACH. WILL ENDORSE TO STAFF PHARMACIST NURSE FOR N[facility]IA.
[2020-11-24 20:00] VITALS: BP 114/57
--- NOTE | 2020-11-24 20:00 | NUR ---
MS RN Note: 1909- received pt. awake on bed; alert and oriented x 4; on regular diet as ordered; siderails x 2 are up; bed alarm is on; call light is within reach; on clinical trial; awaiting for possible discharge on thursday (11/27)
[2020-11-24 20:30] VITALS: BP 114/57
[2020-11-24] MEDS: [UNRECOGNIZED DRUG - OTHER] PO SCH (21:28)
[2020-11-24] MEDS: [UNRECOGNIZED DRUG - OTHER] PO SCH (21:28)
[2020-11-24] MEDS: [UNRECOGNIZED DRUG - OTHER] PO SCH (21:28)
--- NOTE | 2020-11-25 07:54 | NUR ---
MS RN OPENING NOTE RECEIVED PATIENT IN ROOM, GROOMING FOR THE DAY, A/O X 4. PATIENT IS CALM AND COOPERATIVE AT THIS TIME. NO RESPIRATORY DISTRESS NOTED. NO C/O PAIN OR DISCOMFORT. SAFETY MEASURES IMPLEMENTED. ENCOURAGED PATIENT TO CALL IF NEEDED. WILL CONTINUE TO MONITOR.
[2020-11-25 08:00] VITALS: BP 117/66
[2020-11-25 16:00] VITALS: BP 108/63
--- NOTE | 2020-11-25 18:28 | NUR ---
MS RN CLOSING NOTE PATIENT CURRENTLY SITTING AT THE BEDSIDE, AWAKE. A/O X4. ON ROOM AIR. CLINICAL TRIAL PATIENT. NO PAIN OR DISTRESS NOTED. BREATHING EVEN AND UNLABORED. AMBULATORY. NO AKATHISIA OR TREMORS OBSERVED. PATIENT CALM AND COOPERATIVE THROUGHOUT SHIFT. SAFETY PRECAUTIONS IMPLEMENTED. CALL LIGHT WITHIN REACH. WILL ENDORSE TO DIRECTOR CONSTRUCTION SERVICES NURSE FOR N[place].
--- NOTE | 2020-11-25 19:30 | NUR ---
MS RN OPENING NOTES PATIENT IS AWAKE IN HIS ROOM. PATIENT IS ALERT AND ORIENTED X3. PATIENT IS STABLE ON ROOM AIR AND IN NO RESPIRATORY DISTRESS. PATIENT IS ABLE TO MAKE HIS NEEDS KNOWN. NO AKATHISIA OR TREMORS OBSERVED. SAFETY MEASURES ARE KEPT IN PLACE. BED IS IN A LOCKED POSITION. CALL LIGHT IS WITHIN REACH OF THE PATIENT. WILL CONTINUE TO MONITOR THE PATIENT.
[2020-11-25 20:00] VITALS: BP 137/63
[2020-11-25] MEDS: [UNRECOGNIZED DRUG - OTHER] PO SCH (21:19)
[2020-11-25] MEDS: [UNRECOGNIZED DRUG - OTHER] PO SCH (21:19)
[2020-11-25] MEDS: [UNRECOGNIZED DRUG - OTHER] PO SCH (21:20)
--- NOTE | 2020-11-26 07:18 | NUR ---
MS BAUMANN NOTES PATIENT LAST SEEN SLEEPING IN HIS ROOM. PATIENT IS ALERT AND ORIENTED X3. PATIENT IS STABLE ON ROOM AIR AND IN NO RESPIRATORY DISTRESS. PATIENT IS ABLE TO MAKE HIS NEEDS KNOWN. SAFETY MEASURES ARE KEPT IN PLACE. BED IS IN A LOCKED POSITION. CALL LIGHT IS WITHIN REACH OF THE PATIENT. ENDORSED CARE TO DAY SHIFT NURSE. Addendum: 11/26/20 at 0740 by MITZY SWANSON RN MS BAUMANN CLOSING NOTES
[2020-11-26 08:00] VITALS: BP 111/67
--- NOTE | 2020-11-26 08:30 | NUR ---
m/s manager trust: notes pt doesn't want to be disturbed til 830 am. pt awake at this time. no c/o pain. instructed to call for assistance. will continue to monitor.
--- NOTE | 2020-11-26 12:00 | NUR ---
m/s notched blade loader: notes lunch served. instructed to call for assistance.
--- NOTE | 2020-11-26 15:30 | NUR ---
m/s expenditure requisition clerk: notes pt up and about in unit. no distress noted. will continue to monitor.
[2020-11-26 16:00] VITALS: BP 131/77
--- NOTE | 2020-11-26 17:55 | NUR ---
m/s program coordinator for residence life: notes pt having dinner. no distress noted. needs attended. instructed to call for assistance.
--- NOTE | 2020-11-26 19:07 | NUR ---
m/s cemetery vault installer: notes report given to [facility] (genny) for continuity of care.
--- NOTE | 2020-11-26 19:15 | NUR ---
MS RN OPENING NOTE PATIENT IN BED, AWAKE, A / OX 4. PATIENT IS CALM. TOLERATING ROOM AIR, BREATHING EVEN AND UNLABORED. NO REPORTS OF PAIN OR DISCOMFORT. SAFETY PRECAUTIONS IN PLACE. BED IN LOCKED AND LOWEST POSITION, CALL LIGHT WITHIN REACH. WILL MONITOR PATIENT CLOSELY.
[2020-11-26 20:00] VITALS: BP 112/66
[2020-11-26] MEDS: [UNRECOGNIZED DRUG - OTHER] PO SCH (20:56)
[2020-11-26] MEDS: [UNRECOGNIZED DRUG - OTHER] PO SCH (20:56)
[2020-11-26] MEDS: [UNRECOGNIZED DRUG - OTHER] PO SCH (20:56)
--- NOTE | 2020-11-27 07:30 | NUR ---
MS RN CLOSING NOTE PATIENT AWAKE, CALM AT THIS TIME. NO AKATHISIA, TREMORS, OR INAPPROPRIATE BEHAVIOR SEEN. NO DISCOMFORT AT THIS TIME. ALL NEEDS MET AND ATTENDED. INVESTIGATIONAL DRUGS GIVEN. ALL ORDERS CARRIED OUT. SAFETY MEASURES MAINTAINED. ENDORSED TO DAY SHIFT NURSE.
--- NOTE | 2020-11-27 08:00 | NUR ---
m/s tobacco grower: notes pt awake and on the phone at this time. no distress noted. breakfast served. will continue to monitor.
--- NOTE | 2020-11-27 18:52 | NUR ---
m/s board stacker: notes in his room walking around and on the phone. no distress noted. will continue to monitor.
--- NOTE | 2020-11-27 19:30 | NUR ---
MS RN OPENING NOTE PATIENT IN BED AWAKE, CALM AT THIS TIME. PATIENT IS A CLINICAL TRIAL PATIENT OF DR. ALY. ABLE TO MAKE NEEDS KNOWN. BREATHING EVEN AND UNLABORED. NO COMPLAINS OF PAIN OR DISCOMFORT AT THIS TIME. SAFETY MEASURES IN PLACE. WILL MONITOR PATIENT CLOSELY.
--- NOTE | 2020-11-27 19:30 | NUR ---
m/s health assessment and treatment teacher: notes report given to [facility] (genny) for continuity of care.
[2020-11-27 20:00] VITALS: BP 120/71
[2020-11-27] MEDS: [UNRECOGNIZED DRUG - OTHER] PO SCH (20:56)
[2020-11-27] MEDS: [UNRECOGNIZED DRUG - OTHER] PO SCH (20:56)
[2020-11-27] MEDS: [UNRECOGNIZED DRUG - OTHER] PO SCH (20:56)
--- NOTE | 2020-11-28 07:30 | NUR ---
MS RN CLOSING NOTE PATIENT AWAKE, WALKING AROUND THE UNIT. PATIENT IS CALM AND COOPERATIVE AT THIS TIME. NOT IN ANY APPARENT DISTRESS. BREATHING EVEN AND UNLABORED. NO C/O PAIN OR DISCOMFORT. INVESTIGATIONAL DRUGS GIVEN. ALL NEEDS MET AND ATTENDED. ENDORSED TO DAY SHIFT NURSE FOR N[place]IA.
[2020-11-28 08:00] VITALS: BP 145/75
--- NOTE | 2020-11-28 18:44 | NUR ---
RN CLOSING NOTE PATIENT AWAKE, WALKING AROUND THE UNIT. PATIENT HAS BEEN CALM AND COOPERATIVE THIS SHIFT, NOT IN ANY APPARENT DISTRESS. BREATHING EVEN AND UNLABORED. GOOD APPETITE. NO C/O PAIN OR DISCOMFORT. INDEPENDENT WITH ADL'S. ALL NEEDS MET AND ATTENDED. ENDORSED TO SECOND FLOOR OPERATOR NURSE FOR N[place]IA.
--- NOTE | 2020-11-28 19:30 | NUR ---
MS RN NOTES RECEIVED RESTING COMFORTABLY ON BED,A/O X4,CLINICAL TRIAL,MED COMPLIANT,AMBULATORY.FOLLOW INSTRUCTION.WILL MONITOR FOR BEHAVIORAL SYMPTOMS.CALL LIGHT IN REACH,NEEDS ANTICIPATED.
[2020-11-28 20:00] VITALS: BP 126/71
[2020-11-28] MEDS: [UNRECOGNIZED DRUG - OTHER] PO SCH (20:57)
[2020-11-28] MEDS: [UNRECOGNIZED DRUG - OTHER] PO SCH (20:57)
[2020-11-28] MEDS: [UNRECOGNIZED DRUG - OTHER] PO SCH (20:57)
--- NOTE | 2020-11-29 06:23 | NUR ---
MS RN NOTES NO BEHAVIORAL SYMPTOMS NOTED,MED COMPLIANT,STABLE.
[2020-11-29 08:00] VITALS: BP 140/70
--- NOTE | 2020-11-29 08:13 | NUR ---
RN-NOTES RECEIVED PATIENT SLEEPING WITH BREATHING EVEN AND NONLABORED EASILY AROUSED,NO ACUTE DISTRESS NOTED.
[2020-11-29 16:00] VITALS: BP 124/72
--- NOTE | 2020-11-29 16:25 | NUR ---
RN-NOTES PATIENT OFF THE UNIT AMBULATORY IN STABLE CONDITION.
--- NOTE | 2020-11-29 17:50 | NUR ---
RN-NOTES PATIENT BACK IN THE UNIT WITH NO ACUTE DISTRESS NOTED.
--- NOTE | 2020-11-29 18:44 | NUR ---
RN-CLOSING NOTES PATIENT AWAKE.ALERT X4 LYING IN BED ON HIS PHONE,CALM NO ACUTE DISTRESS NOTED. AMBULATORY STEADY GAIT. DENIES ANY PAIN OR DISCOMFORT AT THIS TIME. ALL NEEDS ATTENDED AND MET. WILL ENDORSE TO INCOMING NURSE FOR CONTINUITY OF CARE.
--- NOTE | 2020-11-29 19:30 | NUR ---
MS RN NOTES/CLINICAL TRIAL RECEIVED INSIDE THE ROOM,CALM AND QUIET ,ABLE TO VERBALIZED NEEDS,NO IV ACCESS,WILL CONTINUE TO MONITOR BEHAVIOR.DRUG REACTION TO INVESTIGATIONAL DRUGS.CALL LIGHT IN REACH,NEEDS ANTICIPATED.
[2020-11-29 20:00] VITALS: BP 134/71
[2020-11-29] MEDS: [UNRECOGNIZED DRUG - OTHER] PO SCH (21:08)
[2020-11-29] MEDS: [UNRECOGNIZED DRUG - OTHER] PO SCH (21:09)
[2020-11-29] MEDS: [UNRECOGNIZED DRUG - OTHER] PO SCH (21:09)
--- NOTE | 2020-11-30 06:45 | NUR ---
MS RN NOTES NO BEHAVIORAL SYMPTOMS NOTED THRU OUT SHIFT.
--- NOTE | 2020-11-30 07:34 | NUR ---
MS RN OPENING NOTE RECEIVED PATIENT IN ROOM, GROOMING FOR THE DAY, A/O X 4. CLINICAL TRIAL PATIENT. PATIENT IS CALM AND COOPERATIVE AT THIS TIME. NO DISTRESS NOTED. NO C/O PAIN OR DISCOMFORT. SAFETY MEASURES IMPLEMENTED. ENCOURAGED PATIENT TO CALL IF NEEDED. WILL CONTINUE TO MONITOR.
[2020-11-30 08:00] VITALS: BP 140/82
--- NOTE | 2020-11-30 18:34 | NUR ---
MS RN CLOSING NOTE PATIENT CURRENTLY SITTING AT THE BEDSIDE, AWAKE. A/O X4. ON ROOM AIR. CLINICAL TRIAL PATIENT. NO PAIN OR DISTRESS NOTED. BREATHING EVEN AND UNLABORED. AMBULATORY. NO AKATHISIA OR TREMORS OBSERVED. PATIENT CALM AND COOPERATIVE THROUGHOUT SHIFT. SAFETY PRECAUTIONS IMPLEMENTED. CALL LIGHT WITHIN REACH. WILL ENDORSE TO HOT METAL MIXER OPERATOR HELPER NURSE FOR NGHAI.
--- NOTE | 2020-11-30 19:20 | NUR ---
MS/RN OPENING NOTE RECEIVED PATIENT SLEEPING IN BED. ALERT AND ORIENTED X 4. ABLE TO MAKE NEEDS KNOWN. NO COMPLAINTS OF PAIN AT THIS TIME. NO IV ACCESS NOTED. NO S/SX OF RESPIRATORY DISTRESS NOTED. CONTINUES ON INVESTIGATIONAL MEDICATION AND CLINICAL TRIAL. CALL LIGHT WITHIN REACH. ASPIRATION, FALL AND SAFETY PRECAUTIONS MAINTAINED. WILL CONTINUE TO MONITOR.
[2020-11-30 20:00] VITALS: BP 134/83
[2020-11-30] MEDS: [UNRECOGNIZED DRUG - OTHER] PO SCH (20:59)
[2020-11-30] MEDS: [UNRECOGNIZED DRUG - OTHER] PO SCH (21:00)
[2020-11-30] MEDS: [UNRECOGNIZED DRUG - OTHER] PO SCH (21:00)
--- NOTE | 2020-11-30 21:00 | NUR ---
MS/RN NOTE PATIENT WITH C/O HEADACHE - ADMINISTERED PRN MOTRIN WITH PENDING EFFECT.
[2020-11-30] MEDS: IBUPROFEN 200 MG TABLET PO PRN (21:08)
--- NOTE | 2020-12-01 06:15 | NUR ---
MS/RN CLOSING NOTE PATIENT CURRENTLY SLEEPING IN BED. ALERT AND ORIENTED X 4. ABLE TO MAKE NEEDS KNOWN. NO COMPLAINTS OF PAIN AT THIS TIME. NO IV ACCESS NOTED. NO S/SX OF RESPIRATORY DISTRESS NOTED. CONTINUES ON INVESTIGATIONAL MEDICATION AND CLINICAL TRIAL. CALL LIGHT WITHIN REACH. ASPIRATION, FALL AND SAFETY PRECAUTIONS MAINTAINED. WILL ENDORSE PLAN OF CARE TO ONCOMING SHIFT.
--- NOTE | 2020-12-01 07:56 | NUR ---
MS/RN OPENING NOTE RECEIVED PATIENT FROM COLLECTIONS SPECIALIST NURSE. PATIENT SEEN LAYING IN BED AWAKE A/O X4. NO ACUTE DISTRESS NOTED AT THIS TIME. PATIENT IS ON ROOM AIR, TOLERATING WELL, NO SOB NOTED, BREATHING EVEN, NON LABORED. SAFETY MEASURES IN PLACE, BED LOCKED AND IN LOWEST POSITION, CALL LIGHT WITHIN REACH. WILL CONTINUE TO MONITOR AND ENSURE SAFETY.
[2020-12-01 16:05] VITALS: BP 126/70
--- NOTE | 2020-12-01 18:46 | NUR ---
MS/RN CLOSING NOTE PATIENT SEEN LAYING IN BED AWAKE A/O X4. NO ACUTE DISTRESS NOTED AT THIS TIME. PATIENT IS ON ROOM AIR, TOLERATING WELL, NO SOB NOTED, BREATHING EVEN, NON LABORED. SAFETY MEASURES IN PLACE, BED LOCKED AND IN LOWEST POSITION, CALL LIGHT WITHIN REACH. ALL NEEDS MET THROUGHOUT THE SHIFT. WILL ENDORSE TO [place] SET UP PERSON NURSE.
--- NOTE | 2020-12-01 19:32 | NUR ---
MS RN NOTES PATIENT IN THE CHAIR USING PHONE. A/OX4. NO S/S OF DISTRESS. NO C/O PAIN AT THE MOMENT. INVESTIGATIONAL DRUGS IN CASSETTE. SAFETY IN PLACE: BED IN LOWEST, LOCKED POSITION, CALL LIGHT WITHIN REACH. WILL CONTINUE TO MONITOR.
[2020-12-01 20:00] VITALS: BP 91/64
[2020-12-01] MEDS: [UNRECOGNIZED DRUG - OTHER] PO SCH (20:54)
[2020-12-01] MEDS: [UNRECOGNIZED DRUG - OTHER] PO SCH (20:54)
[2020-12-01] MEDS: [UNRECOGNIZED DRUG - OTHER] PO SCH (20:54)
[2020-12-02 00:12] VITALS: BP 91/64
--- NOTE | 2020-12-02 06:46 | NUR ---
MS RN CLOSING NOTE 316 PATIENT IN ROOM. DO NOT DISTURB SIGN POSTED ON THE DOOR. PATIENT ABLE TO MAKE NEEDS KNOWN. ALL NEEDS ATTENDED.INVESTIGATIONAL DRUGS GIVEN. NO REPORTED S/S OF AKATHISIA NOR EXTRA PYRAMIDAL SYMPTOMS THROUGHOUT THE SHIFT. SAFETY KEPT IN PLACE THE WHOLE SHIFT: BED IN LOWEST, LOCKED POSITION; CALL LIGHT WITHIN REACH. WILL ENDORSE CARE TO MORNING SHIFT NURSE.
[2020-12-02 08:00] VITALS: BP 115/62
--- NOTE | 2020-12-02 09:07 | NUR ---
MS/RN OPENING NOTE RECEIVED PATIENT FROM FRONT COUNTER CLERK NURSE. PATIENT SEEN LAYING IN BED AWAKE A/O X4. NO ACUTE DISTRESS NOTED AT THIS TIME. PATIENT IS ON ROOM AIR, TOLERATING WELL, NO SOB NOTED, BREATHING EVEN, NON LABORED. SAFETY MEASURES IN PLACE, BED LOCKED AND IN LOWEST POSITION, CALL LIGHT WITHIN REACH. WILL CONTINUE TO MONITOR AND ENSURE SAFETY.
--- NOTE | 2020-12-02 15:23 | NUR ---
MS RN NOTE RECEIVED REPORT FROM [facility] FOR [facility]. PATIENT IS A/OX4 CLINICAL TRIAL. BREATHING EVENLY AND UNLABORED ON ROOM AIR. SAFETY MEASURES ARE IN PLACE. BED LOW LOCKED AND CALL LIGHT WITHIN REACH. WILL CONTINUE TO MONITOR
[2020-12-02 16:03] VITALS: BP 127/94
--- NOTE | 2020-12-02 18:15 | NUR ---
MS/RN CLOSING NOTE PATIENT SEEN LAYING IN BED AWAKE A/O X4. NO ACUTE DISTRESS NOTED AT THIS TIME. PATIENT IS ON ROOM AIR, TOLERATING WELL, NO SOB NOTED, BREATHING EVEN, NON LABORED. PATIENT CONTINUES TO BE IN CLINICAL TRIAL. SAFETY MEASURES IN PLACE, BED LOCKED AND IN LOWEST POSITION, CALL LIGHT WITHIN REACH. ALL NEEDS MET THROUGHOUT THE SHIFT. WILL ENDORSE TO NEXT SHIFT NURSE.
--- NOTE | 2020-12-02 19:20 | NUR ---
MS RN OPENING NOTES PATIENT IN ROOM. A/OX4. NO S/S OF DISTRESS. NO C/O OF PAIN AT THE MOMENT. SAFETY PRECAUTIONS IN PLACE: BED IN LOWEST, LOCKED POSITION; CALL LIGHT WITHIN REACH. INVESTIGATIONAL DRUGS IN CASSETTE. NO SIGNS OF AKATHISIA NOR EXTRAPYRAMIDAL SYNDROME. WILL CONTINUE TO MONITOR.
[2020-12-02] MEDS: [UNRECOGNIZED DRUG - OTHER] PO SCH (21:26)
[2020-12-02] MEDS: [UNRECOGNIZED DRUG - OTHER] PO SCH (21:27)
[2020-12-02] MEDS: [UNRECOGNIZED DRUG - OTHER] PO SCH (21:27)
--- NOTE | 2020-12-02 21:34 | NUR ---
MS RN NOTES INVESTIGATIONAL DRUGS GIVEN 30 MINUTES LATE. PATIENT CAME BACK FROM SMOKE BREAK LATE.
--- NOTE | 2020-12-03 06:19 | NUR ---
MS RN NOTES PATIENT C/O STOMACH ACHE/ UPSET. GIVEN PRN MILK OF MAGNESIA FOR INDIGESTION.
--- NOTE | 2020-12-03 06:21 | NUR ---
MS RN CLOSING NOTE PATIENT WENT OUT. PATIENT ABLE TO MAKE NEEDS KNOWN. ALL NEEDS ATTENDED. INVESTIGATIONAL DRUGS GIVEN. NO REPORTED S/S OF AKATHISIA NOR EXTRA PYRAMIDAL SYMPTOMS THROUGHOUT THE SHIFT. SAFETY KEPT IN PLACE THE WHOLE SHIFT: BED IN LOWEST, LOCKED POSITION; CALL LIGHT WITHIN REACH. WILL ENDORSE CARE TO MORNING SHIFT NURSE.
--- NOTE | 2020-12-03 07:45 | NUR ---
MS RN OPENING NOTE RECEIVED PATIENT IN ROOM, AWAKE A/O X 4. CLINICAL TRIAL PATIENT. PATIENT IS CALM AND COOPERATIVE AT THIS TIME. NO DISTRESS NOTED. NO C/O PAIN OR DISCOMFORT. SAFETY MEASURES IMPLEMENTED. ENCOURAGED PATIENT TO CALL IF NEEDED. WILL CONTINUE TO MONITOR.
[2020-12-03] MEDS: MAGNESIUM HYDROXIDE 30 ML UDC PO PRN (15:14)
[2020-12-03 16:00] VITALS: BP 107/64
--- NOTE | 2020-12-03 19:36 | NUR ---
MS BAUMANN NOTES PATIENT WAS LAST SEEN AWAKE IN HIS ROOM PATIENT IS A/OX4. PATIENT IS ON ROOM AIR AND IN NO RESPIRATORY DISTRESS. SAFETY PRECAUTIONS ARE KEPT IN PLACE. BED IS LOCKED. CALL LIGHT IS WITHIN REACH. WILL CONTINUE TO MONITOR THE PATIENT. Addendum: 12/03/20 at 1938 by MITZY SWANSON RN MS BAUMANN OPENING NOTES
[2020-12-03 20:00] VITALS: BP 137/80
[2020-12-03] MEDS: [UNRECOGNIZED DRUG - OTHER] PO SCH (20:09)
[2020-12-03] MEDS: [UNRECOGNIZED DRUG - OTHER] PO SCH (20:09)
[2020-12-03] MEDS: [UNRECOGNIZED DRUG - OTHER] PO SCH (20:09)
--- NOTE | 2020-12-04 07:50 | NUR ---
MS RN OPENING NOTE RECEIVED PATIENT AWAKE A/O X 4. CLINICAL TRIAL PATIENT. PATIENT IS CALM AND COOPERATIVE AT THIS TIME. NO DISTRESS NOTED. NO C/O PAIN OR DISCOMFORT. SAFETY MEASURES IMPLEMENTED. ENCOURAGED PATIENT TO CALL IF NEEDED. WILL CONTINUE TO MONITOR.
[2020-12-04 08:00] VITALS: BP 136/72
--- NOTE | 2020-12-04 09:00 | NUR ---
MS RN NOTES PATIENT IS OUT IN THE UNIT.
--- NOTE | 2020-12-04 12:20 | NUR ---
MS RN NOTES PATIENT CAME BACK TO THE UNIT AT 12:20 PM. WILL CONTINUE TO MONITOR.
[2020-12-04] MEDS: MAGNESIUM HYDROXIDE 30 ML UDC PO PRN (18:55)
[2020-12-04] MEDS: IBUPROFEN 200 MG TABLET PO PRN (18:55)
--- NOTE | 2020-12-04 18:58 | NUR ---
MS RN CLOSING NOTE PATIENT IS ALERT AND ORIENTED X4. ABLE TO MAKE NEEDS KNOWN. ALL NEEDS ATTENDED. NO REPORTED S/S OF AKATHISIA, PSYCH INSTABILITY OR EXTRA PYRAMIDAL SYMPTOMS THROUGHOUT THE SHIFT. SAFETY KEPT IN PLACE THE WHOLE SHIFT: BED IN LOWEST, LOCKED POSITION; CALL LIGHT WITHIN REACH. WILL ENDORSE TO NEXT SHIFT FOR CONTINUITY OF CARE.
--- NOTE | 2020-12-04 19:01 | NUR ---
MS/RN NOTES PATIENT COMPLAINED OF LEFT NECK PAIN AND CONSTIPATION. MOTRIN 600MG AND MILK OF MAGNESIA PRN GIVEN PO TO ADDRESS THE PROBLEMS. WILL ENDORSE TO THE NEXT SHIFT.
--- NOTE | 2020-12-04 19:40 | NUR ---
MS/RN OPENING NOTE RECEIVED PATIENT WALKING AROUND IN ROOM. ALERT AND ORIENTED X 4. ABLE TO MAKE NEEDS KNOWN. NO COMPLAINTS OF PAIN AT THIS TIME. NO IV ACCESS NOTED. CONTINUES ON CLINICAL TRIAL AND INVESTIGATIONAL MEDICATIONS. CALL LIGHT WITHIN REACH. ASPIRATION, FALL AND SAFETY PRECAUTIONS MAINTAINED. WILL CONTINUE TO MONITOR.
[2020-12-04 20:00] VITALS: BP 129/79
[2020-12-04] MEDS: [UNRECOGNIZED DRUG - OTHER] PO SCH (20:53)
[2020-12-04] MEDS: [UNRECOGNIZED DRUG - OTHER] PO SCH (20:54)
[2020-12-04] MEDS: [UNRECOGNIZED DRUG - OTHER] PO SCH (20:54)
--- NOTE | 2020-12-05 06:05 | NUR ---
MS/RN CLOSING NOTE PATIENT CURRENTLY RESTING IN BED. AWAKE, ALERT AND ORIENTED X 4. ABLE TO MAKE NEEDS KNOWN. NO COMPLAINTS OF PAIN AT THIS TIME. NO IV ACCESS NOTED. PATIENT STATES HE HAD 2 SMALL, HARD BM'S LAST NIGHT. REQUESTING DAILY STOOL SOFTENER - WILL ENDORSE TO AM SHIFT RN. PATIENT CONTINUES ON CLINICAL TRIAL AND INVESTIGATIONAL MEDICATIONS. CALL LIGHT WITHIN REACH. ASPIRATION, FALL AND SAFETY PRECAUTIONS MAINTAINED. WILL ENDORSE PLAN OF CARE TO ONCOMING SHIFT.
--- NOTE | 2020-12-05 07:50 | NUR ---
MS RN OPENING NOTE RECEIVED PATIENT AWAKE A/O X 4. A CLINICAL TRIAL PATIENT. PATIENT IS CALM AND COOPERATIVE AT THIS TIME. NO DISTRESS NOTED. NO C/O PAIN OR DISCOMFORT. SAFETY MEASURES IMPLEMENTED. ENCOURAGED PATIENT TO CALL IF NEEDED. WILL CONTINUE TO MONITOR.
[2020-12-05 08:00] VITALS: BP 137/89
[2020-12-05] MEDS: MAGNESIUM HYDROXIDE 30 ML UDC PO PRN ×2 (13:17→16:53)
--- NOTE | 2020-12-05 19:15 | NUR ---
MS RN OPENING NOTES: RECEIVED PATIENT IN BED, AWAKE. A/O X4. NO S/S OF DISTRESS NOTED. BED IN LOWEST AND LOCKED POSITION.
--- NOTE | 2020-12-05 19:42 | NUR ---
PER OK SERVIN, PATIENT REFUSED THE V/S TO BE TAKEN.
[2020-12-05] MEDS: [UNRECOGNIZED DRUG - OTHER] PO SCH (21:21)
[2020-12-05] MEDS: [UNRECOGNIZED DRUG - OTHER] PO SCH (21:21)
[2020-12-05] MEDS: [UNRECOGNIZED DRUG - OTHER] PO SCH (21:21)
[2020-12-06 16:00] VITALS: BP 123/81
--- NOTE | 2020-12-06 18:17 | NUR ---
RN CLOSING NOTE PT IS AWAKE AND RESTING IN A CHAIR. A/O X3 AND STATELESS SPEAKING. STUTTER OCCASIONALLY. ON RA WITH NO SOB OR RESPIRATORY DISTRESS PRESENT. AMBULATORY WITH BATHROOM PRIVILEGES. SKIN IS INTACT. SOME ITCHING ON LEFT SHOULDER AND THIGH PRESENT. NO IV ACCESS NOTED. NO REQUEST FOR PRN MEDS DURING SHIFT. SAFETY MEASURES IN PLACE. SIDE RAILS RAISED. BED LOWERED. CALL LIGHT WITHIN REACH. WILL GIVE REPORT TO NIGHT NURSE FOR [facility]
--- NOTE | 2020-12-06 19:47 | NUR ---
MS RN OPENING NOTES PATIENT IN ROOM. A/OX4. NO S/S OF DISTRESS. NO C/O OF PAIN AT THE MOMENT. SAFETY IN PLACE: BED IN LOWEST, LOCKED POSITION; CALL LIGHT WITHIN REACH. INVESTIGATIONAL DRUGS IN CASSETTE. WILL CONTINUE TO MONITOR.
[2020-12-06 20:00] VITALS: BP 135/69
[2020-12-06] MEDS: [UNRECOGNIZED DRUG - OTHER] PO SCH (20:56)
[2020-12-06] MEDS: [UNRECOGNIZED DRUG - OTHER] PO SCH (20:56)
[2020-12-06] MEDS: [UNRECOGNIZED DRUG - OTHER] PO SCH (20:56)
[2020-12-06 23:32] VITALS: BP 135/69
--- NOTE | 2020-12-07 07:00 | NUR ---
RN CLOSING NOTES PATIENT IN BED. A/OX4. PATIENT DID NOT EXHIBIT S/S OF AKATHISIA, EPS, NOR PSYCH INSTABILITY THROUGHOUT THE SHIFT. INVESTIGATIONAL DRUGS ADMINISTERED. PLASTIC ZIPLOCK BAGS IN CASSETTE. SAFETY KEPT IN PLACE THE WHOLE SHIFT. WILL ENDORSE CARE TO MORNING SHIFT NURSE.
[2020-12-07 08:00] VITALS: BP 149/80
[2020-12-07 16:00] VITALS: BP 124/78
--- NOTE | 2020-12-07 18:28 | NUR ---
MS RN CLOSING NOTE PATIENT CURRENTLY SITTING IN BED, AWAKE, LISTENING TO MUSIC. A/O X4. ON ROOM AIR. CLINICAL TRIAL PATIENT. NO PAIN OR DISTRESS NOTED. BREATHING EVEN AND UNLABORED. AMBULATORY. NO AKATHISIA OR TREMORS OBSERVED THIS SHIFT. PATIENT CALM AND COOPERATIVE THROUGHOUT SHIFT. INVESTIGATIONAL DRUGS IN CASETTE. SAFETY PRECAUTIONS IMPLEMENTED. CALL LIGHT WITHIN REACH. WILL ENDORSE TO ANIMAL CONTROL SUPERVISOR NURSE FOR N[place]IA.
--- NOTE | 2020-12-07 19:17 | NUR ---
MS/TELE/RN RECEIVED PATIENT IN ROOM AWAKE, ALERT, ORIENTED, COMFORTABLE, NO C/O PAIN, NO DISTRESS NOTE, INSTRUCTED PATIENT NOT TO EAT OR DRINK 2.5 HOURS BEFORE AND AFTER TAKING HIS INVESTIGATIONAL MEDICATION AT 2100. PATIENT VERBALIZED UNDERSTANDING. PER PATIENT HE HAS NOT EATEN YET THIS AFTERNOON HE JUST WOKE UP.
[2020-12-07 20:00] VITALS: BP 133/76
[2020-12-07] MEDS: [UNRECOGNIZED DRUG - OTHER] PO SCH (20:57)
[2020-12-07] MEDS: [UNRECOGNIZED DRUG - OTHER] PO SCH (20:58)
[2020-12-07] MEDS: [UNRECOGNIZED DRUG - OTHER] PO SCH (20:58)
--- NOTE | 2020-12-08 06:26 | NUR ---
MS/TELE/RN PATIENT IS STILL SLEEPING AT THIS TIME, APPEAR COMFORTABLE, NO SIGNS OF DISTRESS NOTED, GOOD SLEEP NOTED DURING THE SHIFT, ALL NEEDS ATTENDED AT THIS TIME, WILL CONTINUE TO MONITOR.
[2020-12-08 08:00] VITALS: BP 143/96
--- NOTE | 2020-12-08 08:00 | NUR ---
RN OPENING NOTE RECEIVED PATIENT IN BED, AO X4, ABLE TO RESPONDS ALL STIMULI. NO IS/IH BEHAVIOR OBSERVED THIS MORNING. SKIN IS WARM TO TOUCH, KEEP CLEAN/DRY. RESPIRATORY EVEN AND UNLABORED ON ROOM AIR. KEPT ELEVATED HOB FOR ENSURE AIRWAY AND ASPIRATION PRECAUTION, ALSO LOWEST BED POSITION AND BED ALARM IS ON AT ALL THE TIMES FOR SAFETY. CALL LIGHT WITHIN REACH, WILL CONTINUE TO MONITOR.
[2020-12-08 16:00] VITALS: BP 131/80
--- NOTE | 2020-12-08 18:37 | NUR ---
RN CLOSING NOTE PATIENT IN BED RESTING, REMAINS AO X 4, NO SI/HI OBSERVED. SKIN IS WARM TO TOUCH, KEEP CLEAN/DRY. RESPIRATORY EVEN AND UNLABORED IN ROOM AIR. KEPT ELEVATED HOB FOR ENSURE AIRWAY AND ASPIRATION PRECAUTION, ALSO LOWEST BED POSITION FOR SAFETY, PATIENT REMAINDERED NOTHING BY MOUTH 2.5 HOURS BEFORE/AFTER INVESTIGATIONAL DRUG. CALL LIGHT WITHIN REACH, WILL ENDORSE VAT PACKER.
--- NOTE | 2020-12-08 19:05 | NUR ---
RN NOTES: -UPON ENDORSEMENT HE WAS WATCHING TV IN IS BED ROOM, A/OX4, ORIENTED TO UNIT AND STAFF, RN REMIND HIM REGARDING HIS MEDICATION INSTRUCTION:NPO FROM 1830PM TO 2100 (2.5H) PRIOR TO HIS MEDICATION, THEN AT 2100 AFTER HIS MEDICATION HE WILL BE NPO AGAIN FROM [id number](2.5H). HE IS AWARE, FURTHERMORE, THERE IS ALSO A WRITTEN INSTRUCTION TAPE ON HIS BOARD. -FALL,SAFETY PRECAUTION OBSERVED.
[2020-12-08 20:00] VITALS: BP 156/88
--- NOTE | 2020-12-08 20:04 | NUR ---
RN NOTES: AMBULATORY, WALKING AROUND THE UNIT.
--- NOTE | 2020-12-08 21:13 | NUR ---
RN NOTES: AT 2100 PATIENT DID NOT RETURN BACK TO HIS ROOM, CN NOTIFIED ALSO THE GUARD, THEY WILL TELL HIM TO GO UP ONCE THEY SAW HIM, STILL AWAITING FOR PATIENT.
--- NOTE | 2020-12-08 21:43 | NUR ---
RN NOTES: HE APOLOGIZED HE WAS LATE HE WAS DOWNSTAIR, RN TOLD HIM THAT WE CALLED THE GUARD TO LOOK FOR HIM. LET HIM REST AND MEDICATION GIVEN.
[2020-12-08] MEDS: [UNRECOGNIZED DRUG - OTHER] PO SCH (21:45)
[2020-12-08] MEDS: [UNRECOGNIZED DRUG - OTHER] PO SCH (21:45)
[2020-12-08] MEDS: [UNRECOGNIZED DRUG - OTHER] PO SCH (21:45)
--- NOTE | 2020-12-08 21:51 | NUR ---
RN NOTES: ALL DUE MEDICATION GIVEN, REMIND NOT TO EAT FOR 2.5H.
--- NOTE | 2020-12-08 21:55 | NUR ---
RN NOTES: V/S CHECKED BP-156/88 HI-89 RR-20 T-98.1 SPO2-92%RA
--- NOTE | 2020-12-08 23:38 | NUR ---
RN NOTES: ASK PERMISSION TO GO DOWN IN THE SMOKING DESIGNATED AREA OUTSIDE, NEAR THE GUARD.INSTRUCT TO COME BACK AND LET THE RN KNOW.
--- NOTE | 2020-12-08 23:54 | NUR ---
RN NOTES: HE CAME BACK AND NOTIFIED THE RN, ENCOURAGE TO SLEEP AND REST.
--- NOTE | 2020-12-09 05:02 | NUR ---
RN NOTES: ABLE TO SLEEP AND REST, KEPT CALL LIGHT WITHIN EASY REACH.
--- NOTE | 2020-12-09 07:00 | NUR ---
RN NOTES: ASLEEP IN THE NIGHT, NO SIGN AKATHISIA,NO RESTLESSNESS OR ANXIETY IN THE ENTIRE SHIFT,ENDORSED FOR CONTINUITY OF CARE.
--- NOTE | 2020-12-09 08:05 | NUR ---
RN OPENING NOTES PT AAOX4, ON CLINICAL TRIAL. NO SOB NOTED. DENIES PAIN AND DISCOMFORT. SKIN REMAINS INTACT. NO EPS ASSESSED. DENIES AH/VH/SI/HI. COOPERATIVE WITH CARE. CALL LIGHT WITHIN REACHED, BED IN LOW LOCKED POSITION. WILL CONTINUE TO MONITOR CARE.
[2020-12-09 16:00] VITALS: BP 114/65
--- NOTE | 2020-12-09 18:29 | NUR ---
RN CLOSING NOTES PT AAOX4, NO NGHIA. ON CLINICAL TRIAL. NO SOB NOTED. DENIES PAIN AND DISCOMFORT. SKIN REMAINS INTACT. LBM TODAY. NO EPS ASSESSED. DENIES AH/VH/SI/HI. COOPERATIVE WITH CARE. CALL LIGHT WITHIN REACHED, BED IN LOW LOCKED POSITION. ENDORSED CARE TO NEXT SHIFT WITH STANDARD INSTRUCTION FROM CLINICAL TRIAL.
--- NOTE | 2020-12-09 19:31 | NUR ---
MS RN OPENING NOTES PATIENT A/OX4; ABLE TO MAKE NEEDS KNOWN. DENIES PAIN OR DISCOMFORT. ON ROOM AIR; TOLERATING WELL WITH NO SOB. SAFETY MEASURES IN PLACE: BED IN LOWEST LOCKED POSITION, CALL LIGHT WITHIN EASY REACH, SIDE RAILS UPX2. PATIENT MEDICALLY STABLE AT THIS TIME. WILL MONITOR FOR ANY BEHAVIORS.
[2020-12-09 20:00] VITALS: BP 110/57
--- NOTE | 2020-12-09 20:33 | NUR ---
MS NOTE PATIENT IS OUT OF ROOM. WENT DOWN THE ELEVATOR.
--- NOTE | 2020-12-09 21:05 | NUR ---
MS RN NOTE PATIENT RETURNED TO ROOM
[2020-12-09] MEDS: [UNRECOGNIZED DRUG - OTHER] PO SCH (21:42)
[2020-12-09] MEDS: [UNRECOGNIZED DRUG - OTHER] PO SCH (21:42)
[2020-12-09] MEDS: [UNRECOGNIZED DRUG - OTHER] PO SCH (21:42)
--- NOTE | 2020-12-10 07:35 | NUR ---
MS RN CLOSING NOTES PATIENT IN BED, A/OX4; ABLE TO MAKE NEEDS KNOWN. DENIES PAIN OR DISCOMFORT. ON ROOM AIR; TOLERATING WELL WITH NO SOB. PATIENT DENIES ANY SIDE EFFECTS TO MEDICATIONS. SAFETY MEASURES IN PLACE: BED IN LOWEST LOCKED POSITION, CALL LIGHT WITHIN EASY REACH. PATIENT MEDICALLY STABLE AT THIS TIME, WILL ENDORSE PLAN OF CARE TO ONCOMING MORNING RN.
--- NOTE | 2020-12-10 07:48 | NUR ---
RN OPENING NOTE PATIENT IS IN BED RESTING, PATIENT IS NO ACUTE DISTRESS, PATIENT IS ON ROOM AIR TOLERATING WELL. SAFETY PRECAUTIONS ARE ON, BED IS LOCKED AND IN THE LOWEST POSITION, WITH SIDE RAILS UP, CALL LIGHT WITHIN REACH. WILL CONTINUE TO MONITOR THROUGHOUT THE SHIFT.
--- NOTE | 2020-12-10 18:54 | NUR ---
RN CLOSING NOTE PATIENT IS IN BED RESTING, PATIENT IS NO ACUTE DISTRESS, PATIENT IS ON ROOM AIR TOLERATING WELL. SAFETY PRECAUTIONS ARE ON, BED IS LOCKED AND IN THE LOWEST POSITION, WITH SIDE RAILS UP, CALL LIGHT WITHIN REACH. ENDORSE PATIENT TO BACKHAUL DRIVER NURSE FOR N[place]IA.
--- NOTE | 2020-12-10 19:23 | NUR ---
MS RN NOTE PATIENT NOT IN THE ROOM ON THE CHANGE OF SHIFT. SAFETY IN PLACE: BED IN LOCKED, LOWEST POSITION. CALL LIGHT WITHIN REACH.
--- NOTE | 2020-12-10 21:02 | NUR ---
MS RN NOTES PATIENT STILL NOT BACK. REPORTED TO CHARGE NURSE. TOLD CHARGE NURSE THAT PER PASTOR MONTES SHE HAS NOT SEEN THE PATIENT IN THE AM, AND THE PATIENT WAS NOT HERE ON THE N[place]IA REPORT TOO. MEDICATION NOT ADMINISTERED AT 2100.
[2020-12-10] MEDS: [UNRECOGNIZED DRUG - OTHER] PO SCH (21:33)
[2020-12-10] MEDS: [UNRECOGNIZED DRUG - OTHER] PO SCH (21:33)
[2020-12-10] MEDS: [UNRECOGNIZED DRUG - OTHER] PO SCH (21:33)
--- NOTE | 2020-12-10 21:35 | NUR ---
MS RN NOTES PATIENT JUST CAME BACK. A/OX4. PER PATIENT HE THOUGHT THE LAST TIME HE NEEDED TO TAKE THE MEDICATIONS WAS YESTERDAY NIGHT. EDUCATED PATIENT AND HE SAID HE UNDERSTANDS.
--- NOTE | 2020-12-11 06:18 | NUR ---
MS RN NOTES PATIENT WENT OUT BUT I WAS ABLE TO SEE HIM AND TELL HIM HE IS DISCHARGING TODAY. A/OX4. PATIENT IS GETTING DISCHARGE TODAY PER DR. ALY. NO DISCHARGE ORDER YET IN THE SYSTEM. EXIT CARE DONE JUST NEED TO PRINT OUT BECAUSE MEDS HAVE NOT BEEN FINALIZED. PATIENT MEDICALLY STABLE. DID NOT EXHIBIT ANY S/S OF AKATHISIA, EPS, NOR ANY PSYCH INSTABILITY IN MY SHIFT. LAST INVESTIGATIONAL DRUGS GIVEN. PER PATIENT HE DOES NOT HAVE ANYMORE VALUABLES/MONEY IN THE SAFE. SAFETY KEPT IN PLACE THE WHOLE SHIFT. WILL ENDORSE CARE TO MORNING NURSE.
--- NOTE | 2020-12-11 11:05 | NUR ---
MS CLINICAL RESEARCH MONITOR NOTE PATIENT IS MEDICALLY STABLE TO BE DISCHARGED. PATIENT IN IN NO ACUTE DISTRESS. DISCHARGE INSTRUCTIONS PROVIDED, PATIENT VERBALIZED UNDERSTANDING. DISCHARGE PAPERS AND BELONGINGS LIST SIGNED, PATIENTS ID BAND REMOVED. PATIENT LEFT VIA TAXI. DR. WRIGHT IS AWARE OF DISCHARGE.
== END 2020-12-11 11:05 | disposition home or self-care (01) | DRG 951 ==
LOC: MED 09:47
PROVIDERS: ADMIT Psychiatry & Neurology Psychiatry; ATTEND Psychiatry & Neurology Psychiatry
DX: Z00.6 Encounter for examination for normal comparison and control in clinical research program (principal); F20.0 Paranoid schizophrenia; F12.90 Cannabis use, unspecified, uncomplicated; G43.909 Migraine, unspecified, not intractable, without status migrainosus; Z86.79 Personal history of other diseases of the circulatory system; Z81.8 Family history of other mental and behavioral disorders
CPT/HCPCS: 87081-TC; G0378

== ENCOUNTER 2021-04-25 11:33 | Inpatient (IN) | payer OTHER ==
[~2021-04-25] VITALS: Ht 177.8 cm; Wt 104.3 kg
--- NOTE | 2021-04-25 07:30 | NUR ---
MS RN OPENING NOTES RECEIVED PATIENT FROM FOR CLINICAL TRIAL. ON ROOM AIR TOLERATING WELL WITHOUT SOB. NOT IN DISTRESS. WITH NO COMPLAINTS OF PAIN AT THIS TIME. WITH NO IV ACCESS. SAFETY MEASURES IN PLACED. CALL LIGHT WITHIN REACH. BED ON LOWEST AND LOCKED POSITION. SIDE RAILS UP X2. WILL CONTINUE TO MONITOR.
--- NOTE | 2021-04-25 07:30 | NUR ---
MS RN OPENING NOTES RECEIVED PATIENT ON CLINICAL TRIAL, AWAKE AND A/O X4. ON ROOM AIR TOLERATING WELL WITHOUT SOB. NOT IN DISTRESS. WITH NO COMPLAINTS OF PAIN AT THIS TIME. WITH NO IV ACCESS. SAFETY MEASURES IN PLACED. CALL LIGHT WITHIN REACH. BED ON LOWEST AND LOCKED POSITION. SIDE RAILS UP X2. WILL CONTINUE TO MONITOR.
[~2021-04-25 11:33] MED LIST changes: +ALPR2TAB7 PO; +ARIP10TA57 PO; -CHLO25TA13 PO; -CHLO50TA24 PO
[2021-04-25] MEDS ORDERED: MAGNESIUM HYDROXIDE 30 ML UDC PO PRN (15:00)
[2021-04-25] MEDS ORDERED: IBUPROFEN 200 MG TABLET PO PRN (15:00)
[2021-04-25] MEDS ORDERED: ZOLPIDEM TARTRATE 10 MG TABLET PO PRN (15:00)
[2021-04-25] MEDS ORDERED: ACETAMINOPHEN ES 500 MG TABLET PO PRN (15:00)
[2021-04-25] MEDS ORDERED: MAG HYDROX/AL HYDROX/SIMETH 30 ML UDC PO PRN (15:00)
[2021-04-25] MEDS ORDERED: LORAZEPAM 1 MG TABLET PO PRN (15:00)
--- NOTE | 2021-04-25 15:00 | NUR ---
MS CLINICAL CODER NOTES RECEIVED PATIENT FROM ER FOR CLINICAL TRIAL. ON ROOM JOANN TOLERATING WELL WITHOUT SON. NOT IN DISTRESS. WITH NO COMPLAINTS OF PAIN AT THIS TIME. WITH NO IV ACCESS. SKIN ASSESSMENT DONE-INTACT. SAFETY MEASURES IN PLACED. CALL LIGHT WITHIN REACH. BED ON LOWEST AND LOCKED POSITION. SIDE RAILS UP X2. WILL CONTINUE TO MONITOR.
--- NOTE | 2021-04-25 19:30 | NUR ---
MS RN CLOSING NOTES PATIENT ON CLINICAL TRIAL. ON ROOM AIR TOLERATING WELL WITHOUT SOB. NOT IN DISTRESS. WITH NO COMPLAINTS OF PAIN AT THIS TIME. WITH NO IV ACCESS. SAFETY MEASURES IN PLACED. CALL LIGHT WITHIN REACH. BED ON LOWEST AND LOCKED POSITION. SIDE RAILS UP X2. WILL ENDORSE TO NEXT SHIFT FOR N[place]IA.
--- NOTE | 2021-04-25 19:30 | NUR ---
MS RN CLOSING NOTES PATIENT FROM FOR CLINICAL TRIAL. ON ROOM AIR TOLERATING WELL WITHOUT SOB. NOT IN DISTRESS. WITH NO COMPLAINTS OF PAIN AT THIS TIME. WITH NO IV ACCESS. DUE MEDS GIVEN SAFETY MEASURES IN PLACED. CALL LIGHT WITHIN REACH. BED ON LOWEST AND LOCKED POSITION. SIDE RAILS UP X2. WILL ENDORSE TO NEXT SHIFT FOR N[place]IA.
--- NOTE | 2021-04-25 20:22 | NUR ---
MS RN OPENING NOTES RECEIVED PT IN BED, RESTING WITH EYES CLOSED, AWAKENS TO VERBAL STIMULI. PT IS AOx4. ABLE TO MAKE NEEDS KNOWN. CLINICAL TRIAL PATIENT. NO IV ACCESS. SAFETY PRECAUTIONS IN PLACE: BED IN LOWEST, LOCKED POSITION, BRAKES ON, SIDERAILS UPx2. TABLE AND CALL LIGHT WITHIN REACH. WILL CONTINUE TO MONITOR.
[2021-04-25 20:26] VITALS: BP 126/76
--- NOTE | 2021-04-26 06:24 | NUR ---
MS RN CLOSING NOTES RECEIVED PT IN BED, SLEEPING, AWAKENS TO VERBAL STIMULI. PT IS AOx4. ABLE TO MAKE NEEDS KNOWN. CLINICAL TRIAL PATIENT. NO IV ACCESS. ALL NEEDS MET. PT KEPT CLEAN AND DRY. SAFETY PRECAUTIONS IN PLACE: BED IN LOWEST, LOCKED POSITION, BRAKES ON, SIDERAILS UPx2. TABLE AND CALL LIGHT WITHIN REACH. WILL ENDORSE TO ONCOMING SHIFT.
--- NOTE | 2021-04-26 07:15 | NUR ---
MS RN OPENING NOTES RECEIVED PT ON BED, AWAKE AOx4. ABLE TO MAKE NEEDS KNOWN. CLINICAL TRIAL PATIENT. NO IV ACCESS. SAFETY PRECAUTIONS IN PLACE: BED IN LOWEST, LOCKED POSITION, BRAKES ON, SIDERAILS UPx2. TABLE AND CALL LIGHT WITHIN REACH. WILL CONTINUE TO MONITOR.
[2021-04-26 08:23] VITALS: BP 122/68
--- NOTE | 2021-04-26 16:00 | NUR ---
MS RN NOTE SEEN BY DR. ALY.
[2021-04-26 16:21] VITALS: BP 132/76
--- NOTE | 2021-04-26 19:00 | NUR ---
MS RN CLOSING NOTES PT ON BED, AWAKE AOx4. ABLE TO MAKE NEEDS KNOWN. CLINICAL TRIAL PATIENT. NO IV ACCESS. SAFETY PRECAUTIONS IN PLACE: BED IN LOWEST, LOCKED POSITION, BRAKES ON, SIDERAILS UPx2. TABLE AND CALL LIGHT WITHIN REACH. WILL CONTINUE TO MONITOR.
[2021-04-26 20:00] VITALS: BP 120/61
--- NOTE | 2021-04-26 20:02 | NUR ---
MS RN OPENING NOTE PT A/OX4; IN BED, ABLE TO MAKE NEEDS KNOWN. TOLERATING ROOM AIR WELL WITH NO SOB. DENIES PAIN OR DISCOMFORT AT THIS TIME. NO IV ACCESS. ALL NEEDS MET. SAFETY MEASURES IN PLACE: BED IS LOWEST LOCKED POSITION, SR UPX2, CALL LIGHT WITHIN EASY REACH. PT IN STABLE CONDITION, WILL CONTINUE PLAN OF CARE.
--- NOTE | 2021-04-27 05:59 | NUR ---
MS RN OPENING NOTE PT A/OX4; PT WENT DOWN ELEVATOR, ABLE TO MAKE NEEDS KNOWN. TOLERATING ROOM AIR WELL WITH NO SOB. DENIES PAIN OR DISCOMFORT AT THIS TIME. NO IV ACCESS. ALL NEEDS MET. SAFETY MEASURES IN PLACE: BED IS LOWEST LOCKED POSITION, SR UPX2, CALL LIGHT WITHIN EASY REACH. PT IN STABLE CONDITION, WILL ENDORSE PLAN OF CARE.
--- NOTE | 2021-04-27 06:00 | NUR ---
MS RN CLOSING NOTE PT A/OX4; PT WENT DOWN ELEVATOR, ABLE TO MAKE NEEDS KNOWN. TOLERATING ROOM AIR WELL WITH NO SOB. DENIES PAIN OR DISCOMFORT AT THIS TIME. NO IV ACCESS. ALL NEEDS MET. SAFETY MEASURES IN PLACE: BED IS LOWEST LOCKED POSITION, SR UPX2, CALL LIGHT WITHIN EASY REACH. PT IN STABLE CONDITION, WILL ENDORSE PLAN OF CARE.
--- NOTE | 2021-04-27 08:01 | NUR ---
MS RN OPENING NOTES PATIENT IN HIS ROOM, SLEEPING. BREATHING EVEN AND UNLABORED. SAFETY PRECAUTIONS IN PLACE. WILL CONTINUE TO MONITOR PATIENT.
[2021-04-27 16:00] VITALS: BP 132/80
--- NOTE | 2021-04-27 18:34 | NUR ---
MS RN CLOSING NOTE PT A/OX4, ABLE TO MAKE NEEDS KNOWN. TOLERATING ROOM AIR WELL WITH NO SOB. DENIES PAIN OR DISCOMFORT AT THIS TIME. NO IV ACCESS. ALL NEEDS MET. SAFETY MEASURES IN PLACE: BED IS LOWEST LOCKED POSITION, SR UPX2, CALL LIGHT WITHIN EASY REACH. PT IN STABLE CONDITION, WILL ENDORSE PLAN OF CARE.
[2021-04-27 20:00] VITALS: BP 108/55
--- NOTE | 2021-04-27 20:30 | NUR ---
PT ON CLINICAL TRIAL A/OX4; IN BED, ABLE TO MAKE NEEDS KNOWN. TOLERATING ROOM AIR WELL WITH NO SOB. DENIES PAIN OR DISCOMFORT AT THIS TIME. NO IV ACCESS. ALL NEEDS MET. SAFETY MEASURES IN PLACE: BED IS LOWEST LOCKED POSITION, SR UPX2, CALL LIGHT WITHIN EASY REACH. PT IN STABLE CONDITION, WILL CONTINUE PLAN OF CARE
--- NOTE | 2021-04-28 08:04 | NUR ---
MS/RN OPENING NOTES RECEIVED PATIENT RESTING ON BED AWAKE,ALERT AND ORIENTED X4. PATIENT IS ON ROOM AIR. PATIENT IN NO APPARENT RESPIRATORY DISTRESS NOTED.NO S/S DISTRESS NOTED NO COMPLAINED OF PAIN NOTED AT THIS TIME. WILL CONTINUE TO MONITOR.
[2021-04-28 08:22] VITALS: BP 124/68
[2021-04-28 20:00] VITALS: BP 124/66
--- NOTE | 2021-04-28 20:12 | NUR ---
GPS RN NOTES: RECEIVED PATIENT IN ROOM, AWAKE, ALERT AND ORIENTED X4. APPROPRIATE AFFECT, CALM AND COOPERATIVE. NO S/S OF DISTRESS, RESPIRATION EVEN AND UNLABORED WITH EQUAL RISE AND FALL OF THE CHEST ON ROOM AIR, SPO2 96%. OFFERED FLUID AND SNACKS TOLERATED. WILL CONTINUE TO MONITOR FOR SAFETY, MOOD AND BEHAVIOR.
--- NOTE | 2021-04-29 07:16 | NUR ---
GPS RN CLOSING NOTES: PATIENT IS LAYING COMFORTABLY IN BED, AWAKE, A/O X4. PATIENT HAS NO S/S OF DISTRESS. RESPIRATION EVEN AND UNLABORED WITH EQUAL RISE AND FALL OF THE CHEST, ON ROOM AIR. ALL PATIENT CARE NEEDS HAVE BEEN MET ANTICIPATED. WILL CONTINUE TO MONITOR AND ENDORSE TO AM SHIFT FOR CONTINUITY OF CARE.
--- NOTE | 2021-04-29 07:30 | NUR ---
PT RECEIVED RESTING COMFORTABLY IN BED. NO S/S OR C/O PAIN OR DISTRESS NOTED. SIDE RAILS UP X2, CALL LIGHT LEFT WITHIN REACH. WILL CONTINUE PLAN OF CARE.
[2021-04-29 08:00] VITALS: BP 128/75
[2021-04-29 16:00] VITALS: BP_SYST 107; BP_SYST 119; BP_DIAS 62; BP_DIAS 74
--- NOTE | 2021-04-29 18:39 | NUR ---
CHANGE OF SHIFT REPORT PT RESTING COMFORTABLY IN BED WITH EYES CLOSED. NO S/S OR C/O PAIN OR DISTRESS NOTED. SIDE RAILS UP X2, CALL LIGHT LEFT WITHIN REACH. PT KEPT CLEAN, DRY, AND COMFORTABLE. NO SIGNIFICANT CHANGES SINCE PREVIOUS SHIFT WILL GIVE REPORT TO RENAE RN.
--- NOTE | 2021-04-29 19:20 | NUR ---
MS RN OPENING NOTES RECEIVED PATIENT IN BED RESTING COMFORTABLY. ALERT AND ORIENTED X 4, NO S/SX OF ACUTE RESPIRATORY DISTRESS NOTED. PATIENT IS CALM, COOPERATIVE AND MED COMPLIANT. AMBULATORY WITH STEADY GAIT. NO IV ACCESS. ON ROOM AIR TOLERATING WELL. DENIES SI/HI/AVH AT THIS TIME. SAFETY PRECAUTIONS IN PLACE. BED ON LOWEST LOCKED POSITION, SIDE RAILS UP, KEPT CALL LIGHT WITHIN EASY REACH. NO S/SX OF EPS, AKATHISIA, ALL NEEDS ATTENDED AND MET. WILL CONTINUE TO MONITOR.
[2021-04-29 20:00] VITALS: BP 133/69
--- NOTE | 2021-04-30 06:27 | NUR ---
MS RN CLOSING NOTES PATIENT IN BED ASLEEP, AROUSES EASILY. IN NO ACUTE DISTRESS NOTED. SAFETY PRECAUTIONS IN PLACE. BED ON LOWEST LOCKED POSITION, SIDE RAILS UP, KEPT CALL LIGHT WITHIN EASY REACH. NO S/SX OF EPS, AKATHISIA, ALL NEEDS ATTENDED AND MET, DUE MEDS GIVEN ORDERED. WILL ENDORSE TO ONCOMING SHIFT FOR CONTINUITY OF CARE.
--- NOTE | 2021-04-30 07:30 | NUR ---
m/s japanese tutor: notes received pt in bed awake, a/ox4; ambulatory. no distress noted. instructed to call for assistance.
--- NOTE | 2021-04-30 08:00 | NUR ---
m/s kaiawhina: notes pt refused vital signs.
--- NOTE | 2021-04-30 12:00 | NUR ---
m/s parcel post officer: notes lunch served. pt left his room and used the back door per staff at this time. prior to leaving, pt stated, "i will eat the lunch later."
--- NOTE | 2021-04-30 13:00 | NUR ---
m/s strainer cleaner: notes rounds made, pt not in room.
--- NOTE | 2021-04-30 15:00 | NUR ---
m/s ticket agent: notes rounds made, pt not in room. cn aware.
--- NOTE | 2021-04-30 16:00 | NUR ---
m/s rn otolaryngology: notes rounds made, pt not in room. cn aware. will continue to monitor.
--- NOTE | 2021-04-30 16:40 | NUR ---
m/s director of communications: notes pt back in his room. left message to dr. rouse. reminded pt to sign out and in whenever he leaves.
--- NOTE | 2021-04-30 17:50 | NUR ---
m/s sound effects manager: md visit dr. rouse here and aware that pt is not signing out and in. md to talk to pt as stated.
[2021-04-30 20:00] VITALS: BP 139/86
--- NOTE | 2021-04-30 20:28 | NUR ---
COURT REGISTRY OFFICER OPENING NOTES RECEIVED PT IN BED, AWAKE. AOx4. ON RA AND TOLERATING WELL. NO SOB NOTED. NO S/SX OF RESPIRATORY DISTRESS NOTED. PT IS A CLINICAL TRIAL PATIENT. NO IV ACCESS. SAFETY PRECAUTIONS IN PLACE: BED IN LOWEST, LOCKED POSITION, BRAKES ON, SIDERAILS UPx2. CALL LIGHT AND TABLE WITHIN REACH. WILL CONTINUE TO MONITOR. Addendum: 05/01/21 at 0633 by IRINA SIDDIQI RN SHOULD BE MS RN OPENING NOTES.
--- NOTE | 2021-05-01 06:32 | NUR ---
MS RN CLOSING NOTES PT IN BED, ASLEEP, AWAKENS TO VERBAL STIMULI. AOx4. ON RA AND TOLERATING WELL. NO SOB NOTED. NO S/SX OF RESPIRATORY DISTRESS NOTED. PT IS A CLINICAL TRIAL PATIENT. NO IV ACCESS. ALL NEEDS MET. PT KEPT CLEAN AND DRY. SAFETY PRECAUTIONS IN PLACE: BED IN LOWEST, LOCKED POSITION, BRAKES ON, SIDERAILS UPx2. CALL LIGHT AND TABLE WITHIN REACH. WILL ENDORSE TO ONCOMING SHIFT.
--- NOTE | 2021-05-01 07:17 | NUR ---
RN NOTES PATIENT IS RESTING IN BED, AWAKE AND VERBALLY RESPONSIVE. A/Ox4, ABLE TO MAKE NEEDS KNOWN. BREATHING EVEN AND UNLABORED, ON ROOM AIR. ON CLINICAL TRIAL. SAFETY PRECAUTIONS IN PLACE: BED IN LOWEST, LOCKED POSITION, BRAKES ON, SIDERAILS UPx2. CALL LIGHT AND TABLE WITHIN REACH. WILL CONTINUE TO MONITOR.
[2021-05-01 08:00] VITALS: BP 131/78
--- NOTE | 2021-05-01 14:32 | NUR ---
RN NOTES PATIENT SEEN AMBULATING ALONG THE HALLWAY. REMINDED TO SIGN IN/OUT WHEN LEAVING AND RETURNING TO THE UNIT. PATIENT VERBALIZED UNDERSTANDING.
[2021-05-01 16:00] VITALS: BP 117/70
--- NOTE | 2021-05-01 19:00 | NUR ---
RN NOTES SEEN IN PATIENT'S ROOM RESTING, NOT IN ACUTE DISTRESS. NO ADVERSE CHANGE NOTED. SAFETY MEASURES MAINTAINED. WILL ENDORSE TO HEAD GROWER RN FOR [place].
--- NOTE | 2021-05-01 19:30 | NUR ---
RN OPENING NOTE PATIENT IN BED, WATCHING ON THE PHONE. CALM AND COOPERATIVE AT THIS TIME. BREATHING EVEN AND UNLABORED. NO REPORTS OF PAIN OR DISCOMFORT. SAFETY MEASURES IN PLACE: BED LOCKED AND IN LOWEST POSITION, CALL LIGHT WITHIN REACH, SIDE RAILS UP. WILL MONITOR PATIENT CLOSELY.
[2021-05-01 20:00] VITALS: BP 124/68
--- NOTE | 2021-05-02 07:25 | NUR ---
RN CLOSING NOTE PATIENT IN BED, CALM AND COOPERATIVE AT THIS TIME. BREATHING EVEN AND UNLABORED. NO REPORTS OF PAIN OR DISCOMFORT. ALL ORDERS CARRIED OUT. ALL NEEDS MET AND ATTENDED. ENDORSED TO DAY SHIFT RN.
--- NOTE | 2021-05-02 07:45 | NUR ---
MS RN OPENING NOTES RECEIVED PATIENT IN BED, AWAKE, CALM AND COOPERATIVE AT THIS TIME. BREATHING EVEN AND UNLABORED. NO REPORTS OF PAIN OR DISCOMFORT. SAFETY MEASURES IN PLACE: BED LOCKED AND IN LOWEST POSITION, CALL LIGHT WITHIN REACH, SIDE RAILS UP. WILL MONITOR PATIENT ACCORDINGLY.
[2021-05-02 08:00] VITALS: BP 111/59
[2021-05-02] MEDS ORDERED: ZOLPIDEM TARTRATE 10 MG TABLET PO PRN (13:00)
[2021-05-02] MEDS ORDERED: LORAZEPAM 1 MG TABLET PO PRN (13:00)
[2021-05-02 16:00] VITALS: BP 142/90
--- NOTE | 2021-05-02 18:27 | NUR ---
MS RN CLOSING NOTES PATIENT IN BED, CALM AND COOPERATIVE AT THIS TIME. BREATHING EVEN AND UNLABORED. NO REPORTS OF PAIN OR DISCOMFORT. NO S/SX OF EPS, AKATISHA, PSYCHIATRIC INSTABILITY NOTED. ALL ORDERS CARRIED OUT. ALL NEEDS MET AND ATTENDED. WILL ENDORSE TO ONCOMING SHIFT.
--- NOTE | 2021-05-02 19:00 | NUR ---
MS RN CT OPENING NOTE RECEIVED PT AWAKE IN BED AT THIS TIME. A/OX4. PT ABLE TO MAKE NEEDS KNOWN. NO SOB NOTED, NO C/O PAIN AT THIS TIME, NO S/S OF ANY ACUTE DISTRESS NOTED. RESPIRATIONS EVEN AND UNLABORED, STABLE ON RA. NO IV ACCESS IN PLACE. PT DENIES SI/HI, VISUAL/AUDITORY HALLUCINATION. NO C/O TREMORS, EPS, OR AKATHASIA. SAFETY PRECAUTIONS IN PLACE AND MAINTAINED AT ALL TIMES. BED IN LOWEST, LOCKED POSITION, HOB ELEVATED, SIDE RAILS UP X2, CALL LIGHT AND TABLE WITHIN REACH. WILL CONTINUE TO MONITOR
[2021-05-02 20:00] VITALS: BP 126/59
--- NOTE | 2021-05-03 06:19 | NUR ---
MS RN CT CLOSING NOTE PT RESTING IN BED COMFORTABLY IN BED AT THIS TIME, EASY TO AROUSE, PT REMAINED STABLE THROUGHOUT SHIFT. ALL NEEDS AND CARE MET; PT DENIES SI/HI, VISUAL/AUDITORY HALLUCINATION. NO C/O TREMORS, EPS, OR AKATHASIA. SAFETY PRECAUTIONS IN PLACE AND MAINTAINED AT ALL TIMES, BED IN LOWEST, LOCKED POSITION, SIDE RAILS UP X2, CALL LIGHT AND TABLE WITHIN REACH. WILL ENDORSE TO ONCOMING NURSE FOR [place].
[2021-05-03 08:00] VITALS: BP 135/94
--- NOTE | 2021-05-03 08:37 | NUR ---
MS RN OPENING NOTES RECEIVED PATIENT IN BED, AWAKE, A/O X4. WILL CONTINUE TO MONITOR.
[2021-05-03 16:00] VITALS: BP_SYST 109; BP_SYST 135; BP_DIAS 60; BP_DIAS 94
--- NOTE | 2021-05-03 18:30 | NUR ---
MS RN CLOSING NOTES PATIENT REMAINS IN BED, STABLE DURING THE DAY. A/O X4. ON ROOM AIR. SAFETY PRECAUTIONS IN PLACE; BED IN LOW POSITION AND LOCKED, RAILS UP X2, CALL LIGHT WITHIN REACH. WILL ENDORSE TO BRUSH WORKER NURSE.
[2021-05-03 20:00] VITALS: BP 125/72
--- NOTE | 2021-05-03 20:09 | NUR ---
MS RN OPENING NOTES: RECEIVED PATIENT RESTING IN BED, AWAKE, A/O X4. NO S/S OF DISTRESS NOTED. CALL LIGHT WITHIN REACH. BED IN LOWEST AND LOCKED POSITION. AMBULATORY.
--- NOTE | 2021-05-03 21:38 | NUR ---
PER ORDER FROM DR ALY, CT MEDS TO BE GIVEN TODAY, BUT NO MEDS AVAILABLE AND NOTHIN ON THE EMAR, CHARGE NURSE CHAO AWARE.
--- NOTE | 2021-05-03 22:12 | NUR ---
CHARGE NURSE CHAO CALLED THE CT COORDINATOR AND SPOKE TO ASHANTI MICHAUD AND SAID THAT THE CLINICAL TRIAL MEDS WILL BE STARTED ON THURSDAY.
[2021-05-04 08:00] VITALS: BP 109/52
--- NOTE | 2021-05-04 08:11 | NUR ---
MS/RN OPENING NOTES RECEIVED PATIENT IN THE ROOM, ALERT AND ORIENTED X4, ABLE TO MAKE NEEDS KNOWN. AMBULATORY. A CLINICAL TRIAL PATIENT. NO IV ACCESS, SKIN IS INTACT. WILL CONTINUE TO MONITOR PATIENT.
[2021-05-04 16:00] VITALS: BP 115/58
--- NOTE | 2021-05-04 19:20 | NUR ---
MS/RN CLOSING NOTES PATIENT IN THE ROOM, ALERT AND ORIENTED X4, ABLE TO MAKE NEEDS KNOWN. AMBULATORY. A CLINICAL TRIAL PATIENT. NO IV ACCESS, SKIN IS INTACT. WILL ENDORSE TO THE NEXT SHIFT FOR NGHIA.
[2021-05-04 20:00] VITALS: BP 124/65
[2021-05-05 20:42] VITALS: BP 122/68
--- NOTE | 2021-05-05 22:28 | NUR ---
MS RN OPENING NOTES ENTERED ROOM AT 1930. PATIENT WAS NOT IN ROOM. ENTERED AT 1999 AND PATIENT WAS IN ROOM. PT IS AOx4. ABLE TO MAKE NEEDS KNOWN. ON RA AND TOLERATING WELL. NO SOB NOTED. NO S/SX OF RESPIRATORY DISTRESS NOTED. CLINICAL TRIAL PATIENT. NO IV ACCESS. SAFETY PRECAUTIONS IN PLACE: BED IN LOWEST, LOCKED POSITION, BRAKES ON, AND SIDERAILS UPx2. TABLE AND CALL LIGHT WITHIN REACH. WILL CONTINUE TO MONITOR.
--- NOTE | 2021-05-06 06:39 | NUR ---
MS RN CLOSING NOTES PT IN ROOM, ASLEEP, AWAKENS TO VERBAL STIMULI. PT IS AOx4. ABLE TO MAKE NEEDS KNOWN. ON RA AND TOLERATING WELL. NO SOB NOTED. NO S/SX OF RESPIRATORY DISTRESS NOTED. CLINICAL TRIAL PATIENT. NO IV ACCESS. SAFETY PRECAUTIONS IN PLACE: BED IN LOWEST, LOCKED POSITION, BRAKES ON, AND SIDERAILS UPx2. TABLE AND CALL LIGHT WITHIN REACH. WILL ENDORSE TO ONCOMING SHIFT.
--- NOTE | 2021-05-06 07:12 | NUR ---
MS RN OPENING NOTES PATIENT RECEIVED STANDING IN HIS ROOM. A/O X4. ABLE TO MAKE NEEDS KNOWN, NO C/O PAIN OR DISCOMFORTS. ON ROOM AIR, TOLERATING WELL , NO SOB NOTED. NO IV ACCESS. SAFETY PRECAUTIONS IN PLACE: BED IN LOWEST LOCKED POSITION, BRAKES ON AND SIDE-RAILS UP x2. CALL LIGHT WITHIN REACH. WILL CONTINUE TO MONITOR.
[2021-05-06 08:40] VITALS: BP 108/66
[2021-05-06] MEDS ORDERED: LORAZEPAM 1 MG TABLET PO PRN (13:00)
[2021-05-06 15:45] VITALS: BP 134/75
--- NOTE | 2021-05-06 18:42 | NUR ---
MS RN CLOSING NOTES PATIENT IN HIS ROOM SITTING IN HIS AT THIS TIME. ALERT AND ORIENTED X4. ABLE TO MAKE NEEDS KNOWN. AMBULATORY. PT IS CLINICAL TRIAL PATIENT. NO IV ACCESS. ALL NEEDS ATTENDED WELL. CALL LIGHT WITHIN EASY REACH. WILL ENDORSE POC TO THE NEXT SHIFT NURSE
--- NOTE | 2021-05-06 19:43 | NUR ---
MS RN NOTE RECEIVED PATIENT IN THE ROOM GETTING HIS VITAL SIGNS. A/OX4. NO S/S OF APPARENT DISTRESS. NO C/O PAIN. WILL CONT. TO MONITOR PATIENT.
[2021-05-06 20:00] VITALS: BP 138/78
--- NOTE | 2021-05-07 07:05 | NUR ---
MS RN CLOSING NOTE PATIENT DID NOT EXHIBIT ANY PSYCH INSTABILITY, AKATHISIA, EPS THROUGHOUT THE SHIFT. WILL ENDORSE CARE TO MORNING SHIFT RN.
--- NOTE | 2021-05-07 07:30 | NUR ---
RN MS NOTES PT IN BED, ASLEEP, EASY TO AROUSE, ALERT AND VERBALLY RESPONSIVE, NOT IN DISTRESS, RESPIRATION NORMAL AND NON LABORED, CALL LIGHT WITHIN REACH, NO BEHAVIOR PROBLEM NOTED, COMPLIANT WITH CARE, NEEDS ATTENDED.
[2021-05-07 08:31] VITALS: BP 138/83
[2021-05-07 16:37] VITALS: BP 120/76
--- NOTE | 2021-05-07 19:00 | NUR ---
RN MS NOTES PT WENT OUT OF THE UNIT, ENDORSED TO CARBON ROD INSERTER RN FOR CONTINUITY OF CARE.
--- NOTE | 2021-05-07 19:14 | NUR ---
RN NOTES PT NOT IN THE ROOM AT THIS TIME. WALKED AROUND UNIT PT NOT IN THE UNIT. PER DAY SHIFT NURSE PT WHEN OUT.WILL CONTINUE TO MONITOR.
--- NOTE | 2021-05-07 19:48 | NUR ---
RN NOTES PT BACK IN ROOM ALL NEEDS MET AT THIS TIME WILL CONTINUE TO MONITOR.
[2021-05-07 20:24] VITALS: BP 117/65
[2021-05-08 08:00] VITALS: BP 139/73
[2021-05-08] MEDS: INVEST MED Kar XT OR PLACEBO 50/20 MG PO SCH ×2 (10:04→21:59)
--- NOTE | 2021-05-08 10:12 | NUR ---
RN MS NOTES PATIENT AWAKE ON BED, IN COMFORTABLE POSITION. A/O X 4. IN NO APPARENT RESPIRATORY DISTRESS. BREATHING EVEN AND UNLABORED. NO S& SX OF PAIN AND DISCOMFORT. IN GOOD SPIRIT AND COMPLIANT WITH CARE. ALL NEEDS ATTENDED. FREQUENT VISUAL CHECKS RENDERED TO ENSURE SAFETY AND COMFORT. CALL LIGHT WITHIN EASY REACH
[2021-05-08 16:00] VITALS: BP 133/78
--- NOTE | 2021-05-08 18:48 | NUR ---
RN MS NOTES PATIENT WENT OUT OF THE UNIT. ENDORSED TO FLIGHT OPERATIONS INSPECTOR FOR CONTINUITY OF CARE
--- NOTE | 2021-05-08 19:35 | NUR ---
RN NOTES PT JUST WALKED IN UNIT IN NO DISTRESS NO PAIN OR DISCOMFORT PT IS NOW IN ROOM WILL CONTINUE TO MONITOR.
[2021-05-08 20:00] VITALS: BP 118/68
--- NOTE | 2021-05-09 07:30 | NUR ---
MS RN OPENING NOTES RECEIVED PATIENT ON BED, AWAKE AND A/O X4. ON ROOM AIR TOLERATING WELL. NO SOB NOTED. NOT IN DISTRESS. WITH NO COMPLAINTS OF PAIN OR DISCOMFORT AT THIS TIME. WITH NO IV LINES PRESENT. ON CLINICAL TRIAL. SAFETY MEASURES IN PLACE. CALL LIGHT WITHIN REACH. BED ON LOWEST AND LOCKED POSITION. SIDE RAILS UP X2. WILL CONTINUE TO MONITOR.
[2021-05-09] MEDS: INVEST MED Kar XT OR PLACEBO 50/20 MG PO SCH ×2 (10:00→21:59)
--- NOTE | 2021-05-09 18:34 | NUR ---
MS RN CLOSING NOTES PATIENT RESTING ON BED AND A/O X4. ON ROOM AIR TOLERATING WELL. NO SOB NOTED. NOT IN DISTRESS. WITH NO COMPLAINTS OF PAIN OR DISCOMFORT AT THIS TIME. WITH NO IV LINES PRESENT. ON CLINICAL TRIAL. SAFETY MEASURES IN PLACE. CALL LIGHT WITHIN REACH. BED ON LOWEST AND LOCKED POSITION. SIDE RAILS UP X2. WILL ENDORSE TO NEXT SHIFT FOR N[place]IA.
--- NOTE | 2021-05-09 19:10 | NUR ---
RN OPENING NOTE RECEIVED PT IN ROOM. STABLE. A/OX4. DENIES PAIN. DENIES SOB. AMBULATORY AD HUY. SAFETY INSTRUCTIONS PROVIDED AND REMINDED TO CALL FOR ANY ASSISTANCE. PT VERBALIZED UNDERSTANDING. CALL LIGHT WITHIN REACH. WILL CONT TO MONITOR.
[2021-05-09 20:00] VITALS: BP 135/77
--- NOTE | 2021-05-10 06:47 | NUR ---
RN CLOSING NOTE PT IN ROOM. STABLE. DENIES PAIN. DENIES SOB. AMBULATORY AD HUY. SLEPT WELL DURING THE NIGHT. NO ACUTE DISTRESS NOTED. SAFETY MEASURES MAINTAINED.
--- NOTE | 2021-05-10 07:18 | NUR ---
RN OPENING NOTE PT AWAKE IN BED RESTING. A/O X4 AND [place] SPEAKING. ON RA WITH NO SOB OR RESPIRATORY DISTRESS. NO PERSONAL CARE HOME ADMINISTRATOR. NO EDEMA. SELF AMBULATORY WITH BATHROOM PRIVILEGES. SKIN INTACT. REGULAR DIET. NO IV DUE TO STATUS CLINICAL TRIAL. LABS AND ORDERS REVIEWED. SAFETY MEASURES IN PLACE. SIDE RAILS RAISED. BED LOWERED. CALL LIGHT WITHIN REACH. WILL CONTINUE TO MONITOR.
--- NOTE | 2021-05-10 10:03 | NUR ---
RN NOTE STUDY MEDS NOT DELIVERED BY PHARMACY. CALLED PHARMACY TO BRING UP
[2021-05-10] MEDS: INVEST MED Kar XT OR PLACEBO 50/20 MG PO SCH ×2 (10:08→21:18)
--- NOTE | 2021-05-10 18:43 | NUR ---
RN CLOSING NOTE PT AWAKE IN BED RESTING. A/O X4 AND [place] SPEAKING. ON RA WITH NO SOB OR RESPIRATORY DISTRESS. NO DYE LINE OPERATOR. NO EDEMA. SELF AMBULATORY WITH BATHROOM PRIVILEGES. SKIN INTACT. REGULAR DIET. NO IV DUE TO STATUS CLINICAL TRIAL. LABS AND ORDERS REVIEWED. SAFETY MEASURES IN PLACE. SIDE RAILS RAISED. BED LOWERED. CALL LIGHT WITHIN REACH. WILL GIVE REPORT TO NIGHT NURSE FOR NGHIA.
--- NOTE | 2021-05-10 19:18 | NUR ---
CONTINUITY OF CARE Patient in bed, sleeping arouses easily. On Clinical Trial for study medication. No apparent respiratory distress, on room air. Will cont to provide care.
[2021-05-10 20:00] VITALS: BP 103/46
--- NOTE | 2021-05-10 21:20 | NUR ---
STUDY MEDICATION Due meds given. Patient swallowed medication, compliant with study medication.
--- NOTE | 2021-05-11 05:53 | NUR ---
END OF SHIFT REPORT Patient is A/O x4. Calm behavior. Adequate sleep, patient report hours of sleep ....... Ambulatory. No c/o pain or any discomfort. On Clinical Trial, compliant with Study drug medication. Will endorse to se BAUMANN. Addendum: 05/11/21 at 0644 by HAYES MARCANO RN Hours of sleep 8.
--- NOTE | 2021-05-11 07:39 | NUR ---
RN NOTES RECEIVED PATIENT ON BED, AWAKE AND A/O X4. NO SIGNS OF ACUTE DISTRESS NOTED. ON ROOM AIR, NO SOB NOTED. WITH NO COMPLAINTS OF PAIN OR DISCOMFORT AT THIS TIME. NO IV LINES PRESENT. ON CLINICAL TRIAL. SAFETY MEASURES IN PLACE. CALL LIGHT WITHIN REACH. BED ON LOWEST AND LOCKED POSITION. SIDE RAILS UP X2. WILL CONTINUE TO MONITOR.
[2021-05-11 08:00] VITALS: BP 115/59
[2021-05-11] MEDS: INVEST MED Kar XT OR PLACEBO 50/20 MG PO SCH ×2 (10:05→22:00)
--- NOTE | 2021-05-11 19:00 | NUR ---
RN NOTES PATIENT SEEN AMBULATING IN THE HALLWAY, NOT IN ACUTE DISTRESS. CONTINUES ON CT W/ NO ADVERSE CHANGE. SAFETY MEASURES MAINTAINED. WILL ENDORSE TO LICENSED PRACTICAL VOCATIONAL NURSE RN FOR [place]IA.
--- NOTE | 2021-05-11 19:40 | NUR ---
MS/RN OPENING NOTE RECEIVED PATIENT UP IN ROOM. ALERT AND ORIENTED X 4. ABLE TO MAKE NEEDS KNOWN. DENIES PAIN AT THIS TIME. CONTINUES ON ROOM AIR WITH NO S/SX OF RESPIRATORY DISTRESS NOTED. NO IV ACCESS AT THIS TIME. CONTINUES ON CLINICAL TRIAL AND INVESTIGATIONAL MEDICATIONS. CALL LIGHT WITHIN REACH. ASPIRATION, FALL AND SAFETY PRECAUTIONS MAINTAINED. WILL CONTINUE TO MONITOR.
[2021-05-11 20:00] VITALS: BP 142/86
--- NOTE | 2021-05-12 06:10 | NUR ---
MS/RN CLOSING NOTE PATIENT CURRENTLY SLEEPING IN BED. ALERT AND ORIENTED X 4. ABLE TO MAKE NEEDS KNOWN. DENIES PAIN AT THIS TIME. CONTINUES ON ROOM AIR WITH NO S/SX OF RESPIRATORY DISTRESS NOTED. NO IV ACCESS AT THIS TIME. CONTINUES ON CLINICAL TRIAL AND INVESTIGATIONAL MEDICATIONS. CALL LIGHT WITHIN REACH. ASPIRATION, FALL AND SAFETY PRECAUTIONS MAINTAINED. WILL ENDORSE PLAN OF CARE TO ONCOMING SHIFT.
--- NOTE | 2021-05-12 07:16 | NUR ---
MS RN NOTES RECEIVED PATIENT ON BED, A/O X4. PATIENT ON ROOM AIR WITH NO SIGNS OF ACUTE DISTRESS NOTED. PATIENT DOES NOT COMPLAIN OF PAIN OR DISCOMFORT AT THIS TIME. PATIENT UNDER CLINICAL TRIAL. SAFETY MEASURES IN PLACE WITH BED ON LOWEST AND LOCKED POSITION, SIDE RAILS UP X2, CALL LIGHT AND TABLE WITHIN REACH. WILL CONTINUE TO MONITOR PATIENT.
[2021-05-12 08:09] VITALS: BP 155/60
[2021-05-12] MEDS: INVEST MED Kar XT OR PLACEBO 50/20 MG PO SCH ×2 (10:02→22:06)
[2021-05-12 16:00] VITALS: BP 110/63
--- NOTE | 2021-05-12 18:59 | NUR ---
MS RN CLOSING NOTES PATIENT ON BED, A/O X4. PATIENT ON ROOM AIR WITH NO SIGNS OF ACUTE DISTRESS NOTED. PATIENT DOES NOT COMPLAIN OF PAIN OR DISCOMFORT AT THIS TIME. PATIENT UNDER CLINICAL TRIAL. PATIENT DID NOT DEMONSTRATE ANY UNTOWARD BEHAVIOR. SAFETY MEASURES IN PLACE WITH BED ON LOWEST AND LOCKED POSITION, SIDE RAILS UP X2, CALL LIGHT AND TABLE WITHIN REACH. WILL ENDORSE PATIENT FOR CONTINUITY OF CARE.
--- NOTE | 2021-05-12 19:30 | NUR ---
RN OPENING NOTE PATIENT NOT IN THE ROOM AT THIS TIME, FELICITA RN STATES PATIENT WENT OUT.
[2021-05-12 20:00] VITALS: BP 149/72
--- NOTE | 2021-05-12 22:10 | NUR ---
RN NOTE PATIENT IN THE ROOM, A/O X 4 ABLE TO MAKE NEEDS KNOWN. PATIENT IS A CLINICAL TRIAL PATIENT, INDEPENDENT. NO SIGNS OF APPARENT DISTRESS. INVESTIGATIONAL MEDS GIVEN. WILL MONITOR PATIENT CLOSELY.
--- NOTE | 2021-05-13 07:22 | NUR ---
RN CLOSING NOTE PATIENT IN BED, AWAKE. BREATHING EVEN AND UNLABORED. NO ADVERSE EFFECTS OR BEHAVIORAL ISSUES NOTED DURING THE SHIFT. SAFETY MEASURES IMPLEMENTED. ALL NEEDS MET AND ATTENDED, ALL ORDERS CARRIED OUT. ENDORSED TO DAY SHIFT NURSE FOR NGHIA.
[2021-05-13] MEDS: INVEST MED Kar XT OR PLACEBO 50/20 MG PO SCH ×2 (09:58→21:59)
--- NOTE | 2021-05-13 19:05 | NUR ---
RN CLOSING NOTE PT AWAKE IN BED RESTING. A/O X4. PT TOLERATING WELL ON ON RA. NO S/S DISTRESS NOTED. NO SOB. SAFETY MEASURES IN PLACE. SIDE RAILS RAISED. BED LOWERED. CALL LIGHT WITHIN REACH. WILL GIVE REPORT TO NIGHT NURSE FOR N[place]IA.
[2021-05-13 20:00] VITALS: BP 123/77
--- NOTE | 2021-05-13 20:37 | NUR ---
MS RN OPENING NOTES ENTERED ROOM AT 1930 AND PT WAS NOT PRESENT. ENTERED AGAIN @ 2014 AND PATIENT WAS PRESENT. A/O X4. ON ROOM AIR AND TOLERATING WELL. NO SOB NOTED. NO S/SX OF RESPIRATORY DISTRESS NOTED. NO IV ACCESS. SAFETY PRECAUTIONS IN PLACE: SIDERAILS UPx2, BRAKES ON, AND BED IN LOWEST, LOCKED POSITION. CALL LIGHT AND TABLE WITHIN REACH. WILL CONTINUE TO MONITOR.
--- NOTE | 2021-05-14 06:32 | NUR ---
MS BAUMANN CLOSING NOTES PT IN BED, ASLEEP, AWAKENS TO VERBAL STIMULI. A/O X4. ON ROOM AIR AND TOLERATING WELL. NO SOB NOTED. NO S/SX OF RESPIRATORY DISTRESS NOTED. NO IV ACCESS. ALL NEEDS MET. PT KEPT CLEAN AND DRY. PT KEPT NPO AFTER MIDNIGHT. ADMINISTERED INVESTIGATIONAL MEDICATIONS. SAFETY PRECAUTIONS IN PLACE: SIDERAILS UPx2, BRAKES ON, AND BED IN LOWEST, LOCKED POSITION. CALL LIGHT AND TABLE WITHIN REACH. WILL ENDORSE TO ONCOMING SHIFT. Addendum: 05/14/21 at 0634 by IRINA SIDDIQI RN PT WAS NOT KEPT NPO. PLEASE DISREGARD.
--- NOTE | 2021-05-14 07:30 | NUR ---
RN OPENING NOTE RECEIVED PATIENT IN BED. A/O X4. ON ROOM AIR, TOLERATING WELL. NO SOB NOTED. IN NO APPARENT DISTRESS. DENIES ANY PAIN OR DISCOMFORT AT THIS TIME. SAFETY MEASURES MAINTAINED. CALL LIGHT WITHIN REACH. BED IS IN LOWEST POSITION, BRAKES LOCKED. SIDE RAILS UP X2. WILL CONTINUE PLAN OF CARE.
[2021-05-14 08:00] VITALS: BP 128/79
[2021-05-14] MEDS: INVEST MED Kar XT OR PLACEBO 50/20 MG PO SCH ×2 (10:25→21:57)
[2021-05-14 16:00] VITALS: BP 107/61
--- NOTE | 2021-05-14 18:52 | NUR ---
RN CLOSING NOTE PATIENT IN BED. A/O X4. ON ROOM AIR, TOLERATING WELL. NO SOB NOTED. IN NO APPARENT DISTRESS. NO REPORTS OF PAIN, DISCOMFORT AT THIS TIME, TREMORS OR AKATHISIA. DUE MEDS GIVEN ORDERED. ALL NEEDS HAVE BEEN MET AND ATTENDED. SAFETY MEASURES MAINTAINED. CALL LIGHT WITHIN REACH. BED IS IN LOWEST POSITION, BRAKES LOCKED. SIDE RAILS UP X2. WILL ENDORSE CONTINUITY OF CARE TO ONCOMING SHIFT.
--- NOTE | 2021-05-14 19:25 | NUR ---
MS RN OPENING NOTES RECEIVED PT IN BED. A/O X4. ABLE TO MAKE NEEDS KNOWN. ON ROOM AIR AND TOLERATING WELL. NO SOB NOTED. NO S/SX OF RESPIRATORY DISTRESS NOTED. NO IV ACCESS. SAFETY PRECAUTIONS IN PLACE: SIDERAILS UPx2, BRAKES ON, AND BED IN LOWEST, LOCKED POSITION. CALL LIGHT AND TABLE WITHIN REACH. WILL CONTINUE TO MONITOR.
[2021-05-14 20:23] VITALS: BP 103/61
--- NOTE | 2021-05-15 07:01 | NUR ---
MS RN CLOSING NOTES PT IN BED, AWAKE. A/O X4. ABLE TO MAKE NEEDS KNOWN. ON ROOM AIR AND TOLERATING WELL. NO SOB NOTED. NO S/SX OF RESPIRATORY DISTRESS NOTED. NO IV ACCESS. ALL NEEDS MET. PT KEPT CLEAN AND DRY. ADMINISTERED INVESTIGATIONAL MEDICATION PER MD ORDER. SAFETY PRECAUTIONS IN PLACE: SIDERAILS UPx2, BRAKES ON, AND BED IN LOWEST, LOCKED POSITION. CALL LIGHT AND TABLE WITHIN REACH. WILL ENDORSE TO ONCOMING SHIFT.
--- NOTE | 2021-05-15 07:15 | NUR ---
RN NOTES SEEN PATIENT IN ROOM RESTING, AWAKE AND VERBALLY RESPONSIVE. CURRENTLY ON CLINICAL TRIAL. NO ADVERSE CHANGE NOTED. SAFETY MEASURES IN PLACE. WILL CONTINUE TO MONITOR.
[2021-05-15] MEDS: INVEST MED Kar XT OR PLACEBO 50/20 MG PO SCH ×2 (09:58→21:59)
--- NOTE | 2021-05-15 10:00 | NUR ---
RN NOTES INVESTIGATIONAL MED GIVEN TO PATIENT; SEEN RESTING IN THE ROOM USING PERSONAL CELLPHONE. NO ACUTE DISTRESS.
--- NOTE | 2021-05-15 18:25 | NUR ---
RN NOTES PATIENT RESTING IN ROOM, WATCHING TV AND TALKING TO SOMEONE ON HIS PERSONAL CELLPHONE. NO ADVERSE CHANGE NOTED. CONTINUES ON CLINICAL TRIAL. SAFETY MEASURES MAINTAINED. WILL ENDORSE TO SMALL PRODUCTS ASSEMBLER RN FOR [place].
--- NOTE | 2021-05-15 19:46 | NUR ---
RN OPENING RECEIVED PATIENT IN BED. A/OX4. AMBULATORY AND INDEPENDENT. NO S/S OF APPARENT DISTRESS. NO C/O PAIN. NOT EXHIBITING ANY PSYCH INSTABILITY, AKATHISIA, EPS. WILL CONTINUE TO MONITOR.
[2021-05-15 20:00] VITALS: BP 108/57
--- NOTE | 2021-05-15 23:10 | NUR ---
REPORT GIVEN TO [facility] FOR CONT. OF CARE.
--- NOTE | 2021-05-16 06:52 | NUR ---
MS RN NOTES NO BEHAVIORAL DISORDER NOTED,CALM,MED COMPLIANT.
--- NOTE | 2021-05-16 07:15 | NUR ---
MS RN OPENING NOTES RECEIVED PATIENT ON BED, A/O X4, WITH GOOD DISPOSITION. PATIENT ON ROOM AIR WITH NO SIGNS OF ACUTE DISTRESS NOTED. PATIENT DOES NOT COMPLAIN OF PAIN OR DISCOMFORT AT THIS TIME. PATIENT UNDER CLINICAL TRIAL. SAFETY MEASURES IN PLACE WITH BED ON LOWEST AND LOCKED POSITION, SIDE RAILS UP X2, CALL LIGHT AND TABLE WITHIN REACH. WILL CONTINUE TO MONITOR PATIENT.
[2021-05-16 08:00] VITALS: BP 136/86
[2021-05-16] MEDS: INVEST MED Kar XT OR PLACEBO 50/20 MG PO SCH ×2 (10:06→21:58)
[2021-05-16 16:00] VITALS: BP 117/57
--- NOTE | 2021-05-16 18:42 | NUR ---
MS RN CLOSING NOTES PATIENT ON BED, A/O X4, WITH GOOD DISPOSITION. PATIENT ON ROOM AIR WITH NO SIGNS OF ACUTE DISTRESS NOTED. PATIENT DOES NOT COMPLAIN OF PAIN OR DISCOMFORT AT THIS TIME. PATIENT UNDER CLINICAL TRIAL. NO UNTOWARD BEHAVIOR NOTED DURING THE SHIFT. SAFETY MEASURES IN PLACE WITH BED ON LOWEST AND LOCKED POSITION, SIDE RAILS UP X2, CALL LIGHT AND TABLE WITHIN REACH. WILL ENDORSE TO NEXT SHIFT FOR CONTINUITY OF CARE.
--- NOTE | 2021-05-16 19:30 | NUR ---
MS RN NOTES/CLINICAL TRIAL IN BED A/O X4,FOLLOW INSTRUCTIONS,MED COMPLIANT,CALL LIGHT IN REACH,NEEDS ANTICIPATED.
[2021-05-16 19:57] VITALS: BP 113/49
[2021-05-16 20:00] VITALS: BP 113/49
--- NOTE | 2021-05-17 06:39 | NUR ---
MS RN CLINICAL TRIAL NOTES NO BEHAVIORAL D/CO NOTED,MED COMPLIANT,STAY IN HIS ROOM THRU OUT SHIFT.
[2021-05-17 08:00] VITALS: BP 146/83
[2021-05-17] MEDS: INVEST MED Kar XT OR PLACEBO 50/20 MG PO SCH ×2 (10:00→22:06)
[2021-05-17 16:00] VITALS: BP 120/72
--- NOTE | 2021-05-17 18:52 | NUR ---
MS RN CLOSING NOTES PATIENT ON BED, A/O X4, WITH GOOD DISPOSITION. PATIENT ON ROOM AIR WITH NO SIGNS OF ACUTE DISTRESS NOTED. PATIENT DOES NOT COMPLAIN OF PAIN OR DISCOMFORT AT THIS TIME. PATIENT UNDER CLINICAL TRIAL. SAFETY MEASURES IN PLACE WITH BED ON LOWEST AND LOCKED POSITION, SIDE RAILS UP X2, CALL LIGHT AND TABLE WITHIN REACH. WILL ENDORSE PATIENT FOR CONTINUITY OF CARE.
[2021-05-17 20:00] VITALS: BP 127/68
--- NOTE | 2021-05-17 20:45 | NUR ---
Patient arrived back on unit at 2240. Denies any side effects from investigational medication. Denies hallucinations, no obvious delusions. A&Ox4. VSS. Will continue to monitor.
--- NOTE | 2021-05-17 22:09 | NUR ---
patients 2000 vital signs were during exercise retook HR 83 bpm and O2 99% on RA
--- NOTE | 2021-05-18 06:32 | NUR ---
Patient stable overnight. No behaviors noted. Patient continues to deny side effects of investigational medication. Up early at 0500 in pleasant mood.
--- NOTE | 2021-05-18 07:02 | NUR ---
RN OPENING NOTES. RECEIVED PATIENT WAKE IN BED AT THIS TIME. AOX4. ABLE TO MAKE NEEDS KNOWN. NO SOB NOTED, NO C/O PAIN, NO S/S OF ANY ACUTE DISTRESS NOTED. RESPIRATIONS EVEN AND UNLABORED. PT DENIES SI/HI. DENIES VISUAL AND AUDITORY HALLUCINATION. NO TREMORS OR EPS NOTED. SAFETY PRECAUTIONS IN PLACE AND MAINTAINED AT ALL TIMES. BED IN LOWEST LOCKED POSITION, HOB ELEVATED, SIDE RAILS UP X2, CALL LIGHT AND TABLE WITHIN REACH, WILL CONTINUE TO MONITOR
[2021-05-18] MEDS: INVEST MED Kar XT OR PLACEBO 50/20 MG PO SCH ×2 (10:02→22:01)
--- NOTE | 2021-05-18 18:37 | NUR ---
RN CLOSING NOTES PATIENT AWAKE IN BED AT THIS TIME. PATIENT REMAINED STABLE THROUGHOUT SHIFT. PT DENIES SI/HI. DENIES VISUAL AND AUDITORY HALLUCINATION. NO TREMORS OR EPS NOTED. SAFETY PRECAUTIONS IN PLACE AND MAINTAINED AT ALL TIMES. BED IN LOWEST LOCKED POSITION, HOB ELEVATED, SIDE RAILS UP X2, CALL LIGHT AND TABLE WITHIN REACH, WILL ENDORSE TO ANODIZER NURSE FOR NGHIA
[2021-05-18 20:02] VITALS: BP 101/50
[2021-05-19 01:02] VITALS: BP 101/50
--- NOTE | 2021-05-19 07:02 | NUR ---
rn closing notes: patient was awake in room, no complain of pain and discomfort ambulatory, a/o4 on clinical trial no changes in behavior was observed during the shift, patient kept clean and dry alll needs met, endorse to incoming shift.
--- NOTE | 2021-05-19 07:30 | NUR ---
MS RN OPENING NOTES. RECEIVED PATIENT AWAKE ON BED AND AOX4. ABLE TO MAKE NEEDS KNOWN. ON ROOM AIR. NO SOB NOTED. NOT IN DISTRESS. DENIES VISUAL AND AUDITORY HALLUCINATION. NO TREMORS OR EPS NOTED. SAFETY PRECAUTIONS IN PLACE. BED IN LOWEST LOCKED POSITION, HOB ELEVATED, SIDE RAILS UP X2, CALL LIGHT AND TABLE WITHIN REACH. WILL CONTINUE TO MONITOR.
[2021-05-19] MEDS: INVEST MED Kar XT OR PLACEBO 50/20 MG PO SCH ×2 (10:00→22:06)
--- NOTE | 2021-05-19 19:02 | NUR ---
MS RN CLOSING NOTES PATIENT AWAKE ON BED AND AOX4. ABLE TO MAKE NEEDS KNOWN. ON ROOM AIR. NO SOB NOTED. NOT IN DISTRESS. DENIES VISUAL AND AUDITORY HALLUCINATION. NO TREMORS OR EPS NOTED. SAFETY PRECAUTIONS IN PLACE. BED IN LOWEST LOCKED POSITION, HOB ELEVATED, SIDE RAILS UP X2, CALL LIGHT AND TABLE WITHIN REACH. WILL ENDORSE TO NEXT SHIFT FOR N[place]IA.
--- NOTE | 2021-05-19 19:26 | NUR ---
RN OPENING NOTES: RECEIVED PATIENT IN ROOM AWAKE A/O X4 AMBULATORY ABLE TO MAKE NEEDS KNOWN ON CLINICAL TRIAL, NO COMPLAIN OF PAIN AND DISCOMFORT, NO CHANGES IN BEHAVIOR WAS OBSERVED, ALL NEEDS MET, WILL CONTINUE TO MONITOR.
[2021-05-19 20:00] VITALS: BP 107/48
--- NOTE | 2021-05-20 07:30 | NUR ---
MS RN OPENING NOTE RECEIVED PT AWAKE IN BED. A/O X4. PT IS STABLE ON ROOM AIR WITH NO SOB OR S/S OF RESPIRATORY DISTRESS NOTED. PT HAS NO C/O PAIN OR DISCOMFORT AT THIS TIME. NO IV ACCESS DUE TO CLINICAL TRIAL STATUS. NO BEHAVIORAL ISSUES REPORTED AT THIS TIME. SAFETY PRECAUTIONS MAINTAINED. BED IN LOWEST LOCKED POSITION, HOB ELEVATED, SIDE RAILS UP X2. CALL LIGHT AND TABLE WITHIN REACH. WILL CONTINUE WITH PLAN OF CARE.
--- NOTE | 2021-05-20 07:58 | NUR ---
RN CLOSING NOTES: PATIENT AWAKE IN ROOM NO COMPLAIN OF PAIN DISCOMFORT AT THIS TIME, ON CLINICAL TRIAL, NO CHANGES IN BEHAVIOR WAS OBSERVED, PATIENT IS A/O4 ABLE TO EXPRESS NEEDS, AMBULATORY, NO COMPLAIN OF PAIN, ALL NEEDS MET ENDORSE TO INCOMING SHIFT.
[2021-05-20 08:00] VITALS: BP 132/84
[2021-05-20] MEDS: INVEST MED Kar XT OR PLACEBO 50/20 MG PO SCH ×2 (10:03→22:03)
[2021-05-20 16:00] VITALS: BP 109/66
--- NOTE | 2021-05-20 18:24 | NUR ---
MS RN CLOSING NOTE PT IS AWAKE IN BED. A/O X4. PT IS STABLE ON ROOM AIR WITH NO SOB OR S/S OF RESPIRATORY DISTRESS NOTED. PT HAS NO C/O PAIN OR DISCOMFORT AT THIS TIME. NO IV ACCESS DUE TO CLINICAL TRIAL STATUS. NO BEHAVIORAL ISSUES REPORTED THROUGHOUT SHIFT. ALL NEEDS HAVE BEEN MET. SAFETY PRECAUTIONS MAINTAINED AT ALL TIMES. BED IN LOWEST LOCKED POSITION, HOB ELEVATED, SIDE RAILS UP X2. CALL LIGHT AND TABLE WITHIN REACH. WILL ENDORSE TO ONCOMING NURSE FOR [place]IA.
--- NOTE | 2021-05-20 19:30 | NUR ---
RN OPENING NOTE PT IN ROOM, SITTING UP IN BED. A/OX4. DENIES ANY PAIN OR DISCOMFORT. AMBULATORY AD HUY. SAFETY INSTRUCTIONS REINFORCED AND PT VERBALIZED UNDERSTANDING. PT IN NO ACUTE DISTRESS. WILL CONT TO MONITOR.
[2021-05-20 20:00] VITALS: BP 115/54
[2021-05-21] MEDS: ZOLPIDEM TARTRATE 10 MG TABLET PO PRN (00:33)
--- NOTE | 2021-05-21 06:57 | NUR ---
RN CLOSING NOTE PT RESTING IN BED, EASILY AROUSABLE TO STIMULI. DENIES ANY PAIN/DISCOMFORT. SLEPT WELL DURING THE NIGHT. NO ACUTE DISTRESS. AMBULATORY AND INDEPENDENT WITH ADLS. SAFETY MEASURES MAINTAINED.
[2021-05-21 08:00] VITALS: BP 140/83
[2021-05-21] MEDS: INVEST MED Kar XT OR PLACEBO 50/20 MG PO SCH ×3 (10:00→22:00)
--- NOTE | 2021-05-21 10:00 | NUR ---
MS RN NOTE PATIENT IS AT THE CLINIC. UNABLE TO ADMINISTER MEDICATION AT THIS TIME.
--- NOTE | 2021-05-21 11:00 | NUR ---
MS RN NOTE ENDORSE PATIENT TO PASTOR PERDOMO FOR CONTINUITY OF CARE. PATIENT STILL NOT IN HIS ROOM.
--- NOTE | 2021-05-21 14:45 | NUR ---
RN NOTE PT RETURNED BACK TO ROOM AT THIS TIME.
--- NOTE | 2021-05-21 15:25 | NUR ---
RN NOTE INFORMED DR. ALY THAT PT RETURNED BACK TO ROOM AT 1445 AND 1000 MEDS WERE NOT ADMINISTERED. PER , HOLD 1000 MEDS AND RESUME AT 2200.
[2021-05-21 15:49] VITALS: BP 138/69
--- NOTE | 2021-05-21 20:00 | NUR ---
RN OPENING NOTE PATIENT JUST GOT BACK TO ROOM. INDEPENDENT AND AMBULATORY. A/O X 4, ABLE TO MAKE NEED KNOWN. BREATHING EVEN AND UNLABORED, TOLERATING ROOM AIR. PATIENT IS A CLINICAL TRIAL PATIENT OF DR. ALY, NO IV ACCESS. NO REPORTS OF PAIN OR DISCOMFORT AT THIS TIME. SAFETY MEASURES IN PLACE: BED LOCKED AND IN LOWEST POSITION, CALL LIGHT WITHIN REACH, SIDE RAILS UP.
[2021-05-21 21:01] VITALS: BP 118/65
--- NOTE | 2021-05-22 06:41 | NUR ---
RN CLOSING NOTE PATIENT IN BED, SLEEPING, EASILY AROUSED. NO COMPLAINS OF PAIN OR DISCOMFORT. PATIENT KEPT CALM AND COOPERATIVE THROUGHOUT THE SHIFT. INVESTIGATIONAL DRUG GIVEN @2200. SAFETY MEASURES IMPLEMENTED. ALL NEEDS MET AND ATTENDED. ALL ORDERS CARRIED OUT. WILL ENDORSE TO DAY SHIFT NURSE FOR [place]IA.
--- NOTE | 2021-05-22 07:54 | NUR ---
RN OPENING NOTE RECEIVED PATIENT AWAKE, WALKING AROUND UNIT. A/O X4. INDEPENDENT AND AMBULATORY. STABLE ON ROOM AIR. CLINICAL TRIAL PATIENT. NO IV ACCESS. NO DISTRESS/DISCOMFORT OR SOB AT THIS TIME. SAFETY MEASURES IN PLACE, ENCOURAGED PATIENT TO USE CALL LIGHT IF NEEDED. WILL CONTINUE TO MONITOR.
[2021-05-22 08:00] VITALS: BP 106/64
[2021-05-22] MEDS: INVEST MED Kar XT OR PLACEBO 50/20 MG PO SCH ×2 (10:11→22:00)
--- NOTE | 2021-05-22 18:51 | NUR ---
MS RN CLOSING NOTE PATIENT CURRENTLY SITTING IN BED, AWAKE, WATCHING TV. CLINICAL TRIAL. PATIENT CALM AND COOPERATIVE THROUGHOUT SHIFT. SAFETY MEASURES IMPLEMENTED. WILL ENDORSE TO PRACTICING UROLOGIST NURSE FOR N[place]IA.
--- NOTE | 2021-05-22 20:00 | NUR ---
RN NOTES Received patient awake on his bed, a/ox4, ambulatory, not in distress, calm and cooperative, call light within reach, siderailsupx2, will continue to monitor
[2021-05-22 20:26] VITALS: BP 122/66
[2021-05-22] MEDS: ZOLPIDEM TARTRATE 10 MG TABLET PO PRN (22:03)
--- NOTE | 2021-05-23 06:28 | NUR ---
RN NOTES Sleeping but arousable, calm and cooperative, morning care rendered, pt. needs attended
--- NOTE | 2021-05-23 07:38 | NUR ---
RN OPENING NOTE- PATIENT ASLEEP THOUGH EASILY AWAKENED. PT IS NPO AT PRESENT FOR AM LABS. A/O X4. INDEPENDENT AND AMBULATORY. STABLE ON ROOM AIR. CLINICAL TRIAL PATIENT. NO IV ACCESS. NO DISTRESS/DISCOMFORT OR SOB AT THIS TIME. SAFETY MEASURES IN PLACE, ENCOURAGED PATIENT TO USE CALL LIGHT IF NEEDED. WILL CONTINUE TO MONITOR.
[2021-05-23 08:00] VITALS: BP 133/78
[2021-05-23] MEDS: INVEST MED Kar XT OR PLACEBO 50/20 MG PO SCH ×2 (09:40→22:06)
[2021-05-23 16:00] VITALS: BP 137/89
--- NOTE | 2021-05-23 18:37 | NUR ---
RN CLOSING NOTE- NO CHANGES EXCEPT NEW ORDERS FOR NPO STATUS DATES AND TIMES. A/O X4. INDEPENDENT AND AMBULATORY. STABLE ON ROOM AIR. CLINICAL TRIAL PATIENT. NO IV ACCESS. NO DISTRESS/DISCOMFORT OR SOB AT THIS TIME. SAFETY MEASURES IN PLACE, ENCOURAGED PATIENT TO USE CALL LIGHT IF NEEDED. WILL CONTINUE TO MONITOR.
--- NOTE | 2021-05-23 19:30 | NUR ---
RN OPENING NOTE PATIENT IN ROOM USING THE BATHROOM, INDEPENDENT AND AMBULATORY. A/O X 4, ABLE TO MAKE NEED KNOWN. BREATHING EVEN AND UNLABORED, TOLERATING ROOM AIR. PATIENT IS A CLINICAL TRIAL PATIENT OF DR. ALY, NO IV ACCESS. NO REPORTS OF PAIN OR DISCOMFORT AT THIS TIME. SAFETY MEASURES IN PLACE: BED LOCKED AND IN LOWEST POSITION, CALL LIGHT WITHIN REACH, SIDE RAILS UP.
[2021-05-23 20:00] VITALS: BP 127/65
[2021-05-23] MEDS: ZOLPIDEM TARTRATE 10 MG TABLET PO PRN (22:10)
--- NOTE | 2021-05-24 03:23 | NUR ---
RN NOTE ATIVAN GIVEN D/T PATIENT BEING IRRITATED AND AGITATED.
--- NOTE | 2021-05-24 06:52 | NUR ---
RN CLOSING NOTE PATIENT IN THE ROOM, INDEPENDENT AND AMBULATORY. A/O X 4, ABLE TO MAKE NEEDS KNOWN. BREATHING EVEN AND UNLABORED, TOLERATING ROOM AIR. PATIENT IS A CLINICAL TRIAL PATIENT OF DR. ALY, NO IV ACCESS. NO REPORTS OF PAIN OR DISCOMFORT AT THIS TIME. AGITATION MANAGED WITH ATIVAN. INVESTIGATIONAL DRUGS GIVEN ORDERED. SAFETY MEASURES IMPLEMENTED. ALL NEEDS MET AND ATTENDED. ALL ORDERS CARRIED OUT. WILL ENDORSE TO DAY SHIFT NURSE FOR NGHIA.
[2021-05-24 08:00] VITALS: BP 122/74
--- NOTE | 2021-05-24 08:03 | NUR ---
MS RN OPENING NOTES: PATIENT IN THE ROOM, INDEPENDENT AND AMBULATORY. A/O X 4, ABLE TO MAKE NEEDS KNOWN. BREATHING EVEN AND UNLABORED, TOLERATING ROOM AIR. PATIENT IS A CLINICAL TRIAL PATIENT OF DR. ALY, NO IV ACCESS. NO REPORTS OF PAIN OR DISCOMFORT AT THIS TIME. SAFETY MEASURES IMPLEMENTED. ALL NEEDS MET AND ATTENDED. WILL CONTINUE TO MONITOR PATIENT.
[2021-05-24] MEDS: INVEST MED Kar XT OR PLACEBO 50/20 MG PO SCH ×2 (10:04→22:09)
--- NOTE | 2021-05-24 18:47 | NUR ---
MS RN CLOSING NOTES: PATIENT IN THE ROOM, INDEPENDENT AND AMBULATORY. A/O X 4, ABLE TO MAKE NEEDS KNOWN. BREATHING EVEN AND UNLABORED, TOLERATING ROOM AIR. PATIENT IS A CLINICAL TRIAL PATIENT OF DR. ALY, NO IV ACCESS. NO REPORTS OF PAIN OR DISCOMFORT AT THIS TIME. SAFETY MEASURES IMPLEMENTED. ALL NEEDS MET AND ATTENDED. WILL ENDORSE TO [facility] FOLDER NURSE.
--- NOTE | 2021-05-24 19:19 | NUR ---
RN OPENING NOTES PATIENT IN THE ROOM, INDEPENDENT AND AMBULATORY. A/O X 4, ABLE TO MAKE NEEDS KNOWN. BREATHING EVEN AND UNLABORED, TOLERATING ROOM AIR. PATIENT IS A CLINICAL TRIAL PATIENT OF DR. ALY, NO IV ACCESS. NO REPORTS OF PAIN OR DISCOMFORT AT THIS TIME. SAFETY MEASURES IMPLEMENTED. ALL NEEDS MET AND ATTENDED TO AT THIS TIME. WILL CONTINUE TO MONITOR.
[2021-05-24 20:00] VITALS: BP 111/54
--- NOTE | 2021-05-25 06:55 | NUR ---
RN NOTES PATIENT IN THE ROOM, INDEPENDENT AND AMBULATORY. A/O X 4, ABLE TO MAKE NEEDS KNOWN. BREATHING EVEN AND UNLABORED, TOLERATING ROOM AIR. PATIENT IS A CLINICAL TRIAL PATIENT OF DR. ALY, NO IV ACCESS. NO REPORTS OF PAIN OR DISCOMFORT AT THIS TIME. SAFETY MEASURES IMPLEMENTED. ALL NEEDS MET AND ATTENDED TO AT THIS TIME. WILL ENDORSE CARE TO DAY SHIFT NURSE.
[2021-05-25] MEDS: INVEST MED Kar XT OR PLACEBO 50/20 MG PO SCH ×2 (10:21→21:53)
[2021-05-25 16:00] VITALS: BP 116/56
--- NOTE | 2021-05-25 18:15 | NUR ---
MS RN CLOSING NOTES: PATIENT IN THE ROOM, INDEPENDENT AND AMBULATORY. A/O X 4, ABLE TO MAKE NEEDS KNOWN. BREATHING EVEN AND UNLABORED, TOLERATING ROOM AIR. PATIENT IS A CLINICAL TRIAL PATIENT OF DR. ALY, NO IV ACCESS. NO REPORTS OF PAIN OR DISCOMFORT AT THIS TIME. SAFETY MEASURES IMPLEMENTED. ALL NEEDS MET AND ATTENDED. WILL ENDORSE TO COMMERCIAL FOOD INSTRUCTOR NURSE.
--- NOTE | 2021-05-25 19:00 | NUR ---
RECEIVED PATIENT IN BED ALERT AND ORIENTATED X4 SMILING ASKING ABOUT [employer]
[2021-05-25 20:00] VITALS: BP 127/62
--- NOTE | 2021-05-26 07:49 | NUR ---
RN OPENING NOTE- PATIENT ASLEEP THOUGH EASILY AWAKENED. A/O X4. INDEPENDENT AND AMBULATORY. STABLE ON ROOM AIR. CLINICAL TRIAL PATIENT. NO IV ACCESS. NO DISTRESS/DISCOMFORT OR SOB AT THIS TIME. SAFETY MEASURES IN PLACE, ENCOURAGED PATIENT TO USE CALL LIGHT IF NEEDED. WILL CONTINUE TO MONITOR.
[2021-05-26 08:00] VITALS: BP 118/64
[2021-05-26] MEDS: INVEST MED Kar XT OR PLACEBO 50/20 MG PO SCH ×2 (11:01→22:02)
[2021-05-26 16:00] VITALS: BP 133/69
--- NOTE | 2021-05-26 18:55 | NUR ---
RN CLOSING NOTE- PATIENT AWAKE . A/O X4. INDEPENDENT AND AMBULATORY. STABLE ON ROOM AIR. CLINICAL TRIAL PATIENT. NO IV ACCESS. NO DISTRESS/DISCOMFORT OR SOB AT THIS TIME. SAFETY MEASURES IN PLACE, ENCOURAGED PATIENT TO USE CALL LIGHT IF NEEDED. WILL CONTINUE TO MONITOR.
[2021-05-26 20:00] VITALS: BP 128/88
--- NOTE | 2021-05-26 20:10 | NUR ---
MS RN OPENING NOTE PT A/OX4;, ABLE TO MAKE NEEDS KNOWN. TOLERATING ROOM AIR WELL WITH NO SOB. DENIES PAIN OR DISCOMFORT AT THIS TIME. NO IV ACCESS. ALL NEEDS MET. SAFETY MEASURES IN PLACE: BED IS LOWEST LOCKED POSITION, SR UPX2, CALL LIGHT WITHIN EASY REACH. PT IN STABLE CONDITION, WILL ENDORSE PLAN OF CARE.
[2021-05-27] MEDS: ZOLPIDEM TARTRATE 10 MG TABLET PO PRN (00:36)
--- NOTE | 2021-05-27 00:36 | NUR ---
MS RN NOTE - INSOMNIA PT C/O NOT BEING ABLE TO FALL ASLEEP. ADMINISTERED AMBIEN ORDERED. WILL REASSESS FOR SLEEP IN 1 HOUR
--- NOTE | 2021-05-27 06:17 | NUR ---
MS RN CLOSING NOTE PT A/OX4; PT IN ROOM, ABLE TO MAKE NEEDS KNOWN. TOLERATING ROOM AIR WELL WITH NO SOB. DENIES PAIN OR DISCOMFORT AT THIS TIME. NO IV ACCESS. ALL NEEDS MET. SAFETY MEASURES IN PLACE: BED IS LOWEST LOCKED POSITION, SR UPX2, CALL LIGHT WITHIN EASY REACH. PT IN STABLE CONDITION, WILL ENDORSE PLAN OF CARE.
--- NOTE | 2021-05-27 07:46 | NUR ---
RN OPENING NOTE PT IS ASLEEP IN BED, EASY TO AROUSE. A/O X4. PT TOLERATING WELL ON ON RA. NO S/S DISTRESS NOTED. NO SOB. SAFETY MEASURES IN PLACE. SIDE RAILS RAISED. BED LOWERED. CALL LIGHT WITHIN REACH.WILL CONTINUE TO MONITOR PATIENT THROUGHOUT SHIFT.
[2021-05-27] MEDS: INVEST MED Kar XT OR PLACEBO 50/20 MG PO SCH ×2 (10:40→22:02)
--- NOTE | 2021-05-27 19:00 | NUR ---
MS RN OPENING NOTE RECEIVED PT RESTING IN BED. A/O X4, PT STABLE ON ROOM AIR. NO SOB NOTED, NO S/S OF RESPIRATORY DISTRESS. NO C/O PAIN AT THIS TIME. SAFETY MEASURES MAINTAINED AT ALL TIMES. BED IN LOWEST, LOCKED POSITION, HOB ELEVATED, SIDE RAILS UP X2. CALL LIGHT AND TABLE WITHIN REACH. WILL CONTINUE WITH PLAN OF CARE. Addendum: 05/28/21 at 0412 by ERIC CRESPO RN MS PASTOR CT OPENING NOTE RECEIVED PT RESTING IN BED. PT DENIES SI/HI, VISUALS/ AUDITORY HALLUCINATION. NO COMPLAINS OF TREMORS, EPS. OR AKATHASIA
[2021-05-27 20:00] VITALS: BP 128/69
--- NOTE | 2021-05-28 07:35 | NUR ---
RN OPENING NOTES Patient seen comfortably lying in bed, no apparent distress noted, respirations even and unlabored, no SOB, denies any pain or discomfort at this time. Call light left within reach, safety precautions in place, brakes locked, side rails up X 2, will monitor closely for any changes.
[2021-05-28] MEDS: INVEST MED Kar XT OR PLACEBO 50/20 MG PO SCH ×2 (11:11→22:05)
--- NOTE | 2021-05-28 11:13 | NUR ---
Patient went OOP at 0800am.Reminded patient to be back around 1000am for his medications, verbalized understanding. Patient came back at 11:11am, stable condition, took his medications and went OOp again. MD made aware of the situation.
[2021-05-28] MEDS ORDERED: LORAZEPAM 1 MG TABLET PO PRN (13:00)
--- NOTE | 2021-05-28 18:23 | NUR ---
RN CLOSING NOTES Patient lying in bed, AO X 4, no SOB, breathing even and unlabored, denies any pain or discomfort, no apparent distress noted. Patient on monitoring for tremors, none noted during shift, no hallucinations, and no delusions during shift. All medications given per MD order, tolerating well, kept clean and dry, and all needs attended, call light left within reach, safety precautions in place, brakes locked, side rails up X 2, will endorse to next shift for continuity of care.
--- NOTE | 2021-05-28 19:00 | NUR ---
MS RN OPENING NOTE RECEIVED PT RESTING IN BED. A/O X4, PT STABLE ON ROOM AIR. NO SOB NOTED, NO S/S OF RESPIRATORY DISTRESS. NO C/O PAIN AT THIS TIME. PT DENIES ANY VISUAL, AUDITORY HALLUCINATIONS. NO S/S OF EPS, TREMORS OR AKATHASIA. SAFETY MEASURES MAINTAINED AT ALL TIMES. BED IN LOWEST, LOCKED POSITION, HOB ELEVATED, SIDE RAILS UP X2. CALL LIGHT AND TABLE WITHIN REACH. WILL CONTINUE WITH PLAN OF CARE.
[2021-05-28 20:00] VITALS: BP 123/60
--- NOTE | 2021-05-29 06:30 | NUR ---
PT STABLE THROUGHOUT SHIFT.NO C/O PAIN AT THIS TIME. PT DENIES ANY VISUAL, AUDITORY HALLUCINATIONS. NO S/S OF EPS, TREMORS OR AKATHASIA. WILL ENDORSE TO ONCOMING NURSE FOR [facility]. Addendum: 05/29/21 at 0658 by ERIC CRESPO RN RN CLOSING NOTE PT STABLE THROUGHOUT SHIFT.NO C/O PAIN AT THIS TIME. PT DENIES ANY VISUAL, AUDITORY HALLUCINATIONS. NO S/S OF EPS, TREMORS OR AKATHASIA. WILL ENDORSE TO ONCOMING NURSE FOR [facility].
--- NOTE | 2021-05-29 07:45 | NUR ---
RN-NOTES RECEIVED PATIENT AWAKE,ALERT X4 SITTING IN THE BED,CALM NO ACUTE DISTRESS NOTED.
[2021-05-29 08:00] VITALS: BP 148/94
[2021-05-29] MEDS: INVEST MED Kar XT OR PLACEBO 50/20 MG PO SCH ×2 (10:00→22:00)
--- NOTE | 2021-05-29 12:17 | NUR ---
RN-NOTES PATIENT LEFT THE UNIT AROUND 1100,A/O X4 , STILL NOT BACK INTO THE UNIT.
--- NOTE | 2021-05-29 14:25 | NUR ---
RN-NOTES PATIENT BACK IN THE UNIT A/O X4, NO ACUTE DISTRESS NOTED.
[2021-05-29 16:00] VITALS: BP 150/89
--- NOTE | 2021-05-29 18:27 | NUR ---
RN-NOTES PATIENT SITTING IN THE CHAIR NEXT TO HIS BED,WATCHING IN HIS PHONE,NO ACUTE DISTRESS NOTED. PATIENT ABLE TO MAKE NEEDS KNOWN . ALL NEEDS ATTENDED AND MET. NO COMPLAIN NOTED THIS SHIFT.DID GO OUT TO WALK TODAY. WILL ENDORSE TO INCOMING NURSE FOR CONTINUITY OF CARE.
--- NOTE | 2021-05-29 19:00 | NUR ---
MS RN NOTES/CT NOT IN THE ROOM,PER REPORT,PATIENT JUST STEP OUT
--- NOTE | 2021-05-29 19:04 | NUR ---
RN-NOTES PATIENT STEP OUT THE UNIT,A/OX4. WILL ENDORSE TO INCOMING NURSE.
[2021-05-29 20:00] VITALS: BP 112/59
--- NOTE | 2021-05-29 20:00 | NUR ---
MS RN NOTES/CT CAME BACK FROM WALK OUTSIDE.
--- NOTE | 2021-05-30 06:45 | NUR ---
MS RN NOTES/CT SEEN PATIENT IN THE ELEVATOR,REFUSED TO SIGN OUT.
--- NOTE | 2021-05-30 07:30 | NUR ---
MS RN OPENING NOTE RECEIVED PT AWAKE IN BED. A/O X4. PT IS STABLE ON ROOM AIR WITH NO SOB OR S/S OF RESPIRATORY DISTRESS NOTED. PT HAS NO C/O PAIN OR DISCOMFORT AT THIS TIME. NO IV ACCESS DUE TO CLINICAL TRIAL STATUS. NO BEHAVIORAL ISSUES REPORTED AT THIS TIME. SAFETY PRECAUTIONS MAINTAINED. BED IN LOWEST LOCKED POSITION, HOB ELEVATED, SIDE RAILS UP X2. CALL LIGHT AND TABLE WITHIN REACH. WILL CONTINUE TO MONITOR.
[2021-05-30] MEDS: INVEST MED Kar XT OR PLACEBO 50/20 MG PO SCH ×2 (10:00→22:00)
[2021-05-30 16:00] VITALS: BP 108/56
--- NOTE | 2021-05-30 18:32 | NUR ---
MS RN CLOSING NOTE PT IS AWAKE IN BED. A/O X4. PT IS STABLE ON ROOM AIR WITH NO SOB OR S/S OF RESPIRATORY DISTRESS NOTED. PT HAS NO C/O PAIN OR DISCOMFORT AT THIS TIME. NO IV ACCESS DUE TO CLINICAL TRIAL STATUS. NO BEHAVIORAL ISSUES REPORTED AT THIS TIME. ALL NEEDS HAVE BEEN MET. SAFETY PRECAUTIONS MAINTAINED AT ALL TIMES. BED IN LOWEST LOCKED POSITION, HOB ELEVATED, SIDE RAILS UP X2. CALL LIGHT AND TABLE WITHIN REACH. WILL ENDORSE TO ONCOMING NURSE FOR [facility].
[2021-05-30 20:00] VITALS: BP 124/70
--- NOTE | 2021-05-31 06:30 | NUR ---
MS RN CT CLOSING NOTE PT STABLE THROUGHOUT SHIFT.NO C/O PAIN AT THIS TIME. PT DENIES ANY VISUAL, AUDITORY HALLUCINATIONS. NO S/S OF EPS, TREMORS OR AKATHASIA. WILL ENDORSE TO ONCOMING NURSE FOR [facility].
[2021-05-31] MEDS: INVEST MED Kar XT OR PLACEBO 50/20 MG PO SCH ×2 (10:00→22:00)
[2021-05-31 16:44] VITALS: BP 109/60
--- NOTE | 2021-05-31 19:50 | NUR ---
MS RN OPENING NOTE PATIENT AWAKE IN BED, A/O X4, PT ABLE TO MAKE NEEDS KNOWN. PT IS STABLE ON ROOM AIR, NO SOB OR S/S OF RESPIRATORY DISTRESS NOTED. PT DENIES PAIN OR DISCOMFORT AT THIS TIME. NO IV ACCESS DUE TO CLINICAL TRIAL STATUS. SAFETY PRECAUTIONS IN PLACE: BED LOCKED IN LOW POSITION, HOB ELEVATED, SIDE RAILS UP X2. CALL LIGHT AND TABLE WITHIN REACH. WILL CONTINUE TO MONITOR PATIENT
[2021-05-31 20:00] VITALS: BP 119/67
[2021-06-01] MEDS: ZOLPIDEM TARTRATE 10 MG TABLET PO PRN ×2 (00:21→23:58)
--- NOTE | 2021-06-01 07:00 | NUR ---
MS RN CLOSING NOTE NO SIGNIFICANT CHANGES THROUGHOUT SHIFT. PT STABLE ON RA, NO S/S OF DISTRESS OR SOB NOTED, BREATHING EVEN AND UNLABORED. MEDICATIONS GIVEN ORDERED, PT NEEDS MET THROUGHOUT SHIFT. NO ADVERSE EFFECTS REPORTED. SAFETY MEASURES IN PLACE: CALL LIGHT WITHIN REACH, BED LOCKED IN LOW POSITION, SIDE RAILS UP X 2. ENDORSED TO DAY SHIFT NURSE FOR CONTINUITY OF CARE
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
[2021-06-01] MEDS ORDERED: IBUPROFEN 600 MG TABLET PO PRN (10:00)
[2021-06-01] MEDS: INVEST MED Kar XT OR PLACEBO 50/20 MG PO SCH ×2 (10:17→22:00)
[2021-06-01] MEDS: NEOMY SULF/BACITRAC ZN/POLY 15 GM TUBE TP SCH (12:18)
[2021-06-01 16:00] VITALS: BP 140/80
[2021-06-01 20:00] VITALS: BP 127/72
--- NOTE | 2021-06-01 20:00 | NUR ---
MS RN OPENING NOTE PATIENT AWAKE IN BED, A/O X4, PT ABLE TO MAKE NEEDS KNOWN. PT IS STABLE ON ROOM AIR, NO SOB OR S/S OF RESPIRATORY DISTRESS NOTED. PT DENIES PAIN OR DISCOMFORT AT THIS TIME. DRESSING ON BILATERAL LEGS CLEAN, DRY AND INTACT. NO IV ACCESS DUE TO CLINICAL TRIAL STATUS. SAFETY PRECAUTIONS IN PLACE: BED LOCKED IN LOW POSITION, HOB ELEVATED, SIDE RAILS UP X2, CALL LIGHT AND TABLE WITHIN REACH. WILL CONTINUE TO MONITOR PATIENT
--- NOTE | 2021-06-02 06:12 | NUR ---
MS RN CLOSING NOTE PATIENT SEEN AWAKE IN ROOM. NO SIGNIFICANT CHANGES THROUGHOUT SHIFT. PT STABLE ON RA, NO S/S OF DISTRESS OR SOB NOTED, BREATHING EVEN AND UNLABORED. MEDICATIONS GIVEN ORDERED, PT NEEDS MET THROUGHOUT SHIFT. NO ADVERSE EFFECTS REPORTED. SAFETY MEASURES IN PLACE: CALL LIGHT WITHIN REACH, BED LOCKED IN LOW POSITION, SIDE RAILS UP X 2. WILL ENDORSE TO DAY SHIFT NURSE FOR CONTINUITY OF CARE
[2021-06-02 08:00] VITALS: BP 102/58
[2021-06-02] MEDS: NEOMY SULF/BACITRAC ZN/POLY 15 GM TUBE TP SCH (08:41)
[2021-06-02] MEDS: INVEST MED Kar XT OR PLACEBO 50/20 MG PO SCH ×2 (10:04→22:02)
--- NOTE | 2021-06-02 18:21 | NUR ---
MS RN CLOSING NOTE Patient in bed, resting. A/O x 4. Patient is stable on room air, no SOB or any s/sx of distress noted. Denies pain or discomfort at this time. Dressing on bilateral legs are clean, dry, and intact. No IV access due to clinical trial status. Safety measures in place: Bed in low, locked position, siderails up x 2, call light within reach. Will endorse to table games shift manager nurse for [facility].
--- NOTE | 2021-06-02 19:15 | NUR ---
MS RN OPENING NOTE PATIENT AWAKE IN ROOM, A/O X4, PT ABLE TO MAKE NEEDS KNOWN. PT IS STABLE ON ROOM AIR, NO SOB OR S/S OF RESPIRATORY DISTRESS NOTED. PT DENIES PAIN OR DISCOMFORT AT THIS TIME. WOUNDS ON BILATERAL LEGS OPEN TO AIR, NO BLEEDING NOTED. NO IV ACCESS DUE TO CLINICAL TRIAL STATUS. SAFETY PRECAUTIONS IN PLACE: BED LOCKED IN LOW POSITION, SIDE RAILS UP X2, CALL LIGHT AND TABLE WITHIN REACH. WILL CONTINUE TO MONITOR PATIENT
[2021-06-02 20:00] VITALS: BP_SYST 119; BP_SYST 139; BP_DIAS 73; BP_DIAS 80
--- NOTE | 2021-06-03 01:00 | NUR ---
MS RN NOTE PATIENT REQUESTED ANTHONYIEN EARLIER, HOWEVER, WHEN I BROUGHT MEDICATION TO ROOM PATIENT STATED THAT HE CHANGED HIS MIND AND DIDN'T WANT IT ANYMORE. MEDICATION NOT ADMINISTERED. WASTED MEDICATION WITH CHARGE NURSE JONAS.
[2021-06-03] MEDS: ZOLPIDEM TARTRATE 10 MG TABLET PO PRN (01:08)
--- NOTE | 2021-06-03 07:00 | NUR ---
MS RN CLOSING NOTE PATIENT SLEEPING IN ROOM. NO SIGNIFICANT CHANGES THROUGHOUT SHIFT. PT STABLE ON RA, NO S/S OF DISTRESS OR SOB NOTED, BREATHING EVEN AND UNLABORED. MEDICATIONS GIVEN ORDERED, PT NEEDS MET THROUGHOUT SHIFT. NO ADVERSE EFFECTS REPORTED. SAFETY MEASURES IN PLACE: CALL LIGHT WITHIN REACH, BED LOCKED IN LOW POSITION, SIDE RAILS UP X 2. ENDORSED TO DAY SHIFT NURSE FOR CONTINUITY OF CARE
--- NOTE | 2021-06-03 07:13 | NUR ---
MS RN OPENING NOTE Patient in bed, asleep. A/O x 4. Patient stable on room air, no SOB or s/sx of distress noted. No IV access due to clinical trial status. Wounds on bilateral legs, open to air; no bleeding noted. Safety measures in place: bed in low, locked position, siderails up x2, call light within reach. Will continue to monitor.
--- NOTE | 2021-06-03 07:29 | NUR ---
WOUND CARE CONSULT: PT OFF UNIT AT THIS TIME. SPOKE WITH RN AND PT WAS PREVIOUSLY TREATED FOR LOWER EXTREMITY ABRASION WITH AB OINTMENT. WILL SEE PRN.
[2021-06-03] MEDS: NEOMY SULF/BACITRAC ZN/POLY 15 GM TUBE TP SCH (08:20)
[2021-06-03] MEDS: INVEST MED Kar XT OR PLACEBO 50/20 MG PO SCH ×2 (10:01→21:23)
--- NOTE | 2021-06-03 18:24 | NUR ---
MS RN CLOSING NOTE Patient awake in bed. A/O x 4. On room air, breathing evenly an unlabored; no SOB or s/sx of distress noted. No IV access due to clinical trial status. Wounds on bilateral legs, open to air; no bleeding noted. Safety measures maintained: bed in low, locked position, siderails up x2, call light within reach. Will endorse to magician/illusionist nurse for [facility].
[2021-06-03 20:00] VITALS: BP 137/70
--- NOTE | 2021-06-03 20:59 | NUR ---
RN opening notes Pt is laying in bed talking on the phone. Pt is alert and orientedX4. Respiration is normal. No SOB. No S/S of distress noted. Pt doesn't have IV access. Pt denies SI/HI at this time. Safety precautions is maintained. Bed at low position, brakes locked, side rails upX2 and call light is within reach. Will continue to monitor.
[2021-06-03 21:00] VITALS: BP 137/70
--- NOTE | 2021-06-03 21:00 | NUR ---
RN notes Pt is back to the room.
--- NOTE | 2021-06-04 06:44 | NUR ---
RN ms closing notes Pt is resting in bed comfortably. Pt is alert and orientedX4. Respiration is normal. No SOB. No S/S of distress noted. VS is stable. Pt doesn't have IV access. Kept Pt clean, dry and comfortable. All needs met and attended. Safety precautions is maintained. Bed at low position, brakes locked, side rails upX2 and call light is within reach. Will endorse to am nurse for [facility].
--- NOTE | 2021-06-04 07:47 | NUR ---
MS RN OPENING NOTE PATIENT AWAKE IN ROOM, A/O X4, PT ABLE TO MAKE NEEDS KNOWN. PT IS STABLE ON ROOM AIR, NO SOB, BREATHING EVEN AND UNLABORED. PT DENIES PAIN OR DISCOMFORT AT THIS TIME. WOUNDS ON BILATERAL LEGS OPEN TO AIR, NO BLEEDING NOTED. SAFETY PRECAUTIONS IN PLACE: BED LOCKED IN LOW POSITION, SIDE RAILS UP X2, CALL LIGHT AND TABLE WITHIN REACH. WILL CONTINUE TO MONITOR PATIENT ACCDGLY.
[2021-06-04] MEDS: NEOMY SULF/BACITRAC ZN/POLY 15 GM TUBE TP SCH (09:00)
[2021-06-04] MEDS: INVEST MED Kar XT OR PLACEBO 50/20 MG PO SCH ×2 (10:04→21:12)
--- NOTE | 2021-06-04 18:43 | NUR ---
MS RN CLOSING NOTES PATIENT AWAKE IN ROOM, A/O X4, PT ABLE TO MAKE NEEDS KNOWN. PT IS STABLE ON ROOM AIR, NO SOB, BREATHING EVEN AND UNLABORED. PT DENIES PAIN OR DISCOMFORT AT THIS TIME. WOUNDS ON BILATERAL LEGS OPEN TO AIR, NO BLEEDING NOTED. SAFETY PRECAUTIONS IN PLACE: BED LOCKED IN LOW POSITION, SIDE RAILS UP X2, CALL LIGHT AND TABLE WITHIN REACH. WILL CONTINUE TO MONITOR PATIENT ACCDGLY.
[2021-06-04 20:00] VITALS: BP 146/85
--- NOTE | 2021-06-04 20:45 | NUR ---
RN opening notes Pt is back in the room. Pt is alert and orientedX4. Respiration is normal. No SOB. No S/S of distress noted. Pt doesn't have IV access. Pt denies SI/HI at this time. VS is stable. Give snacks to Pt. Safety precautions is maintained. Bed at low position, brakes locked, side rails upX2 and call light is within reach. Will continue to monitor.
--- NOTE | 2021-06-04 20:50 | NUR ---
PASTOR ms notes Pt is back to the room.
[2021-06-04 21:00] VITALS: BP 146/85
--- NOTE | 2021-06-04 22:00 | NUR ---
PASTOR ms notes Pt status is NPO. Took Pt's food and drinks with a CHIEF ANALYTICS OFFICER. Informed and explained to Pt. Pt is aware and verbalize undertanding. Blood draw in am. Addendum: 06/04/21 at 2335 by STEVE TREVIÑO RN Disregards the message. NPO for 06/05 at 2200.
--- NOTE | 2021-06-05 07:00 | NUR ---
RN ms closing notes Pt is resting in bed comfortably. Pt is alert and orientedX4. Respiration is normal. No SOB. No S/S of distress noted. VS is stable. Routine meds were given as ordered. Kept Pt clean, dry and comfortable. All needs met and attended. Safety precautions is maintained. Bed at low position, brakes locked, side rails upX2 and call light is within reach. Will endorse to am nurse for [facility].
--- NOTE | 2021-06-05 07:23 | NUR ---
MS RN OPENING NOTE PATIENT ASLEEP IN BED. PT IN COMFORTBALE POSITION. PT IS STABLE ON ROOM AIR, NO SOB, BREATHING EVEN AND UNLABORED. PT DENIES PAIN OR DISCOMFORT AT THIS TIME. WOUNDS ON BILATERAL LEGS OPEN TO AIR, NO BLEEDING NOTED. SAFETY PRECAUTIONS IN PLACE: BED LOCKED IN LOW POSITION, SIDE RAILS UP X2, CALL LIGHT AND TABLE WITHIN REACH. WILL CONTINUE TO MONITOR PATIENT ACCDGLY.
[2021-06-05] MEDS: NEOMY SULF/BACITRAC ZN/POLY 15 GM TUBE TP SCH (09:00)
[2021-06-05] MEDS: INVEST MED Kar XT OR PLACEBO 50/20 MG PO SCH ×2 (10:01→22:00)
[2021-06-05 16:00] VITALS: BP 112/77
--- NOTE | 2021-06-05 18:30 | NUR ---
MS RN CLOSING NOTES PATIENT AWAKE IN ROOM, A/O X4, PT ABLE TO MAKE NEEDS KNOWN. PT IS STABLE ON ROOM AIR, NO SOB, BREATHING EVEN AND UNLABORED. PT DENIES PAIN OR DISCOMFORT AT THIS TIME. WOUNDS ON BILATERAL LEGS OPEN TO AIR, NO BLEEDING NOTED. INSTRUCTED PT. TO BE ON NPO POST MIDNIGHT AND EXPRESSED UNDERSTANDING. SAFETY PRECAUTIONS IN PLACE: BED LOCKED IN LOW POSITION, SIDE RAILS UP X2, CALL LIGHT AND TABLE WITHIN REACH. WILL CONTINUE TO MONITOR PATIENT AND WILL ENDORSED TO OCCUPATIONAL HEALTH NURSING DIRECTOR NURSE
--- NOTE | 2021-06-05 19:40 | NUR ---
MS RN OPENING NOTES PATIENT'S ALERT AND ORIENTED X4. PT IS STABLE ON ROOM AIR. WOUNDS NOTED ON BILATERAL LEGS WHICH ARE OPEN TO AIR WITH NO BLEEDING NOTED. PATIENT'S IN NO ACUTE DISTRESS AT THIS TIME. SAFETY MEASURES IN PLACE: BED LOCKED, SIDE RAILS UP X2, AND CALL LIGHT WITHIN REACH OF THE PATIENT. WILL CONTINUE TO MONITOR THE PATIENT.
[2021-06-05 20:00] VITALS: BP 122/73
--- NOTE | 2021-06-06 06:53 | NUR ---
MS RN CLOSING NOTES PATIENT WAS SEEN AWAKE IN HIS ROOM. PATIENT'S ALERT AND ORIENTED X4. PT IS STABLE ON ROOM AIR. PATIENT'S IN NO ACUTE DISTRESS AT THIS TIME. SAFETY MEASURES IN PLACE: BED LOCKED, SIDE RAILS UP X2, AND CALL LIGHT WITHIN REACH OF THE PATIENT. WILL ENDORSE CARE TO THE DAY SHIFT NURSE.
--- NOTE | 2021-06-06 07:30 | NUR ---
MS RN OPENING NOTES RECEIVED PATIENT SITTING ON BED, AWAKE AND A/O X4. ON ROOM AIR TOLERATING WELL. NO SOB NOTED. NOT IN DISTRESS. WITH NO COMPLAINTS OF PAIN AT THIS TIME. WITH NO IV ACCESS. ON CLINICAL TRIAL. SAFETY MEASURES IN PLACE. CALL LIGHT WITHIN REACH. BED ON LOWEST AND LOCKED POSITION, SIDE RAILS UP X2. WILL CONTINUE TO MONITOR.
[2021-06-06] MEDS: NEOMY SULF/BACITRAC ZN/POLY 15 GM TUBE TP SCH (08:24)
[2021-06-06 08:47] VITALS: BP 114/74
[2021-06-06] MEDS: INVEST MED Kar XT OR PLACEBO 50/20 MG PO SCH ×2 (10:00→22:07)
[2021-06-06 16:00] VITALS: BP 130/79
--- NOTE | 2021-06-06 18:41 | NUR ---
MS RN CLOSING NOTES PATIENT RESTING ON BED, AWAKE AND A/O X4. ON ROOM AIR TOLERATING WELL. NO SOB NOTED. NOT IN DISTRESS. WITH NO COMPLAINTS OF PAIN AT THIS TIME. WITH NO IV ACCESS. ON CLINICAL TRIAL. SAFETY MEASURES IN PLACE. CALL LIGHT WITHIN REACH. BED ON LOWEST AND LOCKED POSITION, SIDE RAILS UP X2. WILL ENDORSE TO NEXT SHIFT.
[2021-06-06 20:00] VITALS: BP 118/56
--- NOTE | 2021-06-06 20:00 | NUR ---
Patient is A&Ox4. No behaviors at this time. Denies any side effects from investigational med. Denies any s/sx of schizophrenia at this time. Reminded of Investigational med at 2200 and to hold ativan and ambien post 2200 and resume after rounds in AM. Patient verbalizes understanding. Will continue to monitor.
--- NOTE | 2021-06-07 06:50 | NUR ---
Pt. stable overnight. No behavioral changes. No ase from investigational meds.
[2021-06-07 08:00] VITALS: BP 110/69
[2021-06-07] MEDS: INVEST MED Kar XT OR PLACEBO 50/20 MG PO SCH ×2 (10:01→21:38)
[2021-06-07] MEDS: NEOMY SULF/BACITRAC ZN/POLY 15 GM TUBE TP SCH (10:01)
--- NOTE | 2021-06-07 10:06 | NUR ---
RN NOTES PATIENT IN THE ROOM AWAKE AND VERBALLY RESPONSIVE. INVESTIGATIONAL MED GIVEN. NEOSPORIN SOUMYA APPLIED ON RIGHT KNEE ABRASION. NO BLEEDING NOTED. LEFT OPEN TO AIR PER PATIENT REQUEST. SAFETY MEASURES IN PLACE. WILL CONTINUE TO MONITOR.
[2021-06-07] MEDS ORDERED: LORAZEPAM 1 MG TABLET PO PRN (13:00)
[2021-06-07] MEDS ORDERED: ZOLPIDEM TARTRATE 10 MG TABLET PO PRN (13:00)
--- NOTE | 2021-06-07 18:59 | NUR ---
RN NOTES PATIENT SLEEPING IN BED, ABLE TO BE AWAKENED. NOT IN ACUTE DISTRESS. NO ADVERSE CHANGE NOTED. CONTINUES ON CLINICAL TRIAL. WILL ENDORSE TO TOP DISTRIBUTION EXECUTIVE RN FOR [facility].
--- NOTE | 2021-06-07 19:00 | NUR ---
RN NOTES RECEIVED REPORT FROM MORNING NURSE. PATIENT IN BED A/O X4. NO SOB NO DISTRESS NOTED. ALL SAFETY MEASURE IN PLACE, HOB ELEVATED, BED ON LOWEST POSITION AND LOCKED. CALL LIGHT WITHIN REACH. WILL CONTINUE TO MONITOR THE PATIENT
[2021-06-07 20:00] VITALS: BP 122/59
[2021-06-07 22:00] VITALS: BP 122/59
--- NOTE | 2021-06-07 22:00 | NUR ---
RN NOTES GAVE INVESTIGATIONAL DRUG TO THE PATIENT. INFORMED HIM TO SIGN IN AND OUT EVERYTIME HE WILL GO OUTSIDE. PATIENT RESPONDED AND "I KNOW, I WILL JUST GO OUTSIDE TO SMOKE".
--- NOTE | 2021-06-08 00:30 | NUR ---
RN NOTES PATIENT STILL OUTSIDE.
--- NOTE | 2021-06-08 02:30 | NUR ---
RN NOTES CN CALLED THE PATIENT AND SAID HE WAS JUST OUTSIDE IN SMOKING AREA AND HE WILL BE BACK SOON.
--- NOTE | 2021-06-08 03:00 | NUR ---
RN NOTES PATIENT STILL OUTSIDE.
--- NOTE | 2021-06-08 03:25 | NUR ---
RN NOTES PATIENT CAME BACK.
--- NOTE | 2021-06-08 06:24 | NUR ---
RN NOTES PATIENT REMAINS IN STABLE CONDITION THE WHOLE SHIFT NO SIGNIFICANT CHANGES IN HEALTH CONDITION. TRIAL MEDS GIVEN ORDERED. ALL NEEDS ATTENDED PROMPTLY. ENDORSED
--- NOTE | 2021-06-08 07:30 | NUR ---
MS RN OPENING NOTES RECEIVED PATIENT SITTING ON BED, AWAKE AND A/O X4. bREATHS ON ROOM AIR TOLERATING WELL. NO SOB NOTED. NN RESPIRATORY DISTRESS NOTED. NO COMPLAINTS OF PAIN AT THIS TIME. WITH NO IV ACCESS. ON CLINICAL TRIAL. SAFETY MEASURES IN PLACE. CALL LIGHT WITHIN REACH. BED ON LOWEST AND LOCKED POSITION, SIDE RAILS UP X2. WILL CONTINUE TO MONITOR.
[2021-06-08] MEDS: NEOMY SULF/BACITRAC ZN/POLY 15 GM TUBE TP SCH (09:04)
[2021-06-08 09:25] VITALS: BP 126/61
[2021-06-08] MEDS: INVEST MED Kar XT OR PLACEBO 50/20 MG PO SCH ×2 (10:00→21:58)
--- NOTE | 2021-06-08 18:23 | NUR ---
MS RN CLOSING NOTES PATIENT ON BED, AWAKE AND A/O X4. BREATHS ON ROOM AIR TOLERATING WELL. NO SOB NOTED. NO RESPIRATORY DISTRESS NOTED. NO COMPLAINTS OF PAIN AT THIS TIME. WITH NO IV ACCESS. ON CLINICAL TRIAL. SAFETY MEASURES IN PLACE. CALL LIGHT WITHIN REACH. BED ON LOWEST AND LOCKED POSITION, SIDE RAILS UP X2. MEDS GIVEN ORDERED.WILL ENDORSE TO NEXT SHIFT NURSE FOR CONTINUOUS OF CARE.
--- NOTE | 2021-06-08 19:20 | NUR ---
MS/RN OPENING NOTE RECEIVED PATIENT UP IN ROOM. ALERT AND ORIENTED X 4. ABLE TO MAKE NEEDS KNOWN. DENIES PAIN AT THIS TIME. CONTINUES ON ROOM AIR WITH NO S/SX OF RESPIRATORY DISTRESS NOTED. NO IV ACCESS AT THIS TIME. CONTINUES ON CLINICAL TRIAL AND INVESTIGATIONAL MEDICATIONS. CONTINUES ON REGULAR DIET. CALL LIGHT WITHIN REACH. ASPIRATION, FALL AND SAFETY PRECAUTIONS MAINTAINED. WILL CONTINUE TO MONITOR.
[2021-06-08 20:00] VITALS: BP 142/70
[2021-06-08 21:00] VITALS: BP 142/70
--- NOTE | 2021-06-08 22:30 | NUR ---
MS/RN NOTE PATIENT MOVED TO ROOM 320-1. CURRENTLY RESTING IN BED. NO ACUTE DISTRESS NOTED. WILL CONTINUE TO MONITOR.
--- NOTE | 2021-06-09 06:20 | NUR ---
MS/RN CLOSING NOTE PATIENT CURRENTLY SLEEPING IN BED. ALERT AND ORIENTED X 4. ABLE TO MAKE NEEDS KNOWN. DENIES PAIN AT THIS TIME. CONTINUES ON ROOM AIR WITH NO S/SX OF RESPIRATORY DISTRESS NOTED. NO IV ACCESS AT THIS TIME. CONTINUES ON CLINICAL TRIAL AND INVESTIGATIONAL MEDICATIONS. CONTINUES ON REGULAR DIET. CALL LIGHT WITHIN REACH. ASPIRATION, FALL AND SAFETY PRECAUTIONS MAINTAINED. WILL ENDORSE PLAN OF CARE TO ONCOMING SHIFT.
--- NOTE | 2021-06-09 07:15 | NUR ---
MS/RN OPENING NOTE RECEIVED PATIENT UP IN ROOM. A/AX 4. ABLE TO MAKE NEEDS KNOWN. DENIES PAIN AT THIS TIME. CONTINUES ON ROOM AIR WITH NO S/SX OF RESPIRATORY DISTRESS NOTED. NO IV ACCESS AT THIS TIME. CONTINUES ON CLINICAL TRIAL AND INVESTIGATIONAL MEDICATIONS. CONTINUES ON REGULAR DIET. SAFETY MEASURES IN PLACE WITH BED IN LOWEST LOCKED POSITION, CALL LIGHT WITHIN REACH AND ALL NEEDS ATTENDED AT THIS TIME.
[2021-06-09] MEDS: NEOMY SULF/BACITRAC ZN/POLY 15 GM TUBE TP SCH (09:22)
[2021-06-09] MEDS: INVEST MED Kar XT OR PLACEBO 50/20 MG PO SCH ×2 (09:22→21:17)
--- NOTE | 2021-06-09 18:45 | NUR ---
MS/RN CLOSING NOTE PATIENT IS ALERT AND ORIENTED X 4. ABLE TO MAKE NEEDS KNOWN. CONTINUES ON ROOM AIR WITH NO S/SX OF RESPIRATORY DISTRESS NOTED. NO IV ACCESS AT THIS TIME. CONTINUES ON CLINICAL TRIAL AND INVESTIGATIONAL MEDICATIONS. CONTINUES ON REGULAR DIET. CALL LIGHT WITHIN REACH. FALL AND SAFETY PRECAUTIONS MAINTAINED. WILL ENDORSE PLAN OF CARE TO ONCOMING SHIFT.
[2021-06-09 20:00] VITALS: BP 100/45
--- NOTE | 2021-06-09 21:15 | NUR ---
RN notes Pt is back to his room.
--- NOTE | 2021-06-09 21:16 | NUR ---
RN ms opening notes Pt is a clinical trial. Pt is sitting in bed comfortably. Pt is alert and orientedX4. Respiration is normal. No SOB. No S/S of distress noted. Pt doesn't have IV access. Pt denies SI/HI at this time. VS is stable. Pt is able to ambulates with a steady gait. Safety precautions is maintained. Bed at low position, brakes locked, side rails upX2 and call light is within reach. Will continue to monitor.
[2021-06-09 21:30] VITALS: BP 100/45
--- NOTE | 2021-06-09 22:00 | NUR ---
RN ms notes Pt refused weekly wound skin picture. Explained risks and benefits. Pt keep refusing. Will continue to monitor.
--- NOTE | 2021-06-10 06:30 | NUR ---
RN ms notes Pt is going outside.
--- NOTE | 2021-06-10 07:30 | NUR ---
MS RN OPENING NOTE RECEIVED PATIENT, AWAKE AND A/O X 4. ABLE TO MAKE NEEDS KNOWN. DENIES PAIN AT THIS TIME. ON ROOM AIR WITH NO S/SX OF RESPIRATORY DISTRESS NOTED. NO IV ACCESS AT THIS TIME. ON CLINICAL TRIAL. CONTINUES ON REGULAR DIET. SAFETY MEASURES IN PLACE. BED IN LOWEST LOCKED POSITION, CALL LIGHT WITHIN REACH. WILL CONTINUE TO MONITOR.
[2021-06-10 08:00] VITALS: BP 110/60
[2021-06-10 08:47] VITALS: BP 154/74
[2021-06-10] MEDS: NEOMY SULF/BACITRAC ZN/POLY 15 GM TUBE TP SCH (09:32)
[2021-06-10] MEDS: INVEST MED Kar XT OR PLACEBO 50/20 MG PO SCH ×2 (10:00→22:00)
--- NOTE | 2021-06-10 18:57 | NUR ---
MS RN CLOSING NOTES PATIENT RESTING ON BED AND A/O X 4. ABLE TO MAKE NEEDS KNOWN. DENIES PAIN AT THIS TIME. ON ROOM AIR WITH NO S/SX OF RESPIRATORY DISTRESS NOTED. NO IV ACCESS AT THIS TIME. ON CLINICAL TRIAL. NPO TONIGHT AT 2200. SAFETY MEASURES IN PLACE. BED IN LOWEST LOCKED POSITION, CALL LIGHT WITHIN REACH. WILL ENDORSE TO NEXT SHIFT FOR [place].
--- NOTE | 2021-06-10 19:30 | NUR ---
MS RN OPENING NOTES PATIENT'S ALERT AND ORIENTED X4. PT IS STABLE ON ROOM AIR. PATIENT'S IN NO ACUTE DISTRESS AT THIS TIME. PATIENT HAS TO BE NPO AFTER 2200 TONIGHT AND CAN RESUME DIET AFTER MORNING BLOOD DRAW. SAFETY MEASURES IN PLACE: BED LOCKED, SIDE RAILS UP X2, AND CALL LIGHT WITHIN REACH OF THE PATIENT. WILL CONTINUE TO MONITOR THE PATIENT.
[2021-06-10 20:00] VITALS: BP 148/76
--- NOTE | 2021-06-11 07:30 | NUR ---
MS RN OPENING NOTE RECEIVED PATIENT RESTING ON BED AND A/O X 4. DENIES PAIN AT THIS TIME. ON ROOM AIR WITH NO S/SX OF RESPIRATORY DISTRESS NOTED. NO IV ACCESS AT THIS TIME. ON CLINICAL TRIAL. ON NPO AND WILL RESUME REGULAR DIET AFTER BLOOD DRAW. SAFETY MEASURES IN PLACE. BED IN LOWEST LOCKED POSITION, CALL LIGHT WITHIN REACH. WILL CONTINUE TO MONITOR.
--- NOTE | 2021-06-11 07:30 | NUR ---
MS RN CLOSING NOTES PATIENT WAS LAST SEEN SLEEPING IN BED. PATIENT'S ALERT AND ORIENTED X4. PT IS STABLE ON ROOM AIR. PATIENT'S IN NO ACUTE DISTRESS AT THIS TIME. SAFETY MEASURES IN PLACE: BED LOCKED, SIDE RAILS UP X2, AND CALL LIGHT WITHIN REACH OF THE PATIENT. ENDORSED CARE TO THE DAY SHIFT NURSE.
[2021-06-11 08:00] VITALS: BP 106/68
[2021-06-11] MEDS: NEOMY SULF/BACITRAC ZN/POLY 15 GM TUBE TP SCH (09:00)
[2021-06-11] MEDS: INVEST MED Kar XT OR PLACEBO 50/20 MG PO SCH ×2 (10:00→22:00)
[2021-06-11 16:46] VITALS: BP_SYST 121; BP_SYST 156; BP_DIAS 51; BP_DIAS 81
--- NOTE | 2021-06-11 18:28 | NUR ---
MS RN CLOSING NOTES PATIENT RESTING ON BED AND A/O X 4. DENIES PAIN AT THIS TIME. ON ROOM AIR WITH NO S/SX OF RESPIRATORY DISTRESS NOTED. NO IV ACCESS AT THIS TIME. ON CLINICAL TRIAL. INSTRUCTED FOR NPO STARTING 2200 TONIGHT AND RESUME REGULAR DIET AFTER BLOOD DRAW. SAFETY MEASURES IN PLACE. BED IN LOWEST LOCKED POSITION, CALL LIGHT WITHIN REACH. WILL ENDORSE TO NEXT SHIFT FOR [place].
--- NOTE | 2021-06-11 19:30 | NUR ---
MS RN OPENING NOTES PATIENT WAS SEEN AWAKE IN HIS ROOM. PATIENT'S ALERT AND ORIENTED X4. PT IS STABLE ON ROOM AIR. PATIENT'S IN NO ACUTE DISTRESS AT THIS TIME. PATIENT HAS TO BE NPO AFTER 2200 TONIGHT AND CAN RESUME DIET AFTER MORNING BLOOD DRAW. SAFETY MEASURES IN PLACE: BED LOCKED, SIDE RAILS UP X2, AND CALL LIGHT WITHIN REACH OF THE PATIENT. WILL CONTINUE TO MONITOR THE PATIENT.
--- NOTE | 2021-06-11 20:00 | NUR ---
MS RN NOTES PATIENT WAS NOT IN THE UNIT WHEN ENGINEERING FACULTY PERFORMS 8 PM VITAL SIGN CHECK IN THE [facility].
[2021-06-11 22:00] VITALS: BP 146/83
--- NOTE | 2021-06-11 22:00 | NUR ---
MS RN NOTES NOTIFIED THE PATIENT THAT HE HAS TO BE NPO (STUDY MEDICATIONS ARE OK) AFTER 2200 TONIGHT PRIOR LAB DRAW. PATIENT UNDERSTOOD.
--- NOTE | 2021-06-12 03:17 | NUR ---
MS RN NOTES CALLED THE PATIENT AT APPROXIMATELY 0300 TO ASK THE PATIENT WHERE HE WAS, HE WASN'T IN THE UNIT. PER PATIENT, HE'LL BE UP IN THE UNIT IN A LITTLE BIT.
--- NOTE | 2021-06-12 04:02 | NUR ---
MS RN NOTES PATIENT IS STILL OUTSIDE THE UNIT.
--- NOTE | 2021-06-12 05:13 | NUR ---
MS RN NOTES PATIENT IS STILL OUT OF THE UNIT SINCE APPROXIMATELY 3. PATIENT WAS CALLED VIA PHONE AT THIS TIME. PER PATIENT, HE'S COMING UP TO THE UNIT NOW.
--- NOTE | 2021-06-12 05:24 | NUR ---
MS RN NOTES PATIENT STILL DID NOT COME TO THE UNIT SINCE I CALLED HIM AT 0402. PATIENT IS UNCOOPERATIVE.
--- NOTE | 2021-06-12 06:20 | NUR ---
MS RN NOTES PATIENT JUST CAME TO THE UNIT AT THIS TIME. PATIENT WAS GONE FROM THE UNIT FOR APPROXIMATELY 8 HOURS.
--- NOTE | 2021-06-12 07:30 | NUR ---
MS RN CLOSING NOTES PATIENT WAS SEEN AWAKE IN HIS ROOM. PATIENT'S ALERT AND ORIENTED X4. PT IS STABLE ON ROOM AIR. PATIENT'S IN NO ACUTE DISTRESS AT THIS TIME. SAFETY MEASURES IN PLACE: BED LOCKED, SIDE RAILS UP X2, AND CALL LIGHT WITHIN REACH OF THE PATIENT. ENDORSED CARE TO THE DAY SHIFT NURSE.
--- NOTE | 2021-06-12 07:30 | NUR ---
RN CLINICAL TRIAL NOTES: RECEIVED PATIENT IN BED AWAKE. ALERT AND ORIENTED TIMES 4. NO SOB NOTED, NO RESPIRATORY DISTRESS NOTED. NO PAIN NOTED. BED IN THE LOWEST POSITION AND LOCKED. CALL LIGHT AND TABLE WITHIN REACH. WILL CONTINUE TO MONITOR.
[2021-06-12 08:00] VITALS: BP_SYST 135; BP_SYST 136; BP_DIAS 85
[2021-06-12] MEDS: NEOMY SULF/BACITRAC ZN/POLY 15 GM TUBE TP SCH (08:22)
--- NOTE | 2021-06-12 09:30 | NUR ---
RN NOTES PATIENT IS AT ROOM ASLEEP, BUT EASILY AWAKENS TO VERBAL AND TACTILE STIMULI.
[2021-06-12] MEDS: INVEST MED Kar XT OR PLACEBO 50/20 MG PO SCH (10:00)
--- NOTE | 2021-06-12 10:25 | NUR ---
RN NOTES PATIENT LEFT UNIT WITH DR. ALY'S RADIATION PROTECTION SPECIALIST FOR BLOOD DRAW.
--- NOTE | 2021-06-12 11:10 | NUR ---
RN NOTES PATIENT CAME BACK FROM DR. ALY'S OFFICE.
--- NOTE | 2021-06-12 11:40 | NUR ---
PASTOR NOTES PATIENT NOT IN HIS ROOM AT THIS TIME. Addendum: 06/12/21 at 1218 by MICHAEL ALCANTARA RN PATIENT LEFT UNIT WITHOUT SIGNING OUT.
--- NOTE | 2021-06-12 12:06 | NUR ---
RN NOTES PATIENT STILL NOT IN HIS ROOM AT THIS TIME.
--- NOTE | 2021-06-12 12:53 | NUR ---
RN NOTES PATIENT IS IN ROOM AT [facility] TIME. REINFORCED INSTRUCTIONS TO LOG IN AND OUT EVERY TIME HE LEAVES HE UNIT. PATIENT VERBALIZED UNDERSTANDING.
--- NOTE | 2021-06-12 13:12 | NUR ---
RN NOTES CHECKED ON PATIENT AGAIN. PATIENT NOT IN HIS ROOM AT THIS TIME. HE ALSO DIDN'T SIGN OUT DESPITE REINFORCEMENT OF INSTRUCTIONS.
--- NOTE | 2021-06-12 14:19 | NUR ---
RN NOTES CHECKED THE PATIENT , HE IS NOT IN HIS ROOM.
--- NOTE | 2021-06-12 15:37 | NUR ---
RN NOTES STEVEN NOT IN HIS ROOM AT THIS TIME.
[2021-06-12 16:17] VITALS: BP 133/75
--- NOTE | 2021-06-12 17:18 | NUR ---
RN NOTES PATIENT IN BED RESTING, NO UNUSUAL BEHAVIOR NOTED.
--- NOTE | 2021-06-12 18:45 | NUR ---
RN CLINICAL TRIAL NOTES: PATIENT IN BED AWAKE. ALERT AND ORIENTED TIMES 4. NO SOB NOTED, NO RESPIRATORY DISTRESS NOTED. NO PAIN NOTED. BED IN THE LOWEST POSITION AND LOCKED. CALL LIGHT AND TABLE WITHIN REACH. WILL ENDORSE TO ONCOMING NURSE FOR [place].
[2021-06-12 20:00] VITALS: BP 130/80
[2021-06-12 20:49] VITALS: BP 130/80
--- NOTE | 2021-06-13 06:50 | NUR ---
MS/RN CLOSING NOTE PATIENT CURRENTLY RESTING IN BED. ALERT AND ORIENTED X 4. ABLE TO MAKE NEEDS KNOWN. DENIES PAIN AT THIS TIME. CONTINUES ON ROOM AIR WITH NO S/SX OF RESPIRATORY DISTRESS NOTED. NO IV ACCESS AT THIS TIME. CONTINUES ON CLINICAL TRIAL AND INVESTIGATIONAL MEDICATIONS. CALL LIGHT WITHIN REACH. ASPIRATION, FALL AND SAFETY PRECAUTIONS MAINTAINED. WILL ENDORSE PLAN OF CARE TO ONCOMING SHIFT.
--- NOTE | 2021-06-13 07:30 | NUR ---
MS RN OPENING NOTE RECEIVED PATIENT CURRENTLY RESTING IN BED. ALERT AND ORIENTED X 4. ABLE TO MAKE NEEDS KNOWN. ON ROOM AIR TOLERATING WELL. NO SOB NOTED. NOT IN DISTRESS. WITH NO COMPLAINTS OF PAIN OR DISCOMFORT AT THIS TIME. WITH NO IV LINE. ON CLINICAL TRIAL. SAFETY MEASURES IN PLACE. CALL LIGHT WITHIN REACH. BED ON LOWEST AND LOCKED POSITION, SIDE RAILS UP X2. WILL CONTINUE TO MONITOR.
--- NOTE | 2021-06-13 07:30 | NUR ---
MS/RN CLOSING NOTE PATIENT CURRENTLY RESTING IN BED. ALERT AND ORIENTED X 4. ABLE TO MAKE NEEDS KNOWN. ON ROOM AIR TOLERATING WELL. NO SOB NOTED. NOT IN DISTRESS. WITH NO COMPLAINTS OF PAIN OR DISCOMFORT AT THIS TIME. WITH NO IV LINE. ON CLINICAL TRIAL. SAFETY MEASURES IN PLACE. CALL LIGHT WITHIN REACH. BED ON LOWEST AND LOCKED POSITION, SIDE RAILS UP X2. WILL CONTINUE TO MONITOR. Addendum: 06/13/21 at 1146 by CELY MINOR RN ERROR
[2021-06-13] MEDS: NEOMY SULF/BACITRAC ZN/POLY 15 GM TUBE TP SCH (09:00)
[2021-06-13 10:00] VITALS: BP 132/78
[2021-06-13] MEDS: INVEST MED Kar XT OR PLACEBO 50/20 MG PO SCH ×3 (10:12→22:11)
--- NOTE | 2021-06-13 11:45 | NUR ---
MS RN OPENING NOTE RECEIVED PATIENT CURRENTLY RESTING IN BED. ALERT AND ORIENTED X 4. ABLE TO MAKE NEEDS KNOWN. ON ROOM AIR TOLERATING WELL. NO SOB NOTED. NOT IN DISTRESS. WITH NO COMPLAINTS OF PAIN OR DISCOMFORT AT THIS TIME. WITH NO IV LINE. ON CLINICAL TRIAL. SAFETY MEASURES IN PLACE. CALL LIGHT WITHIN REACH. BED ON LOWEST AND LOCKED POSITION, SIDE RAILS UP X2. WILL CONTINUE TO MONITOR. Addendum: 06/13/21 at 1146 by CELY MINOR RN ERROR
[2021-06-13 16:00] VITALS: BP 137/81
--- NOTE | 2021-06-13 18:58 | NUR ---
MS RN OPENING NOTE PATIENT SITTING ON BED, AWAKE, ALERT AND ORIENTED X 4. ABLE TO MAKE NEEDS KNOWN. ON ROOM AIR TOLERATING WELL. NO SOB NOTED. NOT IN DISTRESS. WITH NO COMPLAINTS OF PAIN OR DISCOMFORT AT THIS TIME. WITH NO IV LINE. ON CLINICAL TRIAL. SAFETY MEASURES IN PLACE. CALL LIGHT WITHIN REACH. BED ON LOWEST AND LOCKED POSITION, SIDE RAILS UP X2. WILL ENDORSE TO NEXT SHIFT FOR [place].
--- NOTE | 2021-06-13 19:30 | NUR ---
MS RN OPENING PATIENT CURRENTLY NOT IN THE ROOM ON N[facility] REPORT.
[2021-06-13 20:00] VITALS: BP 123/80
[2021-06-13 20:05] VITALS: BP 123/80
--- NOTE | 2021-06-13 22:02 | NUR ---
MS RN NOTE PATIENT STILL NOT IN ROOM AT THIS TIME FOR ID MEDICATION. WILL LET CHARGE KNOW.
--- NOTE | 2021-06-13 22:04 | NUR ---
MS RN NOTE LET CHARGE NURSE JONAS AWARE THAT PATIENT HAS BEEN GONE THE ROOM SINCE [facility] REPORT. JONAS NOW CALLING SECURITY. WILL CONT. TO MONITOR.
--- NOTE | 2021-06-13 22:06 | NUR ---
MS RN NOTE PATIENT BACK AT THIS TIME. PER PATIENT HE WAS LOCKED DOWN HENCE HE WAS LATE.
--- NOTE | 2021-06-14 07:16 | NUR ---
MS RN NOTE REPORT GIVEN TO FABIAN FOR THE CONT. OF CARE. PATIENT DID NOT EXHIBIT ANY AK[place], EPS, NOR ANY PSYCH INSTABILITY.
--- NOTE | 2021-06-14 08:03 | NUR ---
RN opening notes: Received pt. asleep in bed, breathing is even and unlabored. Will continue to monitor for safety.
[2021-06-14] MEDS: NEOMY SULF/BACITRAC ZN/POLY 15 GM TUBE TP SCH (09:00)
--- NOTE | 2021-06-14 09:54 | NUR ---
Pt refused for the Bacitracin ointment and said it is already healed and doesn't want to show the affected area to the staff.
[2021-06-14] MEDS: INVEST MED Kar XT OR PLACEBO 50/20 MG PO SCH ×2 (10:09→22:00)
--- NOTE | 2021-06-14 15:38 | NUR ---
At about 10:30 AM, pt. left in the unit and until this time pt. is not back yet. Charge nurse made aware.
[2021-06-14 16:00] VITALS: BP 159/91
[2021-06-14 16:47] VITALS: BP 153/91
--- NOTE | 2021-06-14 19:50 | NUR ---
MS RN OPENING PATIENT NOT IN THE ROOM DURING THE [facility] REPORT.
[2021-06-14 21:50] VITALS: BP 109/56
--- NOTE | 2021-06-15 06:25 | NUR ---
MS RN CLOSING PATIENT IN BED SLEEPING AT THIS TIME. DID NOT EXHIBIT ANY S/S OF AKATHISIA, EPS, NOR PSYCH INSTABILITIES. DENIED ANY HALLUCINATIONS. NO SIGNIFICANT CHANGE. WILL ENDORSE TO MORNING SHIFT RN FOR CONTINUITY OF CARE.
--- NOTE | 2021-06-15 07:40 | NUR ---
NATIONAL INVESTIGATIVE PRODUCER OPENING NOTES RECEIVED PATIENT IN BED, ASLEEP. PATIENT ON ROOM AIR; BREATHING EVEN AND UNLABORED, NO SOB NOTED. SAFETY PRECAUTIONS IN PLACE; BED IN LOW POSITION AND LOCKED, RAILS UP X2, CALL LIGHT WITHIN REACH. WILL CONTINUE TO MONITOR PATIENT.
[2021-06-15] MEDS: NEOMY SULF/BACITRAC ZN/POLY 15 GM TUBE TP SCH (09:00)
[2021-06-15] MEDS: INVEST MED Kar XT OR PLACEBO 50/20 MG PO SCH ×2 (15:25→22:00)
--- NOTE | 2021-06-15 18:52 | NUR ---
MS RN CLOSING NOTES PATIENT IN ROOM, AWAKE, A/O X4. PATIENT ON ROOM AIR; BREATHING EVEN AND UNLABORED, NO SOB NOTED. ALL NEEDS ATTENDED DURING THE DAY. SAFETY PRECAUTIONS IN PLACE; BED IN LOW POSITION AND LOCKED, RAILS UP X2, CALL LIGHT WITHIN REACH. WILL ENDORSE TO LOCKSTITCH WAISTBAND SETTER NURSE FOR N[place]IA.
[2021-06-15 20:00] VITALS: BP 123/70
--- NOTE | 2021-06-15 20:46 | NUR ---
MS RN OPENING NOTES: RECEIVED PATIENT CAME FROM OUTSIDE ON STABLE CONDITION, NO COMPLAIN OF PAIN AND DISCOMFORT, PATIENT IS ON CLINICAL TRIAL, AMBULATORY A/OX4 ABLE TO MAKE NEEDS KNOWN, SEEN ON ROOM ON STABLE CONDITION, ALL NEEDS MET, WILL CONTINUE TO MONITOR.
--- NOTE | 2021-06-16 06:50 | NUR ---
MS RN CLOSING NOTES: PATIENT SLEEP IN BED COMFORTABLY, BED IN LOW POSITION, CALL LIGHTS WITHIN REACH, NO COMPLAIN OF PAIN AND DISCOMFORT AT THIS TIME, PATIENT IS A/OX4 AMBULATORY AND ABLE TO EXPRESS ITS NEED, PATIENT ON CLINICAL TRIAL NO CHANGES IN BEHAVIOR HAS BEEN OBSERVED, KEPT CLEAN AND DRY, ALL NEEDS MET, ENDORSE TO INCOMING SHIFT.
--- NOTE | 2021-06-16 07:15 | NUR ---
MS RN OPENING NOTES: PATIENT IN BED ASLEEP, A/O X 4. ON ROOM AIR, BREATHING EVENLY AND UNLABORED. NO COMPLAIN OF PAIN AND DISCOMFORT AT THIS TIME. NO IV ACCESS DUE TO CLINICAL TRIAL STATUS. SAFETY PRECAUTIONS IN PLACE: BED IN LOW, LOCKED POSITION; SIDERAILS UP X 2; CALL LIGHT WITHIN REACH. WILL CONTINUE TO MONITOR.
[2021-06-16 08:00] VITALS: BP 158/98
[2021-06-16] MEDS: NEOMY SULF/BACITRAC ZN/POLY 15 GM TUBE TP SCH (08:00)
[2021-06-16] MEDS: INVEST MED Kar XT OR PLACEBO 50/20 MG PO SCH ×2 (10:07→22:01)
--- NOTE | 2021-06-16 18:34 | NUR ---
MS RN CLOSING NOTE PATIENT IN BED AWAKE, A/O X 4; ABLE TO MAKE NEEDS KNOWN. STABLE ON ROOM AIR, NO SOB OR S/S OF DISTRESS NOTED. DENIES PAIN OR ANY DISCOMFORT AT THIS TIME. NO IV ACCESS DUE TO CLINICAL TRIAL STATUS. DUE MEDS GIVEN. SAFETY PRECAUTIONS MAINTAINED: BED IN LOW, LOCKED POSITION; SIDERAILS UP X 2; CALL LIGHT WITHIN REACH. WILL ENDORSE TO QUALITY ASSURANCE NURSE FOR N[place]IA.
--- NOTE | 2021-06-16 19:47 | NUR ---
MS RN OPENING NOTES: RECEIVED PATIENT AWAKE IN BED, A/O4 AMBULATORY , NO COMPLAIN OF PAIN AND DISCOMFORT AT THIS TIME, PATIENT IS ON CLINICAL TRIAL, NOO CHANGES IN BEHAVIOR WAS OBSERVED, WILL CONTINUE TO MONITOR.
[2021-06-16 20:00] VITALS: BP 136/78
--- NOTE | 2021-06-17 06:23 | NUR ---
MS RN CLOSING NOTE PATIENT SLEEP IN BED COMFORTABLY, BED IN LOW POSITION, CALL LIGHTS WITHIN REACH, NO COMPLAIN OF PAIN AND DISCOMFORT AT THIS TIME, PATIENT IS A/O4 ON CLINICAL TRIAL ABLE TO MAKE NEEDS KNOWN, ALL NEEDS MET, ENDORSE TO INCOMING SHIFT.
--- NOTE | 2021-06-17 07:14 | NUR ---
MS RN OPENING NOTE PATIENT AWAKE IN BED, A/O X4, PT ABLE TO MAKE NEEDS KNOWN. PT IS STABLE ON ROOM AIR, NO SOB OR S/S OF RESPIRATORY DISTRESS NOTED. PT DENIES PAIN OR DISCOMFORT AT THIS TIME. NO IV ACCESS DUE TO CLINICAL TRIAL STATUS. SAFETY PRECAUTIONS IN PLACE: BED LOCKED IN LOW POSITION, HOB ELEVATED, SIDE RAILS UP X2, CALL LIGHT AND TABLE WITHIN REACH. WILL CONTINUE TO MONITOR
[2021-06-17] MEDS: NEOMY SULF/BACITRAC ZN/POLY 15 GM TUBE TP SCH (08:15)
[2021-06-17 08:38] VITALS: BP 148/88
[2021-06-17] MEDS: INVEST MED Kar XT OR PLACEBO 50/20 MG PO SCH ×2 (10:00→21:17)
[2021-06-17 20:00] VITALS: BP 118/61
--- NOTE | 2021-06-18 08:00 | NUR ---
m/s ground layer: notes received pt in bed awake, a/ox4. no c/o pain or any discomfort. no distress noted. will continue to monitor.
[2021-06-18] MEDS: NEOMY SULF/BACITRAC ZN/POLY 15 GM TUBE TP SCH (09:00)
[2021-06-18] MEDS: INVEST MED Kar XT OR PLACEBO 50/20 MG PO SCH ×2 (10:30→21:35)
--- NOTE | 2021-06-18 17:00 | NUR ---
m/s associate editor: notes dr. rouse notified and made aware re: pt hasn't been here since the whole afternoon.
--- NOTE | 2021-06-18 17:40 | NUR ---
m/s network and threat support specialist: notes pt came back now, dr. rouse made aware.
--- NOTE | 2021-06-18 18:20 | NUR ---
m/s food assembler: notes resting comfortable in bed. no distress noted. awaiting for dr. rouse to make rounds. md aware of pt's status today.
--- NOTE | 2021-06-18 19:00 | NUR ---
m/s screedman/laborer: notes report given to sally (rn) for continuity of care.
--- NOTE | 2021-06-18 19:15 | NUR ---
MS RN OPENING NOTES: RECEIVED PATIENT IN THE BATHROOM, A/O X4. NO COMPLAIN OF PAIN.
--- NOTE | 2021-06-18 20:52 | NUR ---
PER OK DEMARCO, PATIENT REFUSED THE V/S TO BE TAKEN.
--- NOTE | 2021-06-19 07:30 | NUR ---
RN MS NOTES PT IN BED, AWAKE, ALERT AND ORIENTED, NO COMPLAINT AT THIS TIME, RESPIRATIONS NORMAL, CALL LIGHT WITHIN REACH.
[2021-06-19 08:00] VITALS: BP 128/74
[2021-06-19] MEDS: NEOMY SULF/BACITRAC ZN/POLY 15 GM TUBE TP SCH (09:00)
[2021-06-19] MEDS: INVEST MED Kar XT OR PLACEBO 50/20 MG PO SCH ×2 (10:07→21:11)
--- NOTE | 2021-06-19 13:00 | NUR ---
RN MS NOTES PT IN HIS ROOM, ALERT AND ORIENTED, NO COMPLAINT AT THIS TIME, ATE LUNCH, NO BEHAVIOR PROBLEM AT THIS TIME.
[2021-06-19 16:00] VITALS: BP 126/84
--- NOTE | 2021-06-19 19:10 | NUR ---
MS RN OPENING NOTES: PATIENT IS NOT IN THE ROOM AT THIS TIME. WILL CHECK AGAIN LATER.
--- NOTE | 2021-06-19 20:10 | NUR ---
PT CAME BACK FROM OUTSIDE. NO S/S OF DISTRESS NOTED. NO COMPLAIN OF PAIN.
--- NOTE | 2021-06-19 20:37 | NUR ---
PATIENT REFUSED THE V/S TAKING PER EXCELLENCE CONSULTANT MARY KATE.
--- NOTE | 2021-06-20 07:40 | NUR ---
RN OPENING NOTES Patient seen comfortably lying in bed, no SOB, no apparent distress noted, breathing even and unlabored, denies any pain or discomfort at this time. Call light left within reach, safety precautions in place, brakes locked, side rails up X 2, will monitor closely for any changes.
[2021-06-20] MEDS: NEOMY SULF/BACITRAC ZN/POLY 15 GM TUBE TP SCH (09:21)
--- NOTE | 2021-06-20 10:54 | NUR ---
Patient to be discharged today, no apparent distress noted, no tremors, no hallucinations, and no delusions at this time, denies any pain or discomfort. Patient made aware of the situation, he signed all discharge paperwork, all belongings taken. Health teaching provided, verbalized understanding and gratitude. Skin assessment done prior to discharge, skin intact, warm to touch, no pallor or cyanosis noted, noted to have right knee and left lower leg open areas of the skin, no s/s of infection, no redness, no abnormal drainage, patient preferred not to have pictures of his knee and lower leg, explained risks and benefits thrice, still refused, respected patient's wish. Name wristband removed prior to discharge, surgical mask provided for patient to use. RN assisted patient going to the hospital parking lot via wheelchair, left unit at 10:54am, stable condition, exitcare documents handed to patient.
== END 2021-06-20 11:45 | disposition home or self-care (01) | DRG 951 ==
LOC: MED 14:43
PROVIDERS: ADMIT Psychiatry & Neurology Psychiatry; ATTEND Psychiatry & Neurology Psychiatry
DX: Z00.6 Encounter for examination for normal comparison and control in clinical research program (principal); F20.0 Paranoid schizophrenia; Z20.822 Contact with and (suspected) exposure to COVID-19; I10 Essential (primary) hypertension; Z91.09 Other allergy status, other than to drugs and biological substances; Z79.899 Other long term (current) drug therapy
CPT/HCPCS: 87081-TC; G0378